=== PATIENT | male | born 1960 | race Caucasian/White ===

== ENCOUNTER 2024-11-23 00:49 | Emergency (ER) | payer MEDICAID, SELFPAY ==
[2024-11-23] VITALS (15 sets, daily range): BP systolic 125–152; BP diastolic 59–84; PULSE 72–90; RESP 15–26; TEMP 36.5; O2SAT 96–99
--- NOTE | 2024-11-23 00:44 | ED.GENADUL_ITS ---
Discharge Plan Disposition Condition: Stable Discharge Details Chief Complaint: Fall/Non TraumaCriteria Clinical Impression: Facial contusion, Right shoulder injury, Contusion of hip, right, Homeless single person ED Provider: Tan Aranda and New Rx's Prescriptions: No Action Unable to Obtain HPI General Mode of arrival: EMS . Date/Time Provider Initiated Documentation: 11/23/24 00:59 . Limitations to Documentation: no limitations . Information obtained by: patient and RN notes reviewed . HPI Narrative: Patient presents to ED by ambulance after slip and fall outside. Patient admits to alcohol use tonight. Slipped and fell outside on the ice. Landed on his right side. Unsure whether he had loss of consciousness or not. Complains of right shoulder and right hip pain. Does have bruising and abrasion to the right orbital area. Denies any neck pain, back pain, chest pain, shortness of breath. He is able to ambulate and put weight on his right lower extremity. He is unable to move his right upper extremity because of pain in the shoulder. Related Data Home Medications ?Medication ?Instructions ?Recorded ?Confirmed Unknown [Unable to Obtain] 11/23/24 11/23/24 Allergies Allergy/AdvReac Type Severity Reaction Status Date / Time No Known Allergies Allergy Verified 11/23/24 01:49 Review of Systems Narrative: Per HPI Exam Narrative Exam Narrative: Gen: WDWN male in NAD. Not collared. VS per triage. HENT: NC. Bruising and abrasion around the right eye. No lacerations. Eyes: PERRL and EOMI. Neck: Trachea midline. Non-tender c-spine. Chest: Normal breathing with clear and equal BS. Chest wall NT. CV: RRR w/o murmur. Good distal pulses. Abd: S/ND/NT. Back: No TLS tenderness. Neuro: A+Ox3. Normal speech and mentation. CN II-XII intact. No gross motor or sensory deficit. Ext: No deformity. Minimal ROM at right shoulder due to pain, NVI distal. Tender over right hip area, able to bear weight. NVI distal. Skin: Warm and dry. Medical Decision Making Patient presenting to ED status post slip and fall outside, alcohol use tonight. He is not on anticoagulation but has evidence of head injury and is unsure whether he had LOC or not. He is neurologically intact. Will obtain CT head an d cervical spine given his alcohol use tonight and evidence of head injury. Also has right shoulder and hip pain. Will obtain x-rays of both. He is given IM ketorolac for his pain pending imaging. No indication for laboratory studies at this time. 02:15 - CT head and cervical spine negative per preliminary radiology read. Has arthritic and degenerative change of the cervical spine no fracture or dislocation. X-ray of right shoulder and right hip per my read with no acute fracture or dislocation. Patient is placed in a sling for comfort. He is asked to use ibuprofen or acetaminophen for pain and to place ice on the shoulder and hip on and off over the next few days as this appears to be all soft tissue injury. He is currently homeless and is being put up in a hotel by the [facility] up in [place]. Primary care is in [place], [place]. He has no transportation to get back to [place] from here much less get to [place] to see primary care. He also reports that he is running low on his medications and is not been able to get them transferred up to her pharmacy here. Because of these problems and because of lack of transportation overnight I will keep him in the ED to be seen by case management in the morning. Ideally, it would be good to get him primary care in [place] for the time being as it is unclear when he might be able to move back to [place]. 06:45 - [facility] pending case management consult this morning. Imaging Data Radiologic Study: Attestation: I personally reviewed and interpreted this imaging study as follows: Imaging: X-Ray My impression: see MDM Quality:SDOH Health Related Social Needs: Health related social needs details Homeless and stayi ng in hotel [facility] arranged; no access to transportation; no PCP in area Health related social needs details: Homeless and staying in [facility] arranged; no access to transportation; no PCP in area Referrals and interventions: Case management to [facility] All Active Problems (Updated 11/23/24 @ 02:34 by Tan Aranda MD) Homeless single person (Acute) Contusion of hip, right (Acute) Right shoulder injury (Acute) Facial contusion (Acute) Medical History Depression PTSD (post-traumatic stress disorder) Diabetes mellitus HTN (hypertension) Social History Smoking/Tobacco Use Status: Current every day Smoking risk assessment performed?: Yes Alcohol Intake: current Alcohol Intake frequency: 3 or more drinks per day Alcohol type: beer and hard liquor Drug use: Never Substance use type: does not use Housing: apartment Do you feel safe at home: Yes Do you feel safe in your relationship?: Yes
[2024-11-23] MEDS: Ketorolac 30 MG/ML VIAL IM (01:05)
--- NOTE | 2024-11-23 01:45 | DI.CT_ITS ---
Exam(s) CT HEAD CERVICAL SPINE WO EXAM: CT HEAD CERVICAL SPINE WO CLINICAL HISTORY: fall w head injury/intoxicated. TECHNIQUE: Imaging Protocol: Axial computed tomography images with coronal and sagittal reformatted images were created and reviewed COMPARISON: No exams were available for comparison FINDINGS: CT Head: Ventricles and Extra axial spaces: Normal in size and morphology for the patient's age. Hemorrhage: None. Cerebral parenchyma: Normal. Midline shift: None. Brainstem/Cerebellum: Normal. Calvarium: Normal. Visualized Paranasal sinuses/Mastoids: Clear. Soft Tissues: Unremarkable. CT Cervical Spine: Bones: No acute fracture or subluxation. There are degenerative changes seen in the cervical spine. Findings are most marked at C4-C5 on the right. Soft Tissues: Unremarkable. Lung Apices: Clear. IMPRESSION: 1. No acute intracranial process. 2. No acute fracture or subluxation in the cervical spine. RADIATION DOSE DELIVERED: 1,287.66mGy.cm Total DLP DATA REPOSITORY: All CT scans at this facility are submitted to the National Radiology Data Registry (NRDR) Dose Index Registry (DIR) with the [employer] (ACR). RADIATION OPTIMIZATION: All CT scans at this facility use at least one of these dose optimization te chniques: automated exposure control; mA and/or kV adjustment per patient size (includes targeted exa ms where dose is matched to clinical indication); or iterative reconstruction.
--- NOTE | 2024-11-23 01:45 | DI.RAD_ITS ---
Exam(s) XR HIP RT COMPLETE AP PELVIS EXAM: XR HIP RT COMPLETE AP PELVIS CLINICAL HISTORY: fall/trauma. TECHNIQUE: 2D digital imaging was performed of the right hip. Two images were obtained. AP pelvis a nd lateral right hip views were obtained. COMPARISON: No exams were available for comparison FINDINGS: BONES: No acute fracture is present. No bony destructive lesion is seen. JOINTS: No dislocation present. SOFT TISSUE: Normal. IMPRESSION: No acute fracture or dislocation. DATA REPOSITORY: RADIATION DOSE DELIVERED:
--- NOTE | 2024-11-23 01:45 | DI.RAD_ITS ---
Exam(s) XR SHOULDER RT COMPLETE 2+V EXAM: XR SHOULDER RT COMPLETE 2+V CLINICAL HISTORY: fall/trauma. TECHNIQUE: 2D digital imaging was performed of the right shoulder. Four images were obtained. AP, Grashey and Y views were obtained. COMPARISON: No exams were available for comparison FINDINGS: BONES: No acute fracture is present. No bony destructive lesion is seen. JOINTS: No dislocation present. There are degenerative changes seen at both the acromioclavicular and glenohumeral joints. There is mild spurring at the lateral aspect of the acromion. There is also m ild narrowing of the acromial humeral interval which can be seen with chronic rotator cuff tear. SOFT TISSUE: Normal. IMPRESSION: No acute fracture or dislocation. DATA REPOSITORY: RADIATION DOSE DELIVERED:
--- NOTE | 2024-11-23 01:59 | DI.VRAD_ITS ---
PROCEDURE INFORMATION: Exam: CT Head Without Contrast Exam date and time: 11/23/2024 1:09 AM Age: 64 years old Clinical indication: Injury or trauma; Blunt trauma (contusions or hematomas); Consciousness not specified; Injury date: 11/23/24; Injury details: Slipped on ice; Fall w head injury/intoxicated TECHNIQUE: Imaging protocol: Computed tomography of the head without contrast. Radiation optimization: All CT scans at this facility use at least one of these dose optimization techniques: automated exposure control; mA and/or kV adjustment per patient size (includes targeted exams where dose is matched to clinical indication); or iterative reconstruction. COMPARISON: No relevant prior studies available. FINDINGS: Brain: Normal. No hemorrhage. Unremarkable white matter. No mass effect. Cerebral ventricles: No ventriculomegaly. Paranasal sinuses: Visualized sinuses are unremarkable. No fluid levels. Mastoid air cells: Visualized mastoid air cells are well aerated. Bones: Unremarkable. No acute fracture. Soft tissues: Unremarkable. IMPRESSION: Normal unenhanced CT scan of the brain. PROCEDURE INFORMATION: Exam: CT Cervical Spine Without Contrast Exam date and time: 11/23/2024 1:09 AM Age: 64 years old Clinical indication: Injury or trauma; Blunt trauma (contusions or hematomas); Consciousness not specified; Injury date: 11/23/24; Injury details: Slipped on ice; Fall w head injury/intoxicated TECHNIQUE: Imaging protocol: Computed tomography of the cervical spine without contrast. Radiation optimization: All CT scans at this facility use at least one of these dose optimization techniques: automated exposure control; mA and/or kV adjustment per patient size (includes targeted exams where dose is matched to clinical indication); or iterative reconstruction. COMPARISON: No relevant prior studies available. FINDINGS: Bones: There is normal alignment of the cervical vertebral bodies and discs with loss of the normal lordosis of the cervical spine. Osteoarthritic changes identified at multiple levels with a mild anterolisthesis of C4 in relation to C5 which is degenerative in nature. No evidence for spondylolysis. No acute fracture. No central spinal stenosis or cord compression identified. Neural foraminal narrowing identified at several levels secondary to uncovertebral joint and facet joint arthropathy. Lungs: Lung apices are normal. Soft tissues: Unremarkable. IMPRESSION: 1. No evidence for acute fracture. 2. Osteoarthritic changes as detailed above without underlying spinal stenosis or cord compression. Dictated and Authenticated by: Jose Eduardo Headley MD. Orderin Manoj Maddox MD
--- NOTE | 2024-11-23 02:15 | DI.VRAD_ITS ---
PROCEDURE INFORMATION: Exam: XR Right Hip Exam date and time: 11/23/2024 1:26 AM Age: 64 years old Clinical indication: Injury or trauma; Fall; Blunt trauma (contusions or hematomas); Right; Hip; Injury date: 11/23/24; Injury details: Slipped on ice TECHNIQUE: Imaging protocol: Radiologic exam of the right hip. Views: 2 or 3 views hip with pelvis when performed. COMPARISON: No relevant prior studies available. FINDINGS: Bones/joints: Unremarkable. No acute fracture. Soft tissues: Unremarkable. IMPRESSION: No acute findings. Dictated and Authenticated by: Jose Eduardo Headley MD. Orderin Manoj Maddox MD
--- NOTE | 2024-11-23 02:16 | DI.VRAD_ITS ---
PROCEDURE INFORMATION: Exam: XR Right Shoulder Exam date and time: 11/23/2024 1:33 AM Age: 64 years old Clinical indication: Injury or trauma; Fall; Blunt trauma (contusions or hematomas); Shoulder; Right; Injury date: 11/23/24; Injury details: Slipped on ice TECHNIQUE: Imaging protocol: Radiologic exam of the right shoulder. Views: 2 or more views. COMPARISON: CT HEAD CERVICAL SPINE WO 11/23/2024 1:09 AM FINDINGS: Bones/joints: No acute fracture. Osteoarthritis of the glenohumeral joint. No dislocation. Soft tissues: Normal. IMPRESSION: 1. No evidence for acute fracture. 2. Osteoarthritis. Dictated and Authenticated by: Jose Eduardo Headley MD. Orderin Manoj Maddox MD
[2024-11-23] MEDS: Lidocaine 5% Patch 1 PATCH TP (03:43)
--- NOTE | 2024-11-23 07:09 | W.EDPROG ---
Date of service: 11/23/24 Time of Service: 07:09 Medical Decision Making In brief, this is a 64-year-old male patient presenting for evaluation after a fall. He had his injuries fully worked up by the provider prior to my taking over his care. At the time that care was signed out to me, his disposition was pending a care management consultation as he will require transportation back to [place] and assistance in obtaining a primary care provider at that clinic. The patient care nursing assistant was able to discuss with this patient and provide him with assistance with transportation as well as a referral for a case investigator in his hometown. At this time, the patient has had a full medical evaluation and is safe for discharge to home. They are hemodynamically stable, ambulatory, and tolerating PO. They are understanding of the follow-up plan and return precautions. They left our facility without incident. Ana Prescott MD Medical Records Medical records reviewed: Yes I reviewed the patient's medical records. Quality:SDOH Health Related Social Needs: Health related social needs details Homeless and staying in hotel that state arranged; no access to transportation; no PCP in area Discharge Plan Disposition Patient Disposition: Home Condition: Stable Discharge Details Clinical Impression: Facial contusion, Right shoulder injury, Contusion of hip, right, Homeless single person Primary Care Provider: Unknown,Unknown ED Provider: Ana Prescott Home Meds and New Rx's Prescriptions: No Action Unable to Obtain Discharge Instructions Instructions: Minor Contusion ED Additional Instructions: You were seen in the emergency department today for evaluation after a fall. In our department he had a full physical examination performed and had reassuring imaging studies. You met with a member of our care management team and we will attempt to connect you with a patient care nursing assistant in your hometown to assist you with getting a primary care provider and any other needs you have. Thank you for allowing us to be part of your care.
--- OUTSIDE RECORDS SUMMARY | 2024-11-23 08:22 | XMS_ITS | Encounter Summary ---
Author Organization [facility] Address [facility] [place] [address] Care Team Providers Care Acupuncturist Name Role Phone Ward Sofia T PA Primary Care Provider [phone] Reason for Visit * Reason Comments Post Op Encounter Details Date Type Department Care Team (Late st Contact Info) Description 05/18/2024 3:15 PM EDT Office [place] [address] Marcus Owen MD [facility] [place] [address] Pseudophakia Social History Tobacco Use Types Packs/Day Years Used Date Smoking Tobacco: Former Cigarettes 0.3 35 0 02/05/1983 - 02/05/2018 Smokeless Tobacco: Never Comments:avs information Alcohol Use Standard Drinks/Week Comments Yes 0 (1 standard drink = 0.6 oz pur e alcohol) 0-12 beers / week [facility] Inpatient Questions Answer Date Recorded Does Anyone Try to Keep You From Having Contact with Others or Doing Things Outside Your Home? 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 Pseudophakia Seferino Honeycutt . with S/p IOL exchange OS to ACIOL after dislocated PCIOL 04/14/2024 Doing well with a normal post operative appearance. Seferino is pleased with the results of surgery and has no complaints or problems. 20/20 O[facility] Hx retinal detachments bilaterally, OD surgery at [address], OS at [facility] 2007 (HAYDEE): follow up with Dr. Tam for continued retinal care. Plan: - Subjective refraction given - Stop all post operative drops - snf post op risks included retinal detachment and posterior capsular opacification reviewed. Follow up: - [address] Tam or as needed with [facility] Upon Return CEE documented in this encounter Plan of Treatment Not on file documented as of this encounter Visit Diagnoses Diagnosis Pseudophakia Lens replaced by other means documented in this encounter Care Teams Acupuncturist Relationship Specialty Start Date End Date Sofia Hopper PA [address] [place] [id number] PCP - General Internal Medicine 04/06/24 documented as of this encounter
--- OUTSIDE RECORDS SUMMARY | 2024-11-23 08:22 | XMS_ITS | Encounter Summary ---
Author Organization [facility] [place] [address] Care Team Providers Care Catering Attendant Name Role Phone Ward Sofia MASTERSON Primary Care Provider [phone] Reason for Visit * Reason Onset Date Comments Prior Authorization 09/26/2024 Xifaxan Encounter Details Date Type Department Care Team (Late st Contact Info) Description 09/26/2024 Telephone [place] [id number] Joanne Mclain CMA Prior Authorization (Xifaxan) Social History Tobacco Use Types Packs/Day Years Used Date Smoking Tobacco: Former Cigarettes 0.3 35 0 02/05/1983 - 02/05/2018 Smokeless Tobacco: Never Comments:avs information Alcohol Use Standard Drinks/Week Comments Yes 0 (1 standard drink = 0.6 oz pur e alcohol) 0-12 beers / week [facility] Inpatient Questions Answer Date Recorded Does Anyone [...] on file documented as of this encounter Miscellaneous Notes * Telephone Encounter - Joanne Mclain CMA - 09/26/2024 11:01 AM EST Submitted Date: Submitted Date: 09/26/24 Next Review Date: Next Review Date: 09/26/25 PA Outcome: PA Approval Medication Prior Authorization Approval Approved: Xifaxan 550 mg Start Date: 09/26/24 End Date: 09/26/25 Case/Reference #: [id number] Approval Letter will be scanned into media once received. * Telephone Encounter - Joanne Mclain CMA - 09/26/2024 8:44 AM EST PA Submitted Submitted Date: Date Submitted: 09/26/24 Medication Prior Authorization Patient: Seferino Honeycutt Jr. Patient : 1960 Insurance Company: [place] medicaid Sent via: Accountable Schreiber: : [id number] Physician: Steffanie Plummer APRN Medication Requested: rifAXIMin (Xifaxan) 550 mg tablet Frequency/Sig: Take 1 tablet by mouth 2 times daily. Disp: 60 Refills: 3 Currently taking: yes If yes, how lon Diagnosis for this medication: Hepatic cirrhosis, unspecified hepatic cirrhosis type, unspecified whether ascites present [K74.60] Hepatic Encephalopathy ICD-10 code: (K76.82 Prior medications trialed in this patient: Medication: Dulcolax Approx Dates: 2012 Outcome/Adverse Reactions: Inadequate response Medication: Cipro tablet Approx Dates: 2012 Outcome/Adverse Reactions: Inadequate response Medication: Colace Approx Dates: 2012 Outcome/Adverse Reactions: Inadequate response Medication: Lactulose Approx Dates: Outcome/Adverse Reactions: inadequate response Medication: Enulose Approx Dates: 01/2024-current Outcome/Adverse Reactions: inadequate response Medication: Miralax Approx Dates: 2012 Outcome/Adverse Reactions: inadequate response Additional Notes: Hepatic encephalopathy-he has not been taking lactulose and rifaximin recently although does believe these have helped in the past. New prescription sent today he plans to start these Hepatic encephalopathy-he has not been taking lactulose and rifaximin recently although does believe these have helped in the past. New prescription sent today he plans to start these documented in this encounter Plan of Treatment Not on file documented as of this encounter Visit Diagnoses Not on filedocumented in this encounter Care Teams Catering Attendant Relationship Specialty Start Date End Date Sofia Hopper PA [address] [place] [id number] PCP - General Internal Medicine 04/06/24 documented as of this encounter
--- OUTSIDE RECORDS SUMMARY | 2024-11-23 08:22 | XMS_ITS | Encounter Summary ---
Author Organization [facility] [place] [address] Care Team Providers Care Thermostat Machine Tender Name Role Phone Sofia Hopper Primary Care Provider [phone] Encounter Details Date Type Department Care Team (Latest Contact Info) Description 05/18/2024 Travel Social History Tobacco Use Types Packs/Day Years Used Date Smoking Tobacco: Former Cigarettes 0.3 35 0 02/05/1983 - 02/05/2018 Smokeless Tobacco: Never Comments:avs information Alcohol Use Standard Drinks/Week Comments Yes 0 (1 standard drink = 0.6 oz pur e alcohol) 0-12 beers / week [facility] Inpatient Questions Answer Date Recorded Does Anyone [...] on file documented as of this encounter Plan of Treatment Not on file documented as of this encounter Visit Diagnoses Not on filedocumented in this encounter Care Teams Thermostat Machine Tender Relationship Specialty Start Date End Date Sofia Hopper PA [address] [place] [id number] PCP - General Internal Medicine 04/06/24 documented as of this encounter
--- OUTSIDE RECORDS SUMMARY | 2024-11-23 08:22 | XMS_ITS | Encounter Summary ---
Author Organization [facility] Address [facility] [place] [address] Care Team Providers Care Statistics Manager Name Role Phone Sofia Hopper Primary Care Provider [phone] Reason for Visit * Reason Comments Medication Refill Encounter Details Date Type Department Care Team ([facility] st Contact Info) Description 07/29/2024 [place] [address] Steffanie Plummer APRN [facility] [place] [address] Hepatic encephalopathy Social History Tobacco Use Types Packs/Day Years Used Date Smoking Tobacco: Former Cigarettes 0.3 35 0 02/05/1983 - 02/05/2018 Smokeless Tobacco: Never Comments:avs information Alcohol Use Standard Drinks/Week Comments Yes 0 (1 standard drink = 0.6 oz pur e alcohol) 0-12 beers / week [facility] Inpatient Questions Answer Date Recorded Does Anyone [...] as of this encounter Visit Diagnoses Diagnosis Hepatic encephalopathy documented in this encounter Care Teams Statistics Manager Relationship Specialty Start Date End Date Sofia Hopper PA [address] [place] [address] [phone] PCP - General Internal Medicine 04/06/24 documented as of this encounter
--- OUTSIDE RECORDS SUMMARY | 2024-11-23 08:22 | XMS_ITS | Encounter Summary ---
Author Organization [place] [address] Care Team Providers Care Event Specialist Name Role Phone Ward Sofia MASTERSON Primary Care Provider [phone] Encounter Details Date Type Department Care Team (Late st Contact Info) Description 11/07/2024 [place] [phone] Mita Perdomo, RN Social History Tobacco Use Types Packs/Day Years [...] encounter Miscellaneous Notes * Telephone Encounter - Mita Perdomo RN - 11/07/2024 9:13 AM EST Reaching out to assist patient in scheduling the US (abdomen limited hepatology protocol) ordered by NP. Plummer on 02/10/24 (expected 08/11/24). The patient stated that now is not a convenient time because [place]. Asked patient to call the GI Clinic to coordinate imaging, labs, OV. documented in this encounter Plan of Treatment Not on file documented as of this encounter Visit Diagnoses Not on filedocumented in this encounter Care Teams Event Specialist Relationship Specialty Start Date End Date Sofia Hopper PA [address] [place] [phone] PCP - General Internal Medicine 04/06/24 documented as of this encounter
--- OUTSIDE RECORDS SUMMARY | 2024-11-23 08:22 | XMS_ITS | Encounter Summary ---
Author Organization [facility] [place] [address] Care Team Providers Care Dog Bather Name Role Phone Ward Sofia MASTERSON Primary Care Provider [phone] Encounter Details Date Type Department Care Team (Late st Contact Info) Description 08/08/2024 [place] [phone] Shelly Hackett LPN Social History Tobacco Use Types Packs/Day Years [...] encounter Miscellaneous Notes * Telephone Encounter - Shelly Hackett LPN - 08/08/2024 3:15 PM EDT PC to help schedule US Abdomen Limited Hepatology Protocol, along with Labs and FU OV ordered 02/10/24 by Steffanie Plummer APRN. Transferred patient to GI Clinic to coordinate documented in this encounter Plan of Treatment Not on file documented as of this encounter Visit Diagnoses Not on filedocumented in this encounter Care Teams Dog Bather Relationship Specialty Start Date End Date Sofia Hopper PA [address] [place] [id number] PCP - General Internal Medicine 04/06/24 documented as of this encounter
--- OUTSIDE RECORDS SUMMARY | 2024-11-23 08:22 | XMS_ITS | Encounter Summary ---
Author Organization [place] [address] Care Team Providers Care Magistrate Name Role Phone Sofia Hopper Primary Care Provider [phone] Reason for Visit * Reason Comments Medication Refill Encounter Details Date Type Department Care Team ([facility] st Contact Info) Description 07/29/2024 Refill Cardiology at [address] [address] Coby Bazan APRN [address] [place] [address] [place] [address] Medication Refill Social History Tobacco Use Types Packs/Day Years [...] on filedocumented in this encounter Care Teams Magistrate Relationship Specialty Start Date End Date Sofia Hopper PA [address] [place] [phone] PCP - General Internal Medicine 04/06/24 documented as of this encounter
--- OUTSIDE RECORDS SUMMARY | 2024-11-23 08:22 | XMS_ITS | Encounter Summary ---
Author Organization [facility] [place] [address] Care Team Providers Care Account Executive Agribusiness Name Role Phone Sofia Hopper Primary Care Provider Encounter Details Date Type Department Care Team ([facility] st Contact Info) Description 11/07/2024 [place] [phone] Mita Perdomo, RN Social History Tobacco Use [...] on filedocumented in this encounter Care Teams Account Executive Agribusiness Relationship Specialty Start Date End Date Sofia Hopper PA [address] [place] [phone] PCP - General Internal Medicine 04/06/24 documented as of this encounter
--- OUTSIDE RECORDS SUMMARY | 2024-11-23 08:22 | XMS_ITS | Encounter Summary ---
Author Organization [facility] [place] [address] Care Team Providers Care Poker Room Manager Name Role Phone Sofia Hopper Primary Care Provider [phone] Encounter Details Date Type Department Care Team (Latest Contact Info) Description 04/25/2024 Travel Social History Tobacco Use Types Packs/Day [...] on filedocumented in this encounter Care Teams Poker Room Manager Relationship Specialty Start Date End Date Sofia Hopper PA [address] [place] [phone] PCP - General Internal Medicine 04/06/24 documented as of this encounter
--- OUTSIDE RECORDS SUMMARY | 2024-11-23 08:22 | XMS_ITS | Clinical Summary ---
Author Organization [facility] Address [facility] [place] [address] Care Team Providers Care Technology Consultant Name Role Phone Sofia Hopper Primary Care Provider [phone] Allergies Active Allergy Reactions Criticality Noted Date Comments Aspirin-Sod Bicarb-Citric Acid Anaphylaxis High 03/07/2016 Sodium bicarbonate Hymenoptera Allergenic Extract Anaphylaxis High 08/08/2013 Medications Medication Sig Dispensed Refills Start Date End Date Status nitroGLYcerin (NITROSTAT) 0.4 mg SL tablet 0.4 MG = 1 Tablet(s), Sublingual, PRN 03/02/2008 Active metoprolol succinate (TOPROL-XL) 50 mg 24 hr tablet Take 50 mg by mouth daily. Active hydrochlorothiazide (HYDRODIURIL) 25 mg tabletIndications:hy pertension Take 25 mg by mouth daily. Indications: Hypertension Active BUPROPION HCL (WELLBUTRIN XL ORAL) Take 150 mg by mouth 2 times daily. Active gabapentin (NEURONTIN) 100 mg capsule Take 600 mg by mouth 2 times daily. Active lisinopril (PRINIVIL;ZESTRIL) 10 mg tablet Take 10 mg by mouth daily. Active tamsulosin (FLOMAX) 0.4 mg Capsule, Sust. Release 24 hr Take 0.4 mg by mouth daily. Active busPIRone (BUSPAR) 15 mg Tablet Take 15 mg by mouth 2 times daily. Active QUEtiapine (SEROQUEL) 100 mg Tablet Take 100 mg by mouth 2 times daily. Active sertraline (ZOLOFT) 100 mg Tablet Take 100 mg by mouth daily. Active metFORMIN (FORTAMET) 1,000 mg Tablet Extended Rel 24 hr Take 1,000 mg by mouth daily (with breakfast). Active ferrous gluconate 324 mg (38 mg iron) Tablet TAKE 1 TABLET BY MOUTH EVERY DAY 90 tablet 3 12/31/2020 Active amitriptyline (Elavil) 10 mg Tablet 10/31/2022 Active atorvastatin (Lipitor) 40 mg Tablet 08/22/2022 Active OneTouch Verio test strips Strip 07/27/2022 Active Jardiance 10 mg Tablet Take 10 mg by mouth daily. 11/07/2022 Active melatonin 3 mg Tablet 11/07/2022 Active meloxicam (MOBIC) 15 mg Tablet 11/07/2022 Active rifAXIMin (Xifaxan) 550 mg tabletIndications:He patic cirrhosis, unspecified hepatic cirrhosis type, unspecified whether ascites present Take 1 tablet by mouth 2 times daily. 60 tablet 3 10/01/2023 Active omeprazole (PriLOSEC) [address] capsule Take 1 capsule by mouth daily. After 8 weeks decrease to every other day for 1 week, then stop. 90 capsule 02/10/2024 Active Enulose 10 gram/15 mL SolutionIndications: Hepatic encephalopathy TAKE 15 ML BY MOUTH TWO TIMES A DAY 946 mL 5 07/29/2024 Active Active Problems Problem Noted Date Diagnosed Date Retinal detachment, bilatera l: OD surgery at [facility] 1990s, OS at [facility] 2000s 12/01/2023 Cirrhosis of liver 02/13/2014 Spinal stenosis, lumbar antonietta on, without neurogenic claudication 07/22/2012 Chronic Mechanical low back pain 07/22/2012 CAD (coronary artery disease), [place] coronary a rtery 07/07/2012 Overview (07/07/2012): ACS with PCI to RCA in two locations, September 2007. Tobacco abuse disorder 07/07/2012 Hepatitis C 07/07/2012 Hypertension 07/07/2012 Encounters Date Type Department Care Team Description 11/07/2024 [place] [phone] Mita Perdomo RN 11/07/2024 [place] [address] Mita Perdomo RN 09/26/2024 Telephone [place] [address] Joanne Mclain CMA Prior Authorization (Xifaxan) from Last 3 Months Immunizations Name Administration Dates Next Due Influenza Trivalent, Preservative Free 3 Influenza Vaccine, Whole 10/13/2007 Social History Tobacco Use Types Packs/Day Years Used Date Smoking Tobacco: Former Cigarettes 0.3 35 0 02/05/1983 - 02/05/2018 Smokeless Tobacco: Never Tobacco Cessation:Counseling Given: Not Answered Comments:avs information Alcohol Use Standard Drinks/Week Comments [...] on file Sexual Orientation Not on file Last Filed Vital Signs Vital Sign Reading Time Taken Comments Blood Pressure 101/51 04/14/2024 11:00 AM EDT Pulse 72 04/14/2024 11:00 AM EDT Temperature 36.6 ??C (97.9 ??F) 04/14/2024 10:15 AM E DT Respiratory Rate 23 04/14/2024 11:00 AM EDT Oxygen Saturation 96% 04/14/2024 11:00 AM EDT Inhaled Oxygen Concentration - - Weight 86 kg (189 lb 11.2 oz) 04/14/2024 6:19 AM EDT Height 171.5 cm (5' 7.5) 04/14/2024 6:19 AM EDT Body Mass Index 29.27 04/14/2024 6:19 AM EDT Plan of Treatment Health Maintenance Due Date Last Done Comments CT Colonography 1961 FIT DNA 1960 FIT 1960 Sigmoidoscopy 1960 Pneumoccocal Vaccine: 50+ (1 of 2 - PCV) 01/28/1980 Tetanus/Diphtheria/Pertussis Vaccines (1 - Tdap) 01/28/1980 Zoster vaccine (1 of 2) 2011 Advance Directive 01/28/2016 RSV Vaccine (1 - Risk 60-74 years 1-dose series) 2021 Covid-19 Vaccine (1 - 2023-2 5 season) 2024 Influenza (Flu) vaccine (1 o f 1 - Influenza standard series) 06/26/2024 07/09/2013, 10/13/2007 Diabetes Screening (HgbA1C o r Glucose) 02/09/2027 02/10/2024, 03/24/2023, 07/02/2022, Additional history exists Colonoscopy 11/07/2030 11/07/2020, 11/07/2020 Colorectal Cancer Screening 11/07/2030 Sigmoidoscopy (10 year) with FIT yearly 11/07/2030 11/07/2020, 11/07/2020 HIV screen Completed 06/08/2012 Medical Devices Implanted Type Area Communications Project Lead Device Identifier Shelf Expiration Date Model / Serial / Lot Stent,Contour [id number] ([id number]) - S. Implanted:Qty : 1 on 09/07/2013 by Wyatt Edmonds MD at [facility] IMPLANTS Right: Ureter DO NOT USE [employer] - [id number] 06/25/2016 180-223 / . / [id number] Lens Iol [id number] +14.5d 5.5x13.5 Monofocal Ant Convexo Single ([id number]) (Autoreq) - [id number] Implanted:Qty : 1 on 04/14/2024 by Hoang Tam MD at [facility] IMPLANTS Left: Eye [employer] - DMITRY [id number] / / Explanted [employer] Project Lead Device Identifier Shelf Expiration Date Model / Serial / Lot Stent,Contour [id number] ([id number]) - [id number] Implanted:Qty: 1 on 07/09/2013 at [facility] Explanted:Qty: 1 on 09/07/2013 at [facility] IMPLANTS DO NOT USE [employer] - [id number] 02/24/2016 180-223 / / [id number] Procedures Procedure Name Priority Date/Time Associated Diagnosis Comments COMPREHENSIVE METABOLIC PANEL Routine 02/10/2024 8:24 AM EDT Hepatic cirrhosis, unspecified hepatic cirrhosis type, unspecified whether ascites present COLONOSCOPY Routine 11/07/2020 9:55 AM EST HIV SCREEN, 4TH GENERATION ([facility]/CGP/APD/NLH)PERF ORMABLE Routine 06/08/2012 11:32 AM EDT Hepatitis C from Last 3 Months or Most Recently Relevant to Health Maintenance Results * (ABNORMAL) Comprehensive metabolic panel (non-fasting) (02/10/2024 8:24 AM EDT) Glucose 145 65 - 199 mg/dL [facility] Comment:Diabetes: >=200 mg/d L plus symptoms Blood Urea Nitrogen 18 10 - 20 mg/dL [facility] Creatinine 0.72(L) 0.80 - 1.50 mg/dL [facility] Sodium 144 135 - 145 mmol/L [facility] Potassium 4.6 3.5 - 5.0 mmol/L [facility] Comment: Please note: ??Patients with WBC >100,000 may have falsely elevated Potassium levels. ??For accurate Potassium quantification in these patients send serum separator tube (gold top) for subsequent determinations. ??Contact the Clinical Chemistry Laboratory if there are any questions. Chloride 107 98 - 107 mmol/L [facility] Carbon Dioxide 27 22 - 31 mmol/L [facility] Anion Gap 10 5 - 15 mmol/L [facility] Calcium 9.8 8.5 - 10.5 mg/dL [facility] Protein, Total 7.5 6.1 - 8.0 g/dL [facility] Albumin 4.2 3.2 - 5.2 g/dL [facility] Aspartate Aminotransferase 31 0 - 39 unit/L [facility] Alanine Aminotransferase 25 0 - 55 unit/L [facility] Alkaline Phosphatase 101 40 - 130 unit/L [facility] Bilirubin, Total 0.5 0.2 - 1.3 mg/dL [facility] Est Glomerular Filtration Rate 103 >=60 mL/min/1. 73 m?? [facility] Comment: This patient's estimated GFR was calculated using the 2020 CKD-EPI equation. The estimated GFR can vary from the measured GFR by up to 30% in the absence of rapidly changing kidney function. Assessment of the estimated GFR is not appropriate when creatinine concentrations are rapidly changing. For clinical situations in which a more precise estimate of GFR is necessary, consider alternative methods of GFR estimation such as a 24-hour urine creatinine clearance. Assignment of CKD stage 1-5 for patients with an eGFR near the transition point between stages may be based on clinical assessment of muscle mass and symptoms in addition to eGFR. Blood 02/10/2024 8:24 AM EDT 02/10/2024 8:27 AM EDT Narrative Resulting Agency Comment Spec In Lab Steffanie Plummer APRN CHEMISTRY ORDERABL ES [facility] [place] [address] * COLONOSCOPY (11/07/2020 9:55 AM EST) COLONOSCOPY [facility] Endoscopy Procedure Date: 11/07/2020 9:55 AM ? Patient Name: Seferino Honeycutt ? N: [id number] ? Date of : 1960 ? Age: 60 ? Order #: [id number] ? Instrument Name: [id number] ? Procedure: ? Colonoscopy Indications: ? Screening for colorectal malignant ? neoplasm Providers: ? Chelsi Sidhu MD, Nando Andrews ? Candie Nugent MD: ?Jose Eduardo Kruse: ? Fentanyl 100 micrograms IV, Midazolam ? 3 mg IV Complications: ? No immediate complications. Procedure: ? Pre-Anesthesia Assessment: ? - Prior to the procedure, a History ? and Physical was performed, and ? patient medications and allergies ? were reviewed. The patient's ? tolerance of previous anesthesia was ? also reviewed. The risks and benefits ? of the procedure and the sedation ? options and risks were discussed with ? the patient. All questions were ? answered, and informed consent was ? obtained. Prior Anticoagulants: The ? patient has taken no previous ? anticoagulant or antiplatelet agents. ? ASA Grade Assessment: II - A patient ? with mild systemic disease. After ? reviewing the risks and benefits, the ? patient was deemed in satisfactory ? condition to undergo the procedure. ? The procedure, indications, benefits, ? risks and alternatives were explained ? to the patient. Specifically ? discussed were potential ? complications including, but not ? limited to, bleeding, perforation, ? infection, missing a cancer, and ? adverse medication reactions. The ? patient was placed in the left ? lateral decubitus position, and a ? digital rectal exam was performed. ? The Colonoscope was inserted in the ? anus and under direct visualization, ? advanced to the cecum, identified by ? appendiceal orifice and ileocecal ? valve. Careful inspection was made as ? the colonoscope was withdrawn. The ? colonoscopy was performed without ? difficulty. The patient tolerated the ? procedure well. The quality of the ? bowel preparation was evaluated using ? the BBPS ([employer] Bowel Preparation ? Scale) with scores of: Right Colon = ? 3, Transverse Colon = 3 and Left ? Colon = 3 (entire mucosa seen well ? with no residual staining, small ? fragments of stool or opaque liquid). ? The total BBPS score equals 9. ? Withdrawal time was 8 minutes. ? Findings: ? The perianal and digital rectal examinations were ? normal. ? The terminal ileum appeared normal. ? The descending colon, transverse colon, ascending ? colon and cecum appeared normal except for a few ? isolated AVM in the ascending and descending colon. ? A few small-mouthed diverticula were found in the ? sigmoid colon. ? Rectal varices were found on retroflexion. ? Moderate Sedation: ? I was present during the intraservice time as ? documented by the sedation RN. Impression: ?- The examined portion of the ileum ? was normal. ? - The descending colon, transverse ? colon, ascending colon and cecum are ? normal. ? - Diverticulosis in the sigmoid colon. ? - Rectal varices. ? - No specimens collected. Recommendation: ?- Repeat colonoscopy in 10 years for ? screening purposes. ? - Return to referring physician. ? Procedure Code(s): ?? --- Professional --- ? 92835, Colonoscopy, flexible; ? diagnostic, including collection of ? specimen(s) by brushing or washing, ? when performed (separate procedure) CPT copyright 2019 [employer]. All rights reserved. The codes documented in this report are preliminary and upon bmet review may be revised to meet current compliance requirements. Attending Participation: ? I personally performed the entire procedure. ? Chelsi Sidhu MD Chelsi Sidhu MD 11/07/2020 11:11:36 AM This report has been signed electronically. Number of Addenda: 0 Note Initiated On: 11/07/2020 9:55 AM PROVATION 11/07/2020 9:55 AM EST Jose Eduardo Bond APRN GENERAL SURGICAL ORDERABLES PROVATION * HIV (06/08/2012 11:32 AM EDT) HIV 1/2 Ab Negative [facility] Blood specimen (specimen) 06/08/2012 11:32 AM EDT 06/08/2012 11:44 AM EDT Narrative Resulting Agency Comment Spec In Lab Velma Rodas MD CHEMISTRY ORDERABLES Performing Organization Address City/[facility]/ZIP Co de Phone Number [facility] MICHAELEN[facility]UM from Last 3 Months or Most Recently Relevant to Health Maintenance Advance Directives * Full Code (Latest Code Status on File) Date Activated Date Inactivated Comments 07/08/2013 11:02 PM 07/09/2013 3:08 PM Question Answer Comments Order Status: Initial Order Does patient have decision m aking capacity? Yes, Order is based on Patients wishes. Care Teams Technology Consultant Relationship Specialty Start Date End Date Sofia Hopper PA [address] [place] [id number] PCP - General Internal Medicine 04/06/24
--- OUTSIDE RECORDS SUMMARY | 2024-11-23 08:23 | XMS_ITS | Encounter Summary ---
Author Organization [facility] Address [facility] [place] [address] Care Team Providers Care Compressor Operator Adjuster Name Role Phone None Primary Care Provider Unavailabl e Encounter Details Date Type Department Care Team (Late st Contact Info) Description 12/01/2023 12:00 PM EST Office Visit [facility]hthalmology at [facility] [place] [address] Hoang Tam MD [facility] [place] [address] Retinal detachment, bilateral: OD surgery at [facility] , OS at [facility] 2007 ([facility]); Dislocated IOL (intraocular lens), posterior, left Social History Tobacco Use Types Packs/Day Years Used Date Smoking Tobacco: Every Day Cigarettes 0.3 35 Started: 02/05/1983; Last attempted to quit: 02/05/2018 Smokeless Tobacco: Never Comments:avs information Alcohol Use Standard Drinks/Week Comments No 0 (1 standard drink = 0.6 oz pur e alcohol) 6 pack per week Sex and Gender Information Value Date Recorded Sex Assigned at Not on file Gender Identity Not on file Sexual Orientation Not on file documented as of this encounter Progress Notes * Hoang Tam MD - 12/01/2023 12:00 PM EST ASSESSMENT: 1. Retinal detachment, bilateral: OD surgery at [facility] , OS at [facility] 2007 ([place]DE[place]) 2. Dislocated IOL (intraocular lens), posterior, left Consult for dislocated IOL. Seen in conjunction with Dr. Owen OD: Attached retina with SB and PPV. IOL stable OS: Attached retina with SB and PPV. IOL unstable and dislocating. Angle appears open. IMPRESSION/PLAN: Plan for PPV and IOL exchange to ACIOL with Dr Owen. R/B/A discussed Consent signed I have seen the patient in person and reviewed the history and I agree with the details as written.The assessment and plan were formulated in discussion with me and I agree with them as documented. Hoang Tam MD documented in this encounter Plan of Treatment Not on file documented as of this encounter Visit Diagnoses Diagnosis Retinal detachment, bilateral: OD surgery at [facility] , OS at [facility] 2007 ([place]) Unspecified retinal detachment Dislocated IOL (intraocular lens), posterior, left documented in this encounter Care Teams Compressor Operator Adjuster Relationship Specialty Start Date End Date None None PCP - General 07/02/22 04/05/24 documented as of this encounter
--- OUTSIDE RECORDS SUMMARY | 2024-11-23 08:23 | XMS_ITS | Encounter Summary ---
Author Organization [facility] Address [facility] [place] [address] Care Team Providers Care Production Drilling Machine Operator Name Role Phone None Primary Care Provider Unavailabl e Reason for Visit * Reason Comments Medication Refill Encounter Details Date Type Department Care Team (Late st Contact Info) Description 05/18/2023 Refill Gastroenterology at [facility] [place] [place] [address] Steffanie Plummer APRN [facility] [place] [address] Social History Tobacco Use Types Packs/Day Years [...] on filedocumented in this encounter Care Teams Production Drilling Machine Operator Relationship Specialty Start Date End Date None None PCP - General 07/02/22 04/05/24 documented as of this encounter
--- OUTSIDE RECORDS SUMMARY | 2024-11-23 08:23 | XMS_ITS | Encounter Summary ---
Author Organization Counts Include [facility] Address [facility] [place] [address] Care Team Providers Care Dough Molder Name Role Phone None Primary Care Provider Unavailabl e Encounter Details Date Type Department Care Team (Latest Contact Info) Description 02/10/2024 8:27 AM EDT - 02/10/2024 11:59 PM EDT Hospital Encounter Ultrasound at [facility] [place] [address] Steffanie Garcia APRN [facility] [place] [address] Hepatic cirrhosis, unspecified hepatic cirrhosis type, unspecified whether ascites present Discharge Disposition: Home Social History Tobacco Use Types Packs/Day Years [...] on file documented as of this encounter Medications at Time of Discharge Medication Sig Dispensed Refills Start Date End Date omeprazole (PriLOSEC) [address] capsule Take 1 capsule by mouth daily. After 8 weeks decrease to every other day for 1 week, then stop. 90 capsule 02/10/2024 rifAXIMin (Xifaxan) 550 mg tabletIndications:Hepa tic cirrhosis, unspecified hepatic cirrhosis type, unspecified whether ascites present Take 1 tablet by mouth 2 times daily. 60 tablet 3 10/01/2023 amitriptyline (Elavil) 10 mg Tablet 10/31/2022 atorvastatin (Lipitor) 40 mg Tablet 08/22/2022 OneTouch Verio test strips Strip 07/27/2022 Jardiance 10 mg Tablet Take 10 mg by mouth daily. 11/07/2022 melatonin 3 mg Tablet 11/07/2022 meloxicam (MOBIC) 15 mg Tablet 11/07/2022 ferrous gluconate 324 mg (38 mg iron) Tablet TAKE 1 TABLET BY MOUTH EVERY DAY 90 tablet 3 12/31/2020 metFORMIN (FORTAMET) 1,000 mg Tablet Extended Rel 24 hr Take 1,000 mg by mouth daily (with breakfast). QUEtiapine (SEROQUEL) 100 mg Tablet Take 100 mg by mouth 2 times daily. sertraline (ZOLOFT) 100 mg Tablet Take 100 mg by mouth daily. busPIRone (BUSPAR) 15 mg Tablet Take 15 mg by mouth 2 times daily. tamsulosin (FLOMAX) 0.4 mg Capsule, Sust. Release 24 hr Take 0.4 mg by mouth daily. lisinopril (PRINIVIL;ZESTRIL) 10 mg tablet Take 10 mg by mouth daily. gabapentin (NEURONTIN) 100 mg capsule Take 600 mg by mouth 2 times daily. BUPROPION HCL (WELLBUTRIN XL ORAL) Take 150 mg by mouth 2 times daily. metoprolol succinate (TOPROL-XL) 50 mg 24 hr tablet Take 50 mg by mouth daily. hydrochlorothiazide (HYDRODIURIL) 25 mg tabletIndications:hype rtension Take 25 mg by mouth daily. Indications: Hypertension nitroGLYcerin (NITROSTAT) 0.4 mg SL tablet 0.4 MG = 1 Tablet(s), Sublingual, PRN 03/02/2008 lactulose (Chronulac) 10 gram/15 mL SolutionIndications:He patic encephalopathy Take 15 mLs by mouth 2 times daily. 946 mL 5 12/15/2023 02/15/2024 documented as of this encounter Plan of Treatment Not on file documented as of this encounter Procedures Procedure Name Priority Date/Time Associated Diagnosis Comments US ABDOMEN LIMITED HEPATOLOGY PROTOCOL Routine 02/10/2024 9:20 AM EDT Hepatic cirrhosis, unspecified hepatic cirrhosis type, unspecified whether ascites present documented in this encounter Results * US Abdomen Limited Hepatology Protocol (02/10/2024 9:20 AM EDT) Anatomical Region Laterality Modality Abdomen Ultrasound 02/10/2024 9:17 AM EDT Impressions 02/10/2024 10:02 AM EDT 1. ??Coarse parenchymal echogenicity with nodular capsular contour. Findings are consistent with known cirrhosis. No focal hepatic lesion. 2. ??Normal directionality of portal venous flow. 3. ??Marked splenomegaly. Trace ascites. 4. ??No cholelithiasis or abnormal collateral wall thickening. 5. ??No intra or extrahepatic biliary ductal dilation. I have personally reviewed the image(s) and the resident's interpretation and agree with the findings, Dexter Linares MD at 02/10/2024 9:54 AM Electronically signed by: Dexter Linares MD, [facility] ([phone]), at 02/10/2024 9:54 AM Thank you for letting us participate in the care of this patient. If you are a health care provider and have any questions regarding this report, please contact the number above. For patients who have questions, please contact the health career education teacher that requested your imaging first. ?Dexter Linares, Staff Physician Electronically Signed Final Report ?? 02/10/2024 10:01 am Narrative 02/10/2024 10:02 AM EDT Abdominal ? (Signed Final 02/10/2024 10:01 am) PATIENT INFO: ID #: ? [id number] ?: ??[birth year] (64 yrs)(M) Name: ? SEFERINO Hines ?Visit Date: 02/10/2024 09:17 am ? RACHEL PERFORMED BY: Attending: ?Milagros HICKMAN, Dexter Graves Resident: ? Wilder HICKMAN, Wm Melendez Performed By: ? ROSANA Mccarthy Erin Referred By: ?STEFFANIE GARCIA Location: ? [place] [facility] Protocol - Abdominal ?06301 Limited Survey Single Organ or Quadrant - [id number] INDICATIONS: cirrhosis, screen for hcc TECHNIQUE/SCAN QUALITY: Scan Quality: ?? Limited visualization due to overlying bowel gas. COMPARISON: US: Hepatology 03/24/23 ------ LIVER: ------ Right Lobe Length: ?? 10.8 ?? cm Echogenicity/Echotexture: ?? Coarse parenchyma with capsular ? nodularity -------- Lesions: -------- # ?Date ?Location ?Description ?L ?AP ?TV (cm) 1 ?10/13/18 ?Left Lobe ? Hypoechoic ?1.4 ?0.5 ? 1.1 ?Lesion Comment: ?No focal lesion seen. Left lobe hypertrophy GALLBLADDER: Cholelithiasis: ?No stones visualized Wall Thickness: ?5.4 mm Focal Tenderness: ?Negative sonographic Diaz's sign Comment: ?No pericholecystic fluid or wall hyperemia seen. BILIARY TRACT: Intrahepatic Ducts: ?? Normal Extrahepatic Ducts: ?? Normal Common Duct Size: ? 1.8 ? mm ------- SPLEEN: ------- Size (cm) ?L: ??17.6 ?AP: ??6.5 ? TV: ??18.8 Vol (ml): ?1126.1 Comment: ?Splenomegaly FLUID COLLECTIONS: Trace perihepatic and perisplenic ascites Procedure Note Dexter Linares MD - 02/10/2024 Abdominal (Signed Final 02/10/2024 10:01 am) PATIENT INFO: ID #: [id number] : [birth year] (64 yrs)(M) Name: SEFERINO Hines Visit Date: 02/10/2024 09:17 am RACHEL PERFORMED BY: Attending: Dexter Linares MD Resident: Wm Hdz MD Performed By: ROSANA Mccarthy Erin Referred By: STEFFANIE GARCIA Location: [place] SERVICE[facility]) [facility] - Hepatology Protocol - Abdominal 21910 Limited Survey Single Organ or Quadrant - [id number] INDICATIONS: cirrhosis, screen for hcc TECHNIQUE/SCAN QUALITY: Scan Quality: Limited visualization due to overlying bowel gas. COMPARISON: US: Hepatology 03/24/23 ------ LIVER: ------ Right Lobe Length: 10.8 cm Echogenicity/Echotexture: Coarse parenchyma with capsular nodularity -------- Lesions: -------- # Date Location Description L AP TV (cm) 1 10/13/18 Left Lobe Hypoechoic 1.4 0.5 1.1 Lesion Comment: No focal lesion seen. Left lobe hypertrophy GALLBLADDER: Cholelithiasis: No stones visualized Wall Thickness: 5.4 mm Focal Tenderness: Negative sonographic Diaz's sign Comment: No pericholecystic fluid or wall hyperemia seen. BILIARY TRACT: Intrahepatic Ducts: Normal Extrahepatic Ducts: Normal Common Duct Size: 1.8 mm ------- SPLEEN: ------- Size (cm) L: 17.6 AP: 6.5 TV: 18.8 Vol (ml): 1126.1 Comment: Splenomegaly FLUID COLLECTIONS: Trace perihepatic and perisplenic ascites IMPRESSION 1. Coarse parenchymal echogenicity with nodular capsular contour. Findings are consistent with known cirrhosis. No focal hepatic lesion. 2. Normal directionality of portal venous flow. 3. Marked splenomegaly. Trace ascites. 4. No cholelithiasis or abnormal collateral wall thickening. 5. No intra or extrahepatic biliary ductal dilation. I have personally reviewed the image(s) and the resident's interpretation and agree with the findings, Dexter Linares MD at 02/10/2024 9:54 AM Electronically signed by: Dexter Linares MD, [facility] ([phone]), at 02/10/2024 9:54 AM Thank you for letting us participate in the care of this patient. If you are a health care provider and have any questions regarding this report, please contact the number above. For patients who have questions, please contact the health career education teacher that requested your imaging first. Dexter Linares, Staff Physician Electronically Signed Final Report 02/10/2024 10:01 am Steffanie Garcia APRN IMG US GEN ORDERAB LES documented in this encounter Visit Diagnoses Diagnosis Hepatic cirrhosis, unspecified hepatic cirrhosis type, unspecified whether ascites present documented in this encounter Care Teams Dough Molder Relationship Specialty Start Date End Date None None PCP - General 07/02/22 04/05/24 documented as of this encounter
--- OUTSIDE RECORDS SUMMARY | 2024-11-23 08:23 | XMS_ITS | Encounter Summary ---
Author [facility] [place] [address] Care Team Providers Care Camera Mechanic Name Role Phone None Primary Care Provider Unavailabl e Reason for Visit * Reason Onset Date Comments Prior Authorization 03/25/2023 rifAXIMin (X ifaxan) 550 mg tablet Encounter Details Date Type Department Care Team (Late st Contact Info) Description 03/25/2023 [place] [id number] Erica Beltran CMA Prior Authorization (rifAXIMin (Xifaxan) 550 mg tablet ) Social History Tobacco Use Types Packs/Day Years [...] encounter Miscellaneous Notes * Telephone Encounter - Radha Kendrick CCMA - 03/25/2023 1:11 PM EDT Summary: APPROVAL Submitted Date: Submitted Date: 03/25/2023 Next Review Date: Next Review Date: 03/25/2024 PA Outcome: PA Approval Medication Prior Authorization Approval Approved: rifAXIMin (Xifaxan) 550 mg tablet Start Date: 03/25/2023 End Date: 03/25/2024 Case/Reference #: [id number] Approval Letter will be scanned into media once received. * Telephone Encounter - Fatemeh Tan CMA - 03/25/2023 11:47 AM EDT Images from the original note were not included. * Telephone Encounter - Erica Beltran CMA - 03/25/2023 10:46 AM EDTSummary: Submitted PA Submitted Submitted Date: Submitted Date: 03/25/2023 Medication Prior Authorization Patient: Seferino Honeycutt Jr. Patient : 1960 Insurance Company: [place] Medicaid Sent via: [employer]e D[employer] Schre[place]: [id number] Physician: Steffanie Plummer APRN Medication Requested: rifAXIMin (Xifaxan) 550 mg tablet Frequency/Sig: Take 1 tablet by mouth 2 times daily. Disp: 60 Refills: 3 Currently taking: yes If yes, how lon09/2018 Diagnosis for this medication: Hepatic cirrhosis, unspecified hepatic cirrhosis type, unspecified whether ascites present (K74.60) Prior medications trialed in this patient: Medication: lactulose (Chronulac) 10 gram/15 mL Solution Approx Dates: 06/2013-current Outcome/Adverse Reactions: Inadequate response Additional Notes: Attached 03/24/2023 GI note to prior authorization documented in this encounter Plan of Treatment Not on file documented as of this encounter Visit Diagnoses Not on filedocumented in this encounter Care Teams Camera Mechanic Relationship Specialty Start Date End Date None None PCP - General 07/02/22 04/05/24 documented as of this encounter
--- OUTSIDE RECORDS SUMMARY | 2024-11-23 08:23 | XMS_ITS | Encounter Summary ---
Author Organization [facility] Address [facility] [place] [address] Care Team Providers Care Photographic Specialist Name Role Phone None Primary Care Provider Unavailabl e Encounter Details Date Type Department Care Team (Late st Contact Info) Description 11/11/2023 9:15 AM EST Anesthesia [place] [address] Aleah Aguilar MD [facility] [place] [address] Anesthesia Record Procedure Summary Procedure Name Responsible Anesthesiologist Anesthesia Start Time Anesthesia Stop Time EGD, UPPER GI ENDOSCOPY (WRVU 2.09) (Trunk) Aleah Aguilar MD 11/11/23 0915 11/11/23 0937 Events Date Time Event Comment 11/11/2023 0828 0915 AN Verify 0915 Start 0915 An Start Data 0920 An Induction 0923 Anesthesia Ready 0925 Procedure Start 0928 Procedure Stop 0934 an stop data 0937 Recovery or ICU Handoff Yanira ent care was transferred to the destination unit staff after review of the patient's medical history, current anesthetic/surgical status and plan, according to the Provider Handoff Checklist. 0937 Stop Meds Name Total IV Lidocaine 60 mg Propofol 70 mg Propofol INF 270.98 mg lactated ringers infusion 100 mL * Agents Name O2 Air N2O O2 Auxiliary Flowmeter 1 * Blood No blood administrations on file. Lines, Drains, and Airways Type Details Placement Removal PIV 11/11/23; 0855; [id number] catheter system; 22 gauge; median cubital vein (antecubital fossa), right; Nathen Dahl RN; 11/11/23; 1017 11/11/23 0855 by Aurora Dahl RN 11/11/23 1017 by Cari Lozano RN documented in this encounter Social History Tobacco Use Types Packs/Day Years [...] on file documented as of this encounter OR Notes * Anesthesia Postprocedure Evaluation - Aleah Aguilar MD - 11/11/2023 10:33 AM EST Department of Anesthesiology Post-procedure Note Patient: Seferino Honeycutt Jr. Procedure Summary Date: 11/11/23 Room / Location: [facility] ENDO 3 / [facility] ENDOSCOPY Anesthesia Start: 914 Anesthesia Stop: 936 Procedure: EGD, UPPER GI ENDOSCOPY (WRVU 2.09) (Trunk) Diagnosis: Hepatic cirrhosis, unspecified hepatic cirrhosis type, unspecified whether ascites present (cirrhosis screen for varices) Surgeons: Marcus Martinez MD Responsible Provider: Aleah Aguilar MD Anesthesia Type: MAC ASA Status: 3 All Anesthesia Providers: Anesthesiologist: Aleah Aguilar MD SCRATCHER TENDER: Anastasiia Goldberg CRNA Vitals Value Taken Time BP 114/70 11/11/23 1010 Temp Pulse Resp 18 11/11/23 1010 SpO2 96 % 11/11/23 1012 Pain Level 0 11/11/23 1010 Vitals shown include unfiled device data. Patient Location: PACU/[facility] Level of Consciousness: Awake and Alert Pain Management: Satisfactory Analgesia PONV: None Cardiovascular Status: At Baseline Respiratory Status: Stable Respiratory Status Postoperative Fluid Status: Intravascular EUvolemia Possible Anesthetic Complications: NONE apparent at time of evaluation Final Primary Anesthesia Type: MAC (The anesthetic type performed was the same as planned.) Comments: Mr. Yinka Manzo Tolerated the procedure well and without complication. Pt met discharge criteria from the recovery area without issue. * Anesthesia Preprocedure Evaluation - Aleah Aguilar MD - 11/11/2023 8:14 AM EST Images from the original note were not included. Pre-Anesthesia Evaluation for: Seferino Honeycutt Jr. a 63 y.o. male. Procedure(s): EGD, UPPER GI ENDOSCOPY (WRVU 2.09) Patient Active Problem List Diagnosis Date Noted Cirrhosis of liver 02/13/2014 Spinal stenosis, lumbar region, without neurogenic claudication 07/22/2012 Chronic Mechanical low back pain 07/22/2012 CAD (coronary artery disease), [place] coronary artery 07/07/2012 Tobacco abuse disorder 07/07/2012 Hepatitis C 07/07/2012 Hypertension 07/07/2012 Past Medical History: Diagnosis Date Cataract Chronic low back pain Depression H/O acute myocardial infarction High blood pressure Past Surgical History: Procedure Laterality Date CATARACT REMOVAL CORONARY ANGIOPLASTY WITH STENT PLACEMENT EYE SURGERY PRO COLONOSCOPY, DIAGNOSTIC N/A 11/07/2020 COLONOSCOPY, DIAGNOSTIC performed by Chelsi Sidhu MD at [facility] ENDOSCOPY PRO CYSTO/URETERO/PYELOSCOPY W/LITHOTRIPSY 09/07/2013 CYSTOURETEROSCOPY, LITHOTRIPSY performed by Wyatt Edmonds MD at [facility] MAIN OR PRO CYSTOSCOPY, INSERT URETERAL STENT 07/09/2013 CYSTO, STENT PLACEMENT performed by Wyatt Edmonds MD at [facility] OR PRO CYSTOSCOPY, INSERT URETERAL STENT 09/07/2013 CYSTO, STENT PLACEMENT performed by Wyatt Edmonds MD at [facility] MAIN OR PRO CYSTOSCOPY, REMV CALCULUS, SIMPLE 09/07/2013 CYSTO, REMOVAL OF STENT, FOREIGN BODY OR CALCULUS, SIMPLE performed by Wyatt Edmonds MD at [facility] OR PRO CYSTOURETHROSCOPY, URETER CATHETER 07/09/2013 CYSTO, RETROGRADE, URETEROPYELOGRAPHY performed by Wyatt Edmonds MD at [facility] OR PRO UPPER GI ENDOSCOPY, BIOPSY 03/08/2014 UPPER GASTROINTESTINAL ENDOSCOPY,WITH BIOPSY SINGLE OR MULTIPLE performed by Dejuan Young MD at [facility] ENDOSCOPY PRO UPPER GI ENDOSCOPY, BIOPSY N/A 03/20/2016 EGD WITH BIOPSY performed by Lashell Marcos MD at [facility] ENDOSCOPY PRO UPPER GI ENDOSCOPY, DIAGNOSTIC 08/08/2014 EGD, UPPER GI ENDOSCOPY performed by Lashell Marcos MD at [facility] ENDOSCOPY PRO UPPER GI ENDOSCOPY, DIAGNOSTIC N/A 04/07/2018 EGD, UPPER GI ENDOSCOPY performed by Velma Rodas MD at [facility] ENDOSCOPY PRO UPPER GI ENDOSCOPY, DIAGNOSTIC N/A 11/07/2020 EGD, UPPER GI ENDOSCOPY performed by Chelsi Sidhu MD at [facility] ENDOSCOPY UPPER GI ENDOSCOPY, EXAM 07/13/2012 UPPER GI ENDOSCOPY performed by GILA MELENDEZ at [facility] ENDOSCOPY Social History Tobacco Use Smoking status: Every Day Packs/day: 0.25 Years: 35.00 Additional pack years: 0.00 Total pack years: 8.75 Types: Cigarettes Last attempt to quit: 02/05/2018 Years since quittin.7 Smokeless tobacco: Never Tobacco comments: avs information Substance Use Topics Alcohol use: No Comment: 6 pack per week Social History Substance and Sexual Activity Drug Use No Allergies Allergen Reactions Natasha-Newfane [Aspirin-Sod Bicarb-Citric Acid] Anaphylaxis Sodium bicarbonate Bee Sting [Hymenoptera Allergenic Extract] Anaphylaxis Medications: MAR and/or home medications have been reviewed. Physical Exam: Preprocedure Vitals Current as of 11/11/23 0814 No BP, pulse, respiration, SpO2, or temperature recorded. Height: 176.5 cm (5' 9.5) (03/24/23) Weight: 102.8 kg (226 lb 11.2 oz) (03/24/23) BMI: 32.99 IBW: 71.8 kg (158 lb 5.4 oz) Airway Assessment: Mallampati: II TM distance: >3 FB Neck ROM: full Cardiovascular Assessment: system normal Pulmonary Assessment: unlabored breathing pulmonary exam normal Dental Assessment: Comment: Pt has poor dentition with one loose tooth as documented. Misc Assessment: IV access: Peripheral line Last Filed Perioperative Cognitive Screening None Anesthesia Plan: ASA 3 MAC, with a(n) intravenous induction Mr. Yinka Manzo Is a 63 year old male with PMhx of CAD (s/p RCA stenting x 2 in 2006), tobacco abuse, mechanical low back pain, NIDDM, hepatitis C and cirrhosis scheduled for varices screening by EGD. Allergies reviewed. Plan for propofol gtt. Risks were discussed at length, and all questions and concerns were addressed. Consent was obtained, and the appropriate paperwork was placed in the patient's chart. Region - Other Informed Consent: Anesthetic plan and risks discussed with patient. Plan discussed with SCRATCHER TENDER. Anesthesia Screening documented in this encounter Plan of Treatment Not on file documented as of this encounter Visit Diagnoses Not on filedocumented in this encounter Administered Medications Inactive Administered Medications - up to 3 most recent administrations Medication Order MAR Action Action Date Dose Rate Site lactated ringers infusion 100 mL/hr, Intravenous, CONTINUOUS, Starting on Thu11/11/23 at 0900, Until Thu11/11/23 at 1017, Endoscopy (Day of Procedure) New Bag 11/11/2023 9:15 AM EST lidocaine (pf) (Xylocaine) (20 mg/mL) 2% injection syringe Intravenous, PRN, Starting on Thu11/11/23 at 0920, Until Thu11/11/23 at 0942, Anesthesia Intra-op, Routine Given 11/11/2023 9:20 AM EST 60 mg propofoL (Diprivan) (10 mg/mL) infusion Intravenous, CONTINUOUS PRN, Starting on Thu11/11/23 at 0920, Until Thu11/11/23 at 0942, Anesthesia Intra-op, Routine New Bag 11/11/2023 9:20 AM EST 200 mcg/kg/min 95.64 mL/hr propofoL (Diprivan) 10 mg/mL bolus injection (Anesthesia) Intravenous, PRN, Starting on Thu11/11/23 at 0920, Until Thu11/11/23 at 0942, Anesthesia Intra-op Given 11/11/2023 9:24 AM EST 20 mg Given 11/11/2023 9:20 AM EST 50 mg documented in this encounter Care Teams Photographic Specialist Relationship Specialty Start Date End Date None None PCP - General 07/02/22 04/05/24 documented as of this encounter
--- OUTSIDE RECORDS SUMMARY | 2024-11-23 08:23 | XMS_ITS | Encounter Summary ---
Author Organization [facility] Address [facility] [place] [address] Care Team Providers Care Advanced Practice Nurse Psychotherapist Name Role Phone None Primary Care Provider Unavailabl e Reason for Visit * Reason Comments Procedure Encounter Details Date Type Department Care Team (Latest Contact Info) Description 01/05/2024 11:00 AM EDT Procedure visit Ophthalmology at [facility] [place] [address] Marcus Owen MD [facility] DR OPHTHALMOLOGY [place] [id number] Cataract, unspecified cataract type, unspecified laterality Social History Tobacco Use Types Packs/Day Years [...] as of this encounter Progress Notes * Marcus Owen MD - 01/05/2024 11:00 AM EDT POMs done today. documented in this encounter Plan of Treatment Not on file documented as of this encounter Procedures Procedure Name Priority Date/Time Associated Diagnosis Comments [id number] CALC BY LASER INTERFEROMETRY - OU - BOTH EYES Routine 01/07/2024 10:13 AM EDT Cataract, unspecified cataract type, unspecified laterality documented in this encounter Results * [id number] Calc By Laser Interferometry - OU - Both Eyes (01/07/2024 10:13 AM EDT) Anatomical Region Laterality Modality Other Narrative 01/07/2024 10:13 AM EDT Table formatting from the original result was not included. Patient Hx Past Medical Hx ??Pt. ??has a past medical history of Cataract, Chronic low back pain, Depression, H/O acute myocardial infarction, and High blood pressure. Past Ophth Surg Hx ??Ophth surgical history includes: cataract removal/iol implant. Eye Meds ??QUEtiapine, amitriptyline, atorvastatin, blood sugar diagnostic strips, bupropion HCl, busPIRone, empagliflozin, ferrous gluconate, gabapentin, hydroCHLOROthiazide, lactulose, lisinopriL, melatonin, meloxicam, metFORMIN, metoprolol succinate XL, nitroGLYcerin, rifAXIMin, sertraline, and tamsulosin IOL Biometry - Initial (source: [facility]) OD OS Date Performed 01/05/2024 ??4:03 PM 01/05/2024 ??4:03 PM ?? Target Refraction -0.25 -0.25 ?? Axial Length 25.33 (mm) 25.04 (mm) ?? Anterior Chamber Depth 5.41 (mm) 5.15 (mm) ?? Horizontal White to White 13 (mm) 13.13 (mm) ?? Formula Used ? K's 42.37, 42.57, 42.72@043, 044, 045 / 44.43, 44.40, 44.23@133, 134, 135 42.75, 42.78, 42.88@165, 163, 169 / 43.61, 43.62, 43.60@075, 073, 079 ? Add'l Comments/Discrepancies/Concerns: POM done by FRANSISCO on 01/05/2024 S/p RD repair OD x2 at [facility] in the , RD repair OS with Dr. Herrmann in the 1999s, CE/IOL OU around [address] Dickey, Dislocated IOL OS currently IOL-Master results: AL - OD: 25.32 mm ?? OS: 25.04 mm ACD - OD: 4.12 mm ?? OS: 4.13 mm WTW - OD: 12.90 mm ?? OS: 12.90 mm Note: [facility] done for Astigmatism OD>OS and for extra set of K's Marcus Owen MD OPHTHALMOLOGY SERVIC ES ORDERABLES documented in this encounter Visit Diagnoses Diagnosis Cataract, unspecified cataract type, unspecified laterality documented in this encounter Care Teams Advanced Practice Nurse Psychotherapist Relationship Specialty Start Date End Date None None PCP - General 07/02/22 04/05/24 documented as of this encounter
--- OUTSIDE RECORDS SUMMARY | 2024-11-23 08:23 | XMS_ITS | Encounter Summary ---
Author Organization [facility] [place] [address] Care Team Providers Care Medical Laboratory Assistant Name Role Phone Sofia Hopper Primary Care Provider [phone] Reason for Visit * Auth/Cert (Routine) Specialty Diagnoses / Procedures Referred By Tejal elizabeth Referred To Contact Diagnoses Retinal detachment, bilateral Dislocated IOL (intraocular lens), posterior, left Dislocated IOL left eye Procedures PRO VITRECTOMY,MECHANICAL PRO EXCHANGE LENS PROSTHESIS VITRECTOMY, MECHANICAL PARS PLANA APPROACH (WRVU 12.13) EXCHANGE OF INTRAOCULAR LENS (WRVU 12.26) Hoang Tam MD [facility] [place] [address] [facility] Referral ID Status Reason Start Date Expiration Date Visits Re quested Visits Authorized [id number] 1 1 Encounter Details Date Type Department Care Team (Late st Contact Info) Description 04/14/2024 7:30 AM EDT - 04/14/2024 10:15 AM EDT [place] [address] Hoang Tam MD [facility] [place] [address] VITRECTOMY, PARS PLANA, LASER (WRVU 13.2) Social History Tobacco Use Types Packs/Day Years [...] on file documented as of this encounter Last Filed Vital Signs Vital Sign Reading Time Taken Comments Blood Pressure 131/47 04/14/2024 10:15 AM EDT Pulse 76 04/14/2024 10:15 AM EDT Temperature 36.6 ??C (97.9 ??F) 04/14/2024 10:15 AM E DT Respiratory Rate 18 04/14/2024 6:19 AM EDT Oxygen Saturation 100% 04/14/2024 10:15 AM EDT Inhaled Oxygen Concentration - - Weight 86 kg (189 lb 11.2 oz) 04/14/2024 6:19 AM EDT Height 171.5 cm (5' 7.5) 04/14/2024 6:19 AM EDT Body Mass Index 29.27 04/14/2024 6:19 AM EDT documented in this encounter Discharge Instructions * Discharge Instructions* Hoang Tam MD - 04/14/2024 10:13 AM EDT * Patient Instructions* Hoang Tam MD - 04/06/2024 11:32 AM EDT DROPS: Operated eye: Please keep the patch on the operated eye and do NOT use any eye drops. You will start them right after your post-op day 1 exam. Non- operated eye: Please continue all the eye drops (if any) as previously instructed POSITIONING: Please keep a FACE DOWN or LEFT SIDE DOWN position as much as possible. It's ok to take a ~5- 10 minute break every hour. Please sleep on your side with the LEFT cheek touching the pillow. DO NOT LAYFLAT ON BACK. WARNING SYMPTOMS People frequently feel mild-moderate soreness, blurriness or discomfort that improve within days. Eyelid edema and redness are also common for weeks. However, if you experience severe pain, severe blurriness, severe tenderness and/or light sensitivity please call the [facility] telephone center ([phone]) immediately and ask to be connected to the community outreach coordinator operations recruiter. PAIN May use over the counter pain medications as needed: Tylenol 1000mg- up to 3 times/day as needed and/or ibuprofen 600mg up to 3 times/day as needed EYE SHIELD: Keep eye shield on the eye overnight. OTHERS It is ok to walk or do most simple daily activities at home (eg watching TV, reading with the othereye) Avoid high impact exercise or activities (e.g. weight lifting, running) until cleared by your surgeon Avoid lifting heavy weights until cleared by your surgeon (i.e. Not more than 5- 10 lbs) Avoid straining, coughing, squeezing, heavy valsalva, etc as much as possible FLIGHTS: Do NOT take any flights until you discuss it with your doctor. If there is a bubble in your eye, then there is a severe risk for the eye if travel to high altitude (flight, high mountains, etc) documented in this encounter Medications at Time of Discharge [...] MG = 1 Tablet(s), Sublingual, PRN 03/02/2008 Enulose 10 gram/15 mL SolutionIndications:He patic encephalopathy TAKE 15 ML BY MOUTH TWO TIMES A DAY 946 mL 5 02/15/2024 07/29/2024 documented as of this encounter Progress Notes * Courtney Humphries RN - 04/14/2024 11:23 AM EDT IV removed, site benign. My assessment remains unchanged from my previous assessment. No complaintsof chest pain or SOB. Discussed pain management. Patient has all belongings and has received discharge summary. Summary reviewed with pt and daughter, all questions answered. Patient encouraged to call with any further questions or concerns. Patient discharged to home with daughter. VSS. Tolerated PO intake. documented in this encounter H&P Notes * Tanisha Mitchell MD - 04/14/2024 7:21 AM EDT History and Physical Reviewed. No changes noted. Patient Vitals for the past 24 hrs: Temp Pulse Resp BP SpO2 04/14/24 0619 36 ??C (96.8 ??F) 86 18 138/76 98 % H: RR L: Breathing comfortable. Clear. Ok to proceed with eye surgery as planned. Tanisha Mitchell MD [facility] Ophthalmology PGY3 [id number] I saw the patient with the following level of supervision from the attending: Direct from Dr. Tam. documented in this encounter Miscellaneous Notes * Op Note - Hoang Tam MD - 04/14/2024 8:15 AM EDT [facility] [place] Patient Name: Seferino Honeycutt Jr. : [id number] MR#: [id number] Case Date: 04/14/2024 Surgeon: Surgeons and Role: Panel 1: * Hoang Tam MD - Primary * Tanisha Mitchell MD - Resident - Assisting Panel 2: * Marcus Owen MD - Primary Preoperative diagnosis: Dislocated IOL left eye Postoperative diagnosis: Dislocated IOL left eye Procedure(s) (LRB): VITRECTOMY, MECHANICAL PARS PLANA APPROACH (WRVU 12.13) (Left) EXCHANGE OF INTRAOCULAR LENS (WRVU 12.26) (Left) Anesthesia: General Estimated Blood Loss: < 1 mL Specimens removed during surgery: None Drains: * No LDAs found * Surgical Closure: Primary Closure - skin incision is completely closed without any wires, arabella, drains or other devices Disposition: awakened from anesthesia, extubated and taken to the recovery room in a stable condition, having suffered no apparent untoward event. Condition: doing well without problems INDICATIONS FOR PROCEDURE: This is a 64 y.o. male who was found to have a dislocated IOL. He has a history of retinal detachment repair with scleral buckle and PPV in the past. In order to improve his vision, he elected to proceed with surgery. Risks, benefits, and alternatives were explained to the patient in great detail and he decided to proceed with surgery. DESCRIPTION OF PROCEDURE: The patient was [place] [facility] [place] time-out was done to confirm correct eye, correct patient, and correct procedure. The left eye was prepped and draped in the normal sterile fashion for intraocular surgery and a wire lid speculum was used throughout the case to retract the eyelids. General anesthesia was induced and maintained throughout the case without complications. Using the Adam 23-gauge vitrectomy system, trocars were placed in the inferotemporal, superotemporal and superonasal quadrants approximately 3.5 mm from the limbus. An infusion cannula was placed inthe inferotemporal quadrant and its position was confirmed by direct visualization with the light pipe before it was turned on. Using the vitrector and the light pipe, the eye was entered and the IOLwas freed from any remaining zonular adhesions and allowed to fall back to the posterior pole. Any remaining vitreous skirt was removed. The retina appeared stable and attached with previous scleral buckle and laser. PFO was instilled into the eye and the dislocated plate haptic 1 piece IOL was floated towards the iris plane. A paracentesis was made at 2:00 and viscoat was instilled into the eye. The IOL was brought into the AC with the light pipe from posterior and then the case was turned over to who performed IOL exchange to ACIOL. This is dictated in his separate op report. Once all the corneal wounds were closed we returned to the PPV portion of the case. All PFO was removed from the eye withcopious irrigation and suction from the soft tip cannula. In this process an iatrogenic retinal break was created inferonasal at the posterior edge of the scleral buckle. This was treated with laser with good uptake. An complete air fluid exchange was performed to tamponade the retina and for IOP regulation post op. Additiona miochol was instilled into the eye and a peripheral iridectomy was madein the superonasal iris with the vitrector. The ACIOL was centered and the pupil was round and miotic. Each of the trocars was removed sequentially, the sclerotomies were closed with 7-0 vicryl sutures and the eye was left adequately pressurized, air and watertight. Subconjunctival injection of cefazolin (100mg/0.3ml) and dexamethasone (2mg/0.5ml) as well as a peribulbar injection of marcaine 0.75% w as given. A drop of vigamox and antibiotic ointment were applied on the eye followed by a patch andshield. The patient was awoken from anesthesia, positioned appropriately immediately to tamponade the retina as needed,and brought to the recovery room in stable condition.They have follow up in the [facility] in 1 day. Attestation: Case Date: 04/14/2024 I was present and I participated during the entire procedure (does not need to include opening and closing). Hoang Tam MD 04/14/2024 * Op Note - Marcus Owen MD - 04/14/2024 8:15 AM EDT [facility] [place] Patient Name: Seferino Honeycutt Jr. : [id number] MR#: [id number] Case Date: 04/14/2024 Surgeon: Surgeons and Role: Panel 1: * Hoang Tam MD - Primary * Tanisha Mitchell MD - Resident - Assisting Panel 2: * Marcus Owen MD - Primary Preoperative diagnosis: Dislocated IOL left eye Postoperative diagnosis: Dislocated IOL left eye Procedure(s) (LRB): VITRECTOMY, PARS PLANA, LASER (WRVU 13.2) (Left) EXCHANGE OF INTRAOCULAR LENS (WRVU 12.26) (Left) Anesthesia: General Preoperative Diagnoses 1. Dislocated PCIOL OS 2. 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 Same Procedure: Explantation of PCIOL with implantation of Adam [id number], 14.5 D). Surgeon: Marcus Owen MD Specimens: None. Estimated blood loss: Minimal ( less than 1ml) Complications: None. Brief History: Seferino Honeycutt Jr. is a 64 y.o. 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 Procedure: After informed consent was reviewed with the patient in the preoperative area and the operative site was marked, the patient was taken to the operating room and placed on the operating table in the supine position and with some reverse Trendelenburg. A drop of alcaine and then 5% betadine was placed in the operative eye x 2 beginning 10 minutes prior to the surgerical incision. After adequate general anesthesia was given the operative eye was then prepped and draped in the usual sterile ophthalmic manner with containment of the eyelashes. A lid speculum was placed into the operative eye. Dr. Tam performed a PPV and manipulated the PCIOL to the anterior chamber filled with viscot. Thewhite to white distance was measured and found to be 12.5 in the vertical axis and slightly more inthe horizontal axis. A MTA 5UO lens was selected based on these measurements. A conjunctival incision was made at ~10 o'clock using Fern scissors. Conjunctiva and Tenon's membrane were opened to allow a 6 mm incision site approximately 1 mm posterior to the limbus. Hemostasis was obtained with eraser- tip cautery. A paracentesis was then made a 2 o'clock. The eye was filled with miochol and then additional viscoelastic. The eye was then entered through the incision using the keratome and the would was opened to 6 mm. The PCIOL was manipulated out of the AC. The IOL (see above) was placed into the anterior chamber after the eye had been filled with viscoelastic. The lens was in the appropriate position and the haptics well seated in the angle.The pupil remained round throughout the case. The lens was well centered and stable in the angle. The shelved wound was sutured with 10.0 interrupted vicryl sutures and found to be watertight with the infusion on. The case was then turned back to Dr. Tam for completion of his procedure and for creation of a iridotomy. MARCUS OWEN MD Attestation: Case Date: 04/14/2024 I was present and I participated during the entire procedure (does not need to include opening and closing). MARCUS OWEN MD 04/14/2024 documented in this encounter Plan of Treatment Not on file documented as of this encounter Procedures Procedure Name Priority Date/Time Associated Diagnosis Comments VITRECTOMY, PARS PLANA, LASER Routine 04/14/2024 10:15 AM EDT Retinal detachment, bilateral Dislocated IOL (intraocular lens), posterior, left Exchange Lens Prosthesis ([id number]) 04/14/2024 7:40 AM EDT Retinal detachment, bilateral Dislocated IOL (intraocular lens), posterior, left Vitrectomy, Focal Laser Rx Retina ([id number]) 04/14/2024 7:40 AM EDT Retinal detachment, bilateral Dislocated IOL (intraocular lens), posterior, left POCT GLUCOSE Routine 04/14/2024 6:47 AM EDT EXCHANGE OF INTRAOCULAR LENS Routine 04/14/2024 6:13 AM EDT Retinal detachment, bilateral Dislocated IOL (intraocular lens), posterior, left IMPLANTABLE DEVICES SCAN 04/14/2024 12:00 AM EDT documented in this encounter Results * POCT Glucose (04/14/2024 6:47 AM EDT) [facility] Signature Glucose, POC 149 65 - 199 mg/dL [facility] Comment: Supplemental ranges: <140 mg/dL before meals <180 mg/dL all other times of the day Blood 04/14/2024 6:47 AM EDT 04/14/2024 6:47 AM EDT Hoang Tam MD POINT OF CARE TEST O RDERABLES [facility] [place] [address] * Scan Doc: Implantable Devices (04/14/2024 12:00 AM EDT) Narrative 04/14/2024 12:00 AM EDT Ordered by an unspecified provider. Scanning Provider MEDIA MGR SCAN EXT O RDR/RSLT documented in this encounter Visit Diagnoses Diagnosis Retinal detachment, bilateral Unspecified retinal detachment Dislocated IOL (intraocular lens), posterior, left Retinal detachment, bilateral Unspecified retinal detachment Dislocated IOL (intraocular lens), posterior, left documented in this encounter Administered Medications Inactive Administered Medications - up to 3 most recent administrations Medication Order MAR Action Action Date Dose Rate Site acetaminophen (Tylenol) tablet 975 mg 975 mg (rounded from 1,000 mg), Oral, ONCE, 1 dose, On Ivonne 04/14/24 at 0715, Maximum dose of acetaminophen is 4000 mg from all sources in 24 hours. When ordered for pain, acetaminophen should be given even when other ordered pain medications are indicated. , Day of Surgery (Day of Procedure), Routine Given 04/14/2024 6:54 AM EDT 975 mg acetylcholine (Miochol-E) (10 mg/mL) Intraocular injection PRN, Starting on Ivonne 04/14/24 at 0935, Until Ivonne 04/14/24 at 1405, Intra-Operative (Intra-Procedure) Given 04/14/2024 9:35 AM EDT 0.5 mLs Left Eye bacitracin-polymyxin b (Polysporin) ophthalmic ointment PRN, Starting on Ivonne 04/14/24 at 1006, Until Ivonne 24 at 1405, Intra-Operative (Intra-Procedure) Given 04/14/2024 10:06 AM EDT 1 Tube 19- Surgical Site balanced salt (BSS PLUS) irrigation solution PRN, Starting on Ivonne 04/14/24 at 0836, Until Ivonne 624 at 1405, Intra-Operative (Intra-Procedure), Routine Given 04/14/2024 8:36 AM EDT 500 mLs balanced salt (BSS) irrigation solution PRN, Starting on Ivonne 24 at 0935, Until Ivonne 624 at 1405, Intra-Operative (Intra-Procedure), Routine Given 04/14/2024 9:35 AM EDT 2 Bottles BUpivacaine (pf) (Marcaine) (7.5 mg/mL) 0.75% injection PRN, Starting on Ivonne 04/14/24 at 0837, Until Ivonne 624 at 1405, Intra-Operative (Intra-Procedure), Routine Given 04/14/2024 8:37 AM EDT 3 mLs ceFAZolin (Ancef) injection PRN, Starting on Ivonne 624 at 0838, Until Ivonne 624 at 1405, Intra-Operative (Intra-Procedure), Routine Given 04/14/2024 8:38 AM EDT 100 mg 19- Surgical Site cyclopentolate (Cyclodryl) ophthalmic solution 1 drop 1 drop, Left Eye, EVERY 5 MIN, 3 doses, First dose on Ivonne 04/14/24 at 0715, Last dose on Ivonne 04/14/24 at 0725, Day of Surgery (Day of Procedure), Routine Given 04/14/2024 7:34 AM EDT 1 drop Given 04/14/2024 7:30 AM EDT 1 drop Given 04/14/2024 7:27 AM EDT 1 drop dexAMETHasone (Decadron) injection PRN, Starting on Ivonne 04/14/24 at 0839, Until Ivonne 04/14/24 at 1405, Intra-Operative (Intra-Procedure), Routine Given 04/14/2024 8:39 AM EDT 2 mg dorzolamide-timolol (PF) (Cosopt) 2-0.5 % ophthalmic solution PRN, Starting on Ivonne 04/14/24 at 1005, Until Ivonne 04/14/24 at 1405, Intra-Operative (Intra-Procedure), Routine Given 04/14/2024 10:05 AM EDT 1 drop 19- Surgical Site EPINEPHrine (Adrenalin (PF)) injection solution PRN, Starting on Ivonne 04/14/24 at 0839, Until Ivonne 04/14/24 at 1405, Intra-Operative (Intra-Procedure), Routine Given 04/14/2024 8:39 AM EDT 0.5 mg 19- Surgical Site lactated ringers infusion 1,000 mL, at 100 mL/hr, Intravenous, CONTINUOUS, Starting on Ivonne 04/14/24 at 0715, Until Ivonne 04/14/24 at 1122, Day of Surgery (Day of Procedure) New Bag 04/14/2024 10:03 AM EDT Restarted 04/14/2024 7:37 AM EDT New Bag 04/14/2024 7:28 AM EDT 1,000 mLs 100 mL/hr moxifloxacin (Vigamox) 0.5 % ophthalmic solution 1 drop 1 drop, Left Eye, EVERY 5 MIN, 3 doses, First dose on Ivonne 04/14/24 at 0715, Last dose on Ivonne 04/14/24 at 0725, Day of Surgery (Day of Procedure), Routine Given 04/14/2024 7:32 AM EDT 1 drop Given 04/14/2024 7:28 AM EDT 1 drop Given 04/14/2024 7:24 AM EDT 1 drop moxifloxacin (Vigamox) 0.5 % ophthalmic solution PRN, Starting on Ivonne 04/14/24 at 1005, Until Ivonne 04/14/24 at 1405, Intra-Operative (Intra-Procedure), Routine Given 04/14/2024 10:05 AM EDT 1 drop PHENYLephrine (Mydfrin) 2.5 % ophthalmic solution 1 drop 1 drop, Left Eye, EVERY 5 MIN, 3 doses, First dose on Ivonne 04/14/24 at 0715, Last dose on Ivonne 04/14/24 at 0725, Day of Surgery (Day of Procedure), Routine Given 04/14/2024 7:33 AM EDT 1 drop Given 04/14/2024 7:29 AM EDT 1 drop Given 04/14/2024 7:24 AM EDT 1 drop prednisoLONE acetate (Pred-Forte) 1 % suspension 1 drop 1 drop, Left Eye, ONCE, 1 dose, On Ivonne 04/14/24 at 0715, Day of Surgery (Day of Procedure), Routine Given 04/14/2024 7:24 AM EDT 1 drop tetracaine (PF) (Pontocaine) ophthalmic solution PRN, Starting on Ivonne 04/14/24 at 0837, Until Ivonne 04/14/24 at 1405, Intra-Operative (Intra-Procedure), Routine Given 04/14/2024 8:37 AM EDT 1 drop tropicamide (Mydriacyl) 1 % ophthalmic solution 1 drop 1 drop, Left Eye, EVERY 5 MIN, 3 doses, First dose on Ivonne 04/14/24 at 0715, Last dose on Ivonne 04/14/24 at 0725, Day of Surgery (Day of Procedure), Routine Given 04/14/2024 7:33 AM EDT 1 drop Given 04/14/2024 7:30 AM EDT 1 drop Given 04/14/2024 7:26 AM EDT 1 drop documented in this encounter Active and Recently Administered Medications Times are shown in EDT. Scheduled Medication Order 04/12/2024 04/13/2024 04/14/2024 acetaminophen (Tylenol) tablet 975 mg (COMPLETED) 975 mg (rounded from 1,000 mg), Oral, ONCE, 1 dose, On Ivonne 6//24 at 0715, Maximum dose of acetaminophen is 4000 mg from all sources in 24 hours. When ordered for pain, acetaminophen should be given even when other ordered pain medications are indicated. , Day of Surgery (Day of Procedure), Routine 0654 (Given - Provid er: Mandie Regalado RN) cyclopentolate (Cyclodryl) ophthalmic solution 1 drop (COMPLETED) 1 drop, Left Eye, EVERY 5 MIN, 3 doses, First dose on Ivonne 6/20/24 at 0715, Last dose on Ivonne 6/24 at 0725, Day of Surgery (Day of Procedure), Routine 07 (Given - Provid er: Mandie Regalado RN)0730 (Given - Provider: Mandie Regalado RN)0734 (Given - Provider: Mandie Regalado RN) moxifloxacin (Vigamox) 0.5 % ophthalmic solution 1 drop (COMPLETED) 1 drop, Left Eye, EVERY 5 MIN, 3 doses, First dose on Ivonne 6/24 at 0715, Last dose on Ivonne 6/24 at 0725, Day of Surgery (Day of Procedure), Routine 07 (Given - Provid er: Mandie Regalado RN)0728 (Given - Provider: Mandie Regalado RN)0732 (Given - Provider: Mandie Regalado RN) PHENYLephrine (Mydfrin) 2.5 % ophthalmic solution 1 drop (COMPLETED) 1 drop, Left Eye, EVERY 5 MIN, 3 doses, First dose on Ivonne 6/24 at 0715, Last dose on Ivonne 6/20/24 at 0725, Day of Surgery (Day of Procedure), Routine 07 (Given - Provid er: Mandie Regalado RN)0729 (Given - Provider: Mandie Regalado RN)0733 (Given - Provider: Mandie Regalado RN) prednisoLONE acetate (Pred-Forte) 1 % suspension 1 drop (COMPLETED) 1 drop, Left Eye, ONCE, 1 dose, On Ivonne 6/24 at 0715, Day of Surgery (Day of Procedure), Routine 0724 (Given - Provid er: Mandie Regalado RN) tropicamide (Mydriacyl) 1 % ophthalmic solution 1 drop (COMPLETED) 1 drop, Left Eye, EVERY 5 MIN, 3 doses, First dose on Ivonne 04/14/24 at 0715, Last dose on Ivonne 04/14/24 at 0725, Day of Surgery (Day of Procedure), Routine 0726 (Given - Provid er: Mandie Regalado RN)0730 (Given - Provider: Mandie Regalado RN)0733 (Given - Provider: Mandie Regalado RN) Continuous Medication Order 04/12/2024 04/13/2024 04/14/2024 lactated ringers infusion (CANCELED) 1,000 mL, at 100 mL/hr, Intravenous, CONTINUOUS, Starting on Ivonne 04/14/24 at 0715, Until Ivonne 04/14/24 at 1122, Day of Surgery (Day of Procedure) 0728 (New Bag - Prov ider: Mandie Regalado RN)0736 (Paused - Provider: Shelly Howell CRNA - Comment: Switch to gravity)0737 (Restarted - Provider: Shelly Howell CRNA)0759 (Anesthesia Volume Adjustment - Provider: Shelly Howell CRNA)0815 (Anesthesia Volume Adjustment - Provider: Shelly Howell CRNA)0842 (Anesthesia Volume Adjustment - Provider: Shelly Howell CRNA)0915 (Anesthesia Volume Adjustment - Provider: Shelly Howell CRNA)1003 (New Bag - Provider: Shelly Howell CRNA) PRN Medication Order 04/12/2024 04/13/2024 04/14/2024 acetaminophen (Tylenol) tablet 975 mg 975 mg, Oral, EVERY 6 HOURS PRN, Starting on Ivonne 04/14/24 at 1011, Until Ivonne 04/14/24 at 1405, Pain, MODERATE pain (4-6), Should be used concomitantly if other analgesics are ordered. Maximum dose of acetaminophen is 4,000 mg from all sources in 24 hours., Routine acetylcholine (Miochol-E) (10 mg/mL) Intraocular injection (CANCELED) PRN, Starting on Ivonne 6/20/24 at 0935, Until Ivonne 6/24 at 1405, Intra-Operative (Intra-Procedure) 0935 (Given - Provid er: Marcus Owen MD) bacitracin-polymyxin b (Polysporin) ophthalmic ointment (CANCELED) PRN, Starting on Ivonne 624 at 1006, Until Ivonne 6/24 at 1405, Intra-Operative (Intra-Procedure) 1006 (Given - Provid er: Tanisha Mitchell MD) balanced salt (BSS PLUS) irrigation solution (CANCELED) PRN, Starting on Ivonne 624 at 0836, Until Ivonne 624 at 1405, Intra-Operative (Intra-Procedure), Routine 08 (Given - Provid er: Hoang Tam MD - Comment: 0.5ml epi added) balanced salt (BSS) irrigation solution (CANCELED) PRN, Starting on Ivonne 24 at 0935, Until Ivonne 624 at 1405, Intra-Operative (Intra-Procedure), Routine 934 (Given - Provid er: Hoang Tam MD) BUpivacaine (pf) (Marcaine) (7.5 mg/mL) 0.75% injection (CANCELED) PRN, Starting on Ivonne 624 at 0837, Until Ivonne 6/24 at 1405, Intra-Operative (Intra-Procedure), Routine 836 (Given - Provid er: Hoang Tam MD) ceFAZolin (Ancef) injection (CANCELED) PRN, Starting on Ivonne 624 at 0838, Until Ivonne 620/24 at 1405, Intra-Operative (Intra-Procedure), Routine 837 (Given - Provid er: Hoang Tam MD) dexAMETHasone (Decadron) injection (CANCELED) PRN, Starting on Ivonne 624 at 0839, Until Ivonne 620/24 at 1405, Intra-Operative (Intra-Procedure), Routine 838 (Given - Provid er: Hoang Tam MD) dorzolamide-timolol (PF) (Cosopt) 2-0.5 % ophthalmic solution (CANCELED) PRN, Starting on Ivonne 6/24 at 1005, Until Ivonne 6//24 at 1405, Intra-Operative (Intra-Procedure), Routine 1005 (Given - Provid er: Hoang Tam MD) EPINEPHrine (Adrenalin (PF)) injection solution (CANCELED) PRN, Starting on Ivonne 6//24 at 0839, Until Ivonne 6/24 at 1405, Intra-Operative (Intra-Procedure), Routine 0839 (Given - Provid er: Hoang Tam MD - Comment: added to BSS plus) moxifloxacin (Vigamox) 0.5 % ophthalmic solution (CANCELED) PRN, Starting on Ivonne 6/24 at 1005, Until Ivonne 6/24 at 1405, Intra-Operative (Intra-Procedure), Routine 1005 (Given - Provid er: Tanisha Mitchell MD) tetracaine (PF) (Pontocaine) ophthalmic solution (CANCELED) PRN, Starting on Ivonne 24 at 0837, Until Ivonne 6//24 at 1405, Intra-Operative (Intra-Procedure), Routine 0837 (Given - Provid er: Marcus Owen MD) No Frequency Medication Order 04/12/2024 04/13/2024 04/14/2024 prednisoLONE acetate (Pred-Forte) 1 % suspension 1 dose, Starting on Ivonne 24 at 0728, Until Ivonne 24 at 1405, Courtney Humphries: cabinet override 0730 (Due) documented in this encounter Care Teams Medical Laboratory Assistant Relationship Specialty Start Date End Date Sofia Hopper PA [address] [place] [id number] PCP - General Internal Medicine 04/06/24 documented as of this encounter
--- OUTSIDE RECORDS SUMMARY | 2024-11-23 08:23 | XMS_ITS | Encounter Summary ---
Author Organization [facility] Address [facility] [place] [address] Care Team Providers Care Sales Exec Name Role Phone None Primary Care Provider Unavailabl e Encounter Details Date Type Department Care Team (Latest Contact Info) Description 11/11/2023 8:11 AM EST - 11/11/2023 10:22 AM EST Hospital Encounter Gastroenterology at [facility] [place] [id number] Marcus Martinez MD [facility] [place] [address] Discharge Disposition: Home Social History Tobacco Use Types Packs/Day Years Used Date Smoking Tobacco: Every Day Cigarettes 0.3 35 Started: 02/05/1983; Last attempted to quit: 02/05/2018 Smokeless Tobacco: Never Tobacco Cessation:Ready to Q uit: Not Asked; Counseling Given: Not Answered Comments:avs information Alcohol Use [...] Sign Reading Time Taken Comments Blood Pressure 114/70 11/11/2023 10:10 AM EST Pulse 83 11/11/2023 8:32 AM EST Temperature 36.4 ??C (97.5 ??F) 11/11/2023 8:32 AM ES T Respiratory Rate 18 11/11/2023 10:10 AM EST Oxygen Saturation 97% 11/11/2023 10:10 AM EST Inhaled Oxygen Concentration - - Weight 89.8 kg (198 lb) 11/11/2023 8:32 AM EST Height 177.8 cm (5' 10) 11/11/2023 8:32 AM EST Body Mass Index 28.41 11/11/2023 8:32 AM EST documented in this encounter Discharge Instructions * Discharge Instructions* Cari Lozano, RN - 11/11/2023 9:41 AM EST Upper GI Endoscopy: What to Expect at Home Your Recovery You will be able to go home after your doctor or nurse checks to make sure you are not having any problems. You may have to stay overnight if you had treatment during the test. You may have a sore throat fora day or two after the test. This care sheet gives you a general idea about what to expect after the test. How can you care for yourself at home? Activity Rest when you feel tired. You can do your normal activities when it feels okay to do so. Diet Follow your doctor's directions for eating. Unless your doctor has told you not to, drink plenty of fluids. This helps to replace the fluids that were lost during the prep. Do not drink alcohol. Medicines Your doctor will tell you if and when you can restart your medicines. He or she will also give you instructions about taking any new medicines. If you take blood thinners, such as warfarin (Coumadin), clopidogrel (Plavix), or aspirin, be sure to talk to your doctor. He or she will tell you if and when to start taking those medicines again. Make sure that you understand exactly what your doctor wants you to do. If polyps were removed or a biopsy was done during the test, your doctor may tell you not to take aspirin or other anti-inflammatory medicines for a few days. These include ibuprofen (Advil, Motrin) and naproxen (Aleve). If you have a sore throat the day after the procedure, use an ksyx-kyc-egyrvut spray to numb your throat. Sucking on throat lozenges and gargling with warm salt water may also help relieve your symptoms. Other instructions For your safety, do not drive or operate machinery until the medicine wears off and you can think clearly. Your doctor may tell you not to drive or operate machinery until the day after your test. Do not sign legal documents or make major decisions until the medicine wears off and you can think clearly. The anesthesia can make it hard for you to fully understand what you are agreeing to. Additional Information for Sedation Patients For patients who received sedation: You may have received medications before and/or during your procedure which effects your judgement and reaction time. Do not drive, operate machinery, drink alcoholic beverages or make important decisions for 24 hours. Be careful on stairs as you may be unsteady on your feet. You may eat a regular diet as tolerated. Do not smoke if you are alone. IV site: Slight redness or tenderness is normal, you can use a warm compress if you would like. If tenderness and/or redness increase or if foul drainage occurs, please contact your Doctor. Please call [phone] before 8pm Mon-Fri with problems, questions or concerns. If you call after 8pm or on weekends, call the Hospital at [phone] and ask to speak to the Consultant Teacher delivery person and the high pressure operator will contact that person for you. When should you call for help? Call 911 anytime you think you may need emergency care. For example, call if: You passed out (lost consciousness). You pass maroon or bloody stools. You have trouble breathing. Call your doctor now or seek immediate medical care if: You have pain that does not get better after you take pain medicine. You are sick to your stomach or cannot drink fluids. You have new or worse belly pain. You have blood in your stools. You have a fever. You cannot pass stools or gas. Watch closely for changes in your health, and be sure to contact your doctor if you have any problems. Where can you learn more? [facility] View your After Visit Summary and more online at [email or web address] If you would like to provide feedback about your hospital experience, please call the Office of Patient and Family Relations at . If you have received this After Visit Summary in error, please immediately return it in person to the department, or notify the [facility] Privacy Office by calling toll free at between the hours of 8AM and 5PM to arrange for our retrieval of the documents at no cost to you. Content Version: 12.2 ?? 0801-3368 [employer]. Care instructions adapted under license by [facility]. If you have questions about a medical condition or this instruction, always ask your healthcare professional. [employer] disclaims any warranty or liability for your use of this information. documented in this encounter Medications at Time of Discharge Medication Sig Dispensed Refills Start Date End Date rifAXIMin (Xifaxan) 550 mg tabletIndications:Hep atic cirrhosis, unspecified hepatic cirrhosis type, unspecified whether [...] by mouth daily. hydrochlorothiazide (HYDRODIURIL) 25 mg tabletIndications:hyp ertension Take 25 mg by mouth daily. Indications: Hypertension nitroGLYcerin (NITROSTAT) 0.4 mg SL tablet 0.4 MG = 1 Tablet(s), Sublingual, PRN 03/02/2008 lactulose (Chronulac) 10 gram/15 mL Solution TAKE 15 ML BY MOUTH TWO TIMES A DAY 946 mL 3 05/18/2023 12/15/2023 documented as of this encounter H&P Notes * Marcus Martinez MD - 11/11/2023 9:12 AM EST Patient Name: Seferino Honeycutt Jr. Patient Age: 63 y.o. Birthdate: 1960 Admit date: 11/11/2023 Attending Physician: Marcus Martinez MD Gastroenterology and Hepatology Pre-Procedure History and Physical Exam Procedure: EGD: Indication: cirrhosis, surveillance for varices Patient Active Problem List Diagnosis Code CAD (coronary artery disease), [place] coronary artery I25.10 Tobacco abuse disorder Z72.0 Hepatitis C B19.20 Hypertension I10 Spinal stenosis, lumbar region, without neurogenic claudication M48.061 Chronic Mechanical low back pain M54.59 Cirrhosis of liver K74.60 EXAM: HEENT: Airway examined, oropharynx clear Mallampati Score: I (soft palate, uvula, fauces, tonsillar pillars visible) LUNGS: Clear to auscultation HEART: Regular rate and rhythm, normal S1, S2 ABDOMEN: Normal bowel sounds, soft, non tender, non distended, A/P Proceed with the planned endoscopic procedure. ASA 3 - Patient with moderate systemic disease with functional limitations Sedation Plan: anesthesia Risks and benefits of the procedure explained to the patient. Consent signed. documented in this encounter Plan of Treatment Not on file documented as of this encounter Procedures Procedure Name Priority Date/Time Associated Diagnosis Comments Upper GI Endoscopy, Diagnostic (05866) 11/11/2023 9:15 AM EST Hepatic cirrhosis, unspecified hepatic cirrhosis type, unspecified whether ascites present UPPER GI ENDOSCOPY Routine 11/11/2023 9: 08 AM EST documented in this encounter Results * UPPER GI ENDOSCOPY (11/11/2023 9:08 AM EST) UPPER GI ENDOSCOPY [facility] Endoscopy Procedure Date: 11/11/2023 9:08 AM ? Patient Name: Seferino Honeycutt ? Date of : 1960 ? Age: 63 ? Order #: [id number] ? Instrument Name: [id number] ? Procedure: ? Upper GI endoscopy Indications: ? Cirrhosis rule out esophageal ? varices Patient Profile: ? 63 yo M with cirrhosis presents for ? EGD for variceal surveillance. Providers: ? Dianne Suarez ? Shamika, RN, Eliana Memar Referring MD: ?Steffanie Plummer [facility]: ? See the Anesthesia note for ? documentation of the administered ? medications Complications: ? No immediate complications. Procedure: ? Pre-Anesthesia Assessment: ? - Prior to the procedure, a History ? and Physical was performed, and ? patient medications and allergies ? were reviewed. The patient is ? competent. The risks and benefits ? of the procedure and the sedation ? options and risks were discussed ? with the patient. All questions ? were answered and informed consent ? was obtained. Patient ? identification and proposed ? procedure were verified by the ? physician, the nurse, the ? anesthesiologist, the electrician wiring ? and the auto repair technician in the ? pre-procedure area in the procedure ? room. Mental Status Examination: ? alert and oriented. Airway ? Examination: normal oropharyngeal ? airway and neck mobility. ? Respiratory Examination: clear to ? auscultation. CV Examination: ? normal. Prophylactic Antibiotics: ? The patient does not require ? prophylactic antibiotics. Prior ? Anticoagulants: The patient has ? taken no anticoagulant or ? antiplatelet agents. ASA Grade ? Assessment: III - A patient with ? severe systemic disease. After ? reviewing the risks and benefits, ? the patient was deemed in ? satisfactory condition to undergo ? the procedure. The anesthesia plan ? was to use monitored anesthesia ? care (MAC). Immediately prior to ? administration of medications, the ? patient was re-assessed for ? adequacy to receive sedatives. The ? heart rate, respiratory rate, ? oxygen saturations, blood pressure, ? adequacy of pulmonary ventilation, ? and response to care were monitored ? throughout the procedure. The ? physical status of the patient was ? re-assessed after the procedure. ? The procedure, indications, ? benefits, risks and alternatives ? were explained to the patient. ? Specifically discussed were ? potential complications including, ? but not limited to, bleeding, ? perforation, infection, missing a ? cancer, and adverse medication ? reactions. The Endoscope was ? introduced through the mouth, and ? advanced to the second part of ? duodenum The upper GI endoscopy was ? accomplished without difficulty. ? The patient tolerated the procedure ? well. ? Findings: ? Normal esophagus. No varices. Z-line 40-cm from the ? incisors. ? Moderate portal hypertensive gastropathy with trace ? amount of hematin and a few <5-mm diameter ? clean-based antral ulcers. No visible vessel. No ? gastric varices seen. ? Normal duodenum. ? Moderate Sedation: ? Not applicable - See Anesthesia documentation Impression: ?No esophageal or gastric varices, ? regular z-line. ? Portal hypertensive gastropathy and ? clean-based antral ulcers. ? Normal duodenum. Recommendation: ?- Patient has a contact number ? available for emergencies. The ? signs and symptoms of potential ? delayed complications were ? discussed with the patient. Return ? to normal activities tomorrow. ? Written discharge instructions were ? provided to the patient. ? - Follow with Hepatology Clinic as ? scheduled. ? - Consider proton pump inhibitor ? treatment for clean-based antral ? ulcers. ? - Avoid NSAIDs (ibuprofen, Motrin, ? Advil, Naproxen) ? - Strongly encourage smoking ? cessation. ? Attending Participation: ? I personally performed the entire procedure. ? _ Marcus Martinez, 11/11/2023 9:31:52 AM Number of Addenda: 0 Note Initiated On: 11/11/2023 9:08 AM PROVATION 11/11/2023 9:08 AM EST Steffanie Plummer APRN [facility] [employer]OVATION documented in this encounter Visit Diagnoses Not on filedocumented in this encounter Active and Recently Administered Medications Times are shown in EST. Continuous Medication Order 11/09/2023 11/10/2023 11/11/2023 lactated ringers infusion (CANCELED) 100 mL/hr, Intravenous, CONTINUOUS, Starting on Thu11/11/23 at 0900, Until Thu11/11/23 at 1017, Endoscopy (Day of Procedure) 0915 (New Bag - Prov ider: Anastasiia Goldberg CRNA)0937 (Stopped - Provider: Anastasiia Goldberg CRNA) documented in this encounter Care Teams Sales Exec Relationship Specialty Start Date End Date None None PCP - General 07/02/22 04/05/24 documented as of this encounter
--- OUTSIDE RECORDS SUMMARY | 2024-11-23 08:23 | XMS_ITS | Encounter Summary ---
Author Organization [facility] Address [facility] [place] [address] Care Team Providers Care Surveillance Operator Name Role Phone None Primary Care Provider Unavailabl e Reason for Visit * Reason Comments Blurred Vision * Consultation (Urgent) - Closed Specialty Diagnoses / Procedures Referred By Tejal elizabeth Referred To Contact Ophthalmology Diagnoses decentered IOL os Olga Ramirez, OD [address] [place] [address] [facility] [place] [place] Ophthalmology [address] [place] [id number] Referral ID Status Reason Start Date Expiration Date V isits Requested Visits Authorized [id number] Closed Consult, Test & Treat 11/16/2023 11/15/2024 1 1 Encounter Details Date Type Department Care Team (Late st Contact Info) Description 12/01/2023 9:15 AM EST [place] [address] Marcus Owen MD [facility] [place] [address] Pseudophakia; Retinal detachment, bilateral: [facility] , [place] [facility] [place] Dislocated IOL (intraocular lens), posterior, [...] * Patient Instructions* Marcus Owen MD - 12/01/2023 9:15 AM EST Medications: Use eye medications as instructed by Dr. Owen during your appointment. For non eye medications not prescribed by the Ophthalmology (Eye) Clinic, please follow up with your PCP (primary care provider) for instructions. Dilation: Your eyes may have been dilated during your visit. Patients response to dilation varies and the duration of dilation can range from 4 to 24 hours. Be careful with visually demanding tasks until these effects have worn off. Driving: Wait until your vision has returned to normal baseline after your eye visit before driving. Changes in vision or eyes: Please call the eye clinic, , for any significant changes invision, new flashes or floaters or eye pain Eye safety is important: please use eye protection during any activities in which you could injury your eyes. documented in this encounter Progress Notes * Marcus Owen MD - 12/01/2023 9:15 AM EST Encounter Diagnoses Name Primary? Pseudophakia Retinal detachment, bilateral: OD [facility] , [place] [facility] [place]) Dislocated IOL (intraocular lens), posterior, left Seferino Honeycutt Jr. is a 63 y.o. with the following ophthalmic problems: Decentered PCIOL OS in pt with previous RD in patient on FLOMAX with poor dilation Currently good vision OS but bothered by movement of IOL. Discussed R/B/A to monitoring versus following for now. Risk of recurrent RD discussed ACIOL versus scleral fixation discussed, No history or findings of glaucoma Seen and discussed with Dr. Tam He would like to proceed with PPV with IOL exchange PCIOL to ACIOL Consent reviewed and signed. POM requested May need iris HOOKS given poor dilation and FLOMAX RD OU (OD x 2 [place] , [place] [facility] [place] CEIOL OU ([place] following retinal surgery) Plan: - as above - Follow up POM and then surgery or as needed - Findings and concerns discussed with Seferino and he expressed understanding. -Upon Return IOP MR if vision down by 2 lines compared to last visit documented in this encounter Plan of Treatment Not on file documented as of this encounter Visit Diagnoses Diagnosis Pseudophakia Lens replaced by other means Retinal detachment, bilateral: OD [facility] , [place] [facility] [place] [place]) Unspecified retinal detachment Dislocated IOL (intraocular lens), posterior, left documented in this encounter Care Teams Surveillance Operator Relationship Specialty Start Date End Date None None PCP - General 07/02/22 04/05/24 documented as of this encounter
--- OUTSIDE RECORDS SUMMARY | 2024-11-23 08:23 | XMS_ITS | Encounter Summary ---
Author Organization [facility] [place] [address] Care Team Providers Care Shallot Cleaner Name Role Phone None Primary Care Provider Unavailabl e Reason for Visit * Reason Comments Medication Refill Encounter Details Date Type Department Care Team (Late st Contact Info) Description 02/14/2024 Refill Gastroenterology at [facility] [place] [address] Steffanie Plummer APRN [facility] [place] [address] Hepatic encephalopathy Social History Tobacco Use Types [...] encephalopathy documented in this encounter Care Teams Shallot Cleaner Relationship Specialty Start Date End Date None None PCP - General 07/02/22 04/05/24 documented as of this encounter
--- OUTSIDE RECORDS SUMMARY | 2024-11-23 08:23 | XMS_ITS | Encounter Summary ---
Author Organization [facility] [place] [address] Care Team Providers Care Transfer Knitter Name Role Phone None Primary Care Provider Unavailabl e Encounter Details Date Type Department Care Team (Late st Contact Info) Description 02/10/2024 11:30 AM EDT Office Visit Gastroenterology at [facility] [place] [address] Steffanie Plummer APRN [facility] [place] [address] Hepatic cirrhosis, unspecified hepatic cirrhosis type, unspecified whether ascites present Social History Tobacco Use Types Packs/Day Years [...] Sign Reading Time Taken Comments Blood Pressure 130/72 02/10/2024 11:13 AM EDT Pulse 96 02/10/2024 11:13 AM EDT Temperature - - Respiratory Rate - - Oxygen Saturation - - Inhaled Oxygen Concentration - - Weight 89.8 kg (197 lb 14.4 oz) 024 11:13 AM EDT Height 177.8 cm (5' 10) 02/10/2024 11: 13 AM EDT Body Mass Index 28.4 02/10/2024 11:13 AM EDT documented in this encounter Progress Notes * Steffanie Plummer APRN - 02/10/2024 11:30 AM EDT Gastroenterology and Hepatology Follow Up Note Patient: Seferino Honeycutt Jr. Gender: Male : 1960 Provider: Steffanie Plummer APRN Interval History: Mr. Seferino Honeycutt Jr. is here for follow up for cirrhosis. I last saw him 1 year ago and he returns today for follow up. He has been drinking alcohol - He will have 1 glass of wine per day. Depending on time, may have 5-6 drinks at a time. Had stopped drinking for a while but then got bored, was drinking more. Was having periodic girlfriends, but no longer. Generally has been feeling well. Has more energy. Blood sugar has been good. Doesn't have to take medication most of the time. His memory has been not so good. Still taking Rifaximin and Lactulose. If he reads something, he will forget directions right away. Has a hard time remembering names. Has been having bowel movements, mostly one in the morning, sometimes one in the afternoon as well.Lactulose helps him have bowel movements. No blood in stools. Had EGD 10/2023, showed small ulcer. He stopped taking a number of his medications - has 4-5 in the morning, a few at night. No longer taking Metoprolol. Preventative Health: HAV- Immune HBV- Immune HIV Status- Neg Influenza Vaccine: Jun 2014 PROBLEM LIST 1. Hepatitis C- G1a, diagnosed in 2000, likely acquired from IVDU - Treated with Harvoni 2. Cirrhosis - 1st presented December 2014 with Based on thrombocytopenia and hypoalbuminemia and imaging CT of abdomen (December 2014) - HE- Jun 2015- started on Lactulose 3. History of alcohol abuse- sober since 2004, relapse in 2019, currently drinking. 4. 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 Less likely due to portal hypertension as PV and SV patent 5. Hypertension 6. BPH 7. TX s/p PCI 2006 MEDICATIONS: Current Outpatient Medications Medication Sig Dispense Refill lactulose (Chronulac) 10 gram/15 mL Solution Take 15 mLs by mouth 2 times daily. 946 mL 5 rifAXIMin (Xifaxan) 550 mg tablet Take 1 tablet by mouth 2 times daily. 60 tablet 3 amitriptyline (Elavil) 10 mg Tablet atorvastatin (Lipitor) 40 mg Tablet OneTouch Verio test strips Strip Jardiance 10 mg Tablet melatonin 3 mg Tablet meloxicam (MOBIC) 15 mg Tablet ferrous gluconate 324 mg (38 mg iron) Tablet TAKE 1 TABLET BY MOUTH EVERY DAY 90 tablet 3 metFORMIN (FORTAMET) 1,000 mg Tablet Extended Rel [...] by mouth daily. hydrochlorothiazide (HYDRODIURIL) 25 mg tablet Take 25 mg by mouth daily. Indications: Hypertension nitroGLYcerin (NITROSTAT) 0.4 mg SL tablet 0.4 MG = 1 Tablet(s), Sublingual, PRN No current facility-administered medications for this visit. ALLERGIES/ADR Allergies Allergen Reactions [place] [Aspirin-Sod Bicarb-Citric Acid] Anaphylaxis Sodium bicarbonate Bee Sting [Hymenoptera Allergenic Extract] Anaphylaxis PHYSICAL EXAMINATION: Vitals: 02/10/24 1113 BP: 130/72 BP Location ([facility]): Right arm Patient Position: Sitting BP Cuff Sizes: Adult (25-34 cm) Pulse: 96 Weight: 89.8 kg (197 lb 14.4 oz) Height: 177.8 cm (5' 10) Body mass index is 28.4 kg/m??. GEN: Healthy in appearance, no acute distress. SKIN: Spider angiomas. HEENT: Nonicteric sclera, no oral lesions NECK: No lymphadenopathy or thyromegaly ABDOMEN: Obese, soft. EXT: No edema, cyanosis or edema PERTINENT LABS AND IMAGING: Lab Results Component Value Date WBC 4.6 02/10/2024 HGB 14.1 02/10/2024 HCT 42.8 02/10/2024 MCV 85.4 02/10/2024 PLATELET 78 (L) 02/10/2024 Recent Labs 02/10/24 08 INR 1.2 Chemistry Component Value Date/Time NA 144 02/10/2024 0824 K 4.6 02/10/2024 0824 CL 107 02/10/2024 0824 CO2 27 02/10/2024 0824 BUN 18 02/10/2024 0824 CREATININE 0.72 (L) 02/10/2024 0824 Component Value Date/Time CALCIUM 9.8 02/10/2024 0824 ALKPHOS 101 02/10/2024 0824 AST 31 02/10/2024 0824 ALT 25 02/10/2024 0824 BILITOT 0.5 02/10/2024 0824 MELD 3.0: 8 at 02/10/2024 8:24 AM MELD-Na: 8 at 02/10/2024 8:24 AM Calculated from: Serum Creatinine: 0.72 mg/dL (Using min of 1 mg/dL) at 02/10/2024 8:24 AM Serum Sodium: 144 mmol/L (Using max of 137 mmol/L) at 02/10/2024 8:24 AM Total Bilirubin: 0.5 mg/dL (Using min of 1 mg/dL) at 02/10/2024 8:24 AM Serum Albumin: 4.2 g/dL (Using max of 3.5 g/dL) at 02/10/2024 8:24 AM INR(ratio): 1.2 at 02/10/2024 8:24 AM Age at listing (hypothetical): 64 years Sex: Male at 02/10/2024 8:24 AM Ultrasound 02/10/2024: IMPRESSION 1. Coarse parenchymal echogenicity with nodular [...] Dexter Linares MD at 02/10/2024 9:54 AM IMPRESSION/PLAN: Mr. Honeycutt is a 64 y.o. man with cirrhosis secondary to Hepatitis C and alcohol use. He has been drinking alcohol 2-3 times per week suspect this is contributing to the increased ascites seen on his ultrasound today. Fortunately, he is asymptomatic of his ascites we will start with a low-sodium diet and stopping drinking. 1. Alcohol use. We do long discussion about the dangers of continued alcohol use. Discussed that with continued alcohol use life expectancy was less than 2 years. He is going to work on quitting, as he did stop drinking for many years 2.. Hepatic encephalopathy-he has not been taking lactulose and rifaximin recently although does believe these have helped in the past. New prescription sent today he plans to start these 3. Ascites small amount of ascites seen on ultrasound today. He admits to adding a lot of salt to his food so plan to start with a low-sodium diet. If his ascites persists or he becomes symptomatic we can start low-dose diuretics. 4. Variceal screening -EGD 10/2023 with no varices. He does have portal gastropathy and signs of portal hypertension,so would likely benefit from Carvedilol. That said, he recently stopped a number ofmedications including Metoprolol, so we did not start Carvedilol today. 5. Anemia. His hemoglobin has dropped slightly over the past year. Plan to do upper endoscopy. His last colonoscopy was 2 years ago and was normal. 6. HCC surveillance- US today with no lesions, plan to repeat in 6 months. 7. Hepatitis C- Completed treatment with 12 weeks of Harvoni 03/2015 with SVR 1 year post treatment. Plan: - Avoid all alcohol - Continue Rifaxamin 550mg twice daily and Lactulose. - Start Omeprazole 20mg once a day for 8 weeks for the ulcer seen on your upper endoscopy. - Repeat ultrasound in 6 months with labs with follow up viist. - Goal is to avoid alcohol - Continue low sodium diet. - Can repeat EGD in 2-3 years, or start Carvedilol. Steffanie Plummer APRN Section of [place]astroenterology [place] [address] 31 minutes visit were spent counseling, discussing disease, treatment and prognosis and documentation. Cc: None None documented in this encounter Plan of Treatment Scheduled Orders Name Type Priority Associated Diagnoses Orde r Schedule US Abdomen Limited Hepatology Protocol Imaging Routine Hepatic cirrhosis, unspecified hepatic cirrhosis type, unspecified whether ascites present Expected: 08/11/2024 (Approximate), Expires: 02/09/2025 Comprehensive metabolic panel (non-fasting) Lab Routine Hepatic cirrhosis, unspecified hepatic cirrhosis type, unspecified whether ascites present Expected: 08/11/2024 (Approximate), Expires: 02/09/2025 CBC (with Diff) Lab Routine Hepatic cirrhosis, unspecified hepatic cirrhosis type, unspecified whether ascites present Expected: 08/11/2024 (Approximate), Expires: 02/09/2025 Prothrombin Time Lab Routine Hepatic cirrhosis, unspecified hepatic cirrhosis type, unspecified whether ascites present Expected: 08/11/2024 (Approximate), Expires: 02/09/2025 documented as of this encounter Visit Diagnoses Diagnosis Hepatic cirrhosis, unspecified hepatic cirrhosis type, unspecified whether ascites present documented in this encounter Care Teams Transfer Knitter Relationship Specialty Start Date End Date None None PCP - General 07/02/22 04/05/24 documented as of this encounter
--- OUTSIDE RECORDS SUMMARY | 2024-11-23 08:23 | XMS_ITS | Encounter Summary ---
Author Organization [facility] [place] [address] Care Team Providers Care Pharmacy Tech Customer Service Name Role Phone None Primary Care Provider Unavailabl e Encounter Details Date Type Department Care Team (Latest Contact Info) Description 02/10/2024 8:30 AM EDT Laboratory Appointment Lab 3L [facility] [place] [id number] Hepatic cirrhosis, unspecified hepatic cirrhosis type, unspecified [...] Procedure Name Priority Date/Time Associated Diagnosis Comments HEMOGRAM Routine 02/10/2024 8:24 AM EDT Hepatic cirrhosis, unspecified hepatic cirrhosis type, unspecified whether ascites present DIFFERENTIAL, AUTOMATED Routine 02/10/2024 8:24 AM EDT Hepatic cirrhosis, unspecified hepatic cirrhosis type, unspecified whether ascites present AFP TUMOR MARKER Routine 02/10/2024 8:24 AM EDT Hepatic cirrhosis, unspecified hepatic cirrhosis type, unspecified whether ascites present PROTHROMBIN TIME Routine 02/10/2024 8:24 AM EDT Hepatic cirrhosis, unspecified hepatic cirrhosis type, unspecified whether ascites present CBC (WITH DIFF) Routine 02/10/2024 8:24 AM EDT Hepatic cirrhosis, unspecified hepatic cirrhosis type, unspecified whether ascites present COMPREHENSIVE METABOLIC PANEL Routine 02/10/2024 8:24 AM EDT Hepatic cirrhosis, unspecified hepatic cirrhosis type, unspecified whether ascites present documented in this encounter Results * (ABNORMAL) Differential, Automated (02/10/2024 8:24 AM EDT) Neutrophil % 65.8 % [facility] Neutrophil Absolute 3.03 1.70 - 6.10 x10(3)/mc L [facility] Lymph % 15.7 % [facility] Lymphocytes Abs 0.7(L) 0.9 - 3.2 x10(3)/mc L [facility] Monocyte % 14.6 % [facility] Monocyte Abs 0.7 0.3 - 0.9 x10(3)/mc L [facility] Eos % 2.6 % [facility] Eosinophils Abs 0.1 0.0 - 0.4 x10(3)/mc L [facility] Basophil % 1.1 % [facility] Baso Absolute 0.0 0.0 - 0.1 x10(3)/mc L [facility] Immature Gran % 0.20 % [facility] Comment: Immature granulocytes(IG's)percentage and absolute count will include metamyelocytes, myelocytes, and promyelocytes. Blood smears from CBCs yielding IG's will be scanned manually for concordance. If this scan disagrees with the automated IG or if promyelocytes are noted, a manual differential will be performed. Immature Gran Absolute 0.01 0.00 - 0.04 x10(3)/mc L [facility] Blood 02/10/2024 8:24 AM EDT 02/10/2024 8:26 AM EDT Narrative Resulting Agency Comment Spec In Lab Steffanie Plummer [facility] ORDERAB LES [facility] [place] [address] * (ABNORMAL) Hemogram (02/10/2024 8:24 AM EDT) White Blood Cell 4.6 4.0 - 9.5 x10(3)/mc L [facility] Red Blood Cell 5.01 4.58 - 5.54 x10(6)/mc L [facility] Hemoglobin 14.1 13.7 - 16.5 g/dL [facility] Hematocrit 42.8 40.5 - 48.5 % [facility] Mean Cell Volume 85.4 82.9 - 93.1 fL [facility] Mean Cell Hemoglobin 28.1 27.5 - 32.1 pg [facility] Mean Cell Hemoglobin Concentration 32.9 32.0 - 35.7 g/dL [facility] Platelet 78(L) 145 - 357 x10(3)/mc L [facility] RDW Standard Deviation 51.0(H) 36.0 - 45.0 fL [facility] RDW coefficient of variation 16.4(H) 11.4 - 13.8 % [facility] Mean Platelet Volume 10.7 7.6 - 12.9 fL [facility] NRBC% auto 0.0 % [facility] NRBC Absolute 0.000 0.000 - 0.000 x10(3)/mc L [facility] Blood 02/10/2024 8:24 AM EDT 02/10/2024 8:26 AM EDT Narrative Resulting Agency Comment Spec In Lab Steffanie Plummer [facility] ORDERAB LES [facility] [place] [address] * AFP tumor marker (02/10/2024 8:24 AM EDT) Pathologist [facility] Alpha Fetoprotein 4.5 <=8.3 ng/mL [facility] Comment: This result was generated using a Chelsey Laya immunoassay. ??Results obtained from other methods or manufacturers cannot be used interchangeably with this method. Blood 02/10/2024 8:24 AM EDT 02/10/2024 8:27 AM EDT Narrative Resulting Agency Comment Spec In Lab Steffanie Plummer APRN CHEMISTRY ORDERABL ES Performing Organization Address [facility] de Phone Number [facility] [place] [address] * (ABNORMAL) Prothrombin Time (02/10/2024 8:24 AM EDT) [facility] Prothrombin Time 14.0(H) 9.4 - 12.5 sec [facility] International Normalization Ratio 1.2 [facility] Comment: An INR <2.0 indicates adequate procoagulant activity for hemostasis in most patients without underlying bleeding disorders, though the INR may not adequately reflect hemostatic capacity in patients with liver disease and synthetic impairment. The recommended target INR range for therapeutic anticoagulation is 2.0 ? 3.0 for most applications, though lower and higher ranges may be appropriate depending on clinical circumstances. Blood 02/10/2024 8:24 AM EDT 02/10/2024 8:26 AM EDT Narrative Resulting Agency Comment Spec In Lab Steffanie Plummer APRN HEMATOLOGY ORDERAB LES Performing Organization Address [facility] Co de Phone Number [facility] [place] [address] * (ABNORMAL) Comprehensive metabolic panel (non-fasting) (02/10/2024 8:24 AM EDT) [facility] Glucose 145 65 - 199 mg/dL [facility] Comment:Diabetes: >=200 mg/d L plus symptoms Blood Urea Nitrogen 18 10 - 20 mg/dL [facility] Creatinine 0.72(L) 0.80 - 1.50 mg/dL [facility] Sodium 144 135 - 145 mmol/L [facility] Potassium 4.6 3.5 - 5.0 mmol/L [facility] Comment: Please note: ??Patients with WBC >100,000 may have falsely elevated Potassium levels. ??For accurate Potassium quantification in these patients send serum separator tube (gold top) for subsequent determinations. ??Contact the Clinical Chemistry Laboratory if there are any questions. Chloride 107 98 - 107 mmol/L [facility] Carbon Dioxide 27 22 - 31 mmol/L [facility] Anion Gap 10 5 - 15 mmol/L [facility] Calcium 9.8 8.5 - 10.5 mg/dL [facility] Protein, Total 7.5 6.1 - 8.0 g/dL [facility] Albumin 4.2 3.2 - 5.2 g/dL [facility] Aspartate Aminotransferase 31 0 - 39 unit/L [facility] Alanine Aminotransferase 25 0 - 55 unit/L [facility] Alkaline Phosphatase 101 40 - 130 unit/L [facility] Bilirubin, Total 0.5 0.2 - 1.3 mg/dL [facility] Est Glomerular Filtration Rate 103 >=60 mL/min/1. 73 m?? [facility] Comment: This patient's estimated GFR was [...] Lab Steffanie Plummer APRN CHEMISTRY ORDERABL ES [facility] [place] [address] documented in this encounter Visit Diagnoses Diagnosis Hepatic cirrhosis, unspecified hepatic cirrhosis type, unspecified whether ascites present documented in this encounter Care Teams Pharmacy Tech Customer Service Relationship Specialty Start Date End Date None None PCP - General 07/02/22 04/05/24 documented as of this encounter
--- OUTSIDE RECORDS SUMMARY | 2024-11-23 08:23 | XMS_ITS | Encounter Summary ---
Author Organization [facility] Address [facility] [place] [address] Care Team Providers Care Order Control Clerk Blood Bank Name Role Phone None Primary Care Provider Unavailabl e Encounter Details Date Type Department Care Team (Late st Contact Info) Description 12/01/2023 [place] [phone] Marcus Owen MD [facility] [address] Social History Tobacco Use Types Packs/Day Years [...] encounter Miscellaneous Notes * Telephone Encounter - Tan Thomas - 12/01/2023 10:59 AM EST Called to sched standalone POM any time in the next couple weeks. PT will call back, did not have apen and paper to write info down documented in this encounter Plan of Treatment Not on file documented as of this encounter Visit Diagnoses Not on filedocumented in this encounter Care Teams Order Control Clerk Blood Bank Relationship Specialty Start Date End Date None None PCP - General 07/02/22 04/05/24 documented as of this encounter
--- OUTSIDE RECORDS SUMMARY | 2024-11-23 08:23 | XMS_ITS | Encounter Summary ---
Author Organization [facility] [place] [address] Care Team Providers Care Hair Spring Cutter Name Role Phone Sofia Hopper Primary Care Provider [phone] Encounter Details Date Type Department Care Team (Late st Contact Info) Description 04/20/2024 Interpretation Only [address] [address] Bren Levin, [address] [place], [place] [id number] Social History Tobacco Use Types Packs/Day Years [...] Procedure Name Priority Date/Time Associated Diagnosis Comments XR PELVIS AND HIP 2 VIEWS RIGHT Routine 04/20/2024 3:21 PM EDT documented in this encounter Results * XR Pelvis and Hip 2 Views Right (04/20/2024 3:21 PM EDT) PT CLASS O RAD ADMITDTTM [id number] RAD PT RAD INFO [id number]^ORMSBE E^BREN^T [facility] EXAM DESC XRPEAHPTR^HIP RIGHT AND PELVIS^RIS [facility] WORKSTATION ID [id number] [facility] Anatomical Region Laterality Modality Pelvis, Hip Right Radiographic Ml ging Impressions 04/20/2024 3:47 PM EDT Negative exam of the right hip. Thank you for letting us participate in the care of this patient. ??If you are a health care provider and have any questions regarding this report, please contact the number below. ??For patients who have questions please contact the health home care coordinator that requested your imaging first. ? Narrative 04/20/2024 3:47 PM EDT EXAMINATION: HIP RIGHT AND PELVIS CLINICAL HISTORY: HIP RIGHT AND PELVIS - 64 YOM WITH RIGHT HIP PAIN DECREASED ROM DUE TO PAIN PAIN RA TECHNIQUE: 3 views of the pelvis and right hip COMPARISON: None FINDINGS: No acute osseous finding. No significant degenerative findings are demonstrated in the right hip and SI joints. Procedure Note Can Denson MD - 04/20/2024 EXAMINATION: HIP RIGHT AND PELVIS CLINICAL HISTORY: HIP RIGHT AND PELVIS - 64 YOM WITH RIGHT HIP PAINDECREASED ROM DUE TO PAIN PAIN RA TECHNIQUE: 3 views of the pelvis and right hip COMPARISON: None FINDINGS: No acute osseous finding. No significant degenerative findings are demonstrated in the right hip andSI joints. IMPRESSION Negative exam of the right hip. Thank you for letting us participate in the care of this patient. If youare a health care provider and have any questions regarding this report,please contact the number below. For patients who have questions please contactthe health home care coordinator that requested your imaging first. Bren Levin APRN IMG DX ORDERABLES documented in this encounter Visit Diagnoses Not on filedocumented in this encounter Care Teams Hair Spring Cutter Relationship Specialty Start Date End Date Sofia Hopper PA [address] [place] [id number] PCP - General Internal Medicine 04/06/24 documented as of this encounter
--- OUTSIDE RECORDS SUMMARY | 2024-11-23 08:23 | XMS_ITS | Encounter Summary ---
Author Organization [facility] Address [facility] [place] [address] Care Team Providers Care Ash Pit Worker Name Role Phone None Primary Care Provider Unavailabl e Encounter Details Date Type Department Care Team (Late st Contact Info) Description 11/11/2023 9:30 AM EST - 11/11/2023 10:00 AM EST Surgery Gastroenterology at [facility] [place] [phone] Marcus Martinez MD [facility] [place] [address] EGD, UPPER GI ENDOSCOPY (WRVU 2.09) Social History Tobacco Use Types Packs/Day Years [...] Sign Reading Time Taken Comments Blood Pressure 119/68 11/11/2023 10:00 AM EST Pulse 83 11/11/2023 8:32 AM EST Temperature 36.4 ??C (97.5 ??F) 11/11/2023 8:32 AM ES T Respiratory Rate 16 11/11/2023 9:50 AM EST Oxygen Saturation 96% 11/11/2023 10:00 AM EST Inhaled Oxygen Concentration - - [...] the day after the procedure, use an [id number] spray to numb your throat. Sucking on [...] occurs, please contact your Doctor. Please call [phone] before 8pm Mon-Fri with problems, questions or concerns. If you call after 8pm or on weekends, call the Hospital at [phone] and ask to speak to the Public Safety Police non acoustic operator and the stripping and booking machine operator will contact that person for you. When should you call for help? Call 531 anytime you think you may need emergency [...] any problems. Where can you learn more? [facility] View your After Visit Summary and more online at [email or web address] If you would like to provide feedback about your hospital experience, please call the Office of Patient and Family Relations at . If you have received this After Visit Summary in error, please immediately return it in person to the department, or notify the [facility] Privacy Office by calling toll free at between the hours of 8AM and 5PM to arrange for our retrieval of the documents at no cost to you. Content Version: 12.2 ?? [id number] [employer]. Care instructions adapted under license by [facility]. If you have questions about a medical condition or this instruction, always ask your healthcare professional. [employer] disclaims any warranty or liability for your [...] List Diagnosis Code CAD (coronary artery disease), [place] coronary artery I25.10 Tobacco abuse disorder Z72.0 [...] Associated Diagnosis Comments Upper GI Endoscopy, Diagnostic ([id number]) 11/11/2023 9:15 AM EST Hepatic cirrhosis, unspecified hepatic cirrhosis type, unspecified whether ascites present UPPER GI ENDOSCOPY Routine 11/11/2023 9: 08 AM EST documented in this encounter Results * UPPER GI ENDOSCOPY (11/11/2023 9:08 AM EST) UPPER GI ENDOSCOPY [facility] Endoscopy Procedure Date: 11/11/2023 9:08 AM ? Patient Name: Seferino Honeycutt ? Date of : 1960 ? Age: 63 ? Order #: [id number] ? Instrument Name: [id number] ? Procedure: ? Upper GI endoscopy Indications: ? Cirrhosis rule out esophageal ? varices Patient Profile: ? 63 yo M with cirrhosis presents for ? EGD for variceal surveillance. Providers: ? Dianne Suarez ? Shamika, TANG, Eliana Memar Referring MD: ?Steffanie Plummer Medicines: ? See the Anesthesia note for ? [...] physician, the nurse, the ? anesthesiologist, the emergency room rn ? and the technical maintenance technician in the ? pre-procedure area in [...] PROVATION documented in this encounter Visit Diagnoses Diagnosis Hepatic cirrhosis, unspecified hepatic cirrhosis type, unspecified whether ascites present documented in this encounter Active and Recently Administered Medications Times are shown in EST. Continuous Medication Order 11/09/2023 11/10/2023 11/11/2023 lactated ringers infusion (CANCELED) 100 mL/hr, Intravenous, CONTINUOUS, Starting on Thu11/11/23 at 0900, Until Thu11/11/23 at 1017, Endoscopy (Day of Procedure) 0915 (New Bag - Prov ider: Anastasiia Goldberg CRNA)0937 (Stopped - Provider: Anastasiia Goldberg CRNA) documented in this encounter Care Teams Ash Pit Worker Relationship Specialty Start Date End Date None None PCP - General 07/02/22 04/05/24 documented as of this encounter
--- OUTSIDE RECORDS SUMMARY | 2024-11-23 08:23 | XMS_ITS | Encounter Summary ---
Author Organization [facility] Address [facility] [place] [address] Care Team Providers Care Clam Dredger Name Role Phone None Primary Care Provider Unavailabl e Encounter Details Date Type Department Care Team (Latest Contact Info) Description 01/05/2024 Travel Social History Tobacco Use Types Packs/Day [...] on filedocumented in this encounter Care Teams Clam Dredger Relationship Specialty Start Date End Date None None PCP - General 07/02/22 04/05/24 documented as of this encounter
--- OUTSIDE RECORDS SUMMARY | 2024-11-23 08:23 | XMS_ITS | Encounter Summary ---
Author Organization [facility] Address [facility] [place] [address] Care Team Providers Care Member Service Specialist Name Role Phone None Primary Care Provider Unavailabl e Encounter Details Date Type Department Care Team (Late st Contact Info) Description 11/10/2023 [place] [phone] Castillo Gonzalez, RN Social History Tobacco Use Types Packs/Day [...] encounter Miscellaneous Notes * Telephone Encounter - Castillo Gonzalez, RN - 11/10/2023 3:44 PM EST Call to schedule Ultrasound. No answer and no option for voice mail. documented in this encounter Plan of Treatment Not on file documented as of this encounter Visit Diagnoses Not on filedocumented in this encounter Care Teams Member Service Specialist Relationship Specialty Start Date End Date None None PCP - General 07/02/22 04/05/24 documented as of this encounter
--- OUTSIDE RECORDS SUMMARY | 2024-11-23 08:23 | XMS_ITS | Encounter Summary ---
Author Organization [facility] Address [facility] [place] [address] Care Team Providers Care Vet Tech Name Role Phone None Primary Care Provider Unavailabl e Reason for Visit * Reason Onset Date Comments Medication Refill 09/29/2023 Encounter Details Date Type Department Care Team (Late st Contact Info) Description 09/29/2023 Refill Gastroenterology at [facility] [place] [address] Steffanie Plummer APRN [facility] [place] [address] Hepatic cirrhosis, unspecified hepatic cirrhosis type, unspecified [...] present documented in this encounter Care Teams Vet Tech Relationship Specialty Start Date End Date None None PCP - General 07/02/22 04/05/24 documented as of this encounter
--- OUTSIDE RECORDS SUMMARY | 2024-11-23 08:23 | XMS_ITS | Encounter Summary ---
Author Organization [facility] [address] Care Team Providers Care Civil Manager Name Role Phone None Primary Care Provider Unavailabl e Encounter Details Date Type Department Care Team (Latest Contact Info) Description 03/24/2023 12:30 PM EDT Laboratory Appointment Lab 3L [facility] [place] [phone] Hepatic cirrhosis, unspecified hepatic cirrhosis type, unspecified [...] Priority Date/Time Associated Diagnosis Comments HEMOGRAM Routine 03/24/2023 12:27 PM EDT Hepatic cirrhosis, unspecified hepatic cirrhosis type, unspecified whether ascites present DIFFERENTIAL, AUTOMATED Routine 03/24/2023 12:27 PM EDT Hepatic cirrhosis, unspecified hepatic cirrhosis type, unspecified whether ascites present PROTHROMBIN TIME Routine 03/24/2023 12:2 7 PM EDT Hepatic cirrhosis, unspecified hepatic cirrhosis type, unspecified whether ascites present CBC (WITH DIFF) Routine 03/24/2023 12:27 PM EDT Hepatic cirrhosis, unspecified hepatic cirrhosis type, unspecified whether ascites present COMPREHENSIVE METABOLIC PANEL Routine 03/24/2023 12:27 PM EDT Hepatic cirrhosis, unspecified hepatic cirrhosis type, unspecified whether ascites present documented in this encounter Results * (ABNORMAL) Differential, Automated (03/24/2023 12:27 PM EDT) Neutrophil % 62.4 % [facility] Neutrophil Absolute 2.22 1.70 - 6.10 x10(3)/mc L [facility] Lymph % 18.5 % [facility] Lymphocytes Abs 0.7(L) 0.9 - 3.2 x10(3)/mc L [facility] Monocyte % 14.0 % [facility] Monocyte Abs 0.5 0.3 - 0.9 x10(3)/mc L [facility] Eos % 3.7 % [facility] Eosinophils Abs 0.1 0.0 - 0.4 x10(3)/mc L [facility] Basophil % 1.4 % [facility] Baso Absolute 0.0 0.0 - 0.1 x10(3)/mc L [facility] Immature Gran % 0.00 % [facility] Comment: Immature granulocytes(IG's)percentage and absolute count will include metamyelocytes, myelocytes, and promyelocytes. Blood smears from CBCs yielding IG's will be scanned manually for concordance. If this scan disagrees with the automated IG or if promyelocytes are noted, a manual differential will be performed. Immature Gran Absolute 0.00 0.00 - 0.04 x10(3)/mc L [facility] Blood 03/24/2023 12:2 7 PM EDT 03/24/2023 12:45 PM EDT Narrative Resulting Agency Comment Spec In Lab Steffanie Plummer APRN HEMATOLOGY ORDERAB LES [facility] [place] [address] * (ABNORMAL) Hemogram (03/24/2023 12:27 PM EDT) White Blood Cell 3.6(L) 4.0 - 9.5 x10(3)/mc L [facility] Red Blood Cell 4.81 4.58 - 5.54 x10(6)/mc L [facility] Hemoglobin 12.0(L) 13.7 - 16.5 g/dL [facility] Hematocrit 38.8(L) 40.5 - 48.5 % [facility] Mean Cell Volume 80.7(L) 82.9 - 93.1 fL [facility] Mean Cell Hemoglobin 24.9(L) 27.5 - 32.1 pg [facility] Mean Cell Hemoglobin Concentration 30.9(L) 32.0 - 35.7 g/dL [facility] Platelet 84(L) 145 - 357 x10(3)/mc L [facility] RDW Standard Deviation 45.2(H) 36.0 - 45.0 fL [facility] RDW coefficient of variation 15.5(H) 11.4 - 13.8 % [facility] Mean Platelet Volume 10.7 7.6 - 12.9 fL [facility] NRBC% auto 0.0 % [facility] NRBC Absolute 0.000 0.000 - 0.000 x10(3)/mc L [facility] Blood 03/24/2023 12:2 7 PM EDT 03/24/2023 12:45 PM EDT Narrative Resulting Agency Comment Spec In Lab Steffanie Plummer APRN HEMATOLOGY ORDERAB LES Performing Organization Address City/State/[facility] Co de Phone Number [facility] [place] [address] * (ABNORMAL) Comprehensive metabolic panel (non-fasting) (03/24/2023 12:27 PM EDT) Glucose 156 65 - 199 mg/dL [facility] Comment:Diabetes: >=200 mg/d L plus symptoms Blood Urea Nitrogen 18 10 - 20 mg/dL [facility] Creatinine 0.75(L) 0.80 - 1.50 mg/dL [facility] Sodium 142 135 - 145 mmol/L [facility] Potassium 4.1 3.5 - 5.0 mmol/L [facility] Comment: Please note: ??Patients with WBC >100,000 may have falsely elevated Potassium levels. ??For accurate Potassium quantification in these patients send serum separator tube (gold top) for subsequent determinations. ??Contact the Clinical Chemistry Laboratory if there are any questions. Chloride 107 98 - 107 mmol/L [facility] Carbon Dioxide 27 22 - 31 mmol/L [facility] Anion Gap 8 5 - 15 mmol/L [facility] Calcium 9.2 8.5 - 10.5 mg/dL [facility] Protein, Total 7.1 6.1 - 8.0 g/dL [facility] Albumin 3.9 3.2 - 5.2 g/dL [facility] Aspartate Aminotransferase 36 0 - 39 unit/L [facility] Alanine Aminotransferase 27 0 - 55 unit/L [facility] Alkaline Phosphatase 82 40 - 130 unit/L [facility] Bilirubin, Total 0.9 0.2 - 1.3 mg/dL [facility] Est Glomerular Filtration Rate 102 >=60 mL/min/1. 73 m?? [facility] Comment: This patient's estimated GFR [...] and symptoms in addition to eGFR. Blood 03/24/2023 12:2 7 PM EDT 03/24/2023 12:45 PM EDT Narrative Resulting Agency Comment Spec In Lab Steffanie Plummer APRN CHEMISTRY ORDERABL ES [facility] [place] [address] * (ABNORMAL) Prothrombin Time (03/24/2023 12:27 PM EDT) Prothrombin Time 14.4(H) 9.4 - 12.5 sec [facility] International Normalization Ratio 1.3 [facility] Comment: An INR <2.0 indicates [...] be appropriate depending on clinical circumstances. Blood 03/24/2023 12:2 7 PM EDT 03/24/2023 12:45 PM EDT Narrative Resulting Agency Comment Spec In Lab Steffanie Plummer APRN HEMATOLOGY ORDERAB LES [facility] [place] [address] documented in this encounter Visit Diagnoses Diagnosis Hepatic cirrhosis, unspecified hepatic cirrhosis type, unspecified whether ascites present documented in this encounter Care Teams Civil Manager Relationship Specialty Start Date End Date None None PCP - General 07/02/22 04/05/24 documented as of this encounter
--- OUTSIDE RECORDS SUMMARY | 2024-11-23 08:23 | XMS_ITS | Encounter Summary ---
Author Organization [facility] [place] [address] Care Team Providers Care Cobol Developer Name Role Phone None Primary Care Provider Unavailabl e Reason for Visit * Reason Onset Date Comments Medication Refill 12/15/2023 Encounter Details Date Type Department Care Team (Late st Contact Info) Description 12/15/2023 Refill Gastroenterology at [facility] [address] Steffanie Plummer APRN [facility] [place] [address] Hepatic encephalopathy Social History Tobacco Use Types [...] encephalopathy documented in this encounter Care Teams Cobol Developer Relationship Specialty Start Date End Date None None PCP - General 07/02/22 04/05/24 documented as of this encounter
--- OUTSIDE RECORDS SUMMARY | 2024-11-23 08:23 | XMS_ITS | Encounter Summary ---
Author Organization [facility] Address [facility] [place] [place] [address] Care Team Providers Care Hadoop Developer Name Role Phone Ward Sofia T ZELALEM Primary Care Provider [phone] Reason for Visit * Reason Comments Post Op S/P PPV, LR OS Encounter Details Date Type Department Care Team (Late st Contact Info) Description 04/15/2024 9:00 AM EDT Office [place] [phone] Hoang Tam MD [facility] [place] [address] Dislocated IOL (intraocular lens), posterior, left; Retinal detachment, bilateral: OD surgery at [facility] , [place] [facility] [place] Social History Tobacco Use Types Packs/Day Years Used Date Smoking Tobacco: Former Cigarettes 0.3 35 0 02/05/1983 - 02/05/2018 Smokeless Tobacco: Never Comments:avs information Alcohol Use Standard Drinks/Week Comments Yes 0 (1 standard drink = 0.6 oz pur e alcohol) 0-12 beers / week [facility] Inpatient Questions Answer Date Recorded Does Anyone [...] this encounter Patient Instructions * Patient Instructions* Hoang Tam MD - 04/15/2024 9:00 AM EDT Images from the original note were not included. Drop Name: Cap Color: Dose: 1 Drop Eye: Prednisolone Acetate 1% [place] or White 4 x daily (Shake well before using) left eye Vigamox (Moxifloxacin) [place] 4 x daily left eye Ointment Small tube 2-3x daily as needed left eye KETOROLAC 4 X daily LEFT SLEEP ON LEFT SIDE UNTIL BUBBLE GONE Bloody tears are normal for a week or two after surgery CONTINUE ALL PREVIOUSLY PRESCRIBED EYE DROPS UNLESS OTHERWISE DIRECTED Bring drops with you for your follow up visits. Shake drops gently before use. Wash hand before using eye drops. Do not touch dropper to eyelids or fingers. Space drops a minimum or 2-3 minutes apart from each other. Wear solid eye shield while sleeping for 1 week as directed. Shower/bathe as normal, but do not get bath/tap water directly in operative eye. If you have any questions or problems call us, a doctor is on a call 24 hours a day. Should you experience any: Severe Pain, Severe Light Sensitivity, Nausea and/or Vomiting, Sudden Loss of Vision, or any Thick Discharge from your eye PLEASE call the Eye Clinic IMMEDIATELY at [phone]. documented in this encounter Progress Notes * Tanisha Mitchell MD - 04/15/2024 9:00 AM EDT ASSESSMENT: 1. Dislocated IOL (intraocular lens), posterior, left 2. Retinal detachment, bilateral: OD surgery at [facility] , [place] [facility] [place]) Surgical Findings: iatrogenic break inferonasal treated with laser POD 1 s/p PPV, laser, IOL exchange to ACIOL OS Doing well PLAN: Pred Forte and Vigamox QID to operative eye No water in eye for 1 week Sleep on LEFT SIDE. Follow up 1 week as scheduled Sooner PRN Tanisha Mitchell MD [facility] Ophthalmology PGY3 [id number] I saw the patient with the following level of supervision from the attending: Direct from Dr. Tam. * Hoang Tam MD - 04/15/2024 9:00 AM EDT I have seen the patient in person and reviewed the history and I agree with the details as written.The assessment and plan were formulated in discussion with me and I agree with them as documented. Hoang Tam MD documented in this encounter Plan of Treatment Not on file documented as of this encounter Visit Diagnoses Diagnosis Dislocated IOL (intraocular lens), posterior, left Retinal detachment, bilateral: OD surgery at [facility] , [place] [facility] [place]) Unspecified retinal detachment documented in this encounter Care Teams Hadoop Developer Relationship Specialty Start Date End Date Sofia Hopper PA [address] [place] [id number] PCP - General Internal Medicine 04/06/24 documented as of this encounter
--- OUTSIDE RECORDS SUMMARY | 2024-11-23 08:23 | XMS_ITS | Encounter Summary ---
Author Organization [facility] Address [facility] [place] [address] Care Team Providers Care Poultry Breeder Name Role Phone None Primary Care Provider Unavailabl e Encounter Details Date Type Department Care Team (Late st Contact Info) Description 11/10/2023 [place] [address] Mita Perdomo, RN Social History Tobacco Use [...] Telephone Encounter - Mita Perdomo RN - 11/10/2023 3:46 PM EST TC with patient to schedule the US (abdomen) that was ordered on 03/24/2023 by NP. Plummer (was due August 2023). Pt connected with the GI Clinic to coordinate appointments. documented in this encounter Plan of Treatment Not on file documented as of this encounter Visit Diagnoses Not on filedocumented in this encounter Care Teams Poultry Breeder Relationship Specialty Start Date End Date None None PCP - General 07/02/22 04/05/24 documented as of this encounter
--- OUTSIDE RECORDS SUMMARY | 2024-11-23 08:23 | XMS_ITS | Encounter Summary ---
Author Organization [facility] Address [facility] [place] [address] Care Team Providers Care Tractor Engine Assembler Name Role Phone None Primary Care Provider Unavailabl e Encounter Details Date Type Department Care Team (Latest Contact Info) Description 02/10/2024 Travel Social History Tobacco Use Types Packs/Day [...] on filedocumented in this encounter Care Teams Tractor Engine Assembler Relationship Specialty Start Date End Date None None PCP - General 07/02/22 04/05/24 documented as of this encounter
--- OUTSIDE RECORDS SUMMARY | 2024-11-23 08:23 | XMS_ITS | Encounter Summary ---
Author Organization [facility] Address [facility] [place] [address] Care Team Providers Care Tissue Technologist Name Role Phone None Primary Care Provider Unavailabl e Encounter Details Date Type Department Care Team (Latest Contact Info) Description 03/24/2023 Travel Social History Tobacco Use Types Packs/Day [...] on filedocumented in this encounter Care Teams Tissue Technologist Relationship Specialty Start Date End Date None None PCP - General 07/02/22 04/05/24 documented as of this encounter
--- OUTSIDE RECORDS SUMMARY | 2024-11-23 08:23 | XMS_ITS | Encounter Summary ---
Author Organization [facility] [place] [address] Care Team Providers Care Human Services Manager Name Role Phone Sofia Hopper Primary Care Provider [phone] Encounter Details Date Type Department Care Team (Latest Contact Info) Description 04/15/2024 Travel Social History Tobacco Use Types Packs/Day [...] on filedocumented in this encounter Care Teams Human Services Manager Relationship Specialty Start Date End Date Sofia Hopper PA [address] [place] [id number] PCP - General Internal Medicine 04/06/24 documented as of this encounter
--- OUTSIDE RECORDS SUMMARY | 2024-11-23 08:23 | XMS_ITS | Encounter Summary ---
Author Organization [facility] Address [facility] [place] [address] Care Team Providers Care Line Decorator Name Role Phone None Primary Care Provider Unavailabl e Encounter Details Date Type Department Care Team (Latest Contact Info) Description 12/01/2023 Travel Social History Tobacco Use Types Packs/Day [...] on filedocumented in this encounter Care Teams Line Decorator Relationship Specialty Start Date End Date None None PCP - General 07/02/22 04/05/24 documented as of this encounter
--- OUTSIDE RECORDS SUMMARY | 2024-11-23 08:23 | XMS_ITS | Encounter Summary ---
Author Organization [facility] [place] [address] Care Team Providers Care Veterinary Dentist Name Role Phone Sofia Hopper Primary Care Provider [phone] Reason for Visit * Auth/Cert (Routine) Specialty Diagnoses / Procedures Referred By Tejal elizabeth Referred To Contact Diagnoses Retinal detachment, bilateral Dislocated IOL (intraocular lens), posterior, left Dislocated IOL left eye Procedures PRO VITRECTOMY,MECHANICAL PRO EXCHANGE LENS PROSTHESIS VITRECTOMY, MECHANICAL PARS PLANA APPROACH (WRVU 12.13) EXCHANGE OF INTRAOCULAR LENS (WRVU 12.26) Hoang Tam MD [facility] [address] [place] [address] [facility] Referral ID Status Reason Start Date Expiration Date Visits Re quested Visits Authorized [id number] 1 1 Encounter Details Date Type Department Care Team (Latest Contact Info) Description 04/14/2024 5:50 AM EDT - 04/14/2024 12:05 PM EDT Hospital Encounter [place] [address] Hoang Tma MD [facility] [address] [place] [address] Retinal detachment, bilateral; Dislocated IOL (intraocular lens), posterior, left Discharge Disposition: Home Social History Tobacco Use [...] tenderness and/or light sensitivity please call the [facility] telephone center ([phone]) immediately and ask to be connected to the strip tank tender irrigation engineer. PAIN May use over the counter pain [...] eye surgery as planned. Tanisha Mitchell MD [facility] Ophthalmology PGY3 [id number] I saw the patient with the following level of supervision from the attending: Direct from Dr. Tam. documented in this encounter Miscellaneous Notes * Op Note - Hoang Tam MD - 04/14/2024 8:15 AM EDT [facility] [place] Operative Note Patient Name: Seferino Honeycutt Jr. : [id number] MR#: [id number] Case Date: 04/14/2024 Surgeon: Surgeons and Role: [...] brought to the operative suite at the [facility] where a time-out was [...] stable condition.They have follow up in the [facility] clinic in 1 day. Attestation: Case Date: 04/14/2024 I was present and I participated during the entire procedure (does not need to include opening and closing). Hoang Tam MD 04/14/2024 * Op Note - Marcus Owen MD - 04/14/2024 8:15 AM EDT [facility] Operative Note Patient Name: Seferino Honeycutt Jr. : [id number] MR#: [id number] Case Date: 04/14/2024 Surgeon: Surgeons and Role: [...] (intraocular lens), posterior, left Exchange Lens Prosthesis (83421) 04/14/2024 7:40 AM EDT Retinal detachment, bilateral Dislocated IOL (intraocular lens), posterior, left Vitrectomy, Focal Laser Rx Retina ([id number]) 04/14/2024 7:40 AM EDT Retinal detachment, bilateral Dislocated IOL (intraocular lens), posterior, left POCT GLUCOSE Routine 04/14/2024 6:47 AM EDT EXCHANGE OF INTRAOCULAR LENS Routine 04/14/2024 6:13 AM EDT Retinal detachment, bilateral Dislocated IOL (intraocular lens), posterior, left IMPLANTABLE DEVICES SCAN 04/14/2024 12:00 AM EDT documented in this encounter Results * POCT Glucose (04/14/2024 6:47 AM EDT) [facility] Signature Glucose, POC 149 65 - 199 mg/dL [facility] Comment: Supplemental ranges: <140 mg/dL before meals <180 mg/dL all other times of the day Blood 04/14/2024 6:47 AM EDT 04/14/2024 6:47 AM EDT Hoang Tam MD POINT OF CARE TEST O RDERABLES [facility] [place] [address] * Scan Doc: Implantable Devices (04/14/2024 12:00 [...] Given 04/14/2024 6:54 AM EDT 975 mg cyclopentolate (Cyclodryl) ophthalmic solution 1 drop 1 drop, Left Eye, EVERY 5 MIN, 3 doses, First dose on Ivonne 04/14/24 at 0715, Last dose on Ivonne 04/14/24 at 0725, Day of Surgery (Day of Procedure), Routine Given 04/14/2024 7:34 AM EDT 1 drop Given 04/14/2024 7:30 AM EDT 1 drop Given 04/14/2024 7:27 AM EDT 1 drop lactated ringers infusion 1,000 mL, at 100 [...] Given 04/14/2024 7:24 AM EDT 1 drop PHENYLephrine (Mydfrin) 2.5 [...] Given 04/14/2024 7:24 AM EDT 1 drop tropicamide (Mydriacyl) 1 [...] 04/14/24 at 0715, Last dose on Ivonne 6/20/24 at 0725, Day of Surgery (Day of Procedure), Routine 07 (Given - Provid er: Mandie Regalado RN)07 (Given - Provider: Mandie Regalado RN)0732 (Given - Provider: Mandie Regalado RN) PHENYLephrine (Mydfrin) 2.5 % ophthalmic solution 1 drop (COMPLETED) 1 drop, Left Eye, EVERY 5 MIN, 3 doses, First dose on Ivonne 6/20/24 at 0715, Last dose on Ivonne 6/20/24 at 0725, Day of Surgery (Day of Procedure), Routine 07 (Given - Provid er: Mandie Regalado RN)0729 (Given - Provider: Mandie Regalado RN)0733 (Given - Provider: Mandie Regalado RN) prednisoLONE acetate (Pred-Forte) 1 % suspension 1 drop (COMPLETED) 1 drop, Left Eye, ONCE, 1 dose, On Ivonne 6/20/24 at 0715, Day of Surgery (Day of Procedure), Routine 07 (Given - Provid er: Mandie Regalado RN) tropicamide (Mydriacyl) 1 % ophthalmic solution 1 drop (COMPLETED) 1 drop, Left Eye, EVERY 5 MIN, 3 doses, First dose on Ivonne 6/20/24 at 0715, Last dose on Ivonne 6/20/24 at 0725, Day of Surgery (Day of Procedure), Routine 07 (Given - Provid er: Mandie Regalado RN)0730 (Given - Provider: Mandie Regalado RN)0733 (Given - Provider: Mandie Regalado RN) Continuous Medication Order 04/12/2024 04/13/2024 04/14/2024 lactated ringers infusion (CANCELED) 1,000 mL, at 100 mL/hr, Intravenous, CONTINUOUS, Starting on Ivonne 6/20/24 at 0715, Until Ivonne 6/20/24 at 1122, Day of Surgery (Day of [...] EVERY 6 HOURS PRN, Starting on Ivonne 6/24 at 1011, Until Ivonne 6//24 at 1405, Pain, MODERATE pain (4-6), Should be used concomitantly if other analgesics are ordered. Maximum dose of acetaminophen is 4,000 mg from all sources in 24 hours., Routine acetylcholine (Miochol-E) (10 mg/mL) Intraocular injection (CANCELED) PRN, Starting on Ivonne 6/20/24 at 0935, Until Ivonne 6/20/24 at 1405, Intra-Operative (Intra-Procedure) 0935 (Given - Provid er: Marcus Owen MD) bacitracin-polymyxin b (Polysporin) ophthalmic ointment (CANCELED) PRN, Starting on Ivonne 6/20/24 at 1006, Until Ivonne 6/20/24 at 1405, Intra-Operative (Intra-Procedure) 1006 (Given - Provid er: Tanisha Mitchell MD) balanced salt (BSS PLUS) irrigation solution (CANCELED) PRN, Starting on Ivonne 6/20/24 at 0836, Until Ivonne 6/20/24 at 1405, Intra-Operative (Intra-Procedure), Routine 0836 (Given - Provid er: Hoang Tam MD - Comment: 0.5ml epi added) balanced salt (BSS) irrigation solution (CANCELED) PRN, Starting on Ivonne 6/20/24 at 0935, Until Ivonne 6/20/24 at 1405, Intra-Operative (Intra-Procedure), Routine 0935 (Given - Provid er: Hoang Tam MD) BUpivacaine (pf) (Marcaine) (7.5 mg/mL) 0.75% injection (CANCELED) PRN, Starting on Ivonne 6/20/24 at 0837, Until Ivonne 6/20/24 at 1405, Intra-Operative (Intra-Procedure), Routine 0837 (Given - Provid er: Hoang Tam MD) ceFAZolin (Ancef) injection (CANCELED) PRN, Starting on Ivonne 6/20/24 at 0838, Until Ivonne 6/20/24 at 1405, Intra-Operative (Intra-Procedure), Routine 08 (Given - Provid er: Hoang Tam MD) dexAMETHasone (Decadron) injection (CANCELED) PRN, Starting on Ivonne 6/20/24 at 0839, Until Ivonne 6/20/24 at 1405, Intra-Operative (Intra-Procedure), Routine 08 (Given - Provid er: Hoang Tam MD) dorzolamide-timolol (PF) (Cosopt) 2-0.5 % ophthalmic solution (CANCELED) PRN, Starting on Ivonne 6/20/24 at 1005, Until Ivonne 6/20/24 at 1405, Intra-Operative (Intra-Procedure), Routine 1005 (Given - Provid er: Hoang Tam MD) EPINEPHrine (Adrenalin (PF)) injection solution (CANCELED) PRN, Starting on Ivonne 6/20/24 at 0839, Until Ivonne 6/20/24 at 1405, Intra-Operative (Intra-Procedure), Routine 0839 (Given - Provid er: Hoang Tam MD - Comment: added to BSS plus) moxifloxacin (Vigamox) 0.5 % ophthalmic solution (CANCELED) PRN, Starting on Ivonne 6/20/24 at 1005, Until Ivonne 6/20/24 at 1405, Intra-Operative (Intra-Procedure), Routine 1005 (Given - Provid er: Tanisha Mitchell MD) tetracaine (PF) (Pontocaine) ophthalmic solution (CANCELED) PRN, Starting on Ivonne 6/20/24 at 0837, Until Ivonne 6/20/24 at 1405, Intra-Operative (Intra-Procedure), Routine 0837 (Given - Provid er: Marcus Owen MD) No Frequency Medication Order 04/12/2024 04/13/2024 04/14/2024 prednisoLONE acetate (Pred-Forte) 1 % suspension 1 dose, Starting on Ivonne 04/14/24 at 0728, Until Ivonne 04/14/24 at 1405, Courtney Humphries: cabinet override 0730 (Due) documented in this encounter Care Teams Veterinary Dentist Relationship Specialty Start Date End Date Sofia Hopper PA [address] [place] [id number] PCP - General Internal Medicine 04/06/24 documented as of this encounter
--- OUTSIDE RECORDS SUMMARY | 2024-11-23 08:23 | XMS_ITS | Encounter Summary ---
Author Organization [facility] Address [facility] [place] [address] Care Team Providers Care Flight Communications Operator Name Role Phone None Primary Care Provider Unavailabl e Encounter Details Date Type Department Care Team (Late st Contact Info) Description 09/14/2023 Telephone Gastroenterology at [facility] [place], [facility] [place] [id number] Sabrina Stuart Social History Tobacco Use Types Packs/Day Years [...] encounter Miscellaneous Notes * Telephone Encounter - Sabrina Stuart - 09/14/2023 12:23 PM EST Seferino Honeycutt Jr. [id number] Diagnosis/Indication: cirrhosis screen for varices Please review patient chart to confirm if previous Endoscopy procedure was performed within system. If yes, take note of Anesthesia type used. If previous procedure found, and with MAC/propofol Anesthesia support was used, schedule this procedure with Anesthesia and skip the Anesthesia portion of questions. If not performed within system, not performed at all, or performed with IVCS, ask Anesthesia questions. SCHEDULING QUESTIONS (ask all patient these questions) Have you ever had a/an Upper Endoscopy before? Yes: [place] [facility] [place] yes, did you have any problems with the procedure (such as waking up during the procedure, pain or difficulties afterwards, etc.)? Yes IVCS did not work for pt What type of sedation was used: IV Conscious Sedation Do you take any blood thinners or have you been diagnosed with a bleeding disorder that increases your risk of bleeding with procedures? No Do you have a Pacemaker or Defibrillator device? If yes, send pool message to Cardiology with patient information and date or procedure. No Are you a diabetic? If yes, call PCP/managing provider to discuss use of prep and any questions or concerns related to. Yes: Controlled by diet or medication? Both Do you take any iron supplements or vitamins that contain iron? No Do you have a preference regarding the gender of your provider? No ANESTHESIA QUESTIONS (YES to any question, please book with Anesthesia support) Have you ever been diagnosed with Pulmonary Hypertension and/or Congential Heart Disease? No Have you been diagnosed with A-Fib (atrial fibrillation) that is NOT being well controled with medications? No Have you ever had an allergic or adverse reaction to Fentanyl or Versed? No Have you had a problem with sedation or anesthesia? (Waking up during procedure, extreme confusion after, etc.) No Do you have a diagnosis of Obstructive Sleep Apnea that requires the use of a c- pap machine? No Do you use an oxygen tank at home? No Do you use a rescue inhaler more than twice per day? (COPD, severe asthma) No Do you experience breathing problems when you lay flat for a period of time? No Do you take prescription narcotic pain medications, including suboxone or methodone? No SCHEDULING CONFIRMATIONS: Please note any and all parts of your conversation with the patient here. We offer all new patients an opportunity to have an appointment with one of our associate care providers to learn more about your upcoming procedure, ask questions and get answers. These appointmentsare offered via telehealth. Would you be interested in scheduling this appointment? (Only ask if NEW referral patient; skip this question if [facility] provider ordered the procedure.) No Is there any other information or concerns you would like to us to share with your care team in relation to your upcoming scheduled procedure? No You must have a responsible democrat who will drive you to your procedure, stay on campus for the entire duration of your procedure, and drive you home from your procedure. Who will likely be your electric mule driver for the procedure? Please Verify the height and weight, and adjust if height and/or weight have changed Height as of 09/14/23: 5' 9 Weight as of 09/14/23: 207 lbs BMI: 30.6 Age:63 y.o. documented in this encounter Plan of Treatment Not on file documented as of this encounter Visit Diagnoses Not on filedocumented in this encounter Care Teams Flight Communications Operator Relationship Specialty Start Date End Date None None PCP - General 07/02/22 04/05/24 documented as of this encounter
--- OUTSIDE RECORDS SUMMARY | 2024-11-23 08:23 | XMS_ITS | Encounter Summary ---
Author Organization [facility] Address [facility] [place] [address] Care Team Providers Care Child Watch Attendant Name Role Phone Ward Sofia MASTERSON Primary Care Provider [phone] Reason for Visit * Reason Comments Post Op S/p 04/14/2024 vitrec elizabeth, pars plana, laser/exchange of IOL OS Encounter Details Date Type Department Care Team (Late st Contact Info) Description 04/25/2024 7:45 AM EDT Office [place] [phone] Hoang Tam MD [facility] [place] [address] Dislocated IOL (intraocular lens), posterior, left; Retinal detachment, bilateral: [place] surgery at [facility] [place] [facility] [place] Pseudophakia Social History Tobacco Use Types Packs/Day Years Used Date Smoking Tobacco: Former Cigarettes 0.3 35 0 02/05/1983 - 02/05/2018 Smokeless Tobacco: Never Comments:avs information Alcohol Use Standard Drinks/Week Comments Yes 0 (1 standard drink = 0.6 oz pur e alcohol) 0-12 beers / week [facility] Inpatient Questions Answer Date Recorded Does Anyone [...] * Patient Instructions* Hoang Tam MD - 04/25/2024 7:45 AM EDT Images from the original note were not included. Drop Name: Cap Color: Dose: 1 Drop Eye: Ketotolac FOSTER 4 X Daily until gone LEFT Prednisolone Acetate 1% [place] or White 3 X DAILY X 1 week Then 2 X DAILY X 1 week Then 1 X DAILY X 1 Week THEN STOP left eye Vigamox (Moxifloxacin) [place] STOP Ointment Small tube 2-3x daily as needed left eye Bloody tears are normal for a week or two after surgery CONTINUE ALL PREVIOUSLY PRESCRIBED EYE DROPS UNLESS OTHERWISE DIRECTED Shake drops gently before use. Wash hand before using eye drops. Do not touch dropper to eyelids or fingers. Space drops a minimum or 2-3 minutes apart from each other. Shower/bathe as normal. If you have any questions or problems call us, a doctor is on a call 24 hours a day. Should you experience any: Severe Pain, Severe Light Sensitivity, Nausea and/or Vomiting, Sudden Loss of Vision, or any Thick Discharge from your eye PLEASE call the Eye Clinic IMMEDIATELY at [phone]. documented in this encounter Progress Notes * Domingo Gandhi MD - 04/25/2024 7:45 AM EDT ASSESSMENT: 1. Dislocated IOL (intraocular lens), posterior, left 2. Retinal detachment, bilateral: OD surgery at [facility] , [place] [facility] [place] 3. Pseudophakia Surgical Findings: iatrogenic break inferonasal treated with laser POD 11 s/p PPV, laser, IOL exchange to ACIOL OS Doing well PLAN: Taper Pred 3,2,1 Continue Ketorolac QID until gone Stop Vigamox Document fundus with optos and OCT today. Due to see Dr. Owen 05/18/24 for final HCK and MRX Follow up retina in 6-12 months for routine retina care. Hx of RD and IOL exchange OS. Kiarra Gandhi PGY-3, Ophthalmology Resident #[id number] 04/24/2024 3:22 PM I saw the patient with the following level of supervision from the attending: Direct from Dr. Tam. * Hoang Tam MD - 04/25/2024 7:45 AM EDT I have seen the patient [...] left Retinal detachment, bilateral: OD surgery at [facility] , [place] [facility] [place] Unspecified retinal detachment Pseudophakia Lens replaced by other means documented in this encounter Care Teams Child Watch Attendant Relationship Specialty Start Date End Date Sofia Hopper PA [address] [place] [id number] PCP - General Internal Medicine 04/06/24 documented as of this encounter
--- OUTSIDE RECORDS SUMMARY | 2024-11-23 08:23 | XMS_ITS | Encounter Summary ---
Author Organization [facility] Address [facility] [place] [address] Care Team Providers Care Head Cashier Name Role Phone Sofia Hopper Primary Care Provider [phone] Reason for Visit * Auth/Cert (Routine) Specialty Diagnoses / Procedures Referred By Tejal elizabeth Referred To Contact Diagnoses Retinal detachment, bilateral Dislocated IOL (intraocular lens), posterior, left Dislocated IOL left eye Procedures PRO VITRECTOMY,MECHANICAL PRO EXCHANGE LENS PROSTHESIS VITRECTOMY, MECHANICAL PARS PLANA APPROACH (WRVU 12.13) EXCHANGE OF INTRAOCULAR LENS (WRVU 12.26) Hoang Tam MD [facility] [place] [address] [facility] Referral ID Status Reason Start Date Expiration Date Visits Re quested Visits Authorized [id number] 1 1 Encounter Details Date Type Department Care Team (Late st Contact Info) Description 04/14/2024 7:37 AM EDT Anesthesia [place] [address] Laura Sepulveda MD [facility] DR [place] [address] Shelly Howell CRNA [facility] [address] [place] [address] Anesthesia Record Procedure Summary Procedure Name Responsible Anesthesiologist Anesthesia Start Time Anesthesia Stop Time VITRECTOMY, PARS PLANA, LASER (WRVU 13.2) (Left: Eye) Laura Sepulveda MD 04/14/24 0737 04/14/24 1019 Events Date Time Event Comment 04/14/2024 0724 0737 AN Verify Delay: pre-op s hort staffed 0737 Start 0740 An Start Data Computer monit or data not transferring to [facility]; biomed called; manual entries 0751 An Induction 0753 An Intubation 0754 Anesthesia Ready 0817 Procedure Start 0826 Break/Relief In I assumed ca re for Break Relief before which we: 1. Identified the patient 2. Identified the responsible provider(s) 3. Reviewed the pertinent medical history 4. Discussed the surgical plan and course 5. Reviewed intra-op anesthesia management and issues during anesthesia 6. Set expectations for the relief (and/or post-procedure) period 7. Allowed opportunity for questions and acknowledgement of understanding Lenore Lanza CRNA 0839 Break/Relief Out 1007 Extubation/LMA Out 1011 an stop data 1019 Recovery or ICU Handoff Yanira ent care was transferred to the destination unit staff after review of the patient's medical history, current anesthetic/surgical status and plan, according to the Provider Handoff Checklist.LLD with pillows x 4; spon resp ez; drowsy; calm 1019 Stop Meds Name Total propofoL 350 mg propofol INF 632.06 mg midazolam 2 mg lidocaine IV 40 mg dexAMETHasone 4 mg ondansetron 4 mg ePHEDrine 10 mg PHENYLephrine 640 mcg dexmedeTOMIDine 4 mcg/mL 16 mcg PHENYLephrine INF 6,750 mcg lactated ringers infusion 1,000 mL * Agents Name O2 Air N2O Sevoflurane (et) * Blood No blood administrations on file. Lines, Drains, and Airways Type Details Placement Removal Incision 04/14/24; 0822; Left; eye 0822 by Domingo Asif RN PIV 04/14/24; 0702; dsha-fup-eznavb catheter system; 20 gauge; median cubital vein (antecubital fossa), left; Anatomical Landmarks; distraction, tolerated well, appears comfortable; no longer indicated, removed per policy/procedure, catheter/device intact; 04/14/24; 1118 04/14/24 0702 by Mandie Regalado RN 04/14/24 1118 by Courtney Humphries, TANG Supraglottic Mask Ventilation: No t Attempted (0); LMA Type: Unique; LMA Size: 4; Inserted by: varinder; Removal Date: 04/14/24; Removal Time: 1007 04/14/24 0753 by Shelly Howell CRNA 04/14/24 1007 by Shelly Howell CRNA documented in this encounter Social History Tobacco [...] OR Notes * Anesthesia Postprocedure Evaluation - Laura Sepulveda MD - 04/14/2024 12:25 PM EDT Department of Anesthesiology Post-procedure Note Patient: Seferino Honeycutt Jr. Procedure Summary Date: 04/14/24 Room / Location: [facility] OR [address] [place] [address] MAIN OR Anesthesia Start: 736 Anesthesia Stop: 1018 Procedures: VITRECTOMY, PARS PLANA, LASER (WRVU 13.2) (Left: Eye) EXCHANGE OF INTRAOCULAR LENS (WRVU 12.26) (Left: Eye) Diagnosis: Retinal detachment, bilateral Dislocated IOL (intraocular lens), posterior, left (Dislocated IOL left eye) Surgeons: Hoang Tam MD; Marcus Owen MD Responsible Provider: Laura Sepulveda MD Anesthesia Type: general ASA Status: 3 All Anesthesia Providers: Anesthesiologist: Laura Sepulveda MD CONTRACTS REPRESENTATIVE: Shelly Howell CRNA Vitals Value Taken Time BP 101/51 04/14/24 1100 Temp 36.6 ??C (97.9 ??F) 04/14/24 1015 Pulse 72 04/14/24 1109 Resp 22 04/14/24 1109 SpO2 94 % 04/14/24 1108 Pain Level 0 04/14/24 1030 Vitals shown include unfiled device data. Patient Location: PACU/[facility] Level of Consciousness: Awake and Alert Pain Management: Satisfactory Analgesia PONV: None Cardiovascular Status: At Baseline and Hemodynamically Stable Respiratory Status: At Baseline and Room Air Postoperative Fluid Status: Intravascular EUvolemia Possible Anesthetic Complications: NONE apparent at time of evaluation Final Primary Anesthesia Type: General (The anesthetic type performed was the same as planned.) Comments: Laura Sepulveda MD * Anesthesia Preprocedure Evaluation - Laura Sepulveda MD - 04/13/2024 2:44 PM EDT Pre-Anesthesia Evaluation for: Seferino Honeycutt Jr. a 64 y.o. male. Procedure(s): VITRECTOMY, MECHANICAL PARS PLANA APPROACH (WRVU 12.13) EXCHANGE OF INTRAOCULAR LENS (WRVU 12.26) Patient Active Problem List Diagnosis Date Noted ??? Retinal detachment, bilateral: OD surgery at [facility] , OS at [facility] 1999s 12/01/2023 ??? Cirrhosis of liver 02/13/2014 ??? Spinal stenosis, lumbar region, without neurogenic claudication 07/22/2012 ??? Chronic Mechanical low back pain 07/22/2012 ??? CAD (coronary artery disease), three affiliated coronary artery 07/07/2012 ??? Tobacco abuse disorder 07/07/2012 ??? Hepatitis C 07/07/2012 ??? Hypertension 07/07/2012 Past Medical History: Diagnosis Date ??? Cataract ??? Chronic low back pain ??? Depression ??? H/O acute myocardial infarction ??? High blood pressure Past Surgical History: Procedure Laterality Date ??? CATARACT REMOVAL ??? CORONARY ANGIOPLASTY WITH STENT PLACEMENT ??? EYE SURGERY ??? PRO COLONOSCOPY, DIAGNOSTIC N/A 11/07/2020 COLONOSCOPY, DIAGNOSTIC performed by Chelsi Sidhu MD at [facility] ENDOSCOPY ??? PRO CYSTO/URETERO/PYELOSCOPY W/LITHOTRIPSY 09/07/2013 CYSTOURETEROSCOPY, LITHOTRIPSY performed by Wyatt Edmonds MD at [facility] MAIN OR ??? PRO CYSTOSCOPY, INSERT URETERAL STENT 07/09/2013 CYSTO, STENT PLACEMENT performed by Wyatt Edmonds MD at [facility] OR ??? PRO CYSTOSCOPY, INSERT URETERAL STENT 09/07/2013 CYSTO, STENT PLACEMENT performed by Wyatt Edmonds MD at [facility] OR ??? PRO CYSTOSCOPY, REMV CALCULUS, SIMPLE 09/07/2013 CYSTO, REMOVAL OF STENT, FOREIGN BODY OR CALCULUS, SIMPLE performed by Wyatt Edmonds MD at [facility] OR ??? PRO CYSTOURETHROSCOPY, URETER CATHETER 07/09/2013 CYSTO, RETROGRADE, URETEROPYELOGRAPHY performed by Wyatt Edmonds MD at [facility] OR ??? PRO UPPER GI ENDOSCOPY, BIOPSY 03/08/2014 UPPER GASTROINTESTINAL ENDOSCOPY,WITH BIOPSY SINGLE OR MULTIPLE performed by Dejuan Young MD at [facility] ENDOSCOPY ??? PRO UPPER GI ENDOSCOPY, BIOPSY N/A 03/20/2016 EGD WITH BIOPSY performed by Lashell Marcos MD at [facility] ENDOSCOPY ??? PRO UPPER GI ENDOSCOPY, DIAGNOSTIC 08/08/2014 EGD, UPPER GI ENDOSCOPY performed by Lashell Marcos MD at [facility] ENDOSCOPY ??? PRO UPPER GI ENDOSCOPY, DIAGNOSTIC N/A 04/07/2018 EGD, UPPER GI ENDOSCOPY performed by Velma Rodas MD at [facility] ENDOSCOPY ??? PRO UPPER GI ENDOSCOPY, DIAGNOSTIC N/A 11/07/2020 EGD, UPPER GI ENDOSCOPY performed by Chelsi Sidhu MD at [facility] ENDOSCOPY ??? PRO UPPER GI ENDOSCOPY, DIAGNOSTIC N/A 11/11/2023 EGD, UPPER GI ENDOSCOPY (WRVU 2.09) performed by Marcus Martinez MD at [facility] ENDOSCOPY ??? UPPER GI ENDOSCOPY, EXAM 07/13/2012 UPPER GI ENDOSCOPY performed by GILA MELENDEZ at [facility] ENDOSCOPY Social History Tobacco Use ??? Smoking status: Every Day Current packs/day: 0.00 Average packs/day: 0.3 packs/day for 35.0 years (8.8 ttl pk-yrs) Types: Cigarettes Start date: 02/05/1983 Last attempt to quit: 02/05/2018 Years since quittin.1 ??? Smokeless tobacco: Never ??? Tobacco comments: avs information Substance Use Topics ??? Alcohol use: No Comment: 6 pack per week Social History Substance and Sexual Activity Drug Use Yes ??? Frequency: 7.0 times per week ??? Types: Marijuana Allergies Allergen Reactions ??? Natasha-V[place] [Aspirin-Sod Bicarb-Citric Acid] Anaphylaxis Sodium bicarbonate ??? Bee Sting [Hymenoptera Allergenic Extract] Anaphylaxis Medications: MAR and/or home medications have been reviewed. Physical Exam: Preprocedure Vitals Current as of 04/13/24 1444 No BP, pulse, respiration, SpO2, or temperature recorded. Height: Weight: BMI: IBW: Airway Assessment: Mallampati: III TM distance: >3 FB Neck ROM: full Cardiovascular Assessment: Rhythm: regular Rate: normal Pulmonary Assessment: unlabored breathing Dental Assessment: Comment: Poor dentition throughout with multiple missing and broken teeth. Nothing loose per patient report. Misc Assessment: IV access: Peripheral line Last Filed Perioperative Cognitive Screening None Anesthesia Plan: ASA 3 general, with a(n) intravenous induction Patient interviewed and examined. Seferino Honeycutt is a 64 y.o. patient who presents for LEFT vitrectomy. PMH otherwise significant for: CAD (s/p RCA stenting x 2 in 2006), HTN - lisinopril, metoprolol, HCTZ, hasn't used NTG in years Current tobacco smoking - 5 cigs daily mechanical low back pain NIDDM - jardiance held 3 days hepatitis C and cirrhosis - rifaximin, lactulose, doesn't drink every day but sometimes drinks more than he should Daily cannabis use Current BMI 28 Previous anesthetics: No history of anesthetic complications or family history of major anesthetic complications. Appropriately NPO. Exercise tolerance > 4 METS (2 flights of stairs easily). Denies chest pain. No recent respiratory infections, fevers. Medications, allergies, labs reviewed Plan for general anesthesia with LMA, standard ASA monitors, to SD following procedure. All patient questions related to anesthetic care answered at this time. Anesthesia consent obtainedwith discussion of indications, benefits, risks, and alternatives. The patient demonstrated adequate understanding and acknowledged these risks and wishes to proceed with surgery. Laura Sepulveda MD Attending Anesthesiologist Pager [phone] 04/14/24 7:25 AM Informed Consent: Anesthetic plan and risks discussed with patient. Plan discussed with CONTRACTS REPRESENTATIVE and attending. Anesthesia Screening documented in this encounter Plan of Treatment Not on file documented as of this encounter Visit Diagnoses Not on filedocumented in this encounter Administered Medications Inactive Administered Medications - up to 3 most recent administrations Medication Order MAR Action Action Date Dose Rate Site dexAMETHasone (Decadron) injection Intravenous, PRN, Starting on Ivonne 04/14/24 at 0815, Until Ivonne 04/14/24 at 1011, Anesthesia Intra-op, Routine Given 04/14/2024 8:15 AM EDT 4 mg dexmedeTOMIDine (Precedex) (4 mcg/mL) bolus injection (Anesthsia) Intravenous, PRN, Starting on Ivonne 04/14/24 at 0753, Until Ivonne 04/14/24 at 1011, Anesthesia Intra-op, Routine Given 04/14/2024 7:54 AM EDT 8 mcg Given 04/14/2024 7:53 AM EDT 8 mcg ePHEDrine sulfate (5 mg/mL) multi-dose injection Intravenous, PRN, Starting on Ivonne 04/14/24 at 0845, Until Ivonne 04/14/24 at 1011, Anesthesia Intra-op, Routine Given 04/14/2024 8:55 AM EDT 5 mg Given 04/14/2024 8:45 AM EDT 5 mg lactated ringers infusion 1,000 mL, at 100 mL/hr, Intravenous, CONTINUOUS, Starting on Ivonne 04/14/24 at 0715, Until Ivonne 04/14/24 at 1122, Day of Surgery (Day of Procedure) New Bag 04/14/2024 10:03 AM EDT Restarted 04/14/2024 7:37 AM EDT New Bag 04/14/2024 7:28 AM EDT 1,000 mLs 100 mL/hr lidocaine (pf) (Xylocaine) (20 mg/mL) 2% injection syringe Intravenous, PRN, Starting on Ivonne 04/14/24 at 0751, Until Ivonne 04/14/24 at 1011, Anesthesia Intra-op, Routine Given 04/14/2024 7:51 AM EDT 40 mg midazolam (pf) (Versed) (1 mg/mL) multi-dose injection Intravenous, PRN, Starting on Ivonne 04/14/24 at 0744, Until Ivonne 04/14/24 at 1011, Anesthesia Intra-op, Routine Given 04/14/2024 7:44 AM EDT 2 mg ondansetron (pf) (Zofran) (2 mg/mL) injection Intravenous, PRN, Starting on Ivonne 04/14/24 at 0815, Until Ivonne 04/14/24 at 1011, Anesthesia Intra-op, Routine Given 04/14/2024 8:15 AM EDT 4 mg PHENYLephrine (Hamlet-Synephrine) (80 mcg/mL) in sodium chloride 0.9% 250 mL infusion Intravenous, CONTINUOUS PRN, Starting on Ivonne 04/14/24 at 0803, Until Ivonne 04/14/24 at 1011, Anesthesia Intra-op, Routine Rate/Dose Change 04/14/2024 10:03 AM EDT 20 mcg/min 15 mL/hr Rate/Dose Change 04/14/2024 9:35 AM EDT 50 mcg/min 37.5 mL /hr Rate/Dose Change 04/14/2024 8:28 AM EDT 60 mcg/min 45 mL/h r PHENYLephrine in NS (PF) (HAMLET-SYNEPHRINE) 0.8 mg/10 mL (80 mcg/mL) multi-dose injection Syringe Intravenous, PRN, Starting on Ivonne 04/14/24 at 0751, Until Ivonne 04/14/24 at 1011, Anesthesia Intra-op, Routine Given 04/14/2024 8:34 AM EDT 160 mcg Given 04/14/2024 8:31 AM EDT 80 mcg Given 04/14/2024 8:28 AM EDT 80 mcg propofoL (Diprivan) (10 mg/mL) infusion Intravenous, CONTINUOUS PRN, Starting on Ivonne 04/14/24 at 0751, Until Ivonne 04/14/24 at 1011, Anesthesia Intra-op, Routine Rate/Dose Change 04/14/2024 8:45 AM EDT 50 mcg/kg/min 22.44 mL/hr Rate/Dose Change 04/14/2024 8:43 AM EDT 75 mcg/kg/min 33.6 6 mL/hr Rate/Dose Change 04/14/2024 8:03 AM EDT 100 mcg/kg/min 44. 88 mL/hr propofoL (Diprivan) 10 mg/mL bolus injection (Anesthesia) Intravenous, PRN, Starting on Ivonne 04/14/24 at 0751, Until Ivonne 04/14/24 at 1011, Anesthesia Intra-op Given 04/14/2024 9:42 AM EDT 50 mg Given 04/14/2024 9:28 AM EDT 50 mg Given 04/14/2024 8:20 AM EDT 50 mg documented in this encounter Care Teams Head Cashier Relationship Specialty Start Date End Date Sofia Hopper PA [address] [place] [id number] PCP - General Internal Medicine 04/06/24 documented as of this encounter
--- OUTSIDE RECORDS SUMMARY | 2024-11-23 08:24 | XMS_ITS | Encounter Summary ---
Author Organization [facility] [place] [address] Care Team Providers Care Logging Truck Driver Name Role Phone None Primary Care Provider Unavailabl e Reason for Visit * Reason Onset Date Comments Reminder Appointment 07/03/2022 Encounter Details Date Type Department Care Team (Late st Contact Info) Description 07/03/2022 Telephone [place] [address] Violet Fabian CCMA Reminder Appointment Social History Tobacco Use Types Packs/Day Years [...] encounter Miscellaneous Notes * Telephone Encounter - Violet Fabian LNA - 07/03/2022 9:12 AM EDT Called patient to review medications and allergies for their upcoming gastroenterology Type of Appointment: Phone appointment. Reach Patient during MA Check: No, Left Message Notes for the provider: Notes for the nurse: documented in this encounter Plan of Treatment Not on file documented as of this encounter Visit Diagnoses Not on filedocumented in this encounter Care Teams Logging Truck Driver Relationship Specialty Start Date End Date None None PCP - General 07/02/22 04/05/24 documented as of this encounter
--- OUTSIDE RECORDS SUMMARY | 2024-11-23 08:24 | XMS_ITS | Encounter Summary ---
Author Organization [facility] Address [facility] [place] [address] Care Team Providers Care Poster Name Role Phone Jose M Sauceda MD Primary Care Provider Reason for Visit * Reason Comments Medication Refill Encounter Details Date Type Department Care Team ([facility] st Contact Info) Description 09/20/2019 Ref[place] [address] Steffanie Plummer APRN [facility] [place] [address] Social History Tobacco Use Types Packs/Day Years Used Date Smoking Tobacco: Former Cigarettes 0.3 35 0 02/05/1983 - 02/05/2018 Smokeless Tobacco: Never Comments:avs information Alcohol Use Standard Drinks/Week Comments No 0 (1 standard drink = 0.6 oz pure alcohol) 1-2 beers per week, sometimes less Sex and Gender Information Value Date Recorded Sex Assigned at Not on file Gender Identity Not on file Sexual Orientation Not on file documented as of this encounter Plan of Treatment Not on file documented as of this encounter Visit Diagnoses Not on filedocumented in this encounter Care Teams Poster Relationship Specialty Start Date End Date Jose M Sauceda MD [address] [place] [id number] PCP - General 06/09/12 07/25/20 documented as of this encounter
--- OUTSIDE RECORDS SUMMARY | 2024-11-23 08:24 | XMS_ITS | Encounter Summary ---
Author Organization [facility] Address [facility] [place] [address] Care Team Providers Care Receiver Name Role Phone Jose M Sauceda MD Primary Care Provider [phone] Reason for Visit * Reason Comments Medication Refill Encounter Details Date Type Department Care Team ([facility] Contact Info) Description 05/14/2020 Refill [place] [address] Steffanie Plummer [facility] [place] [address] Hepatic cirrhosis, unspecified hepatic cirrhosis type, unspecified [...] present documented in this encounter Care Teams Receiver Relationship Specialty Start Date End Date Jose M Sauceda MD [address] [place] [id number] PCP - General 06/09/12 07/25/20 documented as of this encounter
--- OUTSIDE RECORDS SUMMARY | 2024-11-23 08:24 | XMS_ITS | Encounter Summary ---
Author Organization [facility] Address [facility] [place] [address] Care Team Providers Care Metal Products Fabricator Assembler Name Role Phone Varun, Jose Eduardo ELMOER Primary Care Provider [phone] Reason for Visit * Reason Comments Medication Refill Encounter Details Date Type Department Care Team ([facility] st Contact Info) Description 07/26/2020 Refill [place] [address] Steffanie Plummer [facility] [place] [address] Hepatic cirrhosis, unspecified hepatic cirrhosis type, unspecified [...] present documented in this encounter Care Teams Metal Products Fabricator Assembler Relationship Specialty Start Date End Date Jose Eduardo Bond APRN [address] [place] [id number] PCP - General Family Medicine 07/26/20 06/25/21 documented as of this encounter
--- OUTSIDE RECORDS SUMMARY | 2024-11-23 08:24 | XMS_ITS | Encounter Summary ---
[place] [address] Care Team Providers Care Trigonometry Tutor Name Role Phone None Primary Care Provider Unavailabl e Reason for Referral * Consultation (Routine) - Closed Specialty Diagnoses / Procedures Referred By Tejal elizabeth Referred To Contact Maxillofacial Surgery Diagnoses Extraction of tooth needed Jovi Love DDS [address] [place] [address] [facility] [address] [place] [phone] Referral ID Status Reason Start Date Expiration Date V isits Requested Visits Authorized [id number] Closed Consult, Test & Treat 08/28/2022 08/28/2023 1 1 Encounter Details Date Type Department Care Team (Latest Contact Info) Description 08/28/2022 Transcribe Orders eDH Incoming Referrals [phone] Jovi Love DDS [address] [place] [address] Extraction of tooth needed Social History Tobacco Use Types Packs/Day Years [...] as of this encounter Plan of Treatment Scheduled Referrals Name Type Priority Associated Diagnoses Order Schedule Referral to Maxillofacial Surgery Outpatient Referral Routine Extraction Of Tooth Needed Ordered: 08/28/2022 documented as of this encounter Visit Diagnoses Diagnosis Extraction of tooth needed documented in this encounter Care Teams Trigonometry Tutor Relationship Specialty Start Date End Date None None PCP - General 07/02/22 04/05/24 documented as of this encounter
--- OUTSIDE RECORDS SUMMARY | 2024-11-23 08:24 | XMS_ITS | Encounter Summary ---
Author Organization [facility] Address [facility] [place] [address] Care Team Providers Care Vp Digital Marketing Name Role Phone None Primary Care Provider Unavailabl e Reason for Visit * Reason Comments Medication Refill Encounter Details Date Type Department Care Team (Late st Contact Info) Description 08/04/2022 Refill Gastroenterology at [facility] [place] [address] Steffanie Plummer APRN [facility] [place] [address] Hepatic cirrhosis, unspecified hepatic cirrhosis type, unspecified [...] present documented in this encounter Care Teams Vp Digital Marketing Relationship Specialty Start Date End Date None None PCP - General 07/02/22 04/05/24 documented as of this encounter
--- OUTSIDE RECORDS SUMMARY | 2024-11-23 08:24 | XMS_ITS | Encounter Summary ---
[place] [address] Care Team Providers Care River Captain Name Role Phone Jose M Sauceda MD Primary Care Provider [phone] Reason for Visit * Reason Onset Date Comments Prior Authorization 11/12/2018 Encounter Details Date Type Department Care Team (Late st Contact Info) Description 11/12/2018 Telephone [place] [phone] [facility] Cherry, [facility] Prior Authorization Social History Tobacco Use Types Packs/Day Years [...] encounter Miscellaneous Notes * Telephone Encounter - Elodia Cherry WAIST PLEATER - 11/12/2018 3:41 PM EST Medication Prior Authorization 4L Gastroenterology / [place] [address] Subscriber Insurance: [place] Medicaid Phone: Fax: Physician: Steffanie Plummer Return Pharmacy: [place] [facility] Phone: Fax: Medication Requested: Xifaxan Strength: 550MG Frequency: Take 1 tablet by mouth 2 times a day Disp.: 180 Refills: 3 Currently taking: Diagnosis for this medication: Hepatic Encephalopathy ICD-10 code: (K72.90) Prior medications trialed in this patient:Augmentin 2012, Ciprofloxacin 2012, Fluoxetine 2011, Currently taking since 2014 Lactulose Medication: Outcome/Adverse Reactions:Treatment Failure Decision: Approved Tracking number/Case number/Reference number: [id number] Effective date: Start: 11/12/2018 End:11/12/2019 documented in this encounter Plan of Treatment Not on file documented as of this encounter Visit Diagnoses Not on filedocumented in this encounter Care Teams River Captain Relationship Specialty Start Date End Date Jose M Sauceda MD [address] [place] [id number] PCP - General 06/09/12 07/25/20 documented as of this encounter
--- OUTSIDE RECORDS SUMMARY | 2024-11-23 08:24 | XMS_ITS | Encounter Summary ---
Author Organization Formerly [facility], Later [facility] Address [facility] [place] [address] Care Team Providers Care Landscape Architect And Planner Name Role Phone None Primary Care Provider Unavailabl e Encounter Details Date Type Department Care Team (Latest Contact Info) Description 07/02/2022 10:50 AM EDT - 07/02/2022 11:59 PM EDT Hospital Encounter Ultrasound at [facility] [place] [phone] Steffanie Garcia APRN [facility] [place] [address] Hepatic cirrhosis, unspecified hepatic cirrhosis type, unspecified [...] Sig Dispensed Refills Start Date End Date ferrous gluconate 324 mg (38 mg iron) [...] MG = 1 Tablet(s), Sublingual, PRN 03/02/2008 rifAXIMin (Xifaxan) 550 mg TabletIndications:Hep atic cirrhosis, unspecified hepatic cirrhosis type, unspecified whether ascites present Take 1 tablet by mouth 2 times daily. 60 tablet 3 03/10/2022 03/24/2023 lactulose (Chronulac) 10 gram/15 mL Solution TAKE 15 ML BY MOUTH TWO TIMES A DAY 1000 mL 12/05/2019 03/24/2023 documented as of this encounter Plan of Treatment Not on file documented as of this encounter Procedures Procedure Name Priority Date/Time Associated Diagnosis Comments US ABDOMEN LIMITED HEPATOLOGY PROTOCOL Routine 07/02/2022 11:29 AM EDT Hepatic cirrhosis, unspecified hepatic cirrhosis type, unspecified whether ascites present documented in this encounter Results * US Abdomen Limited Hepatology Protocol (07/02/2022 11:29 AM EDT) Anatomical Region Laterality Modality Abdomen Ultrasound 07/02/2022 11:0 5 AM EDT Impressions 07/02/2022 11:45 AM EDT 1. Diffusely coarsened parenchyma and capsular nodularity consistent with cirrhosis. No change from prior. There is no focal lesion to suggest hepatocellular carcinoma. The hypoechoic lesion described on the study from September 2018 is not visible today nor on the recent prior comparison. 2. Mild circumferential gallbladder wall thickening is present. No significant change from prior by my review. There are no additional signs of cholecystitis and there is no cholelithiasis. 3. No intra or extrahepatic biliary ductal dilation. 4. Marked splenic megaly, similar to prior. 5. Trace amount of perihepatic ascites. Thank you for letting us participate in the care of this patient. If you are a health care provider and have any questions regarding this report, please contact the number above. For patients who have questions, please contact the health healthcare architect that requested your imaging first. ?Dylan Kay, Staff Physician Electronically Signed Final Report ?? 07/02/2022 11:45 am Narrative 07/02/2022 11:45 AM EDT Abdominal ? (Signed Final 07/02/2022 11:45 am) PATIENT INFO: ID #: ? [id number] ?: ??[birth year] (62 yrs)(M) Name: ? SEFERINO Hines ?Visit Date: 07/02/2022 11:05 am ? RACHEL PERFORMED BY: Performed By: ? Nichole Felder RDMS Attending: ?Dylan Kay MD Referred By: ?STEFFANIE GARCIA Location: ? [place] SERVICE(S) PROVIDED: UABDLIMHEP - Hepatology Protocol - Abdominal ?69317 Limited Survey Single Organ or Quadrant - [id number] INDICATIONS: cirrhosis, screen for hcc COMPARISON: US 07/12/20. MRI 11/03/18 ------ LIVER: ------ Right Lobe Length: ?? 11.9 ?? cm Echogenicity/Echotexture: ?? Coarse parenchyma with capsular ? nodularity Portal Veins: ?Hepatopetal -------- Lesions: -------- # ?Date ?Location ?Description ?L ?AP ?TV (cm) 1 ?10/13/18 ?Left Lobe ? Hypoechoic ?1.4 ?0.5 ? 1.1 ?Lesion Comment: ?No focal lesion seen. Hypertrophy of left lobe. GALLBLADDER: Cholelithiasis: ?No stones visualized Wall Thickness: ?Thickened 5mm Focal Tenderness: ?Negative sonographic Diaz's sign BILIARY TRACT: Intrahepatic Ducts: ?? Normal Extrahepatic Ducts: ?? Normal Common Duct Size: ? 5.0 ? mm ------- SPLEEN: ------- Size (cm) ?L: ??18.8 Comment: ?Splenomegaly- limited evaluation FLUID COLLECTIONS: Small amount of perihepatic ascites. Procedure Note Dylan Kay MD - 07/02/2022 Abdominal (Signed Final 07/02/2022 11:45 am) PATIENT INFO: ID #: [id number] : 62 (62 yrs)(M) Name: SEFERINO Hines Visit Date: 07/02/2022 11:05 am RACHEL PERFORMED BY: Performed By: Nichole Felder RDMS Attending: Dylan Kay MD Referred By: STEFFANIE GARCIA Location: [place] SERVICE(S) PROVIDED: [facility] - Hepatology Protocol - Abdominal 89759 Limited Survey Single Organ or Quadrant - [id number] INDICATIONS: cirrhosis, screen for hcc COMPARISON: US 07/12/20. MRI 11/03/18 ------ LIVER: ------ Right Lobe Length: 11.9 cm Echogenicity/Echotexture: Coarse parenchyma with capsular nodularity Portal Veins: Hepatopetal -------- Lesions: -------- # Date Location Description L AP TV (cm) 1 10/13/18 Left Lobe Hypoechoic 1.4 0.5 1.1 Lesion Comment: No focal lesion seen. Hypertrophy of left lobe. GALLBLADDER: Cholelithiasis: No stones visualized Wall Thickness: Thickened 5mm Focal Tenderness: Negative sonographic Diaz's sign BILIARY TRACT: Intrahepatic Ducts: Normal Extrahepatic Ducts: Normal Common Duct Size: 5.0 mm ------- SPLEEN: ------- Size (cm) L: 18.8 Comment: Splenomegaly- limited evaluation FLUID COLLECTIONS: Small amount of perihepatic ascites. IMPRESSION 1. Diffusely coarsened parenchyma and capsular nodularity consistent with cirrhosis. No change from prior. There is no focal lesion to suggest hepatocellular carcinoma. The hypoechoic lesion described on the study from September 2018 is not visible today nor on the recent prior comparison. 2. Mild circumferential gallbladder wall thickening is present. No significant change from prior by my review. There are no additional signs of cholecystitis and there is no cholelithiasis. 3. No intra or extrahepatic biliary ductal dilation. 4. Marked splenic megaly, similar to prior. 5. Trace amount of perihepatic ascites. Thank you for letting us participate in the care of this patient. If you are a health care provider and have any questions regarding this report, please contact the number above. For patients who have questions, please contact the health healthcare architect that requested your imaging first. Dylan Kay, Staff Physician Electronically Signed Final Report 07/02/2022 11:45 am Steffanie Garcia APRN IMG GEN ORDERAB LES documented in this encounter Visit Diagnoses Diagnosis Hepatic cirrhosis, unspecified hepatic cirrhosis type, unspecified whether ascites present documented in this encounter Care Teams Landscape Architect And Planner Relationship Specialty Start Date End Date None None PCP - General 07/02/22 04/05/24 documented as of this encounter
--- OUTSIDE RECORDS SUMMARY | 2024-11-23 08:24 | XMS_ITS | Encounter Summary ---
Author Organization [facility] Address [facility] [place] [address] Care Team Providers Care Screedman/Laborer Name Role Phone Jose M Sauceda MD Primary Care Provider [phone] Reason for Visit * Reason Onset Date Comments Reminder Appointment 05/16/2020 Encounter Details Date Type Department Care Team ([facility] st Contact Info) Description 05/16/[address] [facility] [place] [phone] Leora Torrez CMA Reminder Appointment Social History Tobacco Use Types [...] encounter Miscellaneous Notes * Telephone Encounter - Leora Torrez CMA - 05/16/2020 9:53 AM EDT Called patient to review medications and allergies for their upcoming gastroenterology Type of Appointment: Phone appointment. Reach Patient during MA Check: No, Left Message Notes for the provider: Notes for the nurse: documented in this encounter Plan of Treatment Not on file documented as of this encounter Visit Diagnoses Not on filedocumented in this encounter Care Teams Screedman/Laborer Relationship Specialty Start Date End Date Jose M Sauceda MD [address] [place] [id number] PCP - General 06/09/12 07/25/20 documented as of this encounter
--- OUTSIDE RECORDS SUMMARY | 2024-11-23 08:24 | XMS_ITS | Encounter Summary ---
Author Organization [facility] [place] [address] Care Team Providers Care Repairer Welding Equipment Name Role Phone Jose Eduardo Bond APRN Primary Care Provider [phone] Encounter Details Date Type Department Care Team (Late st Contact Info) Description 10/29/2020 Telephone [place] [phone] Janel Gordon Social History Tobacco Use Types Packs/Day Years [...] encounter Miscellaneous Notes * Telephone Encounter - Janel Gordon - 10/29/2020 12:43 PM EST Seferino Honeycutt Jr. [id number] Diagnosis/Indication: Hepatic cirrhosis, unspecified hepatic cirrhosis type, unspecified whether ascites present Encounter for screening for malignant neoplasm of colon 1. Have you ever had a/an Upper Endoscopy & Colonoscopy before? Yes: Date 2017 for EGD/ unsure about date of last colo If yes, did you have any problems with the procedure? Yes: Please Explain: felt he was still awake and felt to much What type of sedation was used: IV Conscious Sedation 2. Do you take any Blood Thinners? No 3. Do you have a Pacemaker or Defibrillator device? No 4. Are you a diabetic? Yes: Controlled by diet or medication? Medication 5. Do you have any Allergies to Eggs, Latex or Medications? No 6. Do you take any Oral Iron Supplements (Including multi-vitamins)? Yes (Iron) 7. Do you have a history of three or more abdominal surgeries? No 8. Have you had a problem with sedation or anesthesia? No 9. Do you have a c-pap machine or oxygen tank? Neither 10. Do you take prescription narcotic pain medications, including suboxone or methodone? No 11. Do you have a preference regarding the gender of your provider? No Preference last with Dr. Rodas 12. Is there any other information you would like to give us to aid in scheduling? No 13. Say to patient: You must have a responsible constitution party who will drive you to your procedure, stay [place] for the entire duration of your procedure, and drive you home from your procedure? *Please Verify the height and weight, and adjust if height and/or weight have changed* Estimated body mass index is 36.76 kg/m?? as calculated from the following: Height as of 07/12/20: 177.8 cm (5' 10). Weight as of 07/12/20: 116.2 kg (256 lb 3.2 oz). Age:60 y.o. documented in this encounter Plan of Treatment Not on file documented as of this encounter Visit Diagnoses Not on filedocumented in this encounter Care Teams Repairer Welding Equipment Relationship Specialty Start Date End Date Jose Eduardo Bond APRN [address] [place] [address] PCP - General Family Medicine 07/26/20 06/25/21 documented as of this encounter
--- OUTSIDE RECORDS SUMMARY | 2024-11-23 08:24 | XMS_ITS | Encounter Summary ---
Author Organization [facility] Address [facility] [place] [address] Care Team Providers Care Bilingual Speech Language Pathologist Name Role Phone Unknown Primary Care Provider Unavailabl e Encounter Details Date Type Department Care Team (Late st Contact Info) Description 01/16/2022 Orders [place] [phone] Steffanie Garcia APRN [facility] [place] [address] Hepatic cirrhosis, unspecified hepatic cirrhosis type, unspecified [...] on file documented as of this encounter Results * (ABNORMAL) Prothrombin Time (07/02/2022 11:59 AM EDT) Prothrombin Time 13.6(H) 9.4 - 12.5 sec [facility] International Normalization Ratio 1.2 [facility] Comment: An INR <2.0 indicates adequate procoagulant activity for hemostasis in most patients without underlying bleeding disorders, though the INR may not adequately reflect hemostatic capacity in patients with liver disease and synthetic impairment. The recommended target INR range for therapeutic anticoagulation is 2.0 ? 3.0 for most applications, though lower and higher ranges may be appropriate depending on clinical circumstances. Blood 07/02/2022 11:5 9 AM EDT 07/02/2022 12:05 PM EDT Narrative Resulting Agency Comment Spec In Lab Steffanie Garcia PEDIATRIC IMMUNOLOGIST HEMATOLOGY ORDERAB LES [facility] [place] [address] * (ABNORMAL) Comprehensive metabolic panel (non-fasting) (07/02/2022 11:59 AM EDT) Glucose 143 65 - 199 mg/dL [facility] Comment:Diabetes: >=200 mg/d L plus symptoms Blood Urea Nitrogen 19 10 - 20 mg/dL [facility] Creatinine 0.79(L) 0.80 - 1.50 mg/dL [facility] Sodium 138 135 - 145 mmol/L [facility] Potassium 4.1 3.5 - 5.0 mmol/L [facility] Comment: Please note: ??Patients with WBC >100,000 may have falsely elevated Potassium levels. ??For accurate Potassium quantification in these patients send serum separator tube (gold top) for subsequent determinations. ??Contact the Clinical Chemistry Laboratory if there are any questions. Chloride 104 98 - 107 mmol/L [facility] Carbon Dioxide 25 22 - 31 mmol/L [facility] Anion Gap 9 5 - 15 mmol/L [facility] Calcium 9.0 8.5 - 10.5 mg/dL [facility] Protein, Total 7.4 6.1 - 8.0 g/dL [facility] Albumin 4.1 3.2 - 5.2 g/dL [facility] Aspartate Aminotransferase 36 0 - 39 unit/L [facility] Alanine Aminotransferase 26 0 - 55 unit/L [facility] Alkaline Phosphatase 80 40 - 130 unit/L [facility] Bilirubin, Total 1.0 0.2 - 1.3 mg/dL [facility] Est Glomerular Filtration Rate 101 >=60 mL/min/1. 73 m?? [facility] Comment: This patient's estimated [...] and symptoms in addition to eGFR. Blood 07/02/2022 11:5 9 AM EDT 07/02/2022 12:05 PM EDT Narrative Resulting Agency Comment Spec In Lab Steffanie Garcia APRN CHEMISTRY ORDERABL ES Performing Organization Address City/State/[facility] Co de Phone Number [facility] [place] [address] * US Abdomen Limited Hepatology Protocol (07/02/2022 [...] prior. 5. Trace amount of perihepatic ascites. Electronically signed by: Dylan Kay MD, [facility] ([phone]), at 07/02/2022 11:39 AM Thank you for letting us participate in the care of this patient. If you are a health care provider and have any questions regarding this report, please contact the number above. For patients who have questions, please contact the health intensive care ambulance paramedic that requested your imaging first. ?Dylan Kay, Staff Physician Electronically Signed Final Report ?? 07/02/2022 11:45 am Narrative 07/02/2022 11:45 AM EDT Abdominal ? (Signed Final 07/02/2022 11:45 am) PATIENT INFO: ID #: ? [id number] ?: ??[birth year] (62 yrs)(M) Name: ? SEFERINO H ?Visit Date: 07/02/2022 11:05 am ? RACHEL PERFORMED BY: Performed By: ? Nichole Felder RDMS Attending: ?Dylan Kay MD Referred By: ?STEFFANIE REHMANERS Location: ? [place] SERVICE(S) PROVIDED: [facility] - Hepatology Protocol - Abdominal ?97030 Limited Survey Single Organ or Quadrant - [id number] INDICATIONS: cirrhosis, screen for hcc COMPARISON: US [...] 07/02/2022 11:45 am) PATIENT INFO: ID #: [id number] : 62 (62 yrs)(M) Name: SEFERINO Hines Visit Date: 07/02/2022 11:05 am [place] PERFORMED BY: Performed By: Nichole Felder RDMS Attending: Dylan Kay MD Referred By: STEFFANIE GARCIA Location: [place] SERV[facility]S) [facility] - Hepatology Protocol - Abdominal 28100 Limited Survey Single Organ or Quadrant - [id number] INDICATIONS: cirrhosis, screen for hcc COMPARISON: US [...] prior. 5. Trace amount of perihepatic ascites. Electronically signed by: Dylan Kay MD, [facility] ([phone]), at 07/02/2022 11:39 AM Thank you for letting us participate in the care of this patient. If you are a health care provider and have any questions regarding this report, please contact the number above. For patients who have questions, please contact the health intensive care ambulance paramedic that requested your imaging first. Dylan Kay, Staff Physician Electronically Signed Final Report 07/02/2022 11:45 am Steffanie Garcia APRN IMG US GEN ORDERAB LES documented in this encounter Visit Diagnoses Diagnosis Hepatic cirrhosis, unspecified hepatic cirrhosis type, unspecified whether ascites present Hepatic cirrhosis, unspecified hepatic cirrhosis type, unspecified whether ascites present documented in this encounter Care Teams Bilingual Speech Language Pathologist Relationship Specialty Start Date End Date Unknown None PCP - General 06/26/21 07/01/22 documented as of this encounter
--- OUTSIDE RECORDS SUMMARY | 2024-11-23 08:24 | XMS_ITS | Encounter Summary ---
Author Organization Formerly [facility] Address [facility] [place] [address] Care Team Providers Care Scalping Machine Operator Name Role Phone Jose M Sauceda MD Primary Care Provider [phone] Encounter Details Date Type Department Care Team (Late st Contact Info) Description 12/05/2019 Orders Only Gastroenterology at [facility] [place] [phone] María Elena Stafford MD [facility] [place] [address] Hepatic cirrhosis, unspecified hepatic cirrhosis type, unspecified [...] documented as of this encounter Results * AFP tumor marker (07/12/2020 11:36 AM EDT) Alpha Fetoprotein 8.3 <=8.3 ng/mL [facility] Blood specimen (specimen) 07/12/2020 11:36 AM EDT 07/12/2020 12:00 PM EDT Narrative Resulting Agency Comment Spec In Lab María Elena Stafford MD CHEMISTRY ORDERABLES [facility] [place] [address] * (ABNORMAL) Prothrombin Time (07/12/2020 11:36 AM EDT) Prothrombin Time 13.5(H) 9.4 - 12.5 sec [facility] International Normalization Ratio 1.2 [facility] Comment: An INR <2.0 [...] be appropriate depending on clinical circumstances. Blood specimen (specimen) 07/12/2020 11:36 AM EDT 07/12/2020 12:00 PM EDT Narrative Resulting Agency Comment Spec In Lab María Elena Stafford MD HEMATOLOGY ORDERABLE S [facility] [place] [address] * (ABNORMAL) Comprehensive metabolic panel (non-fasting) (07/12/2020 11:36 AM EDT) Glucose 233(H) 65 - 199 mg/dL [facility] Comment:Diabetes: >=200 mg/d L plus symptoms Blood Urea Nitrogen 15 10 - 20 mg/dL [facility] Creatinine 0.92 0.80 - 1.50 mg/dL [facility] Sodium 141 135 - 145 mmol/L [facility] Potassium 4.1 3.5 - 5.0 mmol/L [facility] Comment: Please note: ??Patients with WBC >100,000 may have falsely elevated Potassium levels. ??For accurate Potassium quantification in these patients send serum separator tube (gold top) for subsequent determinations. ??Contact the Clinical Chemistry Laboratory if there are any questions. Chloride 102 98 - 107 mmol/L [facility] Carbon Dioxide 29 22 - 31 mmol/L [facility] Anion Gap 10 5 - 15 mmol/L [facility] Calcium 9.3 8.5 - 10.5 mg/dL [facility] Protein, Total 7.7 6.1 - 8.0 gm/dL [facility] Albumin 4.3 3.2 - 5.2 gm/dL [facility] Aspartate Aminotransferase 37 0 - 39 unit/L [facility] Alanine Aminotransferase 34 0 - 55 unit/L [facility] Alkaline Phosphatase 90 40 - 130 unit/L [facility] Bilirubin, Total 0.7 0.2 - 1.3 mg/dL [facility] Est Glomerular Filtration Rate 91 >=60 mL/min/1. 73 m?? [facility] Comment: The eGFR was calculated using the CKD-EPI equation. As with all creatinine based estimates of kidney function, eGFR values calculated with the CKD-EPI equation are not accurate in patients with acute kidney failure, extremes of body mass or the acutely ill. [email or web address] eGFR 105 >=60 mL/min/1. 73 m?? [facility] Comment: The eGFR was calculated using the CKD-EPI equation. As with all creatinine based estimates of kidney function, eGFR values calculated with the CKD-EPI equation are not accurate in patients with acute kidney failure, extremes of body mass or the acutely ill. [email or web address] Blood specimen (specimen) 07/12/2020 11:36 AM EDT 07/12/2020 12:00 PM EDT Narrative Resulting Agency Comment Spec In Lab María Elena Stafford MD CHEMISTRY ORDERABLES [facility] [place] [address] * US Abdomen Limited Hepatology Protocol (07/12/2020 11:02 AM EDT) Anatomical Region Laterality Modality Abdomen Ultrasound 07/12/2020 10:5 8 AM EDT Impressions 07/12/2020 1:07 PM EDT 1. ??Coarse echogenic liver parenchyma with capsular nodularity, consistent with known cirrhosis. No sonographically evident hepatic mass. 2. ??No intra-abdominal ascites. 3. ??Marked splenomegaly, overall largely unchanged in length compared to the 11/03/2018 MR. I have personally reviewed the image(s) and the resident's interpretation and agree with the findings, Soheila Funes MD at 07/12/2020 12:59 PM Thank you for letting us participate in the care of this patient. For questions regarding this report, please contact the number below. Electronically signed by: Soheila Funes MD, [facility] ([phone]), at 07/12/2020 12:59 PM ? Soheila Funes, Staff Physician Electronically Signed Final Report ?? 07/12/2020 01:06 pm Narrative 07/12/2020 1:07 PM EDT Abdominal ? (Signed Final 07/12/2020 01:06 pm) PATIENT INFO: ID #: ? [id number] ?: ??[birth year] (60 yrs)(M) Name: ? SEFERINO H ?Visit Date: 07/12/2020 10:58 am ? RACHEL PERFORMED BY: Performed By: ? Almaz Nina RDMS Attending: ?Shantel HICKMAN, Soheila Walton Referred By: ?MARÍA ELENA STAFFORD Location: ? [place] SERVICE(S) PROVIDED: ??[facility] - Hepatology Protocol - Abdominal ? 77791 ??Limited Survey Single Organ or Quadrant - ??[id number] INDICATIONS: ??cirrhosis, screen for hcc COMPARISON: MRI Abdomen 11/03/18; RUQ addominal ultrasound 10/13/18. ------ LIVER: ------ Right Lobe Length: ?? 14.4 ?? cm Echogenicity/Echotexture: ?? Coarse, echogenic parenchyma ? with capsular nodularity Portal Veins: ?Hepatopetal -------- Lesions: -------- ??# ?Date ?Location ?Description ?L ? AP ? TV (cm) ??1 ?10/13/18 ?Left Lobe ? Hypoechoic ?1.4 ?0.5 ? 1.1 ? Lesion Comment: ?No focal lesion seen. GALLBLADDER: Cholelithiasis: ?No stones visualized Wall Thickness: ?Normal wall thickness Focal Tenderness: ?Negative sonographic Diaz's sign BILIARY TRACT: Intrahepatic Ducts: ?? Normal Extrahepatic Ducts: ?? Normal where seen Common Duct Size: ? 2.0 ? mm ------- SPLEEN: ------- Size (cm) ?L: ??18.4 Comment: ?Splenomegaly- severe, limited images of the LUQ ? to evaluate for ascites. FLUID COLLECTIONS: No ascites in all four quadrants of the abdomen. Procedure Note Soheila Funes MD - 07/12/2020 Abdominal (Signed Final 07/12/2020 01:06 pm) PATIENT INFO: ID #: [id number] : 62 (60 yrs)(M) Name: SEFERINO Hines Visit Date: 07/12/2020 10:58 am RACHEL PERFORMED BY: Performed By: Almaz Nina RDMS Attending: Soheila Funes MD Referred By: MARÍA ELENA STAFFORD Location: [place] [facility] Protocol - Abdominal 22893 Limited Survey Single Organ or Quadrant - [id number] INDICATIONS: cirrhosis, screen for hcc COMPARISON: MRI Abdomen 11/03/18; RUQ addominal ultrasound 10/13/18. ------ LIVER: ------ Right Lobe Length: 14.4 cm Echogenicity/Echotexture: Coarse, echogenic parenchyma with capsular nodularity Portal Veins: Hepatopetal -------- Lesions: -------- # Date Location Description L AP TV (cm) 1 10/13/18 Left Lobe Hypoechoic 1.4 0.5 1.1 Lesion Comment: No focal lesion seen. GALLBLADDER: Cholelithiasis: No stones visualized Wall Thickness: Normal wall thickness Focal Tenderness: Negative sonographic Diaz's sign BILIARY TRACT: Intrahepatic Ducts: Normal Extrahepatic Ducts: Normal where seen Common Duct Size: 2.0 mm ------- SPLEEN: ------- Size (cm) L: 18.4 Comment: Splenomegaly- severe, limited images of the LUQ to evaluate for ascites. FLUID COLLECTIONS: No ascites in all four quadrants of the abdomen. IMPRESSION 1. Coarse echogenic liver parenchyma with capsular nodularity, consistent with known cirrhosis. No sonographically evident hepatic mass. 2. No intra-abdominal ascites. 3. Marked splenomegaly, overall largely unchanged in length compared to the 11/03/2018 MR. I have personally reviewed the image(s) and the resident's interpretation and agree with the findings, Soheila Funes MD at 07/12/2020 12:59 PM Thank you for letting us participate in the care of this patient. For questions regarding this report, please contact the number below. Soheila Funes, Staff Physician Electronically Signed Final Report 07/12/2020 01:06 pm María Elena Stafford MD IMG US GEN ORDERABLE S documented in this encounter Visit Diagnoses Diagnosis Hepatic cirrhosis, unspecified hepatic cirrhosis type, unspecified whether ascites present Hepatic cirrhosis, unspecified hepatic cirrhosis type, unspecified whether ascites present documented in this encounter Care Teams Scalping Machine Operator Relationship Specialty Start Date End Date Jose M Sauceda MD [address] [place] [id number] PCP - General 06/09/12 07/25/20 documented as of this encounter
--- OUTSIDE RECORDS SUMMARY | 2024-11-23 08:24 | XMS_ITS | Encounter Summary ---
Author Organization [facility] Address [facility] [place] [address] Care Team Providers Care Setter Helper Name Role Phone Unknown Primary Care Provider Unavailabl e Reason for Visit * Reason Comments Medication Refill Encounter Details Date Type Department Care Team (Late st Contact Info) Description 01/02/2022 Refill Gastroenterology at [facility] [place] [address] Steffanie Plummer APRN [facility] [place] [address] Hepatic cirrhosis, unspecified hepatic cirrhosis type, unspecified [...] present documented in this encounter Care Teams Setter Helper Relationship Specialty Start Date End Date Unknown None PCP - General 06/26/21 07/01/22 documented as of this encounter
--- OUTSIDE RECORDS SUMMARY | 2024-11-23 08:24 | XMS_ITS | Encounter Summary ---
Author Organization [facility] Address [facility] [place] [address] Care Team Providers Care Rn Progressive Care Name Role Phone Unknown Primary Care Provider Unavailabl e Reason for Visit * Reason Comments Medication Refill Encounter Details Date Type Department Care Team (Late st Contact Info) Description 06/18/2021 Refill Gastroenterology at [facility] [place] [address] Velma Rodas MD [facility] [place] [address] Social History Tobacco Use Types Packs/Day Years [...] on filedocumented in this encounter Care Teams Rn Progressive Care Relationship Specialty Start Date End Date Unknown None PCP - General 06/26/21 07/01/22 documented as of this encounter
--- OUTSIDE RECORDS SUMMARY | 2024-11-23 08:24 | XMS_ITS | Encounter Summary ---
Author Organization [facility] Address [facility] [place] [address] Care Team Providers Care Drainlayer Name Role Phone Jose M Sauceda MD Primary Care Provider [phone] Reason for Visit * Reason Comments Medication Refill Encounter Details Date Type Department Care Team ([facility] st Contact Info) Description 12/01/2019 [place] [address] Steffanie Plummer APRN [facility] [place] [address] Social History Tobacco Use Types Packs/Day Years [...] on filedocumented in this encounter Care Teams Drainlayer Relationship Specialty Start Date End Date Jose M Sauceda MD [address] [place] [address] PCP - General 06/09/12 07/25/20 documented as of this encounter
--- OUTSIDE RECORDS SUMMARY | 2024-11-23 08:24 | XMS_ITS | Encounter Summary ---
Author Organization [facility] Address [facility] [place] [address] Care Team Providers Care Justice Professor Name Role Phone Varun Jose Eduardo ELMORE Primary Care Provider [phone] Reason for Visit * Reason Comments Medication Refill Encounter Details Date Type Department Care Team ([facility] st Contact Info) Description 12/30/2020 Ref[place] [address] Steffanie Plummer [employer] [facility] [place] [address] Hepatic cirrhosis, unspecified hepatic cirrhosis type, unspecified [...] present documented in this encounter Care Teams Justice Professor Relationship Specialty Start Date End Date Jose Eduardo Bond APRN [address] [place] [address] PCP - General Family Medicine 07/26/20 06/25/21 documented as of this encounter
--- OUTSIDE RECORDS SUMMARY | 2024-11-23 08:24 | XMS_ITS | Encounter Summary ---
Author Organization [facility] Address [facility] [place] [address] Care Team Providers Care Signal Helper Name Role Phone Unknown Primary Care Provider Unavailabl e Encounter Details Date Type Department Care Team (Late st Contact Info) Description 01/06/2022 Telephone [place] [address] Leora Torrez CMA Social History Tobacco Use Types Packs/Day Years [...] Telephone Encounter - Leora Torrez CMA - 01/06/2022 3:47 PM EDT Medication Prior Authorization 4L Gastroenterology / [place] [address] ?? Subscriber Insurance: [place] Medicaid ?? Phone: Fax: ? Physician: Steffanie Plummer ?? NPI: ?? Return ?? Pharmacy: [facility] ?? Phone: Fax: ?? Medication Requested: Xifaxan ?? Strength:550mg Frequency: Take 1 tablet by mouth two times a day ?? Disp.: 180 Refills: 1 ?? Currently taking: ?? Diagnosis for this medication: H.E ?? ICD-10 code: (K72.90) ?? Prior medications trialed in this patient: Lactulose ? Medication: Outcome/Adverse Reactions:Treatment Failure ?? Decision: approved Dates: 01/07/2022 until 01/07/2023 Trackin ? documented in this encounter Plan of Treatment Not on file documented as of this encounter Visit Diagnoses Not on filedocumented in this encounter Care Teams Signal Helper Relationship Specialty Start Date End Date Unknown None PCP - General 06/26/21 07/01/22 documented as of this encounter
--- OUTSIDE RECORDS SUMMARY | 2024-11-23 08:24 | XMS_ITS | Encounter Summary ---
Author Organization [facility] Address [facility] [place] [address] Care Team Providers Care Road Production General Manager Name Role Phone None Primary Care Provider Unavailabl e Encounter Details Date Type Department Care Team (Latest Contact Info) Description 03/24/2023 10:59 AM EDT - 03/24/2023 11:59 PM EDT Hospital Encounter Ultrasound at [facility] [place] [address] Steffanie Garcia APRN [facility] [place] [address] Hepatic cirrhosis, unspecified hepatic cirrhosis type, unspecified [...] Sig Dispensed Refills Start Date End Date amitriptyline (Elavil) 10 mg Tablet 10/31/2022 atorvastatin [...] Sublingual, PRN 03/02/2008 rifAXIMin (Xifaxan) 550 mg tabletIndications:Hep atic cirrhosis, unspecified hepatic cirrhosis type, unspecified whether ascites present Take 1 tablet by mouth 2 times daily. 60 tablet 3 03/24/2023 09/29/2023 lactulose (Chronulac) 10 gram/15 mL Solution Take 15 mLs by mouth 2 times daily. 1000 mL 03/24/2023 05/18/2023 documented as of this encounter Plan of Treatment Not on file documented as of this encounter Procedures Procedure Name Priority Date/Time Associated Diagnosis Comments US ABDOMEN LIMITED HEPATOLOGY PROTOCOL Routine 03/24/2023 12:02 PM EDT Hepatic cirrhosis, unspecified hepatic cirrhosis type, unspecified whether ascites present documented in this encounter Results * US Abdomen Limited Hepatology Protocol (03/24/2023 12:02 PM EDT) Anatomical Region Laterality Modality Abdomen Ultrasound 03/24/2023 12:0 0 PM EDT Impressions 03/24/2023 12:18 PM EDT 1. Recent hepatic parenchyma with capsular nodularity. RIGHT lobe of the liver 16.3 cm. No definite focal lesion identified. LEFT lobe hypertrophy. 2. Gallbladder is slightly contracted gallbladder wall thickness 2 mm. No cholelithiasis. 3. Common bile duct 2.6 mm. Splenomegaly. Spleen size 19.7 cm. 4 . There is perihepatic and perisplenic ascites. Electronically signed by: Rhonda Abbasi MD, [facility] ([phone]), at 03/24/2023 12:10 PM Thank you for letting us participate in the care of this patient. If you are a health care provider and have any questions regarding this report, please contact the number above. For patients who have questions, please contact the health manager primary care that requested your imaging first. ?Rhonda Abbasi, Staff Physician Electronically Signed Final Report ?? 03/24/2023 12:18 pm Narrative 03/24/2023 12:18 PM EDT Abdominal ? (Signed Final 03/24/2023 12:18 pm) PATIENT INFO: ID #: ? [id number] ?: ??[birth year] (63 yrs)(M) Name: ? SEFERINO Hines ?Visit Date: 03/24/2023 12:00 pm ? RACHEL PERFORMED BY: Attending: ?Elroy HICKMAN, Rhonda Haile Performed By: ? Madison Hager RDMS Referred By: ?STEFFANIE GARCIA Location: ? [place] INDICATIONS: cirrhosis, screen for hcc COMPARISON: Mulitmaine stark; 07/02/22 ------ LIVER: ------ Right Lobe Length: ?? 16.3 ?? cm Echogenicity/Echotexture: ?? Coarse parenchyma with capsular ? nodularity Portal Veins: ?Hepatopetal -------- Lesions: -------- # ?Date ?Location ?Description ?L ?AP ?TV (cm) 1 ?10/13/18 ?Left Lobe ? Hypoechoic ?1.4 ?0.5 ? 1.1 ?Lesion GALLBLADDER: Wall Thickness: ?1.9 mm BILIARY TRACT: Common Duct Size: ? 2.6 ? mm ------- SPLEEN: ------- Size (cm) ?L: ??19.7 ?AP: ??6.6 ? TV: ??18.6 Vol (ml): ?1266.3 Comment: ?Splenomegaly FLUID COLLECTIONS: Small amount ascites seen. Procedure Note Rhonda Abbasi MD - 03/24/2023 Abdominal (Signed Final 03/24/2023 12:18 pm) PATIENT INFO: ID #: [id number] : 62 (63 yrs)(M) Name: SEFERINO Hines Visit Date: 03/24/2023 12:00 pm [place] PERFORMED BY: Attending: Rhonda Abbasi MD Performed By: Madison Hager RDMS Referred By: STEFFANIE GARCIA Location: [place] INDICATIONS: cirrhosis, screen for hcc COMPARISON: Mulitple priors; US 07/02/22 ------ LIVER: ------ Right Lobe Length: 16.3 cm Echogenicity/Echotexture: Coarse parenchyma with capsular nodularity Portal Veins: Hepatopetal -------- Lesions: -------- # Date Location Description L AP TV (cm) 1 10/13/18 Left Lobe Hypoechoic 1.4 0.5 1.1 Lesion GALLBLADDER: Wall Thickness: 1.9 mm BILIARY TRACT: Common Duct Size: 2.6 mm ------- SPLEEN: ------- Size (cm) L: 19.7 AP: 6.6 TV: 18.6 Vol (ml): 1266.3 Comment: Splenomegaly FLUID COLLECTIONS: Small amount ascites seen. IMPRESSION 1. Recent hepatic parenchyma with capsular nodularity. RIGHT lobe of the liver 16.3 cm. No definite focal lesion identified. LEFT lobe hypertrophy. 2. Gallbladder is slightly contracted gallbladder wall thickness 2 mm. No cholelithiasis. 3. Common bile duct 2.6 mm. Splenomegaly. Spleen size 19.7 cm. 4 . There is perihepatic and perisplenic ascites. Thank you for letting us participate in the care of this patient. If you are a health care provider and have any questions regarding this report, please contact the number above. For patients who have questions, please contact the health manager primary care that requested your imaging first. Rhonda Abbasi, Staff Physician Electronically Signed Final Report 03/24/2023 12:18 pm Steffanie Garcia APRN [facility] GEN ORDERAB LES documented in this encounter Visit Diagnoses Diagnosis Hepatic cirrhosis, unspecified hepatic cirrhosis type, unspecified whether ascites present documented in this encounter Care Teams Road Production General Manager Relationship Specialty Start Date End Date None None PCP - General 07/02/22 04/05/24 documented as of this encounter
--- OUTSIDE RECORDS SUMMARY | 2024-11-23 08:24 | XMS_ITS | Encounter Summary ---
Author Organization [facility] Address [facility] [place] [address] Care Team Providers Care Student Development Coordinator Name Role Phone Unknown Primary Care Provider Unavailabl e Reason for Visit * Reason Comments Medication Refill Encounter Details Date Type Department Care Team (Late st Contact Info) Description 09/13/2021 Refill Gastroenterology at [facility] [address] Ste[address]anie Plummer APRN [facility] DR [place] [address] Hepatic cirrhosis, unspecified hepatic cirrhosis type, unspecified [...] present documented in this encounter Care Teams Student Development Coordinator Relationship Specialty Start Date End Date Unknown None PCP - General 06/26/21 07/01/22 documented as of this encounter
--- OUTSIDE RECORDS SUMMARY | 2024-11-23 08:24 | XMS_ITS | Encounter Summary ---
Author Organization [facility] Address [facility] [place] [address] Care Team Providers Care Irrigation Teacher Name Role Phone Unknown Primary Care Provider Unavailabl e Reason for Visit * Reason Onset Date Comments Medication Refill 03/10/2022 Encounter Details Date Type Department Care Team (Late st Contact Info) Description 03/10/2022 Refill Gastroenterology at [facility] [address] Steffanie Plummer APRN [facility] [place] [address] Hepatic cirrhosis, unspecified hepatic cirrhosis type, unspecified [...] present documented in this encounter Care Teams Irrigation Teacher Relationship Specialty Start Date End Date Unknown None PCP - General 06/26/21 07/01/22 documented as of this encounter
--- OUTSIDE RECORDS SUMMARY | 2024-11-23 08:24 | XMS_ITS | Encounter Summary ---
Author Organization [place] [address] Care Team Providers Care Dye Padder Operator Name Role Phone None Primary Care Provider Unavailabl e Reason for Visit * Consultation (Routine) - Closed Specialty Diagnoses / Procedures Referred By Tejal elizabeth Referred To Contact Maxillofacial Surgery Diagnoses Extraction of tooth needed Jovi Love DDS [address] [place] [address] [facility] [address] [place] [phone] Referral ID Status Reason Start Date Expiration Date V isits Requested Visits Authorized [id number] Closed Consult, Test & Treat 08/28/2022 08/28/2023 1 1 Encounter Details Date Type Department Care Team (Late st Contact Info) Description 11/11/2022 9:00 AM EST Office Visit [place] [phone] Travis Jimenez PA Dental caries Social History Tobacco Use Types Packs/Day Years [...] Sign Reading Time Taken Comments Blood Pressure - - Pulse - - Temperature - - Respiratory Rate - - Oxygen Saturation - - Inhaled Oxygen Concentration - - Weight 99.8 kg (220 lb) 11/11/2022 8:46 AM EST Height 176.5 cm (5' 9.5) 11/11/2022 8:46 AM EST Body Mass Index 32.02 11/11/2022 8:46 AM EST documented in this encounter Progress Notes * Travis Jimenez PA - 11/11/2022 9:00 AM EST Images from the original note were not included. [facility]-MAXILL[facility] SURGERY OUTPATIENT CLINIC INITIAL CONSULTATION VISIT - EXTRACTION Name: Seferino Honeycutt Jr. Age/Sex: 62 y.o. male History of Present Illness Seferino Honeycutt Jr. is a 62 y.o. male referred by Jovi Love for consultation regardingdental extraction(s). A complete history of the Seferino 's symptoms and physical signs were reviewed with attention to initial findings and progression, pain, bleeding, swelling, lumps, bumps, drainage, dysphagia, odynophagia, paresthesia, dysarthria and systemic effects. Pertinent notations from today's history: ?? Reports discomfort, his teeth have broken off, sensitivity ?? No active pain, did have an abscess on the upper left few months ago ?? Sensitive with eating and brushing ?? History of GI scopes for the liver disease, gets these every 6 months, denies complications fromanesthesia ?? History of stents for coronary artery disease, reports this was in 2007 ?? Denies any current chest pain, shortness of breath ?? Is on disability, gets medical rides ?? Reports diabetes on Jardiance ?? PCP through [facility] Past Medical/Social/Dental History Past Medical History: Diagnosis Date ??? Cataract ??? Chronic low back pain ??? Depression ??? H/O acute myocardial infarction ??? High blood pressure Patient Active Problem List Diagnosis Code ??? CAD (coronary artery disease), [place] coronary artery I25.10 ??? Tobacco abuse disorder Z72.0 ??? Hepatitis C B19.20 ??? Hypertension I10 ??? Spinal stenosis, lumbar region, without neurogenic claudication M48.061 ??? Chronic Mechanical low back pain M54.59 ??? Cirrhosis of liver K74.60 Social History Tobacco Use ??? Smoking status: Every Day Packs/day: 0.25 Years: 35.00 Pack years: 8.75 Types: Cigarettes Last attempt to quit: 02/05/2018 Years since quittin.7 ??? Smokeless tobacco: Never ??? Tobacco comments: avs information Substance Use Topics ??? Alcohol use: No Comment: 6 pack per week ??? amitriptyline (Elavil) 10 mg Tablet ??? atorvastatin (Lipitor) 40 mg Tablet ??? OneTouch Verio test strips Strip ??? Jardiance 10 mg Tablet ??? melatonin 3 mg Tablet ??? meloxicam (MOBIC) 15 mg Tablet ??? rifAXIMin (Xifaxan) 550 mg Tablet ??? ferrous gluconate 324 mg (38 mg iron) Tablet ??? lactulose (Chronulac) 10 gram/15 mL Solution ??? metFORMIN (FORTAMET) 1,000 mg Tablet Extended Rel 24 hr ??? QUEtiapine (SEROQUEL) 100 mg Tablet ??? sertraline (ZOLOFT) 100 mg Tablet ??? busPIRone (BUSPAR) 15 mg Tablet ??? tamsulosin (FLOMAX) 0.4 mg Capsule, Sust. Release 24 hr ??? lisinopril (PRINIVIL;ZESTRIL) 10 mg tablet ??? gabapentin (NEURONTIN) 100 mg capsule ??? BUPROPION HCL (WELLBUTRIN XL ORAL) ??? metoprolol succinate (TOPROL-XL) 50 mg 24 hr tablet ??? hydrochlorothiazide (HYDRODIURIL) 25 mg tablet ??? nitroGLYcerin (NITROSTAT) 0.4 mg SL tablet Allergies Allergen Reactions ??? [place] [Aspirin-Sod Bicarb-Citric Acid] Anaphylaxis Sodium bicarbonate ??? Bee Sting [Hymenoptera Allergenic Extract] Anaphylaxis Review of Systems Pertinent positive and negative findings discussed above. ROS with attention to cardiac, pulmonary,hepatic, renal, neurologic and dermatologic systems reviewed with relevant findings as noted. Physical Exam Vitals: Height 176.5 cm (5' 9.5), weight 99.8 kg (220 lb). Body mass index is 32.02 kg/m??. General: No acute distress, pleasant Focused oral exam: No trismus No oral lesions visualized Failed maxillary dentition with most teeth fractured to level of gums or significantly carious 1+ mobility #23-26 with attached tissue recession Occlusal attrition other mandibular teeth Neuro: a/o x3 Neck: soft, supple Psych: appropriate, responds to questions normally Imaging Panorex obtained today demonstrating caries and retained roots remaining maxillary teeth #10 with PARL recession anterior mandibular dentition Personally reviewed and evaluated ASSESSMENT & RECOMMENDATIONS Assessment: failed maxillary dentition and mobile anterior mandibular dentition Recommendations/plan: Will plan for extraction of remaining maxillary teeth and teeth #23 through 26 in the setting of the above After discussion of the risks/benefits of local anesthesia vs. IV sedation vs. general anesthesia in the clinical scenario of the patient's presentation, we will opt to plan for general anesthesia inOR (main). Consent forms: The procedure consent form and Adult Acute Opioid Consent were reviewed and signed. . Direct review of the findings on clinical and radiographic exam as well as a discussion of the risks and anticipated benefits of the proposed surgical intervention was had. The possibility of bleeding, infection, injury to adjacent teeth, nerves and sinuses was reviewed with specific attention to inferior alveolar and lingual nerves and the potential for tongue and/or lip paresthesia. The unlikely event of jaw fracture during the procedure was discussed as well. Persistent opening or fistula tothe maxillary sinus was also discussed. Seferino Honeycutt Jr. was given the opportunity to ask questions regarding the findings on clinical and radiographic examination and the recommended treatment. Preoperative and postoperative management was also discussed with specific attention to post operative alteration of diet and physical activity and the proper use of analgesics. We appreciate the opportunity to be involved in Mr. Honeycutt's care. [facility] - Oral-Maxillofacial Surgery 11/11/2022 11:04 AM This note may have incorporated [id number] technology and though reviewed typographical or syntax errors may remain. documented in this encounter Plan of Treatment Not on file documented as of this encounter Visit Diagnoses Diagnosis Dental caries Unspecified dental caries documented in this encounter Care Teams Dye Padder Operator Relationship Specialty Start Date End Date None None PCP - General 07/02/22 04/05/24 documented as of this encounter
--- OUTSIDE RECORDS SUMMARY | 2024-11-23 08:24 | XMS_ITS | Encounter Summary ---
Author Organization [facility] [place] [address] Care Team Providers Care Package Designer Name Role Phone None Primary Care Provider Unavailabl e Encounter Details Date Type Department Care Team (Latest Contact Info) Description 11/11/2022 Travel Social History Tobacco Use Types Packs/Day [...] on filedocumented in this encounter Care Teams Package Designer Relationship Specialty Start Date End Date None None PCP - General 07/02/22 04/05/24 documented as of this encounter
--- OUTSIDE RECORDS SUMMARY | 2024-11-23 08:24 | XMS_ITS | Encounter Summary ---
Author Organization [facility] Address [facility] [place] [address] Care Team Providers Care Charge Lpn Name Role Phone Jose M Sauceda MD Primary Care Provider [phone] Encounter Details Date Type Department Care Team (Late st Contact Info) Description 06/05/2020 Telephone [place] [phone] Joselin Montano Social History Tobacco Use Types Packs/Day Years [...] encounter Miscellaneous Notes * Telephone Encounter - Joselin Montano - 06/05/2020 9:58 AM EDT Reminder: patient must also be 8 hours fasting prior to 10:30am US (except for jerrod sips of waterand any necessary medications). * Telephone Encounter - Joselin Montano - 06/05/2020 9:57 AM EDT lvm for patient about upcoming ONSITE appointments scheduled for , 07/12/20. documented in this encounter Plan of Treatment Not on file documented as of this encounter Visit Diagnoses Not on filedocumented in this encounter Care Teams Charge Lpn Relationship Specialty Start Date End Date Jose M Sauceda MD [address] [place] [id number] PCP - General 06/09/12 07/25/20 documented as of this encounter
--- OUTSIDE RECORDS SUMMARY | 2024-11-23 08:24 | XMS_ITS | Encounter Summary ---
Author Organization [facility] Address [facility] [place] [address] Care Team Providers Care Pit Crew Support Worker Name Role Phone Unknown Primary Care Provider Unavailabl e Reason for Visit * Reason Comments Medication Refill Encounter Details Date Type Department Care Team (Late st Contact Info) Description 07/24/2021 Refill Gastroenterology at [facility] [place] [phone] Velma Rodas MD [facility] [place] [address] Social History Tobacco Use Types Packs/Day Years [...] on filedocumented in this encounter Care Teams Pit Crew Support Worker Relationship Specialty Start Date End Date Unknown None PCP - General 06/26/21 07/01/22 documented as of this encounter
--- OUTSIDE RECORDS SUMMARY | 2024-11-23 08:24 | XMS_ITS | Encounter Summary ---
Author Organization [facility] Address [facility] [place] [address] Care Team Providers Care Statistical Reporting Analyst Name Role Phone Unknown Primary Care Provider Unavailabl e Reason for Visit * Reason Comments Medication Refill Encounter Details Date Type Department Care Team (Late st Contact Info) Description 10/23/2021 Refill Gastroenterology at [facility] [place] [phone] Steffanie Plummer APRN [facility] [place] [address] Hepatic cirrhosis, unspecified hepatic cirrhosis type, unspecified [...] present documented in this encounter Care Teams Statistical Reporting Analyst Relationship Specialty Start Date End Date Unknown None PCP - General 06/26/21 07/01/22 documented as of this encounter
--- OUTSIDE RECORDS SUMMARY | 2024-11-23 08:24 | XMS_ITS | Encounter Summary ---
Author Organization [facility] Address [facility] [place] [address] Care Team Providers Care Utilization Review Nurse Name Role Phone Jose Eduardo Bond APRN Primary Care Provider [phone] Encounter Details Date Type Department Care Team (Late st Contact Info) Description 11/07/2020 9:00 AM EST - 11/07/2020 10:00 AM EST [place] [id number] Chelsi Sidhu MD [facility] [place] [address] EGD, UPPER GI ENDOSCOPY (WRVU 2.09) Social [...] Sign Reading Time Taken Comments Blood Pressure 168/96 11/07/2020 8:29 AM EST Pulse 90 11/07/2020 8:27 AM EST Temperature 37.4 ??C (99.3 ??F) 11/07/2020 8:27 AM ES T Respiratory Rate 19 11/07/2020 8:27 AM EST Oxygen Saturation 97% 11/07/2020 8:27 AM EST Inhaled Oxygen Concentration - - Weight 115.7 kg (255 lb) 11/07/2020 8:34 AM EST Height 176.5 cm (5' 9.5) 11/07/2020 8:34 AM EST Body Mass Index 37.12 11/07/2020 8:34 AM EST documented in this encounter Discharge Instructions * Discharge Instructions* Naresh Boland, RN - 11/07/2020 11:42 AM EST Upper GI Endoscopy: What to [...] home? Activity Rest when you feel tired. ?? You can do your normal activities when it feels okay to do so. Diet ?? Follow your doctor's directions for eating. ?? Unless your doctor has told you not to, drink plenty of fluids. This helps to replace the fluidsthat were lost during the prep. ?? Do not drink alcohol. Medicines ?? Your doctor will tell you if and when you can restart your medicines. He or she will also give you instructions about taking any new medicines. ?? If you take blood thinners, such as warfarin (Coumadin), clopidogrel (Plavix), or aspirin, be sure to talk to your doctor. He or she will tell you if and when to start taking those medicines again. Make sure that you understand exactly what your doctor wants you to do. ?? If polyps were removed or a biopsy was done during the test, your doctor may tell you not to take aspirin or other anti-inflammatory medicines for a few days. These include ibuprofen (Advil, Motrin) and naproxen (Aleve). ?? If you have a sore throat the day after the procedure, use an lqmw-tpm-tclqrly spray to numb your throat. Sucking on throat lozenges and gargling with warm salt water may also help relieve your symptoms. Other instructions ?? For your safety, do not drive or operate machinery until the medicine wears off and you can think clearly. Your doctor may tell you not to drive or operate machinery until the day after your test. ?? Do not sign legal documents or make major decisions until the medicine wears off and you can think clearly. The anesthesia can make it hard for you to fully understand what you are agreeing to. Additional Information for Sedation Patients For patients who received sedation: ?? You may have received medications before and/or during your procedure which effects your judgement and reaction time. ?? Do not drive, operate machinery, drink alcoholic beverages or make important decisions for 24 hours. ?? Be careful on stairs as you may be unsteady on your feet. ?? You may eat a regular diet as tolerated. ?? Do not smoke if you are alone. ?? IV site: Slight redness or tenderness is normal, you can use a warm compress if you would like. If tenderness and/or redness increase or if foul drainage occurs, please contact your Doctor. Please call [phone] before 8pm Mon-Fri with problems, questions or concerns. If you call after 8pm or on weekends, call the Hospital at [phone] and ask to speak to the Signal Maintainer regional business development manager and the sleeve presser operator will contact that person for you. When should you call for help? Call [phone] anytime you think you may need emergency care. For example, call if: ?? You passed out (lost consciousness). ?? You pass maroon or bloody stools. ?? You have trouble breathing. Call your doctor now or seek immediate medical care if: ?? You have pain that does not get better after you take pain medicine. ?? You are sick to your stomach or cannot drink fluids. ?? You have new or worse belly pain. ?? You have blood in your stools. ?? You have a fever. ?? You cannot pass stools or gas. Watch closely for changes in your health, and be sure to contact your doctor if you have any problems. Where can you learn more? [facility] View your After Visit Summary and more online at [email or web address] If you would like to provide feedback about your hospital experience, please call the Office of Patient and Family Relations at . If you have received this After Visit Summary in error, please immediately return it in person to the department, or notify the [facility] Privacy Office by calling toll free at between the hours of 8AM and 5PM to arrange for our retrieval of the documents at no cost to you. Content Version: 12.2 ?? [id number] [employer]. Care instructions adapted under license by [facility]. If you have questions about a medical condition or this instruction, always ask your healthcare professional. [employer] disclaims any warranty or liability for your use of this information. Colonoscopy: What to Expect at Home Your Recovery Your doctor will talk to you about when you will need your next colonoscopy. Your doctor can help you decide how often you need to be checked. This will depend on the results of your test and your risk for colorectal cancer. After the test, you may be bloated or have gas pains. You may need to pass gas. If a biopsy was done or a polyp was removed, you may have streaks of blood in your stool (feces) for a few days. Problems such as heavy rectal bleeding may not occur until several weeks after the test. This isn't common. But it can happen after polyps are removed. This care sheet gives you a general idea about how long it will take for you to recover. But each person recovers at a different pace. Follow the steps below to get better as quickly as possible. How can you care for yourself at home? Activity Rest when you feel tired. ?? You can do your normal activities when it feels okay to do so. Diet ?? Follow your doctor's directions for eating. ?? Unless your doctor has told you not to, drink plenty of fluids. This helps to replace the fluidsthat were lost during the colon prep. ?? Do not drink alcohol. Medicines ?? Your doctor will tell you if and when you can restart your medicines. He or she will also give you instructions about taking any new medicines. ?? If you take blood thinners, such as warfarin (Coumadin), clopidogrel (Plavix), or aspirin, be sure to talk to your doctor. He or she will tell you if and when to start taking those medicines again. Make sure that you understand exactly what your doctor wants you to do. ?? If polyps were removed or a biopsy was done during the test, your doctor may tell you not to take aspirin or other anti-inflammatory medicines for a few days. These include ibuprofen (Advil, Motrin) and naproxen (Aleve). Other instructions ?? For your safety, do not drive or operate machinery until the medicine wears off and you can think clearly. Your doctor may tell you not to drive or operate machinery until the day after your test. ?? Do not sign legal documents or make major decisions until the medicine wears off and you can think clearly. The anesthesia can make it hard for you to fully understand what you are agreeing to. Additional Information for Sedation Patients For patients who received sedation: ?? You may have received medications before and/or during your procedure which effects your judgement and reaction time. ?? Do not drive, operate machinery, drink alcoholic beverages or make important decisions for 24 hours. ?? Be careful on stairs as you may be unsteady on your feet. ?? You may eat a regular diet as tolerated. ?? Do not smoke if you are alone. ?? IV site: Slight redness or tenderness is normal, you can use a warm compress if you would like. If tenderness and/or redness increase or if foul drainage occurs, please contact your Doctor. Please call [phone] before 8pm Mon-Fri with problems, questions or concerns. If you call after 8pm or on weekends, call the Hospital at [phone] and ask to speak to the Signal Maintainer regional business development manager and the sleeve presser operator will contact that person for you. When should you call for help? Call [phone] anytime you think you may need emergency care. For example, call if: ?? You passed out (lost consciousness). ?? You pass maroon or bloody stools. ?? You have trouble breathing. Call your doctor now or seek immediate medical care if: ?? You have pain that does not get better after you take pain medicine. ?? You are sick to your stomach or cannot drink fluids. ?? You have new or worse belly pain. ?? You have blood in your stools. ?? You have a fever. ?? You cannot pass stools or gas. Watch closely for changes in your health, and be sure to contact your doctor if you have any problems. Where can you learn more? [facility]- View your After Visit Summary and more online at [email or web address] If you would like to provide feedback about your hospital experience, please call the Office of Patient and Family Relations at . If you have received this After Visit Summary in error, please immediately return it in person to the department, or notify the [facility] Privacy Office by calling toll free at between the hours of 8AM and 5PM to arrange for our retrieval of the documents at no cost to you. Content Version: 12.2 ?? [id number] [employer]. Care instructions adapted under license by [facility]. If you have questions about a medical condition or this instruction, always ask your healthcare professional. [employer] disclaims any warranty or liability for your use of this information. documented in this encounter Medications at Time of Discharge Medication Sig Dispensed Refills Start Date End Date metFORMIN (FORTAMET) 1,000 mg Tablet Extended Rel [...] MG = 1 Tablet(s), Sublingual, PRN 03/02/2008 rifaximin 550 mg TabletIndications:Hep atic cirrhosis, unspecified hepatic cirrhosis type, unspecified whether ascites present TAKE 1 TABLET BY MOUTH TWO TIMES A DAY 180 tablet 07/27/2020 12/31/2020 lactulose (Chronulac) 10 gram/15 mL Solution TAKE 15 ML BY MOUTH TWO TIMES A DAY 1000 mL 12/05/2019 03/24/2023 ferrous gluconate 324 mg (38 mg iron) Tablet TAKE 1 TABLET BY MOUTH DAILY 90 tablet 3 09/21/2019 12/31/2020 documented as of this encounter H&P Notes * Chelsi Sidhu MD - 11/07/2020 10:00 AM EST Patient Name: Seferino Honeycutt Jr. Patient Age: 60 y.o. Birthdate: 1960 Admit date: 11/07/2020 Attending Physician: Chelsi Sidhu MD Gastroenterology and Hepatology Pre-Procedure History and Physical Exam Procedure: EGD: Colonoscopy: Indication: Cirrhosis, screening for varices, colon cancer screening Patient Active Problem List Diagnosis Code ??? CAD (coronary artery disease), [place] coronary artery I25.10 ??? Tobacco abuse disorder Z72.0 ??? Hepatitis C B19.20 ??? Hypertension I10 ??? Spinal stenosis, lumbar region, without neurogenic claudication M48.061 ??? Chronic Mechanical low back pain M54.5 ??? Cirrhosis of liver K74.60 EXAM: HEENT: Airway examined, oropharynx clear Mallampati Score: II (soft palate, uvula, fauces visible) LUNGS: Clear to auscultation HEART: Regular rate and rhythm, normal S1, S2 ABDOMEN: Normal bowel sounds, soft, non tender, non distended, A/P Proceed with the planned endoscopic procedure. ASA 2 - Patient with mild systemic disease with no functional limitations Sedation Plan: moderate (conscious sedation) Risks and benefits of the procedure explained to the patient. Consent signed. documented in this encounter Plan of Treatment Not on file documented as of this encounter Procedures Procedure Name Priority Date/Time Associated Diagnosis Comments Colonoscopy, Diagnostic (00505) 11/07/2020 10:04 AM EST 2 yr surv from 04/07/18 Hepatic cirrhosis, unspecified hepatic cirrhosis type, unspecified whether ascites present Encounter for screening for malignant neoplasm of colon Upper GI Endoscopy, Diagnostic (52756) 11/07/2020 10:04 AM EST 2 yr surv from 04/07/18 Hepatic cirrhosis, unspecified hepatic cirrhosis type, unspecified whether ascites present Encounter for screening for malignant neoplasm of colon UPPER GI ENDOSCOPY Routine 11/07/2020 9: 55 AM EST COLONOSCOPY Routine 11/07/2020 9:55 AM EST POCT GLUCOSE Routine 11/07/2020 8:38 AM EST documented in this encounter Results * UPPER GI ENDOSCOPY (11/07/2020 9:55 AM EST) UPPER GI ENDOSCOPY [facility] Endoscopy Procedure Date: 11/07/2020 9:55 AM ? Patient Name: Seferino Honeycutt ? Date of : 1960 ? Age: 60 ? Order #: [id number] ? Instrument Name: [id number] ? Procedure: ? Upper GI endoscopy Indications: ? Cirrhosis with suspected esophageal ? varices Providers: ? Chelsi Sidhu MD, Nando Dia. ? Candie Nugent MD: ?Jose Eduardo Bond Medicines: ? Midazolam 3 mg IV, Fentanyl 150 ? micrograms IV, Benzocaine spray Complications: ? No immediate complications. Procedure: ? [...] and ? adverse medication reactions. The ? Endoscope was introduced through the ? mouth, and advanced to the second ? part of duodenum. The patient ? tolerated the procedure well. The ? upper GI endoscopy was accomplished ? without difficulty. The patient ? tolerated the procedure. ? Findings: ? Esophagogastric landmarks were identified: the Z-line ? was found at 41 cm, the upper extent of the gastric ? folds was found at 42 cm and the site of hiatal ? narrowing was found at 42 cm from the incisors. ? There is no endoscopic evidence of varices in the ? lower third of the esophagus. ? The examined esophagus was normal. ? Patchy mildly erythematous mucosa was found in the ? gastric antrum. The gastric fundus was not well ? examined due to patient gagging during the procedure. ? The examined duodenum was normal. ? Moderate Sedation: ? I was present during the intraservice time as ? documented by the sedation RN. Impression: ?- Esophagogastric landmarks ? identified. ? - Normal esophagus. ? - Erythematous mucosa in the antrum. ? - Normal examined duodenum. ? - No specimens collected. Recommendation: ?- Perform an H. pylori stool antigen ? (HpSA) test. ? - Repeat upper endoscopy in 2 years ? for screening purposes with ? anesthesia. ? - Return to nurse practitioner. ? Attending Participation: ? I personally performed the entire procedure. ? Chelsi Sidhu MD Chelsi Sidhu MD 11/07/2020 10:24:14 AM This report has been signed electronically. Number of Addenda: 0 Note Initiated On: 11/07/2020 9:55 AM PROVATION 11/07/2020 9:55 AM EST Jose Eduardo Bond APRN GENERAL SURGICAL ORDERABLES PROVATION * COLONOSCOPY (11/07/2020 9:55 AM EST) [facility] Signature COLONOSCOPY [facility] Endoscopy Procedure Date: 11/07/2020 9:55 AM ? Patient Name: Seferino Honeycutt ? N: [id number] ? Date of : 1960 ? Age: 60 ? Order #: [id number] ? Instrument Name: [id number] ? Procedure: ? Colonoscopy Indications: ? Screening for colorectal malignant ? neoplasm Providers: ? Chelsi Sidhu MD, Nando Andrews ? Candie Nugent MD: ?Jose Eduardo Bond Medicines: ? Fentanyl 100 micrograms IV, Midazolam ? [...] preparation was evaluated using ? the BBPS ([place] Bowel Preparation ? Scale) with scores of: [...] Procedure Code(s): ?? --- Professional --- ? 35765, Colonoscopy, flexible; ? diagnostic, including collection of ? specimen(s) by brushing or washing, ? when performed (separate procedure) CPT copyright 2019 [employer]. All rights reserved. The codes documented in this report are preliminary and upon kier tender review may be revised to meet current compliance requirements. Attending Participation: ? I personally performed the entire procedure. ? Chelsi Sidhu MD Chelsi Sidhu MD 11/07/2020 11:11:36 AM This report has been signed electronically. Number of Addenda: 0 Note Initiated On: 11/07/2020 9:55 AM PROVATION 11/07/2020 9:55 AM EST Jose Eduardo Bond SANITARY ENGINEER GENERAL SURGICAL ORDERABLES PROVATION * POCT Glucose (11/07/2020 8:38 AM EST) Glucose, POC 125 65 - 199 mg/dL [facility] Comment: Supplemental ranges: <140 mg/dL before meals <180 mg/dL all other times of the day Blood specimen (specimen) 11/07/2020 8:38 AM EST 11/06/2020 9:00 AM EST Chelsi Sidhu MD POINT OF CARE TEST O HORTENCIA [facility] [place] [address] documented in this encounter Visit Diagnoses Not on filedocumented in this encounter Administered Medications Inactive Administered Medications - up to 3 most recent administrations Medication Order MAR Action Action Date Dose Rate Site benzocaine (Hurricane One) Mucosal spray 20% (restricted to marbin-procedural use) ONCE PRN, Starting on Thu11/07/20 at 1015, Until Thu11/07/20 at 1352, Intra-Operative (Intra-Procedure) Given 11/07/2020 10:15 AM EST 1 each fentaNYL (pf) (50 mcg/mL) multi-dose injection ONCE PRN, Starting on Thu11/07/20 at 1008, Until Thu11/07/20 at 1352, Intra-Operative (Intra-Procedure), Routine Given 11/07/2020 10:35 AM EST 50 mcg Given 11/07/2020 10:24 AM EST 50 mcg Given 11/07/2020 10:16 AM EST 50 mcg midazolam (pf) (Versed) (1 mg/mL) multi-dose injection ONCE PRN, Starting on Thu11/07/20 at 1008, Until Thu11/07/20 at 1352, Intra-Operative (Intra-Procedure), Routine Given 11/07/2020 10:39 AM EST 1 mg Given 11/07/2020 10:33 AM EST 1 mg Given 11/07/2020 10:24 AM EST 1 mg documented in this encounter Active and Recently Administered Medications Times are shown in EST. PRN Medication Order 11/05/2020 11/06/2020 11/07/2020 benzocaine (Hurricane One) Mucosal spray 20% (restricted to marbin-procedural use) (CANCELED) ONCE PRN, Starting on Thu11/07/20 at 1015, Until Thu11/07/20 at 1352, Intra-Operative (Intra-Procedure) 1015 (Given - Provid er: Nando Nugent RN) fentaNYL (pf) (50 mcg/mL) multi-dose injection (CANCELED) ONCE PRN, Starting on Thu11/07/20 at 1008, Until Thu11/07/20 at 1352, Intra-Operative (Intra-Procedure), Routine 1008 (Given - Provid er: Nando Nugent RN)1011 (Given - Provider: Nando Nugent RN)1016 (Given - Provider: Nando Nugent RN)1024 (Given - Provider: Nando Nugent RN)1035 (Given - Provider: Nando Nugent RN) midazolam (pf) (Versed) (1 mg/mL) multi-dose injection (CANCELED) ONCE PRN, Starting on Thu11/07/20 at 1008, Until Thu11/07/20 at 1352, Intra-Operative (Intra-Procedure), Routine 1008 (Given - Provid er: Nando Nugent RN)1011 (Given - Provider: Nando Nugent RN)1016 (Given - Provider: Nando Nugent RN)1024 (Given - Provider: Nando Nugent RN)1033 (Given - Provider: Nando Nugent RN)1039 (Given - Provider: Nando Nugent RN) documented in this encounter Care Teams Utilization Review Nurse Relationship Specialty Start Date End Date Jose Eduardo Bond APRN [address] [place] [id number] PCP - General Family Medicine 07/26/20 06/25/21 documented as of this encounter
--- OUTSIDE RECORDS SUMMARY | 2024-11-23 08:24 | XMS_ITS | Encounter Summary ---
Author Organization [facility] Address [facility] [place] [address] Care Team Providers Care Missile Facilities Repairer Name Role Phone Unknown Primary Care Provider Unavailabl e Reason for Visit * Reason Comments Medication Refill Encounter Details Date Type Department Care Team (Late st Contact Info) Description 12/01/2021 Refill Gastroenterology at [facility] [place] [address] Steffanie Plummer APRN [facility] [place] [address] Hepatic cirrhosis, unspecified hepatic cirrhosis type, unspecified [...] present documented in this encounter Care Teams Missile Facilities Repairer Relationship Specialty Start Date End Date Unknown None PCP - General 06/26/21 07/01/22 documented as of this encounter
--- OUTSIDE RECORDS SUMMARY | 2024-11-23 08:24 | XMS_ITS | Encounter Summary ---
Author Organization [facility] Address [facility] [place] [address] Care Team Providers Care Social Insurance Analyst Name Role Phone None Primary Care Provider Unavailabl e Reason for Visit * Reason Comments Medication Refill Encounter Details Date Type Department Care Team (Late st Contact Info) Description 07/26/2022 Refill Gastroenterology at [facility] [place] [address] Steffanie Plummer APRN [facility] [place] [address] Hepatic cirrhosis, unspecified hepatic cirrhosis type, unspecified [...] present documented in this encounter Care Teams Social Insurance Analyst Relationship Specialty Start Date End Date None None PCP - General 07/02/22 04/05/24 documented as of this encounter
--- OUTSIDE RECORDS SUMMARY | 2024-11-23 08:24 | XMS_ITS | Encounter Summary ---
Author Organization [facility] Address [facility] [place] [address] Care Team Providers Care Plate Colorer Name Role Phone Jose M Sauceda MD Primary Care Provider [phone] Encounter Details Date Type Department Care Team (Late st Contact Info) Description 05/15/2020 Telephone [place] [phone] Yvonne Cunha RN Social History Tobacco Use Types Packs/Day [...] encounter Miscellaneous Notes * Telephone Encounter - Yvonne Cunha RN - 05/15/2020 12:05 PM EDT Call placed to patient to follow-up, review chart for med refill. Patient agreeable to telephone visit with provider. Lab orders and ultrasound order faxed to [facility]. documented in this encounter Plan of Treatment Not on file documented as of this encounter Visit Diagnoses Not on filedocumented in this encounter Care Teams Plate Colorer Relationship Specialty Start Date End Date Jose M Sauceda MD [address] [facility] [address] [place] [address] PCP - General 06/09/12 07/25/20 documented as of this encounter
--- OUTSIDE RECORDS SUMMARY | 2024-11-23 08:24 | XMS_ITS | Encounter Summary ---
Author Organization [facility] [place] [address] Care Team Providers Care Manager Council Name Role Phone Jose M Sauceda MD Primary Care Provider [phone] Reason for Visit * Reason Onset Date Comments Prior Authorization 11/01/2019 Encounter Details Date Type Department Care Team (Late st Contact Info) Description 11/01/2019 Telephone [place] [phone] Elodia Cherry CCMA Prior Authorization Social History Tobacco Use Types [...] Notes * Telephone Encounter - Elodia Cherry CCMA - 11/01/2019 8:37 AM EST Medication Prior Authorization 4L Gastroenterology / [place] [address] ?? Subscriber Insurance: [place] Medicaid ?? Phone: Fax: ? Physician: Steffanie Plummer ? Return ?? Pharmacy: [facility] ?? Phone: Fax: ?? Medication Requested: Xifaxan ?? Strength: 550MG Frequency: Take 1 tablet by mouth 2 times a day ?? Disp.: 180 Refills: 3 ?? Currently taking: ?? Diagnosis for this medication: Hepatic Encephalopathy ?? ICD-10 code: (K72.90) ?? Prior medications trialed in this patient:Augmentin 2012, Ciprofloxacin 2012, Fluoxetine 2011, Currently taking since 2014 Lactulose ? Medication: Outcome/Adverse Reactions:Treatment Failure ?? Decision: ?? Tracking number/Case number/Reference number: ?? Effective date: ?? Start: End: ?? documented in this encounter Plan of Treatment Not on file documented as of this encounter Visit Diagnoses Not on filedocumented in this encounter Care Teams Manager Council Relationship Specialty Start Date End Date Jose M Sauceda MD [address] [place] [address] PCP - General 06/09/12 07/25/20 documented as of this encounter
--- OUTSIDE RECORDS SUMMARY | 2024-11-23 08:24 | XMS_ITS | Encounter Summary ---
Author Organization Formerly [facility] [place] [address] Care Team Providers Care Electric Motor Repairing Supervisor Name Role Phone None Primary Care Provider Unavailabl e Encounter Details Date Type Department Care Team (Latest Contact Info) Description 07/02/2022 12:30 PM EDT Laboratory Appointment Lab [facility] [place] [id number] Hepatic cirrhosis, unspecified hepatic cirrhosis type, unspecified [...] Priority Date/Time Associated Diagnosis Comments HEMOGRAM Routine 07/02/2022 11:59 AM EDT Hepatic cirrhosis, unspecified hepatic cirrhosis type, unspecified whether ascites present DIFFERENTIAL, AUTOMATED Routine 07/02/2022 11:59 AM EDT Hepatic cirrhosis, unspecified hepatic cirrhosis type, unspecified whether ascites present HC PROTHROMBIN TIME Routine 07/02/2022 1 1:59 AM EDT Hepatic cirrhosis, unspecified hepatic cirrhosis type, unspecified whether ascites present HC CBC,PLT & AUTO DIFF Routine 2 11:59 AM EDT Hepatic cirrhosis, unspecified hepatic cirrhosis type, unspecified whether ascites present COMPREHENSIVE METABOLIC PANEL Routine 07/02/2022 11:59 AM EDT Hepatic cirrhosis, unspecified hepatic cirrhosis type, unspecified whether ascites present documented in this encounter Results * (ABNORMAL) Differential, Automated (07/02/2022 11:59 AM EDT) Neutrophil % 67.9 % [facility] Neutrophil Absolute 2.79 1.70 - 6.10 x10(3)/mc L [facility] Lymph % 16.1 % [facility] Lymphocytes Abs 0.7(L) 0.9 - 3.2 x10(3)/mc L [facility] Monocyte % 12.4 % [facility] Monocyte Abs 0.5 0.3 - 0.9 x10(3)/mc L [facility] Eos % 2.4 % [facility] Eosinophils Abs 0.1 0.0 - 0.4 x10(3)/mc L [facility] Basophil % 1.0 % [facility] Baso Absolute 0.0 0.0 - 0.1 x10(3)/mc L [facility] Immature Gran % 0.20 % [facility] Comment: Immature granulocytes(IG's)percentage and absolute count will include metamyelocytes, myelocytes, and promyelocytes. Blood smears from CBCs yielding IG's will be scanned manually for concordance. If this scan disagrees with the automated IG or if promyelocytes are noted, a manual differential will be performed. Immature Gran Absolute 0.01 0.00 - 0.04 x10(3)/mc L [facility] Blood 07/02/2022 11:5 9 AM EDT 07/02/2022 12:05 PM EDT Narrative Resulting Agency Comment Spec In Lab Steffanie Plummer APRN HEMATOLOGY ORDERAB LES [facility] [place] [address] * (ABNORMAL) Hemogram (07/02/2022 11:59 AM EDT) [facility] White Blood Cell 4.1 4.0 - 9.5 x10(3)/ L [facility] Red Blood Cell 5.04 4.58 - 5.54 x10(6)/[facility] Hemoglobin 13.1(L) 13.7 - 16.5 g/dL [facility] Hematocrit 41.4 40.5 - 48.5 % [facility] Mean Cell Volume 82.1(L) 82.9 - 93.1 fL [facility] Mean Cell Hemoglobin 26.0(L) 27.5 - 32.1 pg [facility] Mean Cell Hemoglobin Concentration 31.6(L) 32.0 - 35.7 g/dL [facility] Platelet 81(L) 145 - 357 x10(3)/[facility] RDW Standard Deviation 48.3(H) 36.0 - 45.0 [facility] RDW coefficient of variation 16.0(H) 11.4 - 13.8 % [facility] Mean Platelet Volume 10.5 7.6 - 12.9 [facility] NRBC% auto 0.0 % [facility] NRBC Absolute 0.000 0.000 - 0.000 x10(3)/[facility] Blood 07/02/2022 11:5 9 AM EDT 07/02/2022 12:05 PM EDT Narrative Resulting Agency Comment Spec In Lab Steffanie Plummer APRN HEMATOLOGY ORDERAB LES [facility] [place] [address] * (ABNORMAL) Comprehensive metabolic panel (non-fasting) (07/02/2022 11:59 AM EDT) [facility] Glucose 143 65 - 199 mg/dL [facility] Comment:Diabetes: >=200 mg/d L plus symptoms Blood Urea Nitrogen 19 10 - 20 mg/dL [facility] Creatinine 0.79(L) 0.80 - 1.50 mg/dL [facility] Sodium 138 135 - 145 mmol/L [facility] Potassium 4.1 3.5 - 5.0 mmol/L [facility] Comment: Please note: ??Patients with WBC >100,000 may have falsely elevated Potassium levels. ??For accurate Potassium quantification in these patients send serum separator tube (gold top) for subsequent determinations. ??Contact the Clinical Chemistry Laboratory if there are any questions. Chloride 104 98 - 107 mmol/L [facility] Carbon Dioxide 25 22 - 31 mmol/L [facility] Anion Gap 9 5 - 15 mmol/L [facility] Calcium 9.0 8.5 - 10.5 mg/dL [facility] Protein, Total 7.4 6.1 - 8.0 g/dL [facility] Albumin 4.1 3.2 - 5.2 g/dL [facility] Aspartate Aminotransferase 36 0 - 39 unit/L [facility] Alanine Aminotransferase 26 0 - 55 unit/L [facility] Alkaline Phosphatase 80 40 - 130 unit/L [facility] Bilirubin, Total 1.0 0.2 - 1.3 mg/dL [facility] Est Glomerular Filtration Rate 101 >=60 mL/min/1. 73 m?? [facility] Comment: This patient's estimated [...] CHEMISTRY ORDERABL ES Performing Organization Address [facility] Co de Phone Number [facility] [place] [address] * (ABNORMAL) Prothrombin Time (07/02/2022 11:59 AM EDT) Prothrombin Time 13.6(H) 9.4 - 12.5 sec [facility] International Normalization Ratio 1.2 [facility] Comment: An INR [...] HEMATOLOGY ORDERAB LES Performing Organization Address [facility] Co de Phone Number [facility] [place] [address] documented in this encounter Visit Diagnoses Diagnosis Hepatic cirrhosis, unspecified hepatic cirrhosis type, unspecified whether ascites present documented in this encounter Care Teams Electric Motor Repairing Supervisor Relationship Specialty Start Date End Date None None PCP - General 07/02/22 04/05/24 documented as of this encounter
--- OUTSIDE RECORDS SUMMARY | 2024-11-23 08:24 | XMS_ITS | Encounter Summary ---
Author Organization [facility] Address [facility] [place] [address] Care Team Providers Care Plant Physiology Teacher Name Role Phone Jose M Sauceda MD Primary Care Provider [phone] Encounter Details Date Type Department Care Team (Latest Contact Info) Description 07/12/2020 11:00 AM EDT Laboratory Appointment Lab [address] [place] [phone] Hepatic cirrhosis, unspecified hepatic cirrhosis type, unspecified [...] Priority Date/Time Associated Diagnosis Comments HEMOGRAM Routine 07/12/2020 11:36 AM EDT Hepatic cirrhosis, unspecified hepatic cirrhosis type, unspecified whether ascites present DIFFERENTIAL, AUTOMATED Routine 07/12/2020 11:36 AM EDT Hepatic cirrhosis, unspecified hepatic cirrhosis type, unspecified whether ascites present HC ALPHA FETOPROTEIN TUMOR MARKER Routine 07/12/2020 11:36 AM EDT Hepatic cirrhosis, unspecified hepatic cirrhosis type, unspecified whether ascites present HC PROTHROMBIN TIME Routine 07/12/2020 1 1:36 AM EDT Hepatic cirrhosis, unspecified hepatic cirrhosis type, unspecified whether ascites present CBC,PLT & AUTO DIFF Routine 0 11:36 AM EDT Hepatic cirrhosis, unspecified hepatic cirrhosis type, unspecified whether ascites present COMPREHENSIVE METABOLIC PANEL Routine 07/12/2020 11:36 AM EDT Hepatic cirrhosis, unspecified hepatic cirrhosis type, unspecified whether ascites present documented in this encounter Results * (ABNORMAL) Differential, Automated (07/12/2020 11:36 AM EDT) Neutrophil % 63.3 % [facility] Neutrophil Absolute 2.64 1.70 - 6.10 x10(3)/mc L [facility] Lymph % 20.4 % [facility] Lymphocytes Abs 0.8(L) 0.9 - 3.2 x10(3)/mc L [facility] Monocyte % 12.5 % [facility] Monocyte Abs 0.5 0.3 - 0.9 x10(3)/mc L [facility] Eos % 2.4 % [facility] Eosinophils Abs 0.1 0.0 - 0.4 x10(3)/mc L [facility] Basophil % 1.2 % [facility] Baso Absolute 0.0 0.0 - 0.1 x10(3)/mc L [facility] Immature Gran % 0.20 % [facility] Comment: Immature granulocytes(IG's)percentage and absolute count will include metamyelocytes, myelocytes, and promyelocytes. Blood smears from CBCs yielding IG's will be scanned manually for concordance. If this scan disagrees with the automated IG or if promyelocytes are noted, a manual differential will be performed. Immature Gran Absolute 0.01 0.00 - 0.04 x10(3)/mc L [facility] Blood specimen (specimen) 07/12/2020 11:36 AM EDT 07/12/2020 12:00 PM EDT Narrative Resulting Agency Comment Spec In Lab Velma Rodas MD HEMATOLOGY ORDERABLE S [facility] [place] [address] * (ABNORMAL) Hemogram (07/12/2020 11:36 AM EDT) White Blood Cell 4.2 4.0 - 9.5 x10(3)/mc L [facility] Red Blood Cell 4.51(L) 4.58 - 5.54 x10(6)/mc L [facility] Hemoglobin 14.5 13.7 - 16.5 gm/dL [facility] Hematocrit 42.3 40.5 - 48.5 % [facility] Mean Cell Volume 93.8(H) 82.9 - 93.[address] [facility] Mean Cell Hemoglobin 32.2(H) 27.5 - 32.[address] [facility] Mean Cell Hemoglobin Concentration 34.3 32.0 - 35.7 gm/dL [facility] Platelet 68(L) 145 - 357 x10(3)/mc L [facility] RDW Standard Deviation 45.4(H) 36.0 - 45.[address] [facility] RDW coefficient of variation 13.2 11.4 - 13.8 % [facility] Mean Platelet Volume 11.4 7.6 - 12.[address] [facility] NRBC% auto 0.0 % [facility] NRBC Absolute 0.000 0.000 - 0.000 x10(3)/mc L [facility] Blood specimen (specimen) 07/12/2020 11:36 AM EDT 07/12/2020 12:00 PM EDT Narrative Resulting Agency Comment Spec In Lab Velma Rodas MD HEMATOLOGY ORDERABLE S [facility] [place] [address] * (ABNORMAL) Comprehensive metabolic panel (non-fasting) (07/12/2020 11:36 AM EDT) Glucose 233(H) 65 - 199 mg/dL [facility] Comment:Diabetes: >=200 mg/d L plus symptoms Blood Urea Nitrogen 15 10 - 20 mg/dL [facility] Creatinine 0.92 0.80 - 1.50 mg/dL [facility] Sodium 141 135 - 145 mmol/L [facility] Potassium 4.1 3.5 - 5.0 mmol/L [facility] Comment: Please note: ??Patients with WBC >100,000 may have falsely elevated Potassium levels. ??For accurate Potassium quantification in these patients send serum separator tube (gold top) for subsequent determinations. ??Contact the Clinical Chemistry Laboratory if there are any questions. Chloride 102 98 - 107 mmol/L [facility] Carbon Dioxide 29 22 - 31 mmol/L [facility] Anion Gap 10 5 - 15 mmol/L [facility] Calcium 9.3 8.5 - 10.5 mg/dL [facility] Protein, Total 7.7 6.1 - 8.0 gm/dL [facility] Albumin 4.3 3.2 - 5.2 gm/dL [facility] Aspartate Aminotransferase 37 0 - 39 unit/L [facility] Alanine Aminotransferase 34 0 - 55 unit/L [facility] Alkaline Phosphatase 90 40 - 130 unit/L [facility] Bilirubin, Total 0.7 0.2 - 1.3 mg/dL [facility] Est Glomerular Filtration Rate 91 >=60 mL/min/1. 73 m?? [facility] Comment: The eGFR was calculated using the CKD-EPI equation. As with all creatinine based estimates of kidney function, eGFR values calculated with the CKD-EPI equation are not accurate in patients with acute kidney failure, extremes of body mass or the acutely ill. [email or web address]MCnk[facility] eGFR 105 >=60 mL/min/1. 73 m?? [facility] Comment: The eGFR was calculated using the CKD-EPI equation. As with all creatinine based estimates of kidney function, eGFR values calculated with the CKD-EPI equation are not accurate in patients with acute kidney failure, extremes of body mass or the acutely ill. http://[facility] Blood specimen (specimen) 07/12/2020 11:36 AM EDT 07/12/2020 12:00 PM EDT Narrative Resulting Agency Comment Spec In Lab Velma Rodas MD CHEMISTRY ORDERABLES Performing Organization Address [facility] de Phone Number [facility] [place] [address] * (ABNORMAL) Prothrombin Time (07/12/2020 11:36 AM EDT) Prothrombin Time 13.5(H) 9.4 - 12.[address] [facility] International Normalization Ratio 1.2 [facility] Comment: An INR <2.0 indicates [...] Comment Spec In Lab Velma Rodas MD HEMATOLOGY ORDERABLE S Performing Organization Address [facility] Co de Phone Number [facility] [place] [address] * AFP tumor marker (07/12/2020 11:36 AM EDT) Alpha Fetoprotein 8.3 <=8.3 ng/mL [facility] Blood specimen (specimen) 07/12/2020 11:36 AM EDT 07/12/2020 12:00 PM EDT Narrative Resulting Agency Comment Spec In Lab Velma Rodas MD CHEMISTRY ORDERABLES [facility] [place] [address] documented in this encounter Visit Diagnoses Diagnosis Hepatic cirrhosis, unspecified hepatic cirrhosis type, unspecified whether ascites present documented in this encounter Care Teams Plant Physiology Teacher Relationship Specialty Start Date End Date Jose M Sauceda MD [address] [place] [id number] PCP - General 06/09/12 07/25/20 documented as of this encounter
--- OUTSIDE RECORDS SUMMARY | 2024-11-23 08:24 | XMS_ITS | Encounter Summary ---
Author Organization Formerly [facility] Address [facility] [place] [address] Care Team Providers Care Dust Collector Treater Name Role Phone Jose M Saucead MD Primary Care Provider [phone] Encounter Details Date Type Department Care Team ([facility] st Contact Info) Description 05/30/2020 Telephone Gastroenterology at [facility] [place] [phone] Joselin Montano Social History Tobacco Use Types [...] * Telephone Encounter - Joselin Montano - 05/30/2020 9:34 AM EDT called and s/w patient to reschedule labs/US/FUV with Steffanie Plummer. He would like to see Steffanie in the office on same day as testing. Sent basket to [facility] to renew US order which expires 06/05/10. Will call pt. back to [facility]. (earliest pt can be here is 10am). documented in this encounter Plan of Treatment Not on file documented as of this encounter Visit Diagnoses Not on filedocumented in this encounter Care Teams Dust Collector Treater Relationship Specialty Start Date End Date Jose M Sauceda MD [address] [place] [id number] PCP - General 06/09/12 07/25/20 documented as of this encounter
--- OUTSIDE RECORDS SUMMARY | 2024-11-23 08:24 | XMS_ITS | Encounter Summary ---
Author Organization [facility] [place] [address] Care Team Providers Care Efficiency Expert Name Role Phone Jose M Sauceda MD Primary Care Provider [phone] Reason for Referral * Consultation (Routine) - Closed Specialty Diagnoses / Procedures Referred By Tejal elizabeth Referred To Contact Gastroenterology Diagnoses Hepatic cirrhosis, unspecified hepatic cirrhosis type, unspecified whether ascites present Hepatic cirrhosis, unspecified hepatic cirrhosis type, unspecified whether ascites present Procedures EGD with IVCS for varices surveillance Steffanie Plummer APRN [facility] [place] [address] [facility] End[facility] [address] [place] [address] Referral ID Status Reason Start Date Expiration Date V isits Requested Visits Authorized [id number] Closed Consult, Test & Treat 07/12/2020 07/12/2021 1 1 Encounter Details Date Type Department Care Team (Late st Contact Info) Description 07/12/2020 12:30 PM EDT Office [place] [address] Steffanie Plummer APRN [facility] [place] [address] Hepatic cirrhosis, unspecified hepatic cirrhosis type, unspecified [...] Sign Reading Time Taken Comments Blood Pressure 133/71 07/12/2020 12:25 PM EDT Pulse 97 07/12/2020 12:25 PM EDT Temperature - - Respiratory Rate - - Oxygen Saturation - - Inhaled Oxygen Concentration - - Weight 116.2 kg (256 lb 3.2 oz) 020 12:25 PM EDT Height 177.8 cm (5' 10) 07/12/2020 12: 25 PM EDT Body Mass Index 36.76 07/12/2020 12:25 PM EDT documented in this encounter Progress Notes * Steffanie Plummer APRN - 07/12/2020 12:30 PM EDT Gastroenterology and Hepatology Follow Up Note Patient: Seferino Honeycutt Jr. Gender: Male : 1960 Provider: Steffanie Plummer APRN Interval History: Mr. Seferino Honeycutt Jr. is here for follow up for cirrhosis. I last saw him 1.5 years ago and her returns today for follow up. He has been feeling sluggish, tires out easily. He has been forgetting things often. He missed his daughters wedding. He takes Lactulose occasionally, but will go 1-2 weeks without the Lactulose, then take one dose. He has 2 BM/day, and that does not change with his Lactulose. He never took Rifaxamin, looks like the prior auth was submitted but unclear what happened after that. Sleep at night is okay - he takes sleeping medications - Seroquel. Sleeps well at night. When he remembers his medications, he doesn't have any fluid retension. He started drinking about 1 year ago when his dad . He has been drinking 18 beers and 1 bottle of whiskey per week for the past year. He had previously stopped drinking, or drank very minimally. He knows this is not good for his liver, and that he should stop. He has had friends of cirrhosis. No melena or blood in stools, no vomitting blood. NO abdominal pain or nausea. Preventative Health: HAV- Immune HBV- Immune ?? HIV Status- Neg ?? Influenza Vaccine: Jun 2014 PROBLEM LIST 1. Hepatitis C- G1a, diagnosed in 2000, likely acquired from IVDU ?- Treated with Harvoni ?? 2. Cirrhosis ?- 1st presented December 2014 with Based on thrombocytopenia and hypoalbuminemia and imaging CT of abdomen (December 2014) ?- HE- Jun 2015- started on Lactulose ?? 3. History of alcohol abuse- sober since 2004, relapse in 2018, currently drinking. 4. 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 Less likely due to portal hypertension as PV and SV patent 5. Hypertension ?? 6. BPH 7. CT s/p PCI 2007 MEDICATIONS: Current Outpatient Medications Medication Sig Dispense Refill ??? lactulose (Chronulac) 10 gram/15 mL Solution TAKE 15 ML BY MOUTH TWO TIMES A DAY 1000 mL 0 ??? ferrous gluconate 324 mg (38 mg iron) Tablet TAKE 1 TABLET BY MOUTH DAILY 90 tablet 3 ??? metFORMIN (FORTAMET) 1,000 mg Tablet Extended Rel 24 hr Take 1,000 mg by mouth daily (with breakfast). ??? QUEtiapine (SEROQUEL) 100 mg Tablet Take 100 mg by mouth 2 times daily. ??? sertraline (ZOLOFT) 100 mg Tablet Take 100 mg by mouth daily. ??? busPIRone (BUSPAR) 15 mg Tablet Take 15 mg by mouth 2 times daily. ??? tamsulosin (FLOMAX) 0.4 mg Capsule, Sust. Release 24 hr Take 0.4 mg by mouth daily. ??? lisinopril (PRINIVIL;ZESTRIL) 10 mg tablet Take 10 mg by mouth daily. ??? gabapentin (NEURONTIN) 100 mg capsule Take 600 mg by mouth 2 times daily. ??? BUPROPION HCL (WELLBUTRIN XL ORAL) Take 150 mg by mouth 2 times daily. ??? metoprolol succinate (TOPROL-XL) 50 mg 24 hr tablet Take 50 mg by mouth daily. ??? hydrochlorothiazide (HYDRODIURIL) 25 mg tablet Take 25 mg by mouth daily. Indications: Hypertension ??? nitroGLYcerin (NITROSTAT) 0.4 mg SL tablet 0.4 MG = 1 Tablet(s), Sublingual, PRN ??? rifaximin 550 mg Tablet TAKE 1 TABLET BY MOUTH TWO TIMES A DAY (Patient not taking: Reported on07/12/2020) 180 tablet 0 No current facility-administered medications for this visit. ALLERGIES/ADR Allergies Allergen Reactions ??? Natasha-E[place]enada [Aspirin-Sod Bicarb-Citric Acid] Anaphylaxis Sodium bicarbonate ??? Bee Sting [Hymenoptera Allergenic Extract] Anaphylaxis PHYSICAL EXAMINATION: Vitals: 07/12/20 1225 BP: 133/71 BP Location (NBP): Left arm Patient Position: Sitting BP Cuff Sizes: Adult (25-34 cm) Pulse: 97 Weight: 116.2 kg (256 lb 3.2 oz) Height: 177.8 cm (5' 10) Body mass index is 36.76 kg/m??. GEN: Healthy in appearance, no acute distress. SKIN: Spider angiomas. HEENT: Nonicteric sclera, no oral lesions NECK: No lymphadenopathy or thyromegaly ABDOMEN: Obese, soft. EXT: No edema, cyanosis or edema PERTINENT LABS AND IMAGING: Lab Results Component Value Date WBC 4.2 07/12/2020 HGB 14.5 07/12/2020 HCT 42.3 07/12/2020 MCV 93.8 (H) 07/12/2020 PLATELET 68 (L) 07/12/2020 Recent Labs 07/12/20 1136 INR 1.2 Chemistry Component Value Date/Time NA 141 07/12/2020 1136 K 4.1 07/12/2020 1136 CL 102 07/12/2020 1136 CO2 29 07/12/2020 1136 BUN 15 07/12/2020 1136 CREATININE 0.92 07/12/2020 1136 Component Value Date/Time CALCIUM 9.3 07/12/2020 1136 ALKPHOS 90 07/12/2020 1136 AST 37 07/12/2020 1136 ALT 34 07/12/2020 1136 BILITOT 0.7 07/12/2020 1136 MELD-Na score: 8 at 07/12/2020 11:36 AM MELD score: 8 at 07/12/2020 11:36 AM Calculated from: Serum Creatinine: 0.92 mg/dL (Rounded to 1 mg/dL) at 07/12/2020 11:36 AM Serum Sodium: 141 mmol/L (Rounded to 137 mmol/L) at 07/12/2020 11:36 AM Total Bilirubin: 0.7 mg/dL (Rounded to 1 mg/dL) at 07/12/2020 11:36 AM INR(ratio): 1.2 at 07/12/2020 11:36 AM Age: 60 years 5 months ?? Ultrasound 07/12/20: 1. Coarse echogenic liver parenchyma with capsular nodularity, consistent with known cirrhosis. No sonographically evident hepatic mass. 2. No intra-abdominal ascites. 3. Marked splenomegaly, overall largely unchanged in length compared to the 11/03/2018 MRPato ?? IMPRESSION/PLAN: Mr. Honeycutt is a 60 y.o. man with cirrhosis secondary to Hepatitis C. He is Child [place] A. His liver is well compensated with good synthetic function, however in the past year he has started drinking again and his liver enzymes are slightly elevated. 1. Alcohol use. We discussed that continued alcohol use will lead to worsening of his liver diseaseand signs of liver failure. He will work on quitting alcohol, not interested in AA. 2.. Hepatic encephalopathy- He has difficulties with his memory, although difficult to say if this is due to HE. Discussed that he should take Lactulose everyday, or twice a day, and have between 3-4bowel movements per day. If no improvement with this, will start Rifaxamin. I had previously prescribed Rifaxamin, but it was never started. 3. Ascites -None seen on US today. 4. Variceal screening - EGD 03/2018 with portal hypertensive gastropathy, no varices. Due for repeatEGD, will place referral today. 5. Anemia. Resolved. 6. HCC surveillance- US today with no lesions, plan to repeat in 6 months. ?? 7. Hepatitis C- Completed treatment with 12 weeks of Harvoni 03/2015 with SVR 1 year post treatment. Plan: - Repeat EGD for varices surveillance - referral placed. - Start Lactulose every day with goal of 3-4 bowel movements per day - IF no improvement with Lactulose, plan to start Rifaxamin. - Advise complete alcohol cessation. - Follow up in 6 months with labs and US. Steffanie Plummer APRN Section of Gastroenterology [place] [address] 25 minutes of this 30 minute [id number] visit were spent counseling, discussing disease, treatment and prognosis. ?? Cc: Jose M Sauceda MD [address] [place] [id number] documented in this encounter Plan of Treatment Scheduled Referrals Name Type Priority Associated Diagnoses Order Schedule Referral to Gastroenterology Outpatient Referral Routine Hepatic cirrhosis, unspecified hepatic cirrhosis type, unspecified whether ascites present Ordered: 07/12/2020 documented as of this encounter Visit Diagnoses Diagnosis Hepatic cirrhosis, unspecified hepatic cirrhosis type, unspecified whether ascites present documented in this encounter Care Teams Efficiency Expert Relationship Specialty Start Date End Date Jose M Sauceda MD [address] [place] [id number] PCP - General 06/09/12 07/25/20 documented as of this encounter
--- OUTSIDE RECORDS SUMMARY | 2024-11-23 08:24 | XMS_ITS | Encounter Summary ---
[place] [address] Care Team Providers Care Sales Order Clerk Name Role Phone Jose Eduardo Bond APRN Primary Care Provider [phone] Reason for Visit * Reason Onset Date Comments Prior Authorization 01/01/2021 Encounter Details Date Type Department Care Team (Late st Contact Info) Description 01/01/2021 Telephone Gastroenterology at [place] [phone] Elodia Cherry CCMA Prior Authorization Social History [...] Telephone Encounter - Elodia Cherry CCMA - 01/01/2021 2:16 PM EST Medication Prior Authorization 4L Gastroenterology / [place] [address] Subscriber Insurance: [place] Medicaid Phone: Fax: Physician: Steffanie Plummer NPI: Return Pharmacy: [facility] Phone: Fax: Medication Requested: Xifaxan Strength:550mg Frequency: Take 1 tablet by mouth two times a day Disp.: 180 Refills: 1 Currently taking: Diagnosis for this medication: H.E ICD-10 code: (K72.90) Prior medications trialed in this patient: Lactulose Medication: Outcome/Adverse Reactions:Treatment Failure Decision: Approved Tracking number/Case number/Reference number: [id number] Effective date: Start: 01/01/2021 End: 01/01/2022 Approved for 180 per 90 days documented in this encounter Plan of Treatment Not on file documented as of this encounter Visit Diagnoses Not on filedocumented in this encounter Care Teams Sales Order Clerk Relationship Specialty Start Date End Date Jose Eduardo Bond APRN [address] [place] [id number] PCP - General Family Medicine 07/26/20 06/25/21 documented as of this encounter
--- OUTSIDE RECORDS SUMMARY | 2024-11-23 08:24 | XMS_ITS | Encounter Summary ---
[place] [address] Care Team Providers Care Obstetrics Gyn Physician Name Role Phone Varun Jose Eduardo ELMORE Primary Care Provider [phone] Encounter Details Date Type Department Care Team ([facility] Contact Info) Description 10/29/2020 Telephone [place] [phone] Janel Gordon Social History Tobacco Use Types [...] on filedocumented in this encounter Care Teams Obstetrics Gyn Physician Relationship Specialty Start Date End Date Jose Eduardo Bond APRN [address] [place] [address] PCP - General Family Medicine 07/26/20 06/25/21 documented as of this encounter
--- OUTSIDE RECORDS SUMMARY | 2024-11-23 08:24 | XMS_ITS | Encounter Summary ---
Author Organization [facility] Address [facility] [place] [address] Care Team Providers Care Bakery Manager Name Role Phone Jose Eduardo Bond APRN Primary Care Provider [phone] Encounter Details Date Type Department Care Team (Latest Contact Info) Description 11/07/2020 8:03 AM EST - 11/07/2020 11:51 AM EST Hospital Encounter [place] [phone] Chelsi Sidhu MD [facility] [place] [address] Discharge Disposition: Home Social History Tobacco Use [...] Sign Reading Time Taken Comments Blood Pressure 128/72 11/07/2020 11:15 AM EST Pulse 102 11/07/2020 10:45 AM EST Temperature 37.4 ??C (99.3 ??F) 11/07/2020 8:27 AM ES T Respiratory Rate 16 11/07/2020 11:15 AM EST Oxygen Saturation 94% 11/07/2020 11:15 AM EST Inhaled Oxygen Concentration - - [...] the day after the procedure, use an uxzc-qpa-dazeqqj spray to numb your throat. Sucking on [...] occurs, please contact your Doctor. Please call [phone] before 8pm Mon-Fri with problems, questions or concerns. If you call after 8pm or on weekends, call the Hospital at [phone] and ask to speak to the Canal Boat Operator assembly lead person and the reducing machine operator will contact that person for you. When should you call for help? Call [phone] anytime you think you may need emergency [...] any problems. Where can you learn more? [facility] View your After Visit Summary and more online at [email or web address] If you would like to provide feedback about your hospital experience, please call the Office of Patient and Family Relations at . If you have received this After Visit Summary in error, please immediately return it in person to the department, or notify the [facility] Privacy Office by calling toll free at between the hours of 8AM and 5PM to arrange for our retrieval of the documents at no cost to you. Content Version: 12.2 ?? [id number] [employer]. Care instructions adapted under license by [facility]. If you have questions about a medical condition or this instruction, always ask your healthcare professional. [employer] disclaims any warranty or liability for your [...] occurs, please contact your Doctor. Please call [phone] before 8pm Mon-Fri with problems, questions or concerns. If you call after 8pm or on weekends, call the Hospital at [phone] and ask to speak to the Canal Boat Operator assembly lead person and the reducing machine operator will contact that person for you. When should you call for help? Call [phone] anytime you think you may need emergency [...] any problems. Where can you learn more? [facility] View your After Visit Summary and more online at [email or web address] If you would like to provide [...] cost to you. Content Version: 12.2 ?? 7445-9583 [employer]. Care instructions adapted under license by [facility]. If you have questions about a medical condition or this instruction, always ask your healthcare professional. [employer] disclaims any warranty or liability for your [...] Diagnosis Code ??? CAD (coronary artery disease), [place] coronary artery I25.10 ??? Tobacco abuse disorder [...] Priority Date/Time Associated Diagnosis Comments Colonoscopy, Diagnostic (02018) 11/07/2020 10:04 AM EST 2 yr surv from 04/07/18 Hepatic cirrhosis, unspecified hepatic cirrhosis type, unspecified whether ascites present Encounter for screening for malignant neoplasm of colon Upper GI Endoscopy, Diagnostic ([id number]) 11/07/2020 10:04 AM EST 2 yr surv from 04/07/18 Hepatic cirrhosis, unspecified hepatic cirrhosis type, unspecified whether ascites present Encounter for screening for malignant neoplasm of colon UPPER GI ENDOSCOPY Routine 11/07/2020 9: 55 AM EST COLONOSCOPY Routine 11/07/2020 9:55 AM EST POCT GLUCOSE Routine 11/07/2020 8:38 AM EST documented in this encounter Results * UPPER GI ENDOSCOPY (11/07/2020 9:55 AM EST) Pathologist [facility] UPPER GI ENDOSCOPY [facility] Endoscopy Procedure Date: 11/07/2020 9:55 AM ? Patient Name: Seferino Honeycutt ? Date of : 1960 ? Age: 60 ? Order #: [id number] ? Instrument Name: [id number] ? Procedure: ? Upper GI endoscopy Indications: ? Cirrhosis with suspected esophageal ? varices Providers: ? Chelsi Sidhu MD, Nando Andrews [...] PROVATION * COLONOSCOPY (11/07/2020 9:55 AM EST) COLONOSCOPY [facility] Endoscopy Procedure Date: 11/07/2020 9:55 AM ? Patient Name: Seferino Honeycutt ? [facility]: [id number] ? Date of : 1960 ? Age: 60 ? Order #: [id number] ? Instrument Name: [id number] ? Procedure: ? Colonoscopy Indications: ? Screening for colorectal malignant ? neoplasm Providers: ? Chelsi Sidhu MD, Nando Andrews ? Candie Nugent Referring : ?Jose Eduardo Varun Medicines: ? Fentanyl 100 micrograms IV, Midazolam [...] preparation was evaluated using ? the BBPS ([place] Bowel Preparation ? Scale) with scores of: [...] Procedure Code(s): ?? --- Professional --- ? 01207, Colonoscopy, flexible; ? diagnostic, including collection of ? specimen(s) by brushing or washing, ? when performed (separate procedure) CPT copyright 2019 [employer]. All rights reserved. The codes documented in this report are preliminary and upon eclectic doctor review may be revised to meet current compliance requirements. Attending Participation: ? I personally performed the entire procedure. ? Chelsi Sidhu MD Chelsi Sidhu MD 11/07/2020 11:11:36 AM This report has been signed electronically. Number of Addenda: 0 Note Initiated On: 11/07/2020 9:55 AM PROVATION 11/07/2020 9:55 AM EST Jose Eduardo Bond BEHAVIORAL SCIENCES INSTRUCTOR GENERAL SURGICAL ORDERABLES PROVATION * POCT Glucose (11/07/2020 8:38 AM EST) Glucose, POC 125 65 - 199 mg/dL [facility] Comment: Supplemental ranges: <140 mg/dL before meals <180 mg/dL all other times of the day Blood specimen (specimen) 11/07/2020 8:38 AM EST 11/06/2020 9:00 AM EST Chelsi Sidhu MD POINT OF CARE TEST O RDNATASHA [facility] [place] [address] documented in this encounter Visit Diagnoses Not [...] Nugent RN)1024 (Given - Provider: Nando Nugent TANG)1033 (Given - Provider: Nando Nugent, TANG)1039 (Given - Provider: Nando Nugent, TANG) documented in this encounter Care Teams Bakery Manager Relationship Specialty Start Date End Date Jose Eduardo Bond APRN [address] [place] [id number] PCP - General Family Medicine 07/26/20 06/25/21 documented as of this encounter
--- OUTSIDE RECORDS SUMMARY | 2024-11-23 08:24 | XMS_ITS | Encounter Summary ---
Author Organization [facility] Address [facility] [place] [address] Care Team Providers Care Alarm Installer Name Role Phone Varun Jose Eduardo ELMORE Primary Care Provider [phone] Reason for Visit * Reason Comments Medication Refill Encounter Details Date Type Department Care Team ([facility] st Contact Info) Description 12/30/2020 Refill [place] [address] Velma Rodas MD [facility] [place] [address] Social History Tobacco Use Types Packs/Day Years [...] on filedocumented in this encounter Care Teams Alarm Installer Relationship Specialty Start Date End Date Jose Eduardo Bond APRN [address] [place] [address] PCP - General Family Medicine 07/26/20 06/25/21 documented as of this encounter
--- OUTSIDE RECORDS SUMMARY | 2024-11-23 08:24 | XMS_ITS | Encounter Summary ---
Author Organization [facility] Address [facility] [place] [address] Care Team Providers Care Drawer In Stitch Bonding Machine Name Role Phone None Primary Care Provider Unavailabl e Encounter Details Date Type Department Care Team (Late st Contact Info) Description 03/24/2023 2:00 PM EDT [place] [id number] Steffanie Garcia APRN [facility] [place] [address] Hepatic cirrhosis, unspecified hepatic cirrhosis type, unspecified whether ascites present; Other ascites Social History Tobacco Use Types Packs/Day Years [...] Sign Reading Time Taken Comments Blood Pressure 131/63 03/24/2023 1:54 PM EDT Pulse 74 03/24/2023 1:54 PM EDT Temperature - - Respiratory Rate - - Oxygen Saturation 98% 03/24/2023 1:54 PM EDT Inhaled Oxygen Concentration - - Weight 102.8 kg (226 lb 11.2 oz) 03/24/2023 1:54 PM EDT Height 176.5 cm (5' 9.5) 03/24/2023 1:54 PM EDT Body Mass Index 33 03/24/2023 1:54 PM EDT documented in this encounter Patient Instructions * Patient Instructions* Steffanie Garcia APRN - 03/24/2023 2:00 PM EDT Plan: - Please call [phone] to schedule your upper endoscopy - Follow a low sodium diet, please eat less then 2000 mg of sodium per day. - Avoid all alcohol - I sent in prescriptions for Rifaxamin 550mg twice daily and Lactulose. - Follow up in 6 months with labs and ultrasound. documented in this encounter Progress Notes * Steffanie Garcia APRN - 03/24/2023 2:00 PM EDT Gastroenterology and Hepatology Follow Up Note Patient: Seferino Honeycutt Jr. Gender: Male : 1960 Provider: Steffanie Garcia APRN Interval History: Mr. Seferino Honeycutt Jr. is here for follow up for cirrhosis. I last saw him 3 years ago and her returns today for follow up. He has been feeling okay. He gets some pain on his left side when he sleeps on it. He sleeps on that side all the time. Feelslike belly is getting smaller, not bigger. Doesn't follow a low sodium diet. Has been without Lactulose and Rifaxamin for a while, needs a new prescription. Memory has not been very good. Has some periodic alcohol. Maybe once/twice per week - usually just beer. Will drink 2-3 drinks at at time. 2 years ago was drinking more heavily. No melena or blood in stools, no [...] patent 5. Hypertension ?? 6. BPH 7. NV s/p PCI 2006 MEDICATIONS: Current Outpatient Medications Medication Sig Dispense Refill ??? amitriptyline (Elavil) 10 mg Tablet ??? atorvastatin (Lipitor) 40 mg Tablet ??? Fanli websiteTouch Verio test strips Strip ??? Jardiance 10 mg Tablet ??? melatonin 3 mg Tablet ??? meloxicam (MOBIC) 15 mg Tablet ??? rifAXIMin (Xifaxan) 550 mg Tablet Take 1 tablet by mouth 2 times daily. 60 tablet 3 ??? ferrous gluconate 324 mg (38 mg iron) Tablet TAKE 1 TABLET BY MOUTH EVERY DAY 90 tablet 3 ??? lactulose (Chronulac) 10 gram/15 mL Solution TAKE 15 ML BY MOUTH TWO TIMES A DAY 1000 mL 0 ??? metFORMIN (FORTAMET) 1,000 mg Tablet Extended [...] this visit. ALLERGIES/ADR Allergies Allergen Reactions ??? [place] [Aspirin-Sod Bicarb-Citric Acid] Anaphylaxis Sodium bicarbonate ??? Bee Sting [Hymenoptera Allergenic Extract] Anaphylaxis PHYSICAL EXAMINATION: Vitals: 03/24/23 1354 BP: 131/63 BP Location ([facility]): Right arm Patient Position: Sitting BP Cuff Sizes: Large Adult (32-43 cm) Pulse: 74 SpO2: 98% Weight: 102.8 kg (226 lb 11.2 oz) Height: 176.5 cm (5' 9.5) Body mass index is 33 kg/m??. GEN: Healthy in appearance, no acute distress. SKIN: Spider angiomas. HEENT: Nonicteric sclera, no oral lesions NECK: No lymphadenopathy or thyromegaly ABDOMEN: Obese, soft. EXT: No edema, cyanosis or edema PERTINENT LABS AND IMAGING: Lab Results Component Value Date WBC 3.6 (L) 03/24/2023 HGB 12.0 (L) 03/24/2023 HCT 38.8 (L) 03/24/2023 MCV 80.7 (L) 03/24/2023 PLATELET 84 (L) 03/24/2023 Recent Labs 03/24/23 1227 INR 1.3 Chemistry Component Value Date/Time NA 142 03/24/2023 1227 K 4.1 03/24/2023 1227 CL 107 03/24/2023 1227 CO2 27 03/24/2023 1227 BUN 18 03/24/2023 1227 CREATININE 0.75 (L) 03/24/2023 1227 Component Value Date/Time CALCIUM 9.2 03/24/2023 1227 ALKPHOS 82 03/24/2023 1227 AST 36 03/24/2023 1227 ALT 27 03/24/2023 1227 BILITOT 0.9 03/24/2023 1227 MELD-Na score: 9 at 03/24/2023 12:27 PM MELD score: 9 at 03/24/2023 12:27 PM Calculated from: Serum Creatinine: 0.75 mg/dL (Using min of 1 mg/dL) at 03/24/2023 12:27 PM Serum Sodium: 142 mmol/L (Using max of 137 mmol/L) at 03/24/2023 12:27 PM Total Bilirubin: 0.9 mg/dL (Using min of 1 mg/dL) at 03/24/2023 12:27 PM INR(ratio): 1.3 at 03/24/2023 12:27 PM Age: 63 years ?? Ultrasound 03/24/2023: ??IMPRESSION ?? 1. Recent hepatic parenchyma with capsular nodularity. RIGHT lobe of the liver 16.3 cm. No definite focal lesion identified. LEFT lobe hypertrophy. 2. Gallbladder is slightly contracted gallbladder wall thickness 2 mm. No cholelithiasis. 3. Common bile duct 2.6 mm. Splenomegaly. Spleen size 19.7 cm. 4 . There is perihepatic and perisplenic ascites. IMPRESSION/PLAN: Mr. Honeycutt is a 63 y.o. man with cirrhosis secondary to Hepatitis [...] can start low-dose diuretics. 4. Variceal screening -last EGD was done in October 2020 with no varices. Plan to repeat again now with propofol. 5. Anemia. His hemoglobin has dropped slightly over the past year. Plan to do upper endoscopy. His last colonoscopy was 2 years ago and was normal. 6. HCC surveillance- US today with no lesions, plan to repeat in 6 months. ?? 7. Hepatitis C- Completed treatment with 12 weeks of Harvoni 03/2015 with SVR 1 year post treatment. Plan: - Upper endoscopy to survey for varices- Please call [phone] to schedule your upper endoscopy - Follow a low sodium diet, please eat less then 2000 mg of sodium per day. - Avoid all alcohol - I sent in prescriptions for Rifaxamin 550mg twice daily and Lactulose. - Follow up in 6 months with labs and ultrasound. Steffanie Garcia APRN Section of Gastroenterology [place] [address] 25 minutes of this 30 minute [id number] visit were spent counseling, discussing disease, treatment and prognosis. ?? Cc: None None documented in this encounter Plan of Treatment Scheduled Orders Name Type Priority Associated Diagnoses Orde r Schedule ENDOSCOPY CASE REQUEST: EGD, UPPER GI ENDOSCOPY (WRVU 2.09) Procedures Routine Hepatic cirrhosis, unspecified hepatic cirrhosis type, unspecified whether ascites present Ordered: 03/24/2023 documented as of this encounter Results * US Abdomen Limited [...] Dexter Linares MD at 02/10/2024 9:54 AM Thank you for letting us participate in the care of this patient. If you are a health care provider and have any questions regarding this report, please contact the number above. For patients who have questions, please contact the health progressive care unit registered nurse that requested your imaging first. ?Dexter Linarse, Staff Physician Electronically Signed Final Report ?? 02/10/2024 10:01 am Narrative 02/10/2024 10:02 AM EDT Abdominal ? (Signed Final 02/10/2024 10:01 am) PATIENT INFO: ID #: ? [id number] ?: ??[birth year] (64 yrs)(M) Name: ? SEFERINO H ?Visit Date: 02/10/2024 09:17 am ? RACHEL PERFORMED BY: Attending: ?Milagros HICKMAN, Dexter Graves Resident: ? Wilder HICKMAN, Wm Melendez Performed By: ? ROSANA Mccarthy Erin Referred By: ?STEFFANIE GARCIA Location: ? [place] SERVICE(S) PROVIDED: [facility] - Hepatology Protocol - Abdominal ?68237 Limited Survey Single Organ or Quadrant - [id number] INDICATIONS: cirrhosis, screen for hcc TECHNIQUE/SCAN QUALITY: [...] 02/10/2024 10:01 am) PATIENT INFO: ID #: [id number] : 62 (64 yrs)(M) Name: SEFERINO Hines Visit Date: 02/10/2024 09:17 am H[place]YCUTT PERFORMED BY: Attending: Dexter Linares MD Resident: Wm Hdz MD Performed By: ROSANA Mccarthy Erin Referred By: STEFFANIE GARCIA Location: [place] [facility]) [facility] - Hep[facility] Protocol - Abdominal 49465 Limited Survey Single Organ or Quadrant - [id number] INDICATIONS: cirrhosis, screen for hcc TECHNIQUE/SCAN QUALITY: [...] AM Electronically signed by: Dexter Linares MD, [facility] ([phone]), at 02/10/2024 9:54 AM Thank you for letting us participate in the care of this patient. If you are a health care provider and have any questions regarding this report, please contact the number above. For patients who have questions, please contact the health progressive care unit registered nurse that requested your imaging first. Dexter Linares, Staff Physician Electronically Signed Final Report 02/10/2024 10:01 am Steffanie Garcia APRN IMG US GEN ORDERAB LES * AFP tumor marker (02/10/2024 8:24 AM EDT) Pathologist [facility] Alpha Fetoprotein 4.5 <=8.3 ng/mL [facility] Comment: This result was generated using a Chelsey Laya immunoassay. ??Results obtained from other methods or manufacturers cannot be used interchangeably with this method. Blood 02/10/2024 8:24 AM EDT 02/10/2024 8:27 AM EDT Narrative Resulting Agency Comment Spec In Lab Steffanie Garcia APRN CHEMISTRY ORDERABL ES Performing Organization Address [facility] Co de Phone Number [facility] [place] [address] * (ABNORMAL) Prothrombin Time (02/10/2024 8:24 AM EDT) Pathologist [facility] Prothrombin Time 14.0(H) 9.4 - 12.5 sec [facility] International Normalization Ratio 1.2 [facility] Comment: An INR <2.0 indicates [...] Comment Spec In Lab Steffanie Garcia APRN HEMATOLOGY ORDERAB LES Performing Organization Address [facility]/ZIP Co de Phone Number [facility] [place] [address] * (ABNORMAL) Comprehensive metabolic panel (non-fasting) (02/10/2024 8:24 AM EDT) Glucose 145 65 - 199 mg/dL [facility] Comment:Diabetes: >=200 mg/d L plus symptoms Blood Urea Nitrogen 18 10 - 20 mg/dL [facility] Creatinine 0.72(L) 0.80 - 1.50 mg/dL [facility] Sodium 144 135 - 145 mmol/L [facility] Potassium 4.6 3.5 - 5.0 mmol/L [facility] Comment: Please note: ??Patients with WBC >100,000 may have falsely elevated Potassium levels. ??For accurate Potassium quantification in these patients send serum separator tube (gold top) for subsequent determinations. ??Contact the Clinical Chemistry Laboratory if there are any questions. Chloride 107 98 - 107 mmol/L [facility] Carbon Dioxide 27 22 - 31 mmol/L [facility] Anion Gap 10 5 - 15 mmol/L [facility] Calcium 9.8 8.5 - 10.5 mg/dL [facility] Protein, Total 7.5 6.1 - 8.0 g/dL [facility] Albumin 4.2 3.2 - 5.2 g/dL [facility] Aspartate Aminotransferase 31 0 - 39 unit/L [facility] Alanine Aminotransferase 25 0 - 55 unit/L [facility] Alkaline Phosphatase 101 40 - 130 unit/L [facility] Bilirubin, Total 0.5 0.2 - 1.3 mg/dL [facility] Est Glomerular Filtration Rate 103 >=60 mL/min/1. 73 m?? [facility] Comment: This patient's estimated GFR [...] Lab Steffanie Garcia APRN CHEMISTRY ORDERABL ES [facility] [place] [address] documented in this encounter Visit Diagnoses Diagnosis Hepatic cirrhosis, unspecified hepatic cirrhosis type, unspecified whether ascites present Other ascites Hepatic cirrhosis, unspecified hepatic cirrhosis type, unspecified whether ascites present documented in this encounter Care Teams Drawer In Stitch Bonding Machine Relationship Specialty Start Date End Date None None PCP - General 07/02/22 04/05/24 documented as of this encounter
--- OUTSIDE RECORDS SUMMARY | 2024-11-23 08:24 | XMS_ITS | Encounter Summary ---
Author Organization [facility] Address [facility] [place] [address] Care Team Providers Care Part Time Name Role Phone None Primary Care Provider Unavailabl e Encounter Details Date Type Department Care Team (Late st Contact Info) Description 01/20/2023 Orders [place] [phone] Steffanie Garcia APRN [facility] [place] [address] Hepatic cirrhosis, unspecified hepatic cirrhosis type, unspecified [...] this encounter Results * (ABNORMAL) Prothrombin Time (03/24/2023 12:27 PM EDT) Prothrombin Time 14.4(H) 9.4 - 12.5 sec [facility] International Normalization Ratio 1.3 [facility] Comment: An INR <2.0 indicates adequate [...] Agency Comment Spec In Lab Steffanie Garcia [facility] HEMATOLOGY ORDERAB LES [facility] [address] [place] [address] * (ABNORMAL) Comprehensive metabolic panel (non-fasting) (03/24/2023 12:27 PM EDT) Glucose 156 65 - 199 mg/dL [facility] Comment:Diabetes: >=200 mg/d L plus symptoms Blood Urea Nitrogen 18 10 - 20 mg/dL [facility] Creatinine 0.75(L) 0.80 - 1.50 mg/dL [facility] Sodium 142 135 - 145 mmol/L [facility] Potassium 4.1 3.5 - 5.0 mmol/L [facility] Comment: Please note: ??Patients with WBC >100,000 may have falsely elevated Potassium levels. ??For accurate Potassium quantification in these patients send serum separator tube (gold top) for subsequent determinations. ??Contact the Clinical Chemistry Laboratory if there are any questions. Chloride 107 98 - 107 mmol/L [facility] Carbon Dioxide 27 22 - 31 mmol/L [facility] Anion Gap 8 5 - 15 mmol/L [facility] Calcium 9.2 8.5 - 10.5 mg/dL [facility] Protein, Total 7.1 6.1 - 8.0 g/dL [facility] Albumin 3.9 3.2 - 5.2 g/dL [facility] Aspartate Aminotransferase 36 0 - 39 unit/L [facility] Alanine Aminotransferase 27 0 - 55 unit/L [facility] Alkaline Phosphatase 82 40 - 130 unit/L [facility] Bilirubin, Total 0.9 0.2 - 1.3 mg/dL [facility] Est Glomerular Filtration Rate 102 >=60 mL/min/1. 73 m?? [facility] Comment: This patient's estimated GFR was [...] Resulting Agency Comment Spec In Lab Steffanie Elías Garcia APRN [place] [address] * US Abdomen Limited Hepatology Protocol (03/24/2023 [...] who have questions, please contact the health nurse care manager that requested your imaging first. ?Rhonda Abbasi, Staff Physician Electronically Signed Final Report ?? 03/24/2023 12:18 pm Narrative 03/24/2023 12:18 PM EDT Abdominal ? (Signed Final 03/24/2023 12:18 pm) PATIENT INFO: ID #: ? [id number] ?: ??[birth year] (63 yrs)(M) Name: ? SEFERINO Flora ?Visit Date: 03/24/2023 12:00 pm ? RACHEL PERFORMED BY: Attending: ?Elroy HICKMAN, Rhonda JPato Performed By: ? Madison Hager RDMS Referred By: ?STEFFANIE GARCIA Location: ? [place] INDICATIONS: cirrhosis, screen for hcc COMPARISON: Mulitple priors; 07/02/22 ------ LIVER: ------ Right Lobe Length: [...] 03/24/2023 12:18 pm) PATIENT INFO: ID #: [id number] : 62 (63 yrs)(M) Name: SEFERINO Hines Visit Date: 03/24/2023 12:00 pm HONEYCUTT PERFORMED BY: Attending: Rhonda Abbasi MD Performed By: Madison Hager RDMS Referred By: STEFFANIE GARCIA Location: [place] INDICATIONS: cirrhosis, screen for hcc COMPARISON: Mulitple [...] who have questions, please contact the health nurse care manager that requested your imaging first. Rhonda Abbasi, Staff Physician Electronically Signed Final Report 03/24/2023 12:18 pm Steffanie Garcia APRN [facility] GEN ORDERAB LES documented in this encounter Visit Diagnoses Diagnosis Hepatic cirrhosis, unspecified hepatic cirrhosis type, unspecified whether ascites present Hepatic cirrhosis, unspecified hepatic cirrhosis type, unspecified whether ascites present documented in this encounter Care Teams Part Time Relationship Specialty Start Date End Date None None PCP - General 07/02/22 04/05/24 documented as of this encounter
--- OUTSIDE RECORDS SUMMARY | 2024-11-23 08:24 | XMS_ITS | Encounter Summary ---
Author Organization [facility] Address [facility] [place] [address] Care Team Providers Care Automotive Drivability Technician Name Role Phone Jose M Sauceda MD Primary Care Provider [phone] Encounter Details Date Type Department Care Team (Latest Contact Info) Description 07/12/2020 10:11 AM EDT - 07/12/2020 11:59 PM EDT Hospital En[place] [phone] María Elena Stafford MD [facility] [place] [address] Hepatic cirrhosis, unspecified hepatic cirrhosis type, unspecified [...] MOUTH TWO TIMES A DAY 180 tablet 05/15/2020 07/27/2020 lactulose (Chronulac) 10 gram/15 mL Solution TAKE 15 ML BY MOUTH TWO TIMES A DAY 1000 mL 12/05/2019 03/24/2023 ferrous gluconate 324 mg (38 mg iron) Tablet TAKE 1 TABLET BY MOUTH DAILY 90 tablet 3 09/21/2019 12/31/2020 documented as of this encounter Plan of Treatment Not on file documented as of this encounter Procedures Procedure Name Priority Date/Time Associated Diagnosis Comments US ABDOMEN LIMITED HEPATOLOGY PROTOCOL Routine 07/12/2020 11:02 AM EDT Hepatic cirrhosis, unspecified hepatic cirrhosis type, unspecified whether ascites present documented in this encounter Results * US Abdomen Limited Hepatology Protocol (07/12/2020 [...] this report, please contact the number below. ? Soheila Funes, Staff Physician Electronically Signed Final Report ?? 07/12/2020 01:06 pm Narrative 07/12/2020 1:07 PM EDT Abdominal ? (Signed Final 07/12/2020 01:06 pm) PATIENT INFO: ID #: ? [id number] ?: ??62 (60 yrs)(M) Name: ? SEFERINO H ?Visit Date: 07/12/2020 10:58 am ? YINKA PERFORMED BY: Performed By: ? Almaz Nina RDMS Attending: ?Shantel HICKAMN, Soheila Walton Referred By: ?MARÍA ELENA STAFFORD Location: ? [place] SERVICE(S) PROVIDED: ??[facility] - Hepatology Protocol - Abdominal ? 26859 ??Limited Survey Single Organ or Quadrant - ??[id number] INDICATIONS: ??cirrhosis, screen for hcc COMPARISON: MRI [...] 07/12/2020 01:06 pm) PATIENT INFO: ID #: [id number] : 62 (60 yrs)(M) Name: SEFERINO Hines Visit Date: 07/12/2020 10:58 am YINKA PERFORMED BY: Performed By: Almaz Nina RDMS Attending: Soheila Funes MD Referred By: MARÍA ELENA STAFFORD Location: [place] SERVICE(S) PROVIDED: [facility] - Hepatology Protocol - Abdominal 48997 Limited Survey Single Organ or Quadrant - [id number] INDICATIONS: cirrhosis, screen for hcc COMPARISON: MRI [...] signed by: Soheila Funes MD, [facility] ([phone]), at 07/12/2020 12:59 PM Soheila Funes, Staff Physician Electronically Signed Final Report 07/12/2020 01:06 pm María Elena Stafford MD IMG US GEN ORDERABLE S documented in this encounter Visit Diagnoses Diagnosis Hepatic cirrhosis, unspecified hepatic cirrhosis type, unspecified whether ascites present documented in this encounter Care Teams Automotive Drivability Technician Relationship Specialty Start Date End Date Jose M Sauceda MD [address] [place] [id number] PCP - General 06/09/12 07/25/20 documented as of this encounter
--- OUTSIDE RECORDS SUMMARY | 2024-11-23 08:24 | XMS_ITS | Encounter Summary ---
Author Organization [facility] Address [facility] [place] [address] Care Team Providers Care Panel Machine Setter Name Role Phone Unknown Primary Care Provider Unavailabl e Reason for Visit * Reason Comments Medication Refill Encounter Details Date Type Department Care Team (Late st Contact Info) Description 02/12/2022 Refill Gastroenterology at [facility] [place] [address] Steffanie Plummer APRN [facility] [place] [place] [address] Hepatic cirrhosis, unspecified hepatic cirrhosis type, unspecified [...] present documented in this encounter Care Teams Panel Machine Setter Relationship Specialty Start Date End Date Unknown None PCP - General 06/26/21 07/01/22 documented as of this encounter
--- OUTSIDE RECORDS SUMMARY | 2024-11-23 08:24 | XMS_ITS | Encounter Summary ---
Author Organization [facility] Address [facility] [place] [address] Care Team Providers Care It Applications Analyst Name Role Phone Jose M Sauceda MD Primary Care Provider [phone] Reason for Visit * Reason Comments Medication Refill Encounter Details Date Type Department Care Team ([facility] Contact Info) Description 02/02/2020 Refill [place] [address] Ste[address] Plummer [facility] [place] [address] Hepatic cirrhosis, unspecified hepatic cirrhosis type, unspecified [...] present documented in this encounter Care Teams It Applications Analyst Relationship Specialty Start Date End Date Jose M Sauceda MD [address] [place] [id number] PCP - General 06/09/12 07/25/20 documented as of this encounter
--- OUTSIDE RECORDS SUMMARY | 2024-11-23 08:25 | XMS_ITS | Encounter Summary ---
Author Organization [facility] Address [facility] [place] [address] Care Team Providers Care Supervisor [employer] Name Role Phone Jose M Sauceda MD Primary Care Provider [phone] Encounter Details Date Type Department Care Team (Latest Contact Info) Description 10/13/2018 7:07 AM EST - 10/13/2018 11:59 PM [facility] Hospital Encounter Ultrasound at [facility] [place] [address] Steffanie Garcia APRN [facility] [place] [address] Chronic hepatitis C without hepatic coma Discharge Disposition: Home Social History Tobacco Use [...] by mouth daily. hydrochlorothiazide (HYDRODIURIL) 25 mg tabletIndications:hy pertension Take 25 mg by mouth daily. Indications: Hypertension nitroGLYcerin (NITROSTAT) 0.4 mg SL tablet 0.4 MG = 1 Tablet(s), Sublingual, PRN 03/02/2008 ferrous gluconate 324 mg (37.5 mg iron) Tablet Take 1 tablet by mouth daily. 90 tablet 3 10/13/2018 09/20/2019 rifAXIMin (XIFAXIN) 550 mg Tablet Take 1 tablet by mouth 2 times daily. 180 tablet 3 10/13/2018 02/03/2020 lactulose (CHRONULAC) 20 gram/30 mL Solution Take 15 mLs by mouth 2 times daily. 1000 mL 5 04/21/2018 12/02/2019 documented as of this encounter Plan of Treatment Not on file documented as of this encounter Procedures Procedure Name Priority Date/Time Associated Diagnosis Comments US ABDOMEN LIMITED Routine 10/13/2018 8: 30 AM EST Chronic hepatitis C without hepatic coma documented in this encounter Results * US Abdomen Limited (10/13/2018 8:30 AM EST) Anatomical Region Laterality Modality Abdomen Ultrasound 10/13/2018 7:57 AM EST Impressions 10/13/2018 11:26 AM EST Heterogeneous hepatic parenchymal architecture with capsular nodularity in keeping with cirrhosis. New. MR evaluation recommended. 1.4 cm left liver lobe lesion Heterogeneous hepatic parenchymal architecture with capsular nodularity in keeping with cirrhosis. New. MR evaluation recommended. 1.4 cm left liver lobe lesion ?Tania Mullen MD Electronically Signed Final Report ?? 10/13/2018 11:25 am Narrative 10/13/2018 11:26 AM EST Abdominal ? (Signed Final 10/13/2018 11:25 am) PATIENT INFO: ID #: ? [id number] ?: ??[birth year] (58 yrs) Name: ? SEFERINO Hines ?Visit Date: 10/13/2018 07:57 am ? YINKA PERFORMED BY: Performed By: ? Kerry Heredia RDMS Attending: ?Tania Mullen MD Referred By: ?STEFFANIE GARCIA Location: ? [place] SERVICE(S) PROVIDED: ??UABDLIM - Abdominal Limited Survey Single ? [id number] ??Organ or Quadrant - [id number] INDICATIONS: ??Compensated cirrhosis, assess for HCC COMPARISON: Prior US: 04/21/18. ------ LIVER: ------ Right Lobe Length: ?? 13.2 ?? cm Echogenicity/Echotexture: ?? Coarsely echogenic parenchyma ? with capsular nodularity -------- Lesions: -------- ??# ?Date ?Location ? Description ? L ? AP ? TV (cm) ??1 ?10/13/18 ?Left Lobe ?Hypoechoic ? 1.4 ?0.5 ?1.1 ?Lesion GALLBLADDER: Cholelithiasis: ?No stones visualized Wall Thickness: ?2.8 mm Focal Tenderness: ?Negative sonographic Diaz's sign BILIARY TRACT: Intrahepatic Ducts: ?? Normal Extrahepatic Ducts: ?? Normal Common Duct Size: ? 3.0 ? mm --------- PANCREAS: --------- Head: ? Limited visualization due to overlying ? bowel Tail: ? Not visualized, obscured by overlying ? bowel Body: ? Limited visualization due to overlying ? bowel RIGHT KIDNEY: Size (cm) ?L: ??10.9 Cortical Thickness: ?Normal Cortical Echogenicity: ?? Normal Hydronephrosis: ?No sonographic evidence Comment: ?Superior pole cyst seen, measurin.4 x 0.9 x 0.9 ? cm. ------ AORTA: ------ Measurements (cm): Proximal ? AP: ?? 2.7 Comment: ?Normal in caliber where visualized. Poorly ? visualized due to overlying bowel. ---- IVC: ---- Normal in caliber where visualized. FLUID COLLECTIONS: No ascites in the imaged RUQ. Procedure Note Tania Mullen MD - 10/13/2018 Abdominal (Signed Final 10/13/2018 11:25 am) PATIENT INFO: ID #: [id number] : [birth year] (58 yrs) Name: SEFERINO Hines Visit Date: 10/13/2018 07:57 am YINKA PERFORMED BY: Performed By: Kerry Heredia RDMS Attending: Tania Mullen MD Referred By: STEFFANIE GARCIA Location: [place] SERVICE(S) PROVIDED: UABDLIM - Abdominal Limited Survey Single [id number] Organ or Quadrant - [id number] INDICATIONS: Compensated cirrhosis, assess for HCC COMPARISON: Prior US: 04/21/18. ------ LIVER: ------ Right Lobe Length: 13.2 cm Echogenicity/Echotexture: Coarsely echogenic parenchyma with capsular nodularity -------- Lesions: -------- # Date Location Description L AP TV (cm) 1 10/13/18 Left Lobe Hypoechoic 1.4 0.5 1.1 Lesion GALLBLADDER: Cholelithiasis: No stones visualized Wall Thickness: 2.8 mm Focal Tenderness: Negative sonographic Diaz's sign BILIARY TRACT: Intrahepatic Ducts: Normal Extrahepatic Ducts: Normal Common Duct Size: 3.0 mm --------- PANCREAS: --------- Head: Limited visualization due to overlying bowel Tail: Not visualized, obscured by overlying bowel Body: Limited visualization due to overlying bowel RIGHT KIDNEY: Size (cm) L: 10.9 Cortical Thickness: Normal Cortical Echogenicity: Normal Hydronephrosis: No sonographic evidence Comment: Superior pole cyst seen, measurin.4 x 0.9 x 0.9 cm. ------ AORTA: ------ Measurements (cm): Proximal AP: 2.7 Comment: Normal in caliber where visualized. Poorly visualized due to overlying bowel. ---- IVC: ---- Normal in caliber where visualized. FLUID COLLECTIONS: No ascites in the imaged RUQ. IMPRESSION Heterogeneous hepatic parenchymal architecture with capsular nodularity in keeping with cirrhosis. New. MR evaluation recommended. 1.4 cm left liver lobe lesion Heterogeneous hepatic parenchymal architecture with capsular nodularity in keeping with cirrhosis. New. MR evaluation recommended. 1.4 cm left liver lobe lesion Tania Mullen MD Electronically Signed Final Report 10/13/2018 11:25 am Steffanie Garcia DINKEY OPERATOR SLAG IMG US GEN ORDERAB LES documented in this encounter Visit Diagnoses Diagnosis Chronic hepatitis C without hepatic coma documented in this encounter Care Teams Supervisor [employer] Relationship Specialty Start Date End Date Jose M Sauceda MD [address] [place] [id number] PCP - General 06/09/12 07/25/20 documented as of this encounter
--- OUTSIDE RECORDS SUMMARY | 2024-11-23 08:25 | XMS_ITS | Encounter Summary ---
Author Organization [facility] [place] [address] Care Team Providers Care Lap Winding Machine Operator Name Role Phone Jose M Sauceda MD Primary Care Provider [phone] Reason for Referral * Physical Therapy (Routine) - Closed Specialty Diagnoses / Procedures Referred By Tejal elizabeth Referred To Contact Physical Therapy Diagnoses Spinal stenosis, lumbar region, without neurogenic claudication Tae Alonso MD [facility] [place] [address] [facility] [place] [address] Referral ID Status Reason Start Date Expiration Date V isits Requested Visits Authorized [id number] Closed Evaluate and Treat 03/20/2016 03/20/2017 3 3 Reason for Visit * Reason Comments Low Back Pain Bilateral Hip Pain pain in buttock Right Leg Pain * Auth/Cert Specialty Diagnoses / Procedures Referred By Tejal elizabeth Referred To Contact Diagnoses assess for esophageal varices Procedures PRO UPPER GI ENDOSCOPY, DIAGNOSTIC EGD, UPPER GI ENDOSCOPY Referral ID Status Reason Start Date Expiration Date Visits Re quested Visits Authorized [id number] 1 1 Encounter Details Date Type Department Care Team (Late st Contact Info) Description 03/20/2016 2:20 PM EDT Office [place] [address] Tae Alonso MD Spinal stenosis, lumbar region, without neurogenic claudication Social History Tobacco Use Types Packs/Day Years Used Date Smoking Tobacco: Every Day Cigarettes 0.3 35 Smokeless Tobacco: Never Comments:avs information Alcohol Use Standard Drinks/Week Comments No 0 (1 standard drink = 0.6 oz pur e alcohol) Sex and Gender Information Value Date Recorded Sex Assigned at Not on file Gender Identity Not on file Sexual Orientation Not on file documented as of this encounter Progress Notes * Tae Alonso MD - 03/20/2016 2:48 PM EDT CHIEF COMPLAINT: Chronic low back pain. SUBJECTIVE: This problem began about 5 years ago without specific injury or incident. It consists mostly of mechanical lower back pain radiating to both buttocks, but occasionally with pain radiating through L4 over the andrade distribution on the right, and numbness over the dorsum of the right foot. No power loss with this. It has 2 different patterns, in the sense that after about 60 minutes of sitting, he gets a squishing sensation in his lower back, which is different somehow from the backache and buttock radiation that he gets with walking for up to 1/2 mile and standing for more than 10 minutes. He has had an epidural steroid injection with no benefit, and medial branch blocks were not effective, so he did not have radiofrequency ablation. He has had some very limited physical therapy without benefit. Gabapentin, which he is currently taking 600 mg twice a day, has not been helpful. He does have some nocturnal pain as well in the lower back only. 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 Presently, he is living with some friends, supported with general assistance and food stamps. He does not have a vocational goal. OBJECTIVE: His affect is bright. Speech is in good timing to the point with realistic thought content. He stands with relatively flat lumbar spine. Trunk flexibility through the waist while standing includes 10 degrees of extension and 20 degrees of forward flexion, both of them giving him lower back pain. Sustained extension in standing does not produce any leg symptoms. His power screen is done with full power and touch sensation is slightly dysesthetic over the dorsum of the right foot. He does not have a left knee jerk, but his right knee jerk is normal, and both ankle jerks are normal. No clonus and plantar reflexes are downgoing. His history and physical examination were reviewed in detail with Nabeel Valladares APRN. His MRI of the lumbar spine is reviewed with him. This shows multilevel degenerative disk and facet changes throughout the lumbar spine, and at L3-4, L4-5, and L5-S1, he has significant central and foraminal stenosis. ASSESSMENT: There is a longstanding pattern now of weightbearing back pain, radiating to the buttocks and occasionally with right L4 distribution symptoms, and then somewhat different feeling mechanical back pain with sitting. I discussed these issues and treatment options for him for 25 of this 45 minute visit, including temporizing, mechanical diagnosis, and treatment, forward support for upright activities including cane and walking sticks, difficulties in predicting outcomes from decompression and fusion surgery for these symptoms, his inability to use opioid medications because of his previous drug use history. Putting this all together, we have mutually decided to proceed as follows. PLAN: He is going to return for mechanical diagnosis and treatment and forward support device with [facility]. If he is not satisfied with his outcome from this, we would go ahead for spine surgical consultation, which would require preliminary standing AP and lateral flexion-extension x-rays. documented in this encounter Plan of Treatment Scheduled Referrals Name Type Priority Associated Diagnoses Orde r Schedule Referral to Physical Therapy Outpatient Referral Routine Spinal stenosis, lumbar region, without neurogenic claudication Ordered: 03/20/2016 documented as of this encounter Visit Diagnoses Diagnosis Spinal stenosis, lumbar region, without neurogenic claudication documented in this encounter Care Teams Lap Winding Machine Operator Relationship Specialty Start Date End Date Jose M Sauceda MD [address] [place] [id number] PCP - General 06/09/12 07/25/20 documented as of this encounter
--- OUTSIDE RECORDS SUMMARY | 2024-11-23 08:25 | XMS_ITS | Encounter Summary ---
Author Organization [facility] [place] [address] Care Team Providers Care Carriage Operator Name Role Phone Jose M Sauceda MD Primary Care Provider [phone] Encounter Details Date Type Department Care Team (Latest Contact Info) Description 10/02/2016 11:30 AM EST Laboratory Appointment Lab [address] [place] [id number] Chronic hepatitis C with cirrhosis Social History Tobacco Use Types Packs/Day Years [...] Priority Date/Time Associated Diagnosis Comments HEMOGRAM Routine 10/02/2016 12:01 PM EST Chronic hepatitis C with cirrhosis DIFFERENTIAL, AUTOMATED Routine 10/02/2016 12:01 PM EST Chronic hepatitis C with cirrhosis PROTHROMBIN TIME Routine 10/02/2016 12:0 1 PM EST Chronic hepatitis C with cirrhosis CBC (WITH DIFF) Routine 10/02/2016 12:01 PM EST Chronic hepatitis C with cirrhosis COMPREHENSIVE METABOLIC PANEL Routine 10/02/2016 12:01 PM EST Chronic hepatitis C with cirrhosis documented in this encounter Results * Differential, Automated (10/02/2016 12:01 PM EST) Neutrophil % 63.2 % [facility] Neutrophil Absolute 3.37 1.70 - 6.10 x10(3)/[facility] Lymph % 20.8 % [facility] Lymphocytes Abs 1.1 0.9 - 3.2 x10(3)/[facility] Monocyte % 10.1 % [facility] Monocyte Abs 0.5 0.3 - 0.9 x10(3)/[facility] Eos % 4.1 % [facility] Eosinophils Abs 0.2 0.0 - 0.4 x10(3)/[facility] Basophil % 1.1 % [facility] Baso Absolute 0.1 0.0 - 0.1 x10(3)/[facility] Immature Gran % 0.70 % [facility] Comment: Immature granulocytes(IG's)percentage and absolute count will include metamyelocytes, myelocytes, and promyelocytes. Blood smears from CBCs yielding IG's will be scanned manually for concordance. If this scan disagrees with the automated IG or if promyelocytes are noted, a manual differential will be performed. Immature Gran Absolute 0.04 0.00 - 0.04 x10(3)/[facility] Blood specimen (specimen) 10/02/2016 12:01 PM EST 10/02/2016 12:09 PM EST Narrative Resulting Agency Comment Spec In Lab Lashell Marcos MD HEMATOLOGY ORDERABLE S [facility] [place] [address] * (ABNORMAL) Hemogram (10/02/2016 12:01 PM EST) [facility] White Blood Cell 5.3 4.0 - 9.5 x10(3)/[facility] LABORATORY Red Blood Cell 4.77 4.58 - 5.54 x10(6)/[facility] Hemoglobin 13.7 13.7 - 16.5 gm/dL [facility] Hematocrit 41.5 40.5 - 48.5 % [facility] Mean Cell Volume 87.0 82.9 - 93.1 fL [facility] Mean Cell Hemoglobin 28.7 27.5 - 32.1 pg [facility] Mean Cell Hemoglobin Concentration 33.0 32.0 - 35.7 gm/dL [facility] Platelet 89(L) 145 - 357 x10(3)/mc L [facility] RDW Standard Deviation 49.0(H) 36.0 - 45.0 fL [facility] RDW coefficient of variation 15.5(H) 11.4 - 13.8 % [facility] Mean Platelet Volume 10.4 7.6 - 12.9 fL [facility] NRBC% auto 0.0 % [facility] NRBC Absolute 0.000 0.000 - 0.000 x10(3)/mc L [facility] Blood specimen (specimen) 10/02/2016 12:01 PM EST 10/02/2016 12:09 PM EST Narrative Resulting Agency Comment Spec In Lab Lashell Marcos MD HEMATOLOGY ORDERABLE S [facility] [place] [address] * (ABNORMAL) Prothrombin Time (10/02/2016 12:01 PM EST) Prothrombin Time 15.1(H) 12.0 - 15.0 sec [facility] Comment: An [...] may be appropriate depending on clinical circumstances. International Normalization Ratio 1.1 0.9 - 1.1 [facility] Blood specimen (specimen) 10/02/2016 12:01 PM EST 10/02/2016 12:09 PM EST Narrative Resulting Agency Comment Spec In Lab Lashell Marcos MD HEMATOLOGY ORDERABLE S [facility] [place] [address] * Comprehensive metabolic panel (non-fasting) (10/02/2016 12:01 PM EST) Glucose 116 65 - 199 mg/dL [facility] Comment:Diabetes: >=200 mg/d L plus symptoms Blood Urea Nitrogen 16 10 - 20 mg/dL [facility] Creatinine 0.94 0.80 - 1.50 mg/dL [facility] Comment: Please note that the pediatric reference intervals supplied above were not validated at [facility]. Results from pediatric patients should be interpreted in conjunction to the patient's age, height and muscle mass. Sodium 142 135 - 145 mmol/L [facility] Potassium 4.4 3.5 - 5.0 mmol/L [facility] Comment: Please note: ??Patients with WBC >100,000 may have falsely elevated Potassium levels. ??For accurate Potassium quantification in these patients send serum separator tube (gold top) for subsequent determinations. ??Contact the Clinical Chemistry Laboratory if there are any questions. Chloride 103 98 - 107 mmol/L [facility] Carbon Dioxide 25 22 - 31 mmol/L [facility] Anion Gap 14 5 - 15 mmol/L [facility] Calcium 9.2 8.5 - 10.5 mg/dL [facility] Protein, Total 7.6 6.1 - 8.0 gm/dL [facility] Albumin 4.2 3.2 - 5.2 gm/dL [facility] Aspartate Aminotransferase 25 0 - 39 unit/L [facility] Alanine Aminotransferase 18 0 - 55 unit/L [facility] Alkaline Phosphatase 81 40 - 120 unit/L [facility] Bilirubin, Total 0.7 0.2 - 1.3 mg/dL [facility] Bilirubin, Direct 0.2 0.0 - 0.3 mg/dL [facility] Est Glomerular Filtration Rate >60 >=60 [facility] Comment: This estimated GFR (eGFR) value was calculated using the MDRD equation which has been validated on patients between the ages of 18 and 70. The MDRD should not be used to assess kidney function in patients < 18 years of age or in patients with extremes of body mass, or in patients with acute kidney failure. This value should be multiplied by 1.2 for patients. For further information please copy and paste the following links into your internet browser. [email or web address] Blood specimen (specimen) 10/02/2016 12:01 PM EST 10/02/2016 12:09 PM EST Narrative Resulting Agency Comment Spec In Lab Lashell Marcos MD CHEMISTRY ORDERABLES [facility] [place] [address] documented in this encounter Visit Diagnoses Diagnosis Chronic hepatitis C with cirrhosis Chronic hepatitis C without mention of hepatic coma documented in this encounter Care Teams Carriage Operator Relationship Specialty Start Date End Date Jose M Sauceda MD [address] [place] [id number] PCP - General 06/09/12 07/25/20 documented as of this encounter
--- OUTSIDE RECORDS SUMMARY | 2024-11-23 08:25 | XMS_ITS | Encounter Summary ---
Author Organization [facility] [place] [address] Care Team Providers Care Clerk Analyst Name Role Phone Jose M Sauceda MD Primary Care Provider Encounter Details Date Type Department Care Team (Latest Contact Info) Description 04/21/2017 11:30 AM EDT Laboratory Appointment Lab [address] [place] [id number] Cirrhosis of liver without ascites, unspecified hepatic cirrhosis type Social History Tobacco Use Types Packs/Day Years [...] Priority Date/Time Associated Diagnosis Comments HEMOGRAM Routine 04/21/2017 11:54 AM EDT Cirrhosis of liver without ascites, unspecified hepatic cirrhosis type DIFFERENTIAL, AUTOMATED Routine 04/21/2017 11:54 AM EDT Cirrhosis of liver without ascites, unspecified hepatic cirrhosis type PROTHROMBIN TIME Routine 04/21/2017 11:5 4 AM EDT Cirrhosis of liver without ascites, unspecified hepatic cirrhosis type CBC (WITH DIFF) Routine 04/21/2017 11:54 AM EDT Cirrhosis of liver without ascites, unspecified hepatic cirrhosis type COMPREHENSIVE METABOLIC PANEL Routine 04/21/2017 11:54 AM EDT Cirrhosis of liver without ascites, unspecified hepatic cirrhosis type documented in this encounter Results * Differential, Automated (04/21/2017 11:54 AM EDT) Pathologist [facility] Neutrophil % 57.9 % [facility] Neutrophil Absolute 2.72 1.70 - 6.10 x10(3)/[facility] Lymph % 22.6 % [facility] Lymphocytes Abs 1.1 0.9 - 3.2 x10(3)/[facility] Monocyte % 13.8 % [facility] Monocyte Abs 0.6 0.3 - 0.9 x10(3)/[facility] Eos % 4.0 % [facility] Eosinophils Abs 0.2 0.0 - 0.4 x10(3)/[facility] Basophil % 1.3 % [facility] Baso Absolute 0.1 0.0 - 0.1 x10(3)/[facility] Immature Gran % 0.40 % [facility] Comment: Immature granulocytes(IG's)percentage and absolute count will include metamyelocytes, myelocytes, and promyelocytes. Blood smears from CBCs yielding IG's will be scanned manually for concordance. If this scan disagrees with the automated IG or if promyelocytes are noted, a manual differential will be performed. Immature Gran Absolute 0.02 0.00 - 0.04 x10(3)/[facility]AT[facility] Blood specimen (specimen) 04/21/2017 11:54 AM EDT 04/21/2017 11:59 AM EDT Narrative Resulting Agency Comment Spec In Lab Velma Rodas MD HEMATOLOGY ORDERABLE S [facility] [place] [address] * (ABNORMAL) Hemogram (04/21/2017 11:54 AM EDT) Pathologist [facility] White Blood Cell 4.7 4.0 - 9.5 x10(3)/mc L [facility] Red Blood Cell 4.68 4.58 - 5.54 x10(6)/mc L [facility] Hemoglobin 13.3(L) 13.7 - 16.5 gm/dL [facility] Hematocrit 41.2 40.5 - 48.5 % [facility] Mean Cell Volume 88.0 82.9 - 93.1 fL [facility] Mean Cell Hemoglobin 28.4 27.5 - 32.1 pg [facility] Mean Cell Hemoglobin Concentration 32.3 32.0 - 35.7 gm/dL [facility] Platelet 92(L) 145 - 357 x10(3)/mc L [facility] RDW Standard Deviation 51.1(H) 36.0 - 45.0 [facility] RDW coefficient of variation 15.9(H) 11.4 - 13.8 % [facility] Mean Platelet Volume 11.0 7.6 - 12.9 [facility] NRBC% auto 0.0 % [facility] NRBC Absolute 0.000 0.000 - 0.000 x10(3)/ L [facility] Blood specimen (specimen) 04/21/2017 11:54 AM EDT 04/21/2017 11:59 AM EDT Narrative Resulting Agency Comment Spec In Lab Velma Rodas MD HEMATOLOGY ORDERABLE S [facility] [place] [address] * (ABNORMAL) Prothrombin Time (04/21/2017 11:54 AM EDT) Prothrombin Time 15.1(H) 12.0 - 15.0 sec [facility] Comment: An INR <2.0 indicates [...] International Normalization Ratio 1.1 0.9 - 1.1 [facility] Blood specimen (specimen) 04/21/2017 11:54 AM EDT 04/21/2017 11:59 AM EDT Narrative Resulting Agency Comment Spec In Lab Velma Rodas MD HEMATOLOGY ORDERABLE S [facility] [place] [address] * Comprehensive metabolic panel (non-fasting) (04/21/2017 11:54 AM EDT) Glucose 136 65 - 199 mg/dL [facility] Comment:Diabetes: >=200 mg/d L plus symptoms Blood Urea Nitrogen 19 10 - 20 mg/dL [facility] Creatinine 1.06 0.80 - 1.50 mg/dL [facility] Comment: Please note that the pediatric reference intervals supplied above were not validated at [facility] [place]. Results from pediatric patients should be interpreted in conjunction to the patient's age, height and muscle mass. Sodium 140 135 - 145 mmol/L [facility] Potassium 4.1 3.5 - 5.0 mmol/L [facility] Comment: Please note: ??Patients with WBC >100,000 may have falsely elevated Potassium levels. ??For accurate Potassium quantification in these patients send serum separator tube (gold top) for subsequent determinations. ??Contact the Clinical Chemistry Laboratory if there are any questions. Chloride 104 98 - 107 mmol/L [facility] Carbon Dioxide 23 22 - 31 mmol/L [facility] Anion Gap 13 5 - 15 mmol/L [facility] Calcium 9.2 8.5 - 10.5 mg/dL [facility] Protein, Total 8.0 6.1 - 8.0 gm/dL [facility] Albumin 4.1 3.2 - 5.2 gm/dL [facility] Aspartate Aminotransferase 28 0 - 39 unit/L [facility] Alanine Aminotransferase 24 0 - 55 unit/L [facility] Alkaline Phosphatase 95 40 - 120 unit/L [facility] Bilirubin, Total 0.5 0.2 - 1.3 mg/dL [facility] Bilirubin, Direct 0.2 0.0 - 0.3 mg/dL [facility] Est Glomerular Filtration Rate >60 >=60 [facility] Comment: This estimated GFR (eGFR) value [...] the following links into your internet browser. [email or web address] Blood specimen (specimen) 04/21/2017 11:54 AM EDT 04/21/2017 11:59 AM EDT Narrative Resulting Agency Comment Spec In Lab Velma Rodas MD CHEMISTRY ORDERABLES [facility] [place] [address] documented in this encounter Visit Diagnoses Diagnosis Cirrhosis of liver without ascites, unspecified hepatic cirrhosis type documented in this encounter Care Teams Clerk Analyst Relationship Specialty Start Date End Date Jose M Sauceda MD [address] [place] [id number] PCP - General 06/09/12 07/25/20 documented as of this encounter
--- OUTSIDE RECORDS SUMMARY | 2024-11-23 08:25 | XMS_ITS | Encounter Summary ---
Author Organization Pending [facility] To [facility] Address [facility] [place] [address] Care Team Providers Care Business Administration Program Chair Name Role Phone Jose M Sauceda MD Primary Care Provider [phone] Encounter Details Date Type Department Care Team (Latest Contact Info) Description 04/21/2018 8:33 AM EDT - 04/21/2018 11:59 PM EDT Hospital Encounter [place] [id number] Steffanie Garcia APRN [facility] [place] [address] Cirrhosis of liver without ascites, unspecified hepatic cirrhosis type Discharge Disposition: Home Social History Tobacco Use [...] Sig Dispensed Refills Start Date End Date QUEtiapine (SEROQUEL) 100 mg Tablet Take 100 [...] = 1 Tablet(s), Sublingual, PRN 03/02/2008 lactulose (CHRONULAC) 20 gram/30 mL Solution Take 15 mLs by mouth 2 times daily. 1000 mL 5 04/21/2018 12/02/2019 documented as of this encounter Plan of Treatment Not on file documented as of this encounter Procedures Procedure Name Priority Date/Time Associated Diagnosis Comments US ABDOMEN LIMITED WITH VASCULAR Routine 04/21/2018 9:49 AM EDT Cirrhosis of liver without ascites, unspecified hepatic cirrhosis type documented in this encounter Results * US Abdomen Vascular Limited (04/21/2018 9:49 AM EDT) Anatomical Region Laterality Modality Abdomen Ultrasound 04/21/2018 9:50 AM EDT Impressions 04/21/2018 10:28 AM EDT ??1. Coarsely echogenic hepatic parenchyma with capsular nodularity consistentwith cirrhosis. No focal hepatic mass seen.2. Trace ascites.3. The visualized hepatic veins, visualized portal veins, and hepatic artery arepatent with normal color and spectral wave forms.4. Single, nonobstructing right interpolar renal stone. ? Dexter Linares MD Electronically Signed Final Report ?? 04/21/2018 10:28 am Narrative 04/21/2018 10:28 AM EDT Abdominal Duplex ?(Signed Final 04/21/2018 10:28 am) PATIENT INFO: ID #: ? [id number] ? : [birth year] (58 yrs) Name: ? SEFERINO HONEYCUTT ?Visit Date:04/21/2018 09:50 am PERFORMED BY: Performed By: ? Law Rao RDMS Attending: ?Milagros HICKMAN, Dexter Graves Referred By: ?STEFFANIE GARCIA Location: ? [place] SERVICE(S) PROVIDED: ??UABDLIMVAS - Abdominal Limited Survey 2 Organ ? [address], [id number] ??Quadrant with Vascular - [id number] INDICATIONS: ??Cirrhosis, screen for HCC and for complications for ??cirrhosis including portal vein thrombosis COMPARISON: Ultrasound: [facility] 04/21/17 HEPATIC-PORTAL DUPLEX: ? PSV ? EDV ? RI ?Waveform ? (cm/s) ??(cm/s) Hepatic Artery: ?? 55.9 ?15.3 ?0.73 ?Patent Right Hepatic ? Patent where seen Vein: Middle Hepatic ?Patent where seen Vein: Left Hepatic ?Patent where seen Vein: Portal Vein At ?Patent Corbin: Main Portal ? 21.9 ?Patent Vein: Right Portal ?Patent Vein: Left Portal Vein: ? Patent Splenic Vein At ? Patent Corbin: Splenic Vein: ? Patent IVC: ?Patent ?Direction of Flow Main Portal ?Hepatopetal Vein: Collaterals: ??None visualized ---- IVC: ---- Proximal portion, normal in caliber ------ LIVER: ------ Right Lobe Length: ?? 13.9 ?? cm Echogenicity/Echotexture: ?? Coarse parenchyma with capsular ? nodularity Comment: ?No focal hepatic mass seen. Trace perihepatic ? ascites. ------ AORTA: ------ Measurements (cm): Proximal ?AP: ??2.5 Mid ? AP: ??1.7 Distal ?AP: ??1.7 Comment: ?Limited views. Normal in caliber where visualized. RIGHT KIDNEY: Size (cm) ? L: 11.2 Cortical Thickness: ?Normal Cortical Echogenicity: ?? Normal Hydronephrosis: ?No sonographic evidence Comment: ?Single non-obstructing renal calculus seen in the ? mid pole measuring ??5.0 mm. GALLBLADDER: Cholelithiasis: ?No stones visualized Wall Thickness: ?Normal wall thickness Focal Tenderness: ?Negative sonographic Diaz's sign BILIARY TRACT: Intrahepatic Ducts: ?? Normal Extrahepatic Ducts: ?? Normal Common Duct Size: ? 3.0 ? mm --------- PANCREAS: --------- Head: ? Poorly visualized due to overlying bowel Tail: ? Not visualized due to overlying bowel Body: ? Poorly visualized due to overlying bowel FLUID COLLECTIONS: Trace perihepatic ascites. Procedure Note Dexter Linares MD - 04/21/2018 Abdominal Duplex (Signed Final 04/21/2018 10:28am) PATIENT INFO: ID #: [id number] : [birth year] (58 yrs) Name: SEFERINO HONEYCUTT Visit Date:04/21/2018 09:50 am PERFORMED BY: Performed By: Law Rao RDMS Attending: Dexter Linares MD Referred By: STEFFANIE GARCIA Location: [place] SERVICE(S) PROVIDED: UABDLIMVAS - Abdominal Limited Survey 2 Organ [address], [id number] Quadrant with Vascular - [id number] INDICATIONS: Cirrhosis, screen for HCC and for complications for cirrhosis including portal vein thrombosis COMPARISON: Ultrasound: [facility] 04/21/17 HEPATIC-PORTAL DUPLEX: PSV EDV RI Waveform (cm/s) (cm/s) Hepatic Artery: 55.9 15.3 0.73 Patent Right Hepatic Patent where seen Vein: Middle Hepatic Patent where seen Vein: Left Hepatic Patent where seen Vein: Portal Vein At Patent Corbin: Main Portal 21.9 Patent Vein: Right Portal Patent Vein: Left Portal Vein: Patent Splenic Vein At Patent Corbin: Splenic Vein: Patent IVC: Patent Direction of Flow Main Portal Hepatopetal Vein: Collaterals: None visualized ---- IVC: ---- Proximal portion, normal in caliber ------ LIVER: ------ Right Lobe Length: 13.9 cm Echogenicity/Echotexture: Coarse parenchyma with capsular nodularity Comment: No focal hepatic mass seen. Trace perihepatic ascites. ------ AORTA: ------ Measurements (cm): Proximal AP: 2.5 Mid AP: 1.7 Distal AP: 1.7 Comment: Limited views. Normal in caliber where visualized. RIGHT KIDNEY: Size (cm) L: 11.2 Cortical Thickness: Normal Cortical Echogenicity: Normal Hydronephrosis: No sonographic evidence Comment: Single non-obstructing renal calculus seen in the mid pole measuring 5.0 mm. GALLBLADDER: Cholelithiasis: No stones visualized Wall Thickness: Normal wall thickness Focal Tenderness: Negative sonographic Diaz's sign BILIARY TRACT: Intrahepatic Ducts: Normal Extrahepatic Ducts: Normal Common Duct Size: 3.0 mm --------- PANCREAS: --------- Head: Poorly visualized due to overlying bowel Tail: Not visualized due to overlying bowel Body: Poorly visualized due to overlying bowel FLUID COLLECTIONS: Trace perihepatic ascites. IMPRESSION 1. Coarsely echogenic hepatic parenchyma with capsular nodularity consistentwith cirrhosis. No focal hepatic mass seen.2. Trace ascites.3. The visualized hepatic veins, visualized portal veins, and hepatic artery arepatent with normal color and spectral wave forms.4. Single, nonobstructing right interpolar renal stone. Dexter Linares MD Electronically Signed Final Report 04/21/2018 10:28 am Steffanie Garcia INSULATOR APPRENTICE IMG US GEN ORDERAB LES documented in this encounter Visit Diagnoses Diagnosis Cirrhosis of liver without ascites, unspecified hepatic cirrhosis type documented in this encounter Care Teams Business Administration Program Chair Relationship Specialty Start Date End Date Jose M Sauceda MD [address] [place] [id number] PCP - General 06/09/12 07/25/20 documented as of this encounter
--- OUTSIDE RECORDS SUMMARY | 2024-11-23 08:25 | XMS_ITS | Encounter Summary ---
Author Organization [facility] Address 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 Procedures EGD, UPPER GI ENDOSCOPY Referral ID Status Reason Start Date Expiration Date Visits Re quested Visits Authorized [id number] 1 1 Encounter Details Date Type Department Care Team (Latest Contact Info) Description 04/07/2018 8:56 AM EDT - 04/07/2018 11:04 AM EDT Hospital Encounter [place] [address] Velma Rodas MD [facility] [place] [address] Discharge Disposition: Home Social History Tobacco Use [...] Sign Reading Time Taken Comments Blood Pressure 157/80 04/07/2018 10:40 AM EDT Pulse 75 04/07/2018 9:55 AM EDT Temperature - - Respiratory Rate 16 04/07/2018 10:40 AM EDT Oxygen Saturation 95% 04/07/2018 10:40 AM EDT Inhaled Oxygen Concentration - - Weight - - Height - - Body Mass Index - - documented in this encounter Discharge Instructions * Discharge Instructions* Marybel French RN - 04/07/2018 10:13 AM EDT UPPER GI ENDOSCOPY WHAT TO EXPECT AFTER THE PROCEDURE After the test you may feel a little more gassy or bloated than usual, this is normal. ACTIVITY Because of the sedation that you received Your judgement and reaction time are affected ?? Go home and rest quietly for the remainder of the day. You may resume your normal activities tomorrow. ?? Change from one position to the next slowly. You may lose your balance unexpectedly Be careful on stairs, as you may be unsteady on your feet. FOR THE NEXT 24 HRS ?? DO NOT DRIVE OR OPERATE ANY MACHINERY ?? DO NOT DRINK ALCOHOLIC BEVERAGES ?? DO NOT SIGN LEGAL DOCUMENTS ?? If you are a smoker: DO NOT SMOKE WHILE YOU ARE ALONE Diet ?? Start by eating small portions of foods that ordinarily will not upset your stomach. Be gentle with what you choose to start with. ?? Drink plenty of fluids ( unless otherwise told not to) Medications You may have a mild sore throat. Ice chips, popsicles, over the counter throat lozenges or spray may help numb your throat. This procedure should not cause a fever. IV SITE-- slight redness or tenderness is normal, you can use warm compresses if you get concerned.If the tenderness +/or redness increases or foul drainage and a red streak occurs, please contact your PCP immediately. WHEN SHOULD YOU CALL FOR HELP? Call 911 anytime you think that you need emergency care. For example, call if: You passed out (lost consciousness). You cough up blood. You vomit blood or what looks like coffee grounds. You pass maroon or very bloody stools. Call your healthcare provider or seek immediate medical attention if: You have trouble swallowing. You have belly pain. Your stools are black or tarlike or have streaks of blood. You are sick to your stomach or cannot keep fluids down. Watch closely for changes in your health, and be sure to contact your doctor IF Your throat still hurts after a day or two You do not get better as expected. Thursday-Thursday [facility] [phone] Otherwise contact [phone] and ask to speak to the furnace keeper de ionizer operator Follow-up care is a castillo part of your treatment and safety. Be sure to make and go to all appointments, and call your doctor if you are having problems. Instructions have been reviewed and patient expresses understanding documented in this encounter Medications at Time [...] by mouth 2 times daily. 1000 mL 3 04/21/2017 04/21/2018 documented as of this encounter H&P Notes * Velma Rodas MD - 04/07/2018 9:28 AM EDT Gastroenterology and Hepatology Pre-Procedure History and Physical Exam Procedure: EGD: Indication: varices screening in setting of cirrhosis Patient Active Problem List Diagnosis Code ??? CAD (coronary artery disease), [place] coronary artery I25.10 ??? Tobacco abuse disorder [...] Procedure Name Priority Date/Time Associated Diagnosis Comments EGD, UPPER GI ENDOSCOPY (WRVU 2.09) 04/07/2018 9:47 AM EDT 2 yr varices surv from 03/20/16 UPPER GI ENDOSCOPY Routine 04/07/2018 9: 26 AM EDT documented in this encounter Results * UPPER GI ENDOSCOPY (04/07/2018 9:26 AM EDT) UPPER GI ENDOSCOPY [facility] Endoscopy Procedure Date: 04/07/2018 9:26 AM ? Patient Name: Seferino Honeycutt ? Date of : 1960 ? Age: 58 ? Order #: [id number] ? Instrument Name: [id number] ? Procedure: ? Upper GI endoscopy Indications: ? Cirrhosis with suspected esophageal ? varices Providers: ? Velma Rodas MD, Reginaldo Lawrence, ? Gretel Alvarez, Offset Lithographic Press Setter Referring : ?Jose M Sauceda MD, Steffanie Garrido ? [place] Medicines: ? Midazolam 3 mg IV, Fentanyl 150 ? micrograms IV Complications: ? No immediate complications. Procedure: ? Pre-Anesthesia Assessment: ? - Prior to the procedure, a History ? and Physical was performed, and ? patient medications, allergies and ? sensitivities were reviewed. The ? patient's tolerance of previous ? anesthesia was reviewed. ? - The risks and benefits of the ? procedure and the sedation options ? and risks were discussed with the ? patient. All questions were answered ? and informed consent was obtained. ? The procedure, indications, benefits, ? risks and alternatives were explained ? to the patient. Specifically ? discussed were potential ? complications including, but not ? limited to, bleeding, perforation, ? infection, missing a cancer, and ? adverse medication reactions. The ? Endoscope was introduced through the ? mouth, and advanced to the third part ? of duodenum. The patient tolerated ? the procedure well. The upper GI ? endoscopy was accomplished without ? difficulty. The patient tolerated the ? procedure well. ? Findings: ? There is no endoscopic evidence of varices in the ? entire esophagus. ? Mild portal hypertensive gastropathy was found in the ? entire examined stomach. ? The examined duodenum was normal. ? Moderate Sedation: ? I was present during the intraservice time as ? documented by the sedation RN. Impression: ?- Portal hypertensive gastropathy. ? - Normal examined duodenum. ? - No specimens collected. Recommendation: ?- Repeat upper endoscopy in 2 years ? for surveillance. ? Follow up in hepatology as planned. ? Attending Participation: ? I personally performed the entire procedure. ? I was present during the intraservice time as ? documented by the sedation RN. ? Velma Rodas MD 04/07/2018 10:03:04 AM This report has been signed electronically. Number of Addenda: 0 Note Initiated On: 04/07/2018 9:26 AM PROVATION 04/07/2018 9:26 AM EDT Jose M Sauceda MD GENERAL SURGICAL ORD ERABLES Performing Organization Address City/State/[facility] Co de Phone Number PROVATION documented in this encounter Visit Diagnoses Not on filedocumented in this encounter Active and Recently Administered Medications Times are shown in EDT. PRN Medication Order 04/05/2018 04/06/2018 04/07/2018 fentaNYL 50 mcg/mL multi-dose injection (CANCELED) ONCE PRN, Starting on Thu04/07/18 at 0951, Until Thu04/07/18 at 1304, Intra-Operative (Intra-Procedure), Routine 0951 (Given - Provid er: Reginaldo Lawrence RN)0954 (Given - Provider: Reginaldo Lawrence RN)0957 (Given - Provider: Reginaldo Lawrence RN) midazolam (PF) (VERSED) 1 mg/mL multi-dose injection (CANCELED) ONCE PRN, Starting on Thu04/07/18 at 0950, Until Thu04/07/18 at 1304, Intra-Operative (Intra-Procedure), Routine 0950 (Given - Provid er: Reginaldo Lawrence RN)0954 (Given - Provider: Reginaldo Lawrence RN)0957 (Given - Provider: Reginaldo Lawrence RN) documented in this encounter Care Teams Channeling Machine Operator Relationship Specialty Start Date End Date Jose M Sauceda MD [address] [place] [id number] PCP - General 06/09/12 07/25/20 documented as of this encounter
--- OUTSIDE RECORDS SUMMARY | 2024-11-23 08:25 | XMS_ITS | Encounter Summary ---
Author Organization Formerly [facility] [place] [address] Care Team Providers Care Certified Procedural Coder Name Role Phone Jose M Sauceda MD Primary Care Provider [phone] Encounter Details Date Type Department Care Team (Latest Contact Info) Description 04/21/2018 10:15 AM EDT Laboratory Appointment Lab 3L [facility] [id number] Cirrhosis of liver without ascites, unspecified hepatic cirrhosis type; Chronic hepatitis C without hepatic coma Social History Tobacco Use Types Packs/Day Years [...] Procedure Name Priority Date/Time Associated Diagnosis Comments IRON AND TIBC Routine 04/21/2018 1:52 PM EDT Chronic hepatitis C without hepatic coma HEPATITIS C RNA, QUANTITATIVE, PCR Routine 04/21/2018 1:52 PM EDT Chronic hepatitis C without hepatic coma FERRITIN Routine 04/21/2018 1:52 PM EDT Chronic hepatitis C without hepatic coma HEMOGRAM Routine 04/21/2018 10:18 AM EDT Cirrhosis of liver without ascites, unspecified hepatic cirrhosis type DIFFERENTIAL, AUTOMATED Routine 04/21/2018 10:18 AM EDT Cirrhosis of liver without ascites, unspecified hepatic cirrhosis type PROTHROMBIN TIME Routine 04/21/2018 10:1 8 AM EDT Cirrhosis of liver without ascites, unspecified hepatic cirrhosis type CBC (WITH DIFF) Routine 04/21/2018 10:18 AM EDT Cirrhosis of liver without ascites, unspecified hepatic cirrhosis type COMPREHENSIVE METABOLIC PANEL Routine 04/21/2018 10:18 AM EDT Cirrhosis of liver without ascites, unspecified hepatic cirrhosis type documented in this encounter Results * Hepatitis C RNA, quantitative, PCR (04/21/2018 1:52 PM EDT) [facility] HCV Viral Load <12 IU/mL [facility] HCV Viral Load Result: <12 IU/mL(Target Not Detected) Indication for Study: Hepatitis C Infection Analysis: The [employer] RealTime HCV assay is an in vitro reverse alumni coordinator polymerase chain reaction (RT-PCR)for the quantitation of hepatitis C viral (HCV) RNA in human serum or plasma (EDTA) from HCV-infected individuals. Sample: plasma (0.7 mL minimum volume) Method: [employer] RealTime HCV Assay Linear Range: 12 IU/mL - 100,000,000IU/mL Note: The [employer] RealTime HCV Assay has been approved by the U.S. Food and Drug Administration. [facility] Comment: [VERIFIED DATE]04.27.18 Verified By:Esther Maldonado (Electronic Signature) Blood specimen (specimen) 04/21/2018 1:52 PM EDT 04/26/2018 6:48 AM EDT Narrative Resulting Agency Comment Spec In Lab Steffanie Plummer APRN MOLECULAR ORDERABL ES [facility] [place] [address] * Ferritin (04/21/2018 1:52 PM EDT) [facility] Ferritin 79 30 - 400 ng/mL [facility] Comment: Pediatric reference ranges not verified at [facility], interpret with caution. Reference ranges for females greater than 50 years of age approach values for men, i.e., 30-400 ng/mL. Blood specimen (specimen) 04/21/2018 1:52 PM EDT 04/21/2018 2:16 PM EDT Narrative Resulting Agency Comment Spec In Lab Steffanie Plummer APRN CHEMISTRY ORDERABL ES Performing Organization Address City/[facility] Co de Phone Number [facility] [place] [address] * (ABNORMAL) Iron and TIBC (04/21/2018 1:52 PM EDT) [facility] Iron 34(L) 45 - 160 mcg/dL [facility] TIBC 353 250 - 450 mcg/dL [facility] Iron Saturation 10(L) 20 - 50 % [facility] Blood specimen (specimen) 04/21/2018 1:52 PM EDT 04/21/2018 2:16 PM EDT Narrative Resulting Agency Comment Spec In Lab Steffanie Plummer APRN CHEMISTRY ORDERABL ES Performing Organization Address City/[facility] Co de Phone Number [facility] [place] [address] * (ABNORMAL) Differential, Automated (04/21/2018 10:18 AM EDT) Neutrophil % 59.8 % [facility] Neutrophil Absolute 2.10 1.70 - 6.10 x10(3)/mc L [facility] Lymph % 19.9 % [facility] Lymphocytes Abs 0.7(L) 0.9 - 3.2 x10(3)/mc L [facility] Monocyte % 15.1 % [facility] Monocyte Abs 0.5 0.3 - 0.9 x10(3)/mc L [facility] Eos % 4.0 % [facility] Eosinophils Abs 0.1 0.0 - 0.4 x10(3)/mc L [facility] Basophil % 0.9 % [facility] Baso Absolute 0.0 0.0 - 0.1 x10(3)/[facility] Immature Gran % 0.30 % [facility] Comment: Immature granulocytes(IG's)percentage and absolute count will include metamyelocytes, myelocytes, and promyelocytes. Blood smears from CBCs yielding IG's will be scanned manually for concordance. If this scan disagrees with the automated IG or if promyelocytes are noted, a manual differential will be performed. Immature Gran Absolute 0.01 0.00 - 0.04 x10(3)/[facility] Blood specimen (specimen) 04/21/2018 10:18 AM EDT 04/21/2018 10:27 AM EDT Narrative Resulting Agency Comment Spec In Lab Steffanie Plummer APRN HEMATOLOGY ORDERAB LES Performing Organization Address City/State/[facility] Co de Phone Number [facility] [place] [address] * (ABNORMAL) Hemogram (04/21/2018 10:18 AM EDT) White Blood Cell 3.5(L) 4.0 - 9.5 x10(3)/[facility] Red Blood Cell 4.27(L) 4.58 - 5.54 x10(6)/[facility] Hemoglobin 11.6(L) 13.7 - 16.5 gm/dL [facility] Hematocrit 37.1(L) 40.5 - 48.5 % [facility] Mean Cell Volume 86.9 82.9 - 93.1 fL [facility] Mean Cell Hemoglobin 27.2(L) 27.5 - 32.1 pg [facility] Mean Cell Hemoglobin Concentration 31.3(L) 32.0 - 35.7 gm/dL [facility] Platelet 89(L) 145 - 357 x10(3)/[facility] RDW Standard Deviation 44.9 36.0 - 45.0 fL [facility] RDW coefficient of variation 14.2(H) 11.4 - 13.8 % [facility] Mean Platelet Volume 10.6 7.6 - 12.9 fL [facility] NRBC% auto 0.0 % [facility] NRBC Absolute 0.000 0.000 - 0.000 x10(3)/mc L [facility] Blood specimen (specimen) 04/21/2018 10:18 AM EDT 04/21/2018 10:27 AM EDT Narrative Resulting Agency Comment Spec In Lab Steffanie Elías Elian ELMORE HEMATOLOGY ORDERAB LES Performing Organization Address [facility] Co de Phone Number [facility] [place] [address] * (ABNORMAL) Prothrombin Time (04/21/2018 10:18 AM EDT) Prothrombin Time 13.9(H) 9.4 - 12.5 sec [facility] International Normalization Ratio 1.2 [facility] Comment: An INR <2.0 indicates [...] depending on clinical circumstances. Blood specimen (specimen) 04/21/2018 10:18 AM EDT 04/21/2018 10:27 AM EDT Narrative Resulting Agency Comment Spec In Lab Steffanie Plummer APRN HEMATOLOGY ORDERAB LES Performing Organization Address [facility] Co de Phone Number [facility] [place] [address] * Comprehensive metabolic panel (non-fasting) (04/21/2018 10:18 AM EDT) Glucose 154 65 - 199 mg/dL [facility] Comment:Diabetes: >=200 mg/d L plus symptoms Blood Urea Nitrogen 18 10 - 20 mg/dL [facility] Creatinine 0.88 0.80 - 1.50 mg/dL [facility] Sodium 141 135 - 145 mmol/L [facility] Potassium 4.3 3.5 - 5.0 mmol/L [facility] Comment: Please note: ??Patients with WBC >100,000 may have falsely elevated Potassium levels. ??For accurate Potassium quantification in these patients send serum separator tube ([facility]) for subsequent determinations. ??Contact the Clinical Chemistry Laboratory if there are any questions. Chloride 105 98 - 107 mmol/L [facility] Carbon Dioxide 24 22 - 31 mmol/L [facility] Anion Gap 12 5 - 15 mmol/L [facility] Calcium 9.1 8.5 - 10.5 mg/dL [facility] Protein, Total 7.4 6.1 - 8.0 gm/dL [facility] Albumin 3.8 3.2 - 5.2 gm/dL [facility] Aspartate Aminotransferase 24 0 - 39 unit/L [facility] Alanine Aminotransferase 23 0 - 55 unit/L [facility] Alkaline Phosphatase 81 40 - 120 unit/L [facility] Bilirubin, Total 0.4 0.2 - 1.3 mg/dL [facility] Est Glomerular Filtration Rate 95 >=60 mL/min/1. 73 m?? [facility] Comment: The eGFR was calculated using the CKD-EPI equation. As with all creatinine based estimates of kidney function, eGFR values calculated with the CKD-EPI equation are not accurate in patients with acute kidney failure, extremes of body mass or the acutely ill. http://[email or web address] [email or web address]/DHMCnkf eGFR 111 >=60 mL/min/1. 73 m?? [facility] Comment: The eGFR was calculated using the CKD-EPI equation. As with all creatinine based estimates of kidney function, eGFR values calculated with the CKD-EPI equation are not accurate in patients with acute kidney failure, extremes of body mass or the acutely ill. http://[email or web address] http://PerMicro/DHMCnkf Blood specimen (specimen) 04/21/2018 10:18 AM EDT 04/21/2018 10:27 AM EDT Narrative Resulting Agency Comment Spec In Lab Steffanie Plummer APRN CHEMISTRY ORDERABL ES [facility] [place] [address] documented in this encounter Visit Diagnoses Diagnosis Cirrhosis of liver without ascites, unspecified hepatic cirrhosis type Chronic hepatitis C without hepatic coma documented in this encounter Care Teams Certified Procedural Coder Relationship Specialty Start Date End Date Jose M Sauceda MD [address] [place] [id number] PCP - General 06/09/12 07/25/20 documented as of this encounter
--- OUTSIDE RECORDS SUMMARY | 2024-11-23 08:25 | XMS_ITS | Encounter Summary ---
Author Organization [facility] Address [facility] [place] [address] Care Team Providers Care Bondactor Machine Operator Name Role Phone Jose M Sauceda MD Primary Care Provider [phone] Encounter Details Date Type Department Care Team (Latest Contact Info) Description 10/02/2016 10:25 AM EST - 10/02/2016 11:59 PM [facility] Hospital Encounter Ultrasound at [facility] [place] [address] Des Brannon MD Chronic hepatitis C with cirrhosis Discharge Disposition: Home Social History Tobacco Use [...] mL Solution Take 15 mLs by mouth 3 times daily. 1000 mL 3 03/20/2016 02/16/2017 documented as of this encounter Plan of Treatment Not on file documented as of this encounter Procedures Procedure Name Priority Date/Time Associated Diagnosis Comments US ABDOMEN COMPLETE WITH VASCULAR Routine 10/02/2016 11:30 AM EST Chronic hepatitis C with cirrhosis documented in this encounter Results * US Abdomen Complete With Vascular (10/02/2016 11:30 AM EST) Anatomical Region Laterality Modality Abdomen Ultrasound 10/02/2016 11:3 0 AM EST Narrative 10/02/2016 12:15 PM EST Abdominal Duplex ? (Signed Final 10/02/2016 12:14 pm) PATIENT INFO: ID #: ? [id number] ? : [birth year] (56 yrs) Name: ? SEFERINO Flora RACHEL ?Visit Date:10/02/2016 11:30 am PERFORMED BY: Performed By: ? Law Rao RDMS Attending: ?Milagros HICKMAN, Dexter Graves Associate: ?Jacek Shane MD Referred By: ?DES BRANNON MD Location: ? [place] SERVICE(S) PROVIDED: ??UABDCVASC - Abdominal Complete Survey with Vascular - [id number], [id number] ??[id number] INDICATIONS: ??HCV cirrhosis assess for HCC and PV patency COMPARISON: Prior US: AB VASC 04/15/16 ------ LIVER: ------ Right Lobe Length: ?? 14.6 ?? cm Echogenicity/Echotexture: ?? Coarse parenchyma with mild capsular ? nodularity Portal Veins: ?Hepatopetal Hepatic Veins: ?? Patent Comment: ?Limited views of right lobe due to bowel gas. GALLBLADDER: Cholelithiasis: ?No stones visualized Wall Thickness: ?Normal wall thickness, 2.5 mm Focal Tenderness: ?Negative sonographic Diaz's sign Comment: ?Somewhat contracted gallbladder. BILIARY TRACT: Intrahepatic Ducts: ?? Normal Extrahepatic Ducts: ?? Normal Common Duct Size: ? 2.0 ? mm --------- PANCREAS: --------- Head: ? Poorly visualized due to overlying bowel Tail: ? Not visualized due to overlying bowel Body: ? Poorly visualized due to overlying bowel ------- SPLEEN: ------- Size (cm) ? L: 16.9 ?AP: ??6.4 ? TV: ??6.5 Vol (ml): ?368.1 Comment: ?Moderate splenomegaly RIGHT KIDNEY: Size (cm) ? L: 11.2 Cortical Thickness: ?Normal Cortical Echogenicity: ?? Normal Hydronephrosis: ?No sonographic evidence LEFT KIDNEY: Size (cm) ? L: 12.6 Cortical Thickness: ?Normal Cortical Echogenicity: ?? Normal Hydronephrosis: ?No sonographic evidence Comment: ?Corticomedullary calcification in the mid pole. ------ AORTA: ------ Measurements (cm): Proximal ?AP: ??2.3 Mid ? AP: ??1.9 Distal ?AP: ??1.8 Comment: ?Normal in caliber where seen, limited views. ---- IVC: ---- Proximal portion, normal in caliber FLUID COLLECTIONS: Trace amount ascites seen lateral left lobe. HEPATIC-PORTAL DUPLEX: ? PSV ? EDV ? RI ??Waveform ? (cm/s) ??(cm/s) Hepatic Artery: ?? 22.5 ?4.74 ?0.79 ??Patent Right Hepatic ? Patent where seen Vein: Middle Hepatic ?Patent where seen Vein: Left Hepatic ?Patent where seen Vein: Main Portal ? 17.2 ?Patent Vein: Right Portal ?Patent Vein: Left Portal Vein: ? Patent Splenic Vein At ? Patent [place]: Splenic Vein: ? Patent ?Direction of Flow Main Portal ?Hepatopetal Vein: ? Dexter Linares MD Electronically Signed Final Report ?? 10/02/2016 12:14 pm Procedure Note Dexter Linares MD - 10/02/2016 Abdominal Duplex (Signed Final 10/02/2016 12:14pm) PATIENT INFO: ID #: [id number] : [birth year] (56 yrs) Name: SEFERINO HONEYCUTT Visit Date:10/02/2016 11:30 am PERFORMED BY: Performed By: Law Rao RDMS Attending: Dexter Linares MD Associate: Jacek Shane MD Referred By: DES BRANNON MD Location: [place] SERVICE(S) PROVIDED: UABDCVASC - Abdominal Complete Survey with Vascular - [id number] INDICATIONS: HCV cirrhosis assess for HCC and PV patency COMPARISON: Prior US: AB VASC 04/15/16 ------ LIVER: ------ Right Lobe Length: 14.6 cm Echogenicity/Echotexture: Coarse parenchyma with mild capsular nodularity Portal Veins: Hepatopetal Hepatic Veins: Patent Comment: Limited views of right lobe due to bowel gas. GALLBLADDER: Cholelithiasis: No stones visualized Wall Thickness: Normal wall thickness, 2.5 mm Focal Tenderness: Negative sonographic Diaz's sign Comment: Somewhat contracted gallbladder. BILIARY TRACT: Intrahepatic Ducts: Normal Extrahepatic Ducts: Normal Common Duct Size: 2.0 mm --------- PANCREAS: --------- Head: Poorly visualized due to overlying bowel Tail: Not visualized due to overlying bowel Body: Poorly visualized due to overlying bowel ------- SPLEEN: ------- Size (cm) L: 16.9 AP: 6.4 TV: 6.5 Vol (ml): 368.1 Comment: Moderate splenomegaly RIGHT KIDNEY: Size (cm) L: 11.2 Cortical Thickness: Normal Cortical Echogenicity: Normal Hydronephrosis: No sonographic evidence LEFT KIDNEY: Size (cm) L: 12.6 Cortical Thickness: Normal Cortical Echogenicity: Normal Hydronephrosis: No sonographic evidence Comment: Corticomedullary calcification in the mid pole. ------ AORTA: ------ Measurements (cm): Proximal AP: 2.3 Mid AP: 1.9 Distal AP: 1.8 Comment: Normal in caliber where seen, limited views. ---- IVC: ---- Proximal portion, normal in caliber FLUID COLLECTIONS: Trace amount ascites seen lateral left lobe. HEPATIC-PORTAL DUPLEX: PSV EDV RI Waveform (cm/s) (cm/s) Hepatic Artery: 22.5 4.74 0.79 Patent Right Hepatic Patent where seen Vein: Middle Hepatic Patent where seen Vein: Left Hepatic Patent where seen Vein: Main Portal 17.2 Patent Vein: Right Portal Patent Vein: Left Portal Vein: Patent Splenic Vein At Patent [place]: Splenic Vein: Patent Direction of Flow Main Portal Hepatopetal Vein: Dexter Linares MD Electronically Signed Final Report 10/02/2016 12:14 pm Des Brannon MD IMG US GEN ORDERABLE S documented in this encounter Visit Diagnoses Diagnosis Chronic hepatitis C with cirrhosis Chronic hepatitis C without mention of hepatic coma documented in this encounter Care Teams Bondactor Machine Operator Relationship Specialty Start Date End Date Jose M Sauceda MD [address] [place] [id number] PCP - General 06/09/12 07/25/20 documented as of this encounter
--- OUTSIDE RECORDS SUMMARY | 2024-11-23 08:25 | XMS_ITS | Encounter Summary ---
Author Organization [facility] [place] [address] Care Team Providers Care Longwall Foreman Name Role Phone Jose M Sauceda MD Primary Care Provider [phone] Encounter Details Date Type Department Care Team (Late st Contact Info) Description 03/07/2016 Telephone Gastroenterology at [facility] [place] [phone] Kylee Evans CMA Social History Tobacco Use Types Packs/Day Years Used Date Smoking Tobacco: Some Days Cigarettes 0.3 35 Smokeless Tobacco: Never Comments:avs information Alcohol Use Standard Drinks/Week Comments No 0 (1 standard drink = 0.6 oz pur e alcohol) Sex and Gender Information Value Date Recorded Sex Assigned at Not on file Gender Identity Not on file Sexual Orientation Not on file documented as of this encounter Miscellaneous Notes * Telephone Encounter - Kylee Evans CMA - 06/03/2016 11:09 AM EDT Refill documented in this encounter Plan of Treatment Not on file documented as of this encounter Visit Diagnoses Not on filedocumented in this encounter Care Teams Longwall Foreman Relationship Specialty Start Date End Date Jose M Sauceda MD [address] [place] [id number] PCP - General 06/09/12 07/25/20 documented as of this encounter
--- OUTSIDE RECORDS SUMMARY | 2024-11-23 08:25 | XMS_ITS | Encounter Summary ---
Author Organization [facility] Address [facility] [place] [address] Care Team Providers Care Glass Engraver Name Role Phone Jose M Sauceda MD Primary Care Provider [phone] Encounter Details Date Type Department Care Team (Late st Contact Info) Description 03/18/2016 Telephone [place] [phone] Ladonna Khalil Social History Tobacco Use Types Packs/Day Years [...] encounter Miscellaneous Notes * Telephone Encounter - Ladonna Soto - 03/18/2016 9:35 AM EDT Patient called to have US order faxed to [facility] to schedule; order faxed; received call back from [place] that they do not perform US with vascular; called pt's home phone and s/w male there, he will get message to patient to call us to schedule US here. documented in this encounter Plan of Treatment Not on file documented as of this encounter Visit Diagnoses Not on filedocumented in this encounter Care Teams Glass Engraver Relationship Specialty Start Date End Date Jose M Sauceda MD [address] [facility] [address] [place] [address] PCP - General 06/09/12 07/25/20 documented as of this encounter
--- OUTSIDE RECORDS SUMMARY | 2024-11-23 08:25 | XMS_ITS | Encounter Summary ---
Author Organization [facility] Address [facility] [place] [address] Care Team Providers Care Refinery Operator Assistant Name Role Phone Jose M Sauceda MD Primary Care Provider [phone] Encounter Details Date Type Department Care Team (Latest Contact Info) Description 04/21/2017 10:09 AM EDT - 04/21/2017 11:59 PM EDT Hospital [place] [id number] María Elena Stafford MD [facility] [place] [address] Cirrhosis of liver without ascites, unspecified hepatic [...] 04/21/2017 04/21/2018 documented as of this encounter Plan of Treatment Not on file documented as of this encounter Procedures Procedure Name Priority Date/Time Associated Diagnosis Comments US ABDOMEN COMPLETE WITH VASCULAR Routine 04/21/2017 11:33 AM EDT Cirrhosis of liver without ascites, unspecified hepatic cirrhosis type documented in this encounter Results * US Abdomen Complete With Vascular (04/21/2017 11:33 AM EDT) Anatomical Region Laterality Modality Abdomen Ultrasound 04/21/2017 11:2 4 AM EDT Impressions 04/21/2017 12:01 PM EDT ??1. The hepatic parenchyma is coarsened with a nodular capsule, and heterogeneouswithout focal lesion, compatible with cirrhosis/liver disease. Evaluation islimited secondary to the coarsened parenchyma. 2. The gallbladder is within normal limits.3. ??The visualized hepatic veins, visualized portal veins, and hepatic arteryare patent with normal color and spectral wave forms. Mild interval increase inthe main portal vein velocity, since most recent comparison. Direction of flowremains within normal limits of the main, left, and right portal veins. Themeasured hepatic arterial waveforms are similar to comparison with intervalincrease in the peak systolic velocity. The right, main, and left hepatic venousstructures are normal in directionality, and waveform.4. Splenomegaly without focal lesion identified. No definite shunting/abnormalvascularity is appreciated on this examination.5. Additional limits and details as above. ? Dalton Aguilera MD Electronically Signed Final Report ?? 04/21/2017 12:00 pm Narrative 04/21/2017 12:01 PM EDT Abdominal Duplex ? (Signed Final 04/21/2017 12:00 pm) PATIENT INFO: ID #: ? [id number] ? : [birth year] (57 yrs) Name: ? SEFERINO HONEYCUTT ?Visit Date:04/21/2017 11:24 am PERFORMED BY: Performed By: ? Law Rao RDMS Attending: ?Willy HICKMAN, Dalton Pelayo Referred By: ?MARÍA ELENA STAFFORD Location: ? [place] SERVICE(S) PROVIDED: ??UABDCVASC - Abdominal Complete Survey with Vascular - [id number], [id number] ??[id number] INDICATIONS: ??Cirrhosis: survey for hepatocellular carcinoma, ??evaluate for complications of portal hypertension ??including portal vein thrombosis COMPARISON: Ultrasound: AB VASC. 10/02/16 HEPATIC-PORTAL DUPLEX: ? PSV ? EDV ? RI ?Waveform ? (cm/s) ??(cm/s) Hepatic Artery: ?? 52.2 ?8.79 ?0.83 ?Patent Right Hepatic ? Patent where seen Vein: Middle Hepatic ?Patent where seen Vein: Left Hepatic ?Patent where seen Vein: Portal Vein At ?Patent Finley: Main Portal ? 43.3 ?Patent Vein: Right Portal ?Patent Vein: Left Portal Vein: ? Patent IVC: ?Patent ?Direction of Flow Main Portal ?Hepatopetal Vein: Collaterals: ??None visualized ---- IVC: ---- Proximal portion, normal in caliber ------ LIVER: ------ Right Lobe Length: ?? 14.9 ?? cm Echogenicity/Echotexture: ?? Coarse parenchyma with capsular ? nodularity Comment: ?No focal hepatic mass seen. Limited views of the ? right lobe due to bowel gas. ------- SPLEEN: ------- Size (cm) ? L: 17.0 ?AP: ??5.9 ? TV: ??7.3 Vol (ml): ?383.4 Comment: ?Moderate splenomegaly ------ AORTA: ------ Measurements (cm): Proximal ?AP: ??2.3 Mid ? AP: ??1.8 Distal ?AP: ??1.8 Comment: ?Normal in caliber where visualized. RIGHT KIDNEY: Size (cm) ? L: 11.4 Cortical Thickness: ?Normal Cortical Echogenicity: ?? Normal Hydronephrosis: ?No sonographic evidence LEFT KIDNEY: Size (cm) ? L: 11.3 Cortical Thickness: ?Normal Cortical Echogenicity: ?? Normal Hydronephrosis: ?No sonographic evidence GALLBLADDER: Cholelithiasis: ?No stones visualized Wall Thickness: ?Normal wall thickness Focal Tenderness: ?Negative sonographic Diaz's sign BILIARY TRACT: Intrahepatic Ducts: ?? Normal Extrahepatic Ducts: ?? Normal Common Duct Size: ? 2.0 ? mm --------- PANCREAS: --------- Head: ? Poorly visualized due to overlying bowel Tail: ? Not visualized due to overlying bowel Body: ? Not visualized,obscured by overlyiing bowel FLUID COLLECTIONS: No ascites seen. Procedure Note Dalton Aguilera MD - 04/21/2017 Abdominal Duplex (Signed Final 04/21/2017 12:00 pm) PATIENT INFO: ID #: [id number] : [birth year] (57 yrs) Name: SEFERINO HONEYCUTT Visit Date:04/21/2017 11:24 am PERFORMED BY: Performed By: Law Rao RDMS Attending: Dalton Aguilera MD Referred By: MARÍA ELENA STAFFORD Location: [facility] SERVICE(S) PROVIDED: UABDCVASC - Abdominal Complete Survey with Vascular - [id number] INDICATIONS: Cirrhosis: survey for hepatocellular carcinoma, evaluate for complications of portal hypertension including portal vein thrombosis COMPARISON: Ultrasound: AB VASC. 10/02/16 HEPATIC-PORTAL DUPLEX: PSV EDV RI Waveform (cm/s) (cm/s) Hepatic Artery: 52.2 8.79 0.83 Patent Right Hepatic Patent where seen Vein: Middle Hepatic Patent where seen Vein: Left Hepatic Patent where seen Vein: Portal Vein At Patent Finley: Main Portal 43.3 Patent Vein: Right Portal Patent Vein: Left Portal Vein: Patent IVC: Patent Direction of Flow Main Portal Hepatopetal Vein: Collaterals: None visualized ---- IVC: ---- Proximal portion, normal in caliber ------ LIVER: ------ Right Lobe Length: 14.9 cm Echogenicity/Echotexture: Coarse parenchyma with capsular nodularity Comment: No focal hepatic mass seen. Limited views of the right lobe due to bowel gas. ------- SPLEEN: ------- Size (cm) L: 17.0 AP: 5.9 TV: 7.3 Vol (ml): 383.4 Comment: Moderate splenomegaly ------ AORTA: ------ Measurements (cm): Proximal AP: 2.3 Mid AP: 1.8 Distal AP: 1.8 Comment: Normal in caliber where visualized. RIGHT KIDNEY: Size (cm) L: 11.4 Cortical Thickness: Normal Cortical Echogenicity: Normal Hydronephrosis: No sonographic evidence LEFT KIDNEY: Size (cm) L: 11.3 Cortical Thickness: Normal Cortical Echogenicity: Normal Hydronephrosis: No sonographic evidence GALLBLADDER: Cholelithiasis: No stones visualized Wall Thickness: Normal wall thickness Focal Tenderness: Negative sonographic Diaz's sign BILIARY TRACT: Intrahepatic Ducts: Normal Extrahepatic Ducts: Normal Common Duct Size: 2.0 mm --------- PANCREAS: --------- Head: Poorly visualized due to overlying bowel Tail: Not visualized due to overlying bowel Body: Not visualized,obscured by overlyiing bowel FLUID COLLECTIONS: No ascites seen. IMPRESSION 1. The hepatic parenchyma is coarsened with a nodular capsule, and heterogeneouswithout focal lesion, compatible with cirrhosis/liver disease. Evaluation islimited secondary to the coarsened parenchyma. 2. The gallbladder is within normal limits.3. The visualized hepatic veins, visualized portal veins, and hepatic arteryare patent with normal color and spectral wave forms. Mild interval increase inthe main portal vein velocity, since most recent comparison. Direction of flowremains within normal limits of the main, left, and right portal veins. Themeasured hepatic arterial waveforms are similar to comparison with intervalincrease in the peak systolic velocity. The right, main, and left hepatic venousstructures are normal in directionality, and waveform.4. Splenomegaly without focal lesion identified. No definite shunting/abnormalvascularity is appreciated on this examination.5. Additional limits and details as above. Dalton Aguilera MD Electronically Signed Final Report 04/21/2017 12:00 pm María Elena Stafford MD IMG US GEN ORDERABLE S documented in this encounter Visit Diagnoses Diagnosis Cirrhosis of liver without ascites, unspecified hepatic cirrhosis type documented in this encounter Care Teams Refinery Operator Assistant Relationship Specialty Start Date End Date Jose M Sauceda MD [address] [place] [id number] PCP - General 06/09/12 07/25/20 documented as of this encounter
--- OUTSIDE RECORDS SUMMARY | 2024-11-23 08:25 | XMS_ITS | Encounter Summary ---
Author Organization [facility] [place] [place] [address] Care Team Providers Care Patient Resource Coordinator Name Role Phone Jose M Sauceda MD Primary Care Provider [phone] Encounter Details Date Type Department Care Team (Latest Contact Info) Description 10/13/2018 9:00 AM EST Laboratory Appointment Lab 3L [facility] [place] [address] Chronic hepatitis C without hepatic coma Social [...] Procedure Name Priority Date/Time Associated Diagnosis Comments SCAN, PERIPHERAL BLOOD Routine 8 9:01 AM EST HEMOGRAM Routine 10/13/2018 9:01 AM EST Chronic hepatitis C without hepatic coma DIFFERENTIAL, AUTOMATED Routine 10/13/2018 9:01 AM EST Chronic hepatitis C without hepatic coma PROTHROMBIN TIME Routine 10/13/2018 9:01 AM EST Chronic hepatitis C without hepatic coma CBC (WITH DIFF) Routine 10/13/2018 9:01 AM EST Chronic hepatitis C without hepatic coma COMPREHENSIVE METABOLIC PANEL Routine 10/13/2018 9:01 AM EST Chronic hepatitis C without hepatic coma documented in this encounter Results * Scan, Peripheral Blood (10/13/2018 9:01 AM EST) Plat estimate Decreased [facility] RBC Morphology Abnormal [facility] Microcyte 1-5 /HPF [facility] Hypochromia Slight [facility] Ovalocytes 1-5 /HPF [facility] Plat, Giant Less than 1 /HPF [facility] Blood specimen (specimen) 10/13/2018 9:01 AM EST 10/13/2018 9:08 AM EST Narrative Resulting Agency Comment Spec In Lab Steffanie Plummer APRN HEMATOLOGY ORDERAB LES Performing Organization Address City/State/[facility] Co de Phone Number [facility] [place] [address] * Differential, Automated (10/13/2018 9:01 AM EST) Pathologist [facility] Neutrophil % 59.4 % [facility] Neutrophil Absolute 3.74 1.70 - 6.10 x10(3)/[facility] Lymph % 20.2 % [facility] Lymphocytes Abs 1.3 0.9 - 3.2 x10(3)/[facility] Monocyte % 12.1 % [facility] Monocyte Abs 0.8 0.3 - 0.9 x10(3)/[facility] Eos % 6.5 % [facility] Eosinophils Abs 0.4 0.0 - 0.4 x10(3)/[facility] Basophil % 1.3 % [facility] Baso Absolute 0.1 0.0 - 0.1 x10(3)/[facility] Immature Gran % 0.50 % [facility] Comment: Immature granulocytes(IG's)percentage and absolute count will include metamyelocytes, myelocytes, and promyelocytes. Blood smears from CBCs yielding IG's will be scanned manually for concordance. If this scan disagrees with the automated IG or if promyelocytes are noted, a manual differential will be performed. Immature Gran Absolute 0.03 0.00 - 0.04 x10(3)/mcL [facility] Blood specimen (specimen) 10/13/2018 9:01 AM EST 10/13/2018 9:08 AM EST Narrative Resulting Agency Comment Spec In Lab Steffanie Plummer APRN HEMATOLOGY ORDERAB LES [facility] [place] [address] * (ABNORMAL) Hemogram (10/13/2018 9:01 AM EST) White Blood Cell 6.3 4.0 - 9.5 x10(3)/mc L [facility] Red Blood Cell 4.55(L) 4.58 - 5.54 x10(6)/mc L [facility] Hemoglobin 11.0(L) 13.7 - 16.5 gm/dL [facility] Hematocrit 37.0(L) 40.5 - 48.5 % [facility] Mean Cell Volume 81.3(L) 82.9 - 93.[address] [facility] Mean Cell Hemoglobin 24.2(L) 27.5 - 32.[address] [facility] Mean Cell Hemoglobin Concentration 29.7(L) 32.0 - 35.7 gm/dL [facility] Platelet 126(L) 145 - 357 x10(3)/mc L [facility] RDW Standard Deviation 46.1(H) 36.0 - 45.[address] [facility] RDW coefficient of variation 15.5(H) 11.4 - 13.8 % [facility] Mean Platelet Volume 10.5 7.6 - 12.[address] [facility] NRBC% auto 0.0 % [facility] NRBC Absolute 0.000 0.000 - 0.000 x10(3)/mc L [facility] Blood specimen (specimen) 10/13/2018 9:01 AM EST 10/13/2018 9:08 AM EST Narrative Resulting Agency Comment Spec In Lab Steffanie Plummer CROWN ATTACHER HEMATOLOGY ORDERAB LES [facility] [place] [address] * Comprehensive metabolic panel (non-fasting) (10/13/2018 9:01 AM EST) Glucose 174 65 - 199 mg/dL [facility] Comment:Diabetes: >=200 mg/d L plus symptoms Blood Urea Nitrogen 10 10 - 20 mg/dL [facility] Creatinine 1.04 0.80 - 1.50 mg/dL [facility] Sodium 138 135 - 145 mmol/L [facility] Potassium 4.3 3.5 - 5.0 mmol/L [facility] Comment: Please note: ??Patients with WBC >100,000 may have falsely elevated Potassium levels. ??For accurate Potassium quantification in these patients send serum separator tube (gold top) for subsequent determinations. ??Contact the Clinical Chemistry Laboratory if there are any questions. Chloride 102 98 - 107 mmol/L [facility] Carbon Dioxide 24 22 - 31 mmol/L [facility] Anion Gap 12 5 - 15 mmol/L [facility] Calcium 8.9 8.5 - 10.5 mg/dL [facility] Protein, Total 7.7 6.1 - 8.0 gm/dL [facility] Albumin 3.8 3.2 - 5.2 gm/dL [facility] Aspartate Aminotransferase 29 0 - 39 unit/L [facility] Alanine Aminotransferase 26 0 - 55 unit/L [facility] Alkaline Phosphatase 95 40 - 120 unit/L [facility] Bilirubin, Total 0.4 0.2 - 1.3 mg/dL [facility] Est Glomerular Filtration Rate 79 >=60 mL/min/1. 73 m?? [facility] Comment: The eGFR was calculated using the CKD-EPI equation. As with all creatinine based estimates of kidney function, eGFR values calculated with the CKD-EPI equation are not accurate in patients with acute kidney failure, extremes of body mass or the acutely ill. [email or web address] eGFR 92 >=60 mL/min/1. 73 m?? [facility] Comment: The eGFR was calculated using the CKD-EPI equation. As with all creatinine based estimates of kidney function, eGFR values calculated with the CKD-EPI equation are not accurate in patients with acute kidney failure, extremes of body mass or the acutely ill. [email or web address] Blood specimen (specimen) 10/13/2018 9:01 AM EST 10/13/2018 9:08 AM EST Narrative Resulting Agency Comment Spec In Lab Steffanie Plummer APRN CHEMISTRY ORDERABL ES Performing Organization Address City/[facility] Co de Phone Number [facility] [place] [address] * (ABNORMAL) Prothrombin Time (10/13/2018 9:01 AM EST) Prothrombin Time 14.3(H) 9.4 - 12.[address] [facility] [...] depending on clinical circumstances. Blood specimen (specimen) 10/13/2018 9:01 AM EST 10/13/2018 9:08 AM EST Narrative Resulting Agency Comment Spec In Lab Steffanie Plummer APRN HEMATOLOGY ORDERAB LES [facility] [place] [address] documented in this encounter Visit Diagnoses Diagnosis Chronic hepatitis C without hepatic coma documented in this encounter Care Teams Patient Resource Coordinator Relationship Specialty Start Date End Date Jose M Sauceda MD [address] [place] [id number] PCP - General 06/09/12 07/25/20 documented as of this encounter
--- OUTSIDE RECORDS SUMMARY | 2024-11-23 08:25 | XMS_ITS | Encounter Summary ---
Author Organization [facility] Address [facility] [place] [address] Care Team Providers Care Dispatcher Street Department Name Role Phone Jose M Sauceda MD Primary Care Provider [phone] Encounter Details Date Type Department Care Team (Late st Contact Info) Description 10/13/2018 10:00 AM EST Office [place] [address] Steffanie Plummer APRN [facility] [place] [address] Hepatic cirrhosis, unspecified hepatic cirrhosis type, unspecified [...] Sign Reading Time Taken Comments Blood Pressure 127/73 10/13/2018 10:01 AM EST Pulse 87 10/13/2018 10:01 AM EST Temperature - - Respiratory Rate - - Oxygen Saturation - - Inhaled Oxygen Concentration - - Weight 119.2 kg (262 lb 12.8 oz) 2017 10:01 AM EST Height 175.3 cm (5' 9) 10/13/2018 10:0 1 AM EST Body Mass Index 38.81 10/13/2018 10:01 AM EST documented in this encounter Progress Notes * Steffanie Plummer APRN - 10/13/2018 10:00 AM EST Gastroenterology and Hepatology Follow Up Note Patient: Seferino Honeycutt Jr. Gender: Male : 1960 Provider: Steffanie Plummer APRN Interval History: Mr. Seferino Honeycutt Jr. is here for follow up for cirrhosis. I last saw him 1 year ago and returns today for follow up. He was just diagnosed with diabetes and started taking Metformin last week. Thinking has been the same, at times he thinks it is worse. He doesn't notice changes if he doesn'ttake iLactulose, but has been taking it regularly. He always remembers to take Laculose at night, forgets morning most of the time. No loose stools. Has 1-2 BM/day. He forgets times of appointments, forgets about rides, frequent word loss. Feels like his thinking is getting worse. No melena or blood in stools, no vomitting blood. NO abdominal pain or nausea. Has not been taking iron supplement. Preventative Health: HAV- Immune HBV- Immune ?? HIV Status- Neg ?? Influenza Vaccine: Jun 2014 Pneumococcus Vaccine: 09/2007 Gastroscopy: 07/2014- normal esophagus, erosive gastropathy, normal duodenum ?? Colonoscopy: 2010- normal ?? PROBLEM LIST 1. Hepatitis C- G1a, diagnosed in 2000, likely acquired from IVDU ?- Treated with Harvoni ?? 2. Cirrhosis ?- 1st presented December 2014 with Based on thrombocytopenia and hypoalbuminemia and imaging CT of abdomen (December 2014) ?- HE- Jun 2015- started on Lactulose ?? 3. History of alcohol abuse- sober since 2004 4. 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 Less likely due to portal hypertension as PV and SV patent 5. Hypertension ?? 6. BPH 7. IA s/p PCI 2006 MEDICATIONS: Current Outpatient Medications Medication Sig Dispense Refill ??? lactulose (CHRONULAC) 20 gram/30 mL Solution Take 15 mLs by mouth 2 times daily. 1000 mL 5 ??? QUEtiapine (SEROQUEL) 100 mg Tablet Take [...] this visit. ALLERGIES/ADR Allergies Allergen Reactions ??? Natasha-[place] [Aspirin-Sod Bicarb-Citric Acid] Anaphylaxis Sodium bicarbonate ??? Bee Sting [Hymenoptera Allergenic Extract] Anaphylaxis PHYSICAL EXAMINATION: Vitals: 10/13/18 1001 BP: 127/73 Pulse: 87 Weight: 119.2 kg (262 lb 12.8 oz) Height: 175.3 cm (5' 9) Body mass index is 38.81 kg/m??. GEN: Healthy in appearance, no acute distress. SKIN: Spider angiomas. HEENT: Nonicteric sclera, no oral lesions NECK: No lymphadenopathy or thyromegaly EXT: No edema, cyanosis or edema PERTINENT LABS AND IMAGING: Lab Results Component Value Date WBC 6.3 10/13/2018 HGB 11.0 (L) 10/13/2018 HCT 37.0 (L) 10/13/2018 MCV 81.3 (L) 10/13/2018 PLATELET 126 (L) 10/13/2018 Recent Labs 10/13/18 09 INR 1.2 Chemistry Component Value Date/Time NA 138 10/13/2018 09 K 4.3 10/13/2018 0901 CL 102 10/13/2018 0901 CO2 24 10/13/2018 0901 BUN 10 10/13/2018 0901 CREATININE 1.04 10/13/2018 09 Component Value Date/Time CALCIUM 8.9 10/13/2018 0901 ALKPHOS 95 10/13/2018 0901 AST 29 10/13/2018 0901 ALT 26 10/13/2018 0901 BILITOT 0.4 10/13/2018 09 MELD-Na score: 8 at 10/13/2018 9:01 AM MELD score: 8 at 10/13/2018 9:01 AM Calculated from: Serum Creatinine: 1.04 mg/dL at 10/13/2018 9:01 AM Serum Sodium: 138 mmol/L (Rounded to 137 mmol/L) at 10/13/2018 9:01 AM Total Bilirubin: 0.4 mg/dL (Rounded to 1 mg/dL) at 10/13/2018 9:01 AM INR(ratio): 1.2 at 10/13/2018 9:01 AM Age: 58 years ?? EGD 04/07/18: Impression: ?- Portal hypertensive gastropathy. ?- Normal examined duodenum. ?- No specimens collected. Recommendation: ?- Repeat upper endoscopy in 2 years ?for surveillance. ? Ultrasound today: REsults pending IMPRESSION/PLAN: Mr. Honeycutt is a 58 y.o. man with cirrhosis secondary to Hepatitis C. He is [place] A. His liver is well compensated with good synthetic function. 1. Hepatic encephalopathy- Unclear if his recent memory problems are related to encephalopathy, yethe has been taking Lactulose with little improvement. He may need a higher dose of lactulose to seeimprovement. I will also add Rifaxamin today. If there is no benefit in his thinking with Rifaxamin, it is possible that his memory concerns are not related to HE. 2. Ascites - Slight ascites noted on prior ultrasound, patient assymptomatic. Will reasess with US today. 3. Variceal screening - EGD 03/2018 with portal hypertensive gastropathy, no varices. 4. Anemia. LIkely due to blood loss from portal gastropathy. He has not been taking an iron supplement - will send in prescription today. 4. HCC surveillance- US pending, if okay, plan to repeat in 6 months. ?? 5. Hepatitis C- Completed treatment with 12 weeks of Harvoni 03/2015 with SVR 1 year post treatment. Plan: Follow up in 6 months with labs, ultrasound and visit. -Rx Rifaxamin 550mg BID sent to pharmacy - Start iron supplement 25 minutes of this 30 minute [id number] visit were spent counseling, discussing disease, treatment and prognosis. ?? Steffanie Plummer APRN Section of Gastroenterology [place] [address] Cc: Jose M Sauceda MD [address] [place] [id number] documented in this encounter Plan of Treatment Not on file documented as of this encounter Visit Diagnoses Diagnosis Hepatic cirrhosis, unspecified hepatic cirrhosis type, unspecified whether ascites present documented in this encounter Care Teams Dispatcher Street Department Relationship Specialty Start Date End Date Jose M Sauceda MD [address] [place] [id number] PCP - General 06/09/12 07/25/20 documented as of this encounter
--- OUTSIDE RECORDS SUMMARY | 2024-11-23 08:25 | XMS_ITS | Encounter Summary ---
[place] [address] Care Team Providers Care Supportability Engineer Name Role Phone Jose M Sauceda MD Primary Care Provider [phone] Reason for Referral * Diagnostic Test (Routine) - Closed Specialty Diagnoses / Procedures Referred By Tejal elizabeth Referred To Contact Radiology Diagnoses Hepatic cirrhosis, unspecified hepatic cirrhosis type, unspecified whether ascites present Liver lesion Procedures MRI Abdomen wwo Contrast (Generic) Steffanie Plummer APRN [facility] [place] [address] [place] [address] Referral ID Status Reason Start Date Expiration Date V isits Requested Visits Authorized [id number] Closed Specialty Service Requested 11/01/2018 01/30/2019 1 1 Reason for Visit * Diagnostic Test (Routine) - Closed Specialty Diagnoses / Procedures Referred By Tejal elizabeth Referred To Contact Radiology Diagnoses Hepatic cirrhosis, unspecified hepatic cirrhosis type, unspecified whether ascites present Liver lesion Procedures MRI Abdomen wwo Contrast (Generic) Steffanie Plummer APRN [facility] [place] [address] [place] [address] Referral ID Status Reason Start Date Expiration Date V isits Requested Visits Authorized [id number] Closed Specialty Service Requested 11/01/2018 01/30/2019 1 1 Encounter Details Date Type Department Care Team (Latest Contact Info) Description 11/03/2018 11:43 AM EST - 11/03/2018 11:59 PM EST Hospital Encounter MRI at [facility] [place] [id number] Steffanie Plummer APRN [facility] [place] [address] Hepatic cirrhosis, unspecified hepatic cirrhosis type, unspecified whether ascites present; Liver lesion Discharge Disposition: Home Social History Tobacco Use [...] Procedure Name Priority Date/Time Associated Diagnosis Comments MRI ABDOMEN WWO CONTRAST Routine 11/03/2018 1:37 PM EST Hepatic cirrhosis, unspecified hepatic cirrhosis type, unspecified whether ascites present Liver lesion documented in this encounter Results * MRI Abdomen wwo Contrast (Generic) (11/03/2018 1:37 PM EST) Anatomical Region Laterality Modality Abdomen Magnetic Resonan ce Impressions 11/03/2018 2:09 PM EST Cirrhosis with small esophageal varices and mild splenomegaly. No suspicious liver lesions. LI-RADS Categories: LR-TIV = Tumor in vein LR-5 = Definitely hepatocellular carcinoma (concordant with OPTN 5) LR-4 = Probably hepatocellular carcinoma LR-3 = Intermediate probability for hepatocellular carcinoma LR-2 = Probably benign LR-1 = Definitely benign LR-TR Viable = Treated, probably or definitely viable LR-TR Equivocal = Treated, equivocal viable LR-TR Nonviable = Treated, probably or definitely not viable LR-TR Nonevaluable = Treated, Response not evaluable (due to image omission or degradation) LR-M = Probably or definitely malignant but not HCC specific LR-NC = Not categorizable (due to image omission or degradation) NOTE: LI-RADS categories should be interpreted in the context of other available data, such as biomarkers and the patient's prior probability of developing or having hepatocellular carcinoma. The LI-RADS / OPTN classification of liver lesions has been adopted to standardize CT and MRI scan reporting in patients at risk for hepatocellular carcinoma. The imaging criteria for definite hepatocellular carcinoma are concordant for the LI-RADS and OPTN systems. LI-RADS criteria and documentation are available online https://www.acr.org/Quality-Safety/Resources/LIRADS/LIRADS-v2017. This report utilizes LI-RADS version 2018. Narrative 11/03/2018 2:09 PM EST EXAMINATION: MRI ABDOMEN WWO CONTRAST (GENERIC) CLINICAL HISTORY: Cirrhosis. ??1.4 liver lesion seen on US, please evaluate for HCC TECHNIQUE: MRI of the abdomen was performed with images obtained prior to and following intravenous administration of 24ml of Dotarem using the dynamic liver protocol. COMPARISONS: Abdominal ultrasound on 10/13/2018 FINDINGS: Prior interventions: No prior ablation for embolization procedures in the liver. Liver Morphology: There is hypertrophy of the LEFT hepatic lobe. The liver exhibits a nodular capsular contour throughout. There is a reticular T2 hyperintense pattern throughout the liver which exhibits aggressive enhancement on postcontrast imaging consistent with fibrosis. Focal hepatic lesions: None. Portal Vein: Widely Patent. Varices: There are small esophageal varices present. Ascites: None. Spleen: Borderline large. Bile ducts: Nondilated. Gallbladder: No gallstones. Normal caliber wall. Pancreas: Normal. Adrenals: Normal. Kidneys: Normal. Aorta: No aneurysm. Lymph nodes: No enlarged lymph nodes. Bowel: Nondilated, no inflammatory changes. Marrow Signal: Normal. Procedure Note Tan Chauhan MD - 11/03/2018 EXAMINATION: MRI ABDOMEN WWO CONTRAST (GENERIC) CLINICAL HISTORY: Cirrhosis. 1.4 liver lesion seen on US, please evaluatefor HCC TECHNIQUE: MRI of the abdomen was performed with images obtained prior toand following intravenous administration of 24ml of Dotarem using the dynamicliver protocol. COMPARISONS: Abdominal ultrasound on 10/13/2018 FINDINGS: Prior interventions: No prior ablation for embolization procedures in theliver. Liver Morphology: There is hypertrophy of the LEFT hepatic lobe. Theliver exhibits a nodular capsular contour throughout. There is a reticular T2 hyperintense pattern throughout the liver which exhibits aggressiveenhancement on postcontrast imaging consistent with fibrosis. Focal hepatic lesions: None. Portal Vein: Widely Patent. Varices: There are small esophageal varices present. Ascites: None. Spleen: Borderline large. Bile ducts: Nondilated. Gallbladder: No gallstones. Normal caliber wall. Pancreas: Normal. Adrenals: Normal. Kidneys: Normal. Aorta: No aneurysm. Lymph nodes: No enlarged lymph nodes. Bowel: Nondilated, no inflammatory changes. Marrow Signal: Normal. IMPRESSION Cirrhosis with small esophageal varices and mild splenomegaly. No suspicious liver lesions. LI-RADS Categories: LR-TIV = Tumor in vein LR-5 = Definitely hepatocellular carcinoma (concordant with OPTN 5) LR-4 = Probably hepatocellular carcinoma LR-3 = Intermediate probability for hepatocellular carcinoma LR-2 = Probably benign LR-1 = Definitely benign LR-TR Viable = Treated, probably or definitely viable LR-TR Equivocal = Treated, equivocal viable LR-TR Nonviable = Treated, probably or definitely not viable LR-TR Nonevaluable = Treated, Response not evaluable (due to imageomission or degradation) LR-M = Probably or definitely malignant but not HCC specific LR-NC = Not categorizable (due to image omission or degradation) NOTE: LI-RADS categories should be interpreted in the context of otheravailable data, such as biomarkers and the patient's prior probability of developingor having hepatocellular carcinoma. The LI-RADS / OPTN classification ofliver lesions has been adopted to standardize CT and MRI scan reporting inpatients at risk for hepatocellular carcinoma. The imaging criteria for definite hepatocellular carcinoma are concordant for the LI-RADS and OPTNsystems. LI-RADS criteria and documentation are available online https://www.acr.org/Quality-Safety/Resources/LIRADS/LIRADS-v2017. Thisreport utilizes LI-RADS version 2018. Steffanie Plummer APRN [facility] [place] documented in this encounter Visit Diagnoses Diagnosis Hepatic cirrhosis, unspecified hepatic cirrhosis type, unspecified whether ascites present Liver lesion Other specified disorders of liver documented in this encounter Administered Medications Inactive Administered Medications - up to 3 most recent administrations Medication Order MAR Action Action Date Dose Rate Site gadoterate meglumine (DOTAREM) 0.5 mmol/mL (376.9 mg/mL) injection 0-100 mL 0-100 mL, Intravenous, ONCE PRN, 1 dose, Starting on Thu11/03/18 at 1338, Until Thu11/03/18 at 1323, Per Protocol, Radiology Contrast, Routine Given 11/03/2018 1:23 PM EST 24 mLs documented in this encounter Care Teams Supportability Engineer Relationship Specialty Start Date End Date Jose M Sauceda MD [address] [place] [address] PCP - General 06/09/12 07/25/20 documented as of this encounter
--- OUTSIDE RECORDS SUMMARY | 2024-11-23 08:25 | XMS_ITS | Encounter Summary ---
Author Organization Formerly [facility] [place] [address] Care Team Providers Care Open Hearth Helper Name Role Phone Jose M Sauceda MD Primary Care Provider [phone] Encounter Details Date Type Department Care Team (Latest Contact Info) Description 03/04/2016 9:15 AM EDT Laboratory Appointment Lab [address] [place] [phone] Compensated HCV cirrhosis; Chronic hepatitis C without hepatic coma; Cirrhosis of liver without ascites, unspecified hepatic [...] Priority Date/Time Associated Diagnosis Comments HEMOGRAM Routine 03/04/2016 9:31 AM EDT Compensated HCV cirrhosis DIFFERENTIAL, AUTOMATED Routine 03/04/2016 9:31 AM EDT Compensated HCV cirrhosis AFP TUMOR MARKER Routine 03/04/2016 9:31 AM EDT Cirrhosis of liver without ascites, unspecified hepatic cirrhosis type HEPATITIS C RNA, QUANTITATIVE, PCR Routine 03/04/2016 9:31 AM EDT Chronic hepatitis C without hepatic coma PROTHROMBIN TIME Routine 03/04/2016 9:31 AM EDT Compensated HCV cirrhosis CBC (WITH DIFF) Routine 03/04/2016 9:31 AM EDT Compensated HCV cirrhosis COMPREHENSIVE METABOLIC PANEL Routine 03/04/2016 9:31 AM EDT Compensated HCV cirrhosis documented in this encounter Results * Differential, Automated (03/04/2016 9:31 AM EDT) Neutrophil % 53.3 % [facility] Neutrophil Absolute 2.35 1.50 - 6.30 x10(3)/[facility] LAB[facility] Lymph % 31.5 % [facility] Lymphocytes Abs 1.4 1.0 - 3.6 x10(3)/[facility] LAB[facility] Monocyte % 12.0 % [facility] Monocyte Abs 0.5 0.2 - 1.0 x10(3)/[facility] Eos % 2.3 % [facility] Eosinophils Abs 0.1 0.0 - 0.5 x10(3)/[facility] Basophil % 0.7 % [facility] Baso Absolute 0.0 0.0 - 0.2 x10(3)/[facility] LABOR[facility] Immature Gran % 0.20 % [facility] Comment: Immature granulocytes(IG's)percentage and absolute count will include metamyelocytes, myelocytes, and promyelocytes. Blood smears from CBCs yielding IG's will be scanned manually for concordance. If this scan disagrees with the automated IG or if promyelocytes are noted, a manual differential will be performed. Immature Gran Absolute 0.01 0.00 - 0.05 x10(3)/[facility] LAB[facility] Blood specimen (specimen) 03/04/2016 9:31 AM EDT 03/04/2016 9:44 AM EDT Narrative Resulting Agency Comment Spec In Lab Lashell Marcos MD HEMATOLOGY ORDERABLE S [facility] [place] [address] * (ABNORMAL) Hemogram (03/04/2016 9:31 AM EDT) White Blood Cell 4.4 4.0 - 10.0 x10(3)/[facility] LABOR[facility] Red Blood Cell 4.63 4.63 - 6.08 x10(6)/ L [facility] Hemoglobin 12.4(L) 13.7 - 17.5 gm/dL [facility] Hematocrit 38.6(L) 40.0 - 51.0 % [facility] Mean Cell Volume 83.4 79.0 - 92.0 fL [facility] Mean Cell Hemoglobin 26.8 25.6 - 32.2 pg [facility] Mean Cell Hemoglobin Concentration 32.1 32.0 - 36.5 gm/dL [facility] Platelet 79(L) 145 - 370 x10(3)/[facility] LABORATORY RDW Standard Deviation 48.8(H) 35.0 - 46.0 [facility] RDW coefficient of variation 16.0(H) 10.9 - 14.4 % [facility] Mean Platelet Volume 11.1 9.0 - 12.0 fL [facility] Blood specimen (specimen) 03/04/2016 9:31 AM EDT 03/04/2016 9:44 AM EDT Narrative Resulting Agency Comment Spec In Lab Lashell Marcos MD HEMATOLOGY ORDERABLE S [facility] [place] [address] * AFP tumor marker (03/04/2016 9:31 AM EDT) Alpha Fetoprotein 6.6 <=8.3 ng/mL [facility] Blood specimen (specimen) 03/04/2016 9:31 AM EDT 03/04/2016 9:44 AM EDT Narrative Resulting Agency Comment Spec In Lab Lashell Marcos MD CHEMISTRY ORDERABLES Performing Organization Address City/[facility] Co de Phone Number [facility] [place] [address] * Hepatitis C RNA, quantitative, PCR (03/04/2016 9:31 AM EDT) Pathologist [facility] HCV Viral Load <15 IU/mL [facility] HCV Viral Load Result: <15 IU/mL (Target Not Detected) Indication for Study: Hepatitis C Infection Analysis: A quantitiative real time reverse transcriptase PCR assay was performed on extracted viral RNA for the purpose of quantification. Sample: plasma (1 mL minimum volume) Method: Chelsey Laya TaqMAN 48 HCV Linear Range: 15 IU/mL - 100,000,000IU/mL (95% CI) Note: This assay is being performed in the [facility] Molecular Pathology Laboratory. Salvatore Noland, Ph.D. Director, Molecular Pathology [facility] Comment: [VERIFIED DATE]03.06.16 Verified By:Damaris Rawls (Electronic Signature) Blood specimen (specimen) 03/04/2016 9:31 AM EDT 03/05/2016 9:16 AM EDT Narrative Resulting Agency Comment Spec In Lab Lashell Marcos MD MOLECULAR ORDERABLES Performing Organization Address [facility] Co de Phone Number [facility] [place] [address] * Prothrombin Time (03/04/2016 9:31 AM EDT) Pathologist [facility] Prothrombin Time 14.2 12.0 - 15.0 sec [facility] Comment: An INR <2.0 [...] International Normalization Ratio 1.1 0.9 - 1.1 [facility] Blood specimen (specimen) 03/04/2016 9:31 AM EDT 03/04/2016 9:44 AM EDT Narrative Resulting Agency Comment Spec In Lab Lashell Marcos MD HEMATOLOGY ORDERABLE S [facility] [place] [address] * Comprehensive metabolic panel (non-fasting) (03/04/2016 9:31 AM EDT) Glucose 74 65 - 199 mg/dL [facility] Comment:Diabetes: >=200 mg/d L plus symptoms Blood Urea Nitrogen 14 10 - 20 mg/dL [facility] Creatinine 0.93 0.80 - 1.50 mg/dL [facility] Comment: Please note that the pediatric reference intervals supplied above were not validated at [facility]. Results from pediatric patients should be interpreted in conjunction to the patient's age, height and muscle mass. Sodium 144 135 - 145 mmol/L [facility] Potassium 4.1 3.5 - 5.0 mmol/L [facility] Comment: Please note: ??Patients with WBC >100,000 may have falsely elevated Potassium levels. ??For accurate Potassium quantification in these patients send serum separator tube (gold top) for subsequent determinations. ??Contact the Clinical Chemistry Laboratory if there are any questions. Chloride 106 98 - 107 mmol/L [facility] Carbon Dioxide 24 22 - 31 mmol/L [facility] Anion Gap 14 5 - 15 mmol/L [facility] Calcium 9.7 8.5 - 10.5 mg/dL [facility] Protein, Total 7.5 6.1 - 8.0 gm/dL [facility] Albumin 4.2 3.2 - 5.2 gm/dL [facility] Aspartate Aminotransferase 33 0 - 39 unit/L [facility] Alanine Aminotransferase 24 0 - 55 unit/L [facility] Alkaline Phosphatase 84 40 - 120 unit/L [facility] Bilirubin, Total 0.3 0.2 - 1.3 mg/dL [facility] Bilirubin, Direct 0.1 0.0 - 0.3 mg/dL [facility] Est Glomerular Filtration Rate >60 >=60 [facility] Comment: This estimated GFR (eGFR) [...] the following links into your internet browser. [email or web address] Blood specimen (specimen) 03/04/2016 9:31 AM EDT 03/04/2016 9:44 AM EDT Narrative Resulting Agency Comment Spec In Lab Lashell Marcos MD CHEMISTRY ORDERABLES [facility] [place] [address] documented in this encounter Visit Diagnoses Diagnosis Compensated HCV cirrhosis Chronic hepatitis C without mention of hepatic coma Chronic hepatitis C without hepatic coma Cirrhosis of liver without ascites, unspecified hepatic cirrhosis type documented in this encounter Care Teams Open Hearth Helper Relationship Specialty Start Date End Date Jose M Sauceda MD [address] [place] [address] PCP - General 06/09/12 07/25/20 documented as of this encounter
--- OUTSIDE RECORDS SUMMARY | 2024-11-23 08:25 | XMS_ITS | Encounter Summary ---
Author Organization [facility] [place] [address] Care Team Providers Care Horse Trainer Name Role Phone Jose M Sauceda MD Primary Care Provider [phone] Reason for Visit * Reason Onset Date Comments Medication Refill 02/16/2017 Encounter Details Date Type Department Care Team (Late st Contact Info) Description 02/16/2017 Refill [place] [phone] Kylee Evans, SIGN BUILDER SUPERVISOR Social History Tobacco Use Types Packs/Day Years [...] on filedocumented in this encounter Care Teams Horse Trainer Relationship Specialty Start Date End Date Jose M Sauceda MD [address] [place] [id number] PCP - General 06/09/12 07/25/20 documented as of this encounter
--- OUTSIDE RECORDS SUMMARY | 2024-11-23 08:25 | XMS_ITS | Encounter Summary ---
Author Organization [facility] Address [facility] [place] haas [address] Care Team Providers Care Lot Associate Name Role Phone Jose M Sauceda MD Primary Care Provider [phone] Encounter Details Date Type Department Care Team (Late st Contact Info) Description 04/21/2018 1:00 PM EDT Office [place] [address] Steffanie Garcia APRN [facility] [place] [address] Chronic hepatitis C without hepatic coma Social [...] Sign Reading Time Taken Comments Blood Pressure 133/64 04/21/2018 12:56 PM EDT Pulse 99 04/21/2018 12:56 PM EDT Temperature - - Respiratory Rate - - Oxygen Saturation - - Inhaled Oxygen Concentration - - Weight 117.9 kg (260 lb) 04/21/2018 12:56 PM EDT Height 175.3 cm (5' 9) 04/21/2018 12:56 PM EDT Body Mass Index 38.4 04/21/2018 12:56 PM EDT documented in this encounter Progress Notes * Steffanie Garcia APRN - 04/21/2018 1:00 PM EDT Gastroenterology and Hepatology Follow Up Note Patient: Seferino Honeycutt Jr. Gender: Male : 1960 Provider: Steffanie Garcia APRN Interval History: Mr. Seferino Honeycutt Jr. is here for follow up for cirrhosis. I last saw him 1 year ago and returns today for follow up. Four months ago he was living with his son for short time. His son and friends use heroin, and the patients was compressing garbage and got a needle stick. His thinking is horrible. He has not been taking Lactulose, doesn't notice a difference. Has a hard time remembering appointments, times, what he had for dinner yesterday. Doesn't know if its encephalopathy or from prior drug use in the 70s. Sleep at night is good with taking Seroquel. Preventative Health: HAV- Immune HBV- Immune ?? [...] patent 5. Hypertension ?? 6. BPH 7. PA s/p PCI 2006 MEDICATIONS: Current Outpatient Prescriptions Medication Sig Dispense Refill ??? lactulose (CHRONULAC) 20 gram/30 mL Solution Take 15 mLs by mouth 2 times daily. 1000 mL 3 ??? QUEtiapine (SEROQUEL) 100 mg Tablet Take [...] this visit. ALLERGIES/ADR Allergies Allergen Reactions ??? Natasha[place] [Aspirin-Sod Bicarb-Citric Acid] Anaphylaxis Sodium bicarbonate ??? Bee Sting [Hymenoptera Allergenic Extract] Anaphylaxis PHYSICAL EXAMINATION: Vitals: 04/21/18 1256 BP: 133/64 Pulse: 99 Weight: 117.9 kg (260 lb) Height: 175.3 cm (5' 9) Body mass index is 38.4 kg/(m^2). GEN: Healthy in appearance, no acute distress. SKIN: Spider angiomas. HEENT: Nonicteric sclera, no oral lesions NECK: No lymphadenopathy or thyromegaly EXT: No edema, cyanosis or edema PERTINENT LABS AND IMAGING: Lab Results Component Value Date WBC 3.5 (L) 04/21/2018 HGB 11.6 (L) 04/21/2018 HCT 37.1 (L) 04/21/2018 MCV 86.9 04/21/2018 PLATELET 89 (L) 04/21/2018 Recent Labs 04/21/18 1018 INR 1.2 Chemistry Component Value Date/Time NA 141 04/21/2018 1018 K 4.3 04/21/2018 1018 CL 105 04/21/2018 1018 CO2 24 04/21/2018 1018 BUN 18 04/21/2018 1018 CREATININE 0.88 04/21/2018 1018 Component Value Date/Time CALCIUM 9.1 04/21/2018 1018 ALKPHOS 81 04/21/2018 1018 AST 24 04/21/2018 1018 ALT 23 04/21/2018 1018 BILITOT 0.4 04/21/2018 1018 MELD-Na score: 8 at 04/21/2018 10:18 AM MELD score: 8 at 04/21/2018 10:18 AM Calculated from: Serum Creatinine: 0.88 mg/dL (Rounded to 1) at 04/21/2018 10:18 AM Serum Sodium: 141 mmol/L (Rounded to 137) at 04/21/2018 10:18 AM Total Bilirubin: 0.4 mg/dL (Rounded to 1) at 04/21/2018 10:18 AM INR(ratio): 1.2 at 04/21/2018 10:18 AM Age: 58 years ?? EGD 04/07/18: Impression: ?- Portal hypertensive gastropathy. ?- Normal examined duodenum. ?- No specimens collected. Recommendation: ?- Repeat upper endoscopy in 2 years ?for surveillance. ?Follow up in hepatology as planned. US Abdomen 04/21/18: 1. Coarsely echogenic hepatic parenchyma with capsular nodularity consistentwith cirrhosis. No focal hepatic mass seen.2. Trace ascites.3. The visualized hepatic veins, visualized portal veins, and hepatic artery arepatent with normal color and spectral wave forms.4. Single, nonobstructing right interpolar renal stone. ?? ESSION/PLAN: Mr. Honeycutt is a 58 y.o. man with cirrhosis secondary to Hepatitis C. He is Child [place] A. His liver is well compensated with good synthetic function. 1. Hepatic encephalopathy- Unclear if his recent memory problems are related to encephalopathy, as they do not appear to improve with Lactulose. Regardless, plan to restart Lactulose with goal of 3-4BM/day, as it is likely that HE is playing a role in his memory deficits. 2. Ascites - Slight ascites noted on ultrasound today, patient assymptomatic. Discussed that if he has rapid weight gain or abdominal distension this could be signs of ascites and to contact my office. May need to start diuretics in the future. 3. Variceal screening - EGD 03/2018 with portal hypertensive gastropathy, no varices. This may be the reason for his anemia. Plan to check iron studies today, if he is iron deficient, plan to start iron supplement. Repeat EGD in 2 years. 4. HCC surveillance- No evidence of lesions, repeat in 6 months. ?? 5. Hepatitis C- Completed treatment with 12 weeks of Harvoni 03/2015 with SVR 1 year post treatment.Will check HCV RNA today given his risk or reinfection with a recent needle stick. Follow up in 6 months with labs, ultrasound and visit. 25 minutes of this 30 minute [id number] visit were spent counseling, discussing disease, treatment and prognosis. ?? Steffanie Garcia APRN Section of [place]astroenterology [place] [address] Cc: Jose M Sauceda MD [address] [place] [id number] documented in this encounter Plan of Treatment Not on file documented as of this encounter Results * (ABNORMAL) Prothrombin Time (10/13/2018 9:01 AM EST) Prothrombin Time 14.3(H) 9.4 - 12.5 sec [facility] Resulting Agency Comment Spec In Lab Steffanie A Elian [facility] ORDERAB LES [facility] [place] [address] * Comprehensive metabolic panel (non-fasting) (10/13/2018 9:01 AM EST) Glucose 174 65 - 199 mg/dL [facility] Comment:Diabetes: >=200 mg/d L plus symptoms Blood Urea Nitrogen 10 10 - 20 mg/dL [facility] Creatinine 1.04 0.80 - 1.50 mg/dL [facility] Sodium 138 135 - 145 mmol/L [facility] Potassium 4.3 3.5 - 5.0 mmol/L [facility] Comment: Please note: ??Patients with WBC >100,000 may have falsely elevated Potassium levels. ??For accurate Potassium quantification in these patients send serum separator tube (gold top) for subsequent determinations. ??Contact the Clinical Chemistry Laboratory if there are any questions. Chloride 102 98 - 107 mmol/L [facility] Carbon Dioxide 24 22 - 31 mmol/L [facility] Anion Gap 12 5 - 15 mmol/L [facility] Calcium 8.9 8.5 - 10.5 mg/dL [facility] Protein, Total 7.7 6.1 - 8.0 gm/dL [facility] Albumin 3.8 3.2 - 5.2 gm/dL [facility] Aspartate Aminotransferase 29 0 - 39 unit/L [facility] Alanine Aminotransferase 26 0 - 55 unit/L [facility] Alkaline Phosphatase 95 40 - 120 unit/L [facility] Bilirubin, Total 0.4 0.2 - 1.3 mg/dL [facility] Est Glomerular Filtration Rate 79 >=60 mL/min/1. 73 m?? [facility] Comment: The eGFR was calculated using the CKD-EPI equation. As with all creatinine based estimates of kidney function, eGFR values calculated with the CKD-EPI equation are not accurate in patients with acute kidney failure, extremes of body mass or the acutely ill. http://[employer] eGFR 92 >=60 mL/min/1. 73 m?? [facility] Comment: The eGFR was calculated using the CKD-EPI equation. As with all creatinine based estimates of kidney function, eGFR values calculated with the CKD-EPI equation are not accurate in patients with acute kidney failure, extremes of body mass or the acutely ill. http://[employer]/[facility] Blood specimen (specimen) 10/13/2018 9:01 AM EST 10/13/2018 9:08 AM EST Narrative Resulting Agency Comment Spec In Lab Steffanie Garcia APRN CHEMISTRY ORDERABL ES Performing Organization Address City/State/[facility] Co de Phone Number [facility] [place] [address] * US Abdomen Limited (10/13/2018 8:30 AM [...] 11:25 am) PATIENT INFO: ID #: ? [id number] ?: ??[birth year] (58 yrs) Name: ? SEFERINO Hines ?Visit Date: 10/13/2018 07:57 am ? RACHEL PERFORMED BY: Performed By: ? Kerry Heredia RDMS Attending: ?Tania Mullen MD Referred By: ?STEFFANIE GARCIA Location: ? [place] SERVICE(S) PROVIDED: ??UABDLIM - Abdominal Limited Survey Single ? [id number] ??Organ or Quadrant - [id number] INDICATIONS: ??Compensated cirrhosis, assess for HCC COMPARISON: [...] 10/13/2018 11:25 am) PATIENT INFO: ID #: [id number] : [birth year] (58 yrs) Name: SEFERINO Hines Visit Date: 10/13/2018 07:57 am RACHEL PERFORMED BY: Performed By: Kerry Heredia RDMS Attending: Tania Mullen MD Referred By: STEFFANIE GARCIA Location: [place] SERVICE(S) PROVIDED: UABDLIM - Abdominal Limited Survey Single [id number] Organ or Quadrant - [id number] INDICATIONS: Compensated cirrhosis, assess for HCC COMPARISON: [...] Final Report 10/13/2018 11:25 am Steffanie Garcia APRN IMG US GEN ORDERAB LES * Hepatitis C RNA, quantitative, PCR (04/21/2018 1:52 PM EDT) [facility] HCV Viral Load <12 IU/mL [facility] HCV Viral Load Result: <12 IU/mL(Target Not Detected) Indication for Study: Hepatitis C Infection Analysis: The [place] RealTime HCV assay is an in vitro reverse plant health manager polymerase chain reaction (RT-PCR)for the quantitation of hepatitis C viral (HCV) RNA in human serum or plasma (EDTA) from HCV-infected individuals. Sample: plasma (0.7 mL minimum volume) Method: [place] RealTime HCV Assay Linear Range: 12 IU/mL - 100,000,000IU/mL Note: The [place] RealTime HCV Assay has been approved by the U.S. Food and Drug Administration. [facility] Comment: [VERIFIED DATE]04.27.18 Verified By:Esther Maldonado (Electronic Signature) Blood specimen (specimen) 04/21/2018 1:52 PM EDT 04/26/2018 6:48 AM EDT Narrative Resulting Agency Comment Spec In Lab Steffanie Garcia APRN MOLECULAR ORDERABL ES Performing Organization Address [facility] Co de Phone Number [facility] [place] [address] * Ferritin (04/21/2018 1:52 PM EDT) [facility] Ferritin 79 30 - 400 ng/mL [facility] Comment: Pediatric reference ranges not verified at [facility], interpret with caution. Reference ranges for females greater than 50 years of age approach values for men, i.e., 30-400 ng/mL. Blood specimen (specimen) 04/21/2018 1:52 PM EDT 04/21/2018 2:16 PM EDT Narrative Resulting Agency Comment Spec In Lab Steffanie Garcia APRN CHEMISTRY ORDERABL ES Performing Organization Address City/[facility] Co de Phone Number [facility] [place] [address] * (ABNORMAL) Iron and TIBC (04/21/2018 1:52 PM EDT) Iron 34(L) 45 - 160 mcg/dL [facility] TIBC 353 250 - 450 mcg/dL [facility] Iron Saturation 10(L) 20 - 50 % [facility] Blood specimen (specimen) 04/21/2018 1:52 PM EDT 04/21/2018 2:16 PM EDT Narrative Resulting Agency Comment Spec In Lab Steffanie Garcia APRN CHEMISTRY ORDERABL ES Performing Organization Address [facility] Co de Phone Number [facility] [place] [address] documented in this encounter Visit Diagnoses Diagnosis Chronic hepatitis C without hepatic coma Chronic hepatitis C without hepatic coma documented in this encounter Care Teams Lot Associate Relationship Specialty Start Date End Date Jose M Sauceda MD [address] [place] [address] PCP - General 06/09/12 07/25/20 documented as of this encounter
--- OUTSIDE RECORDS SUMMARY | 2024-11-23 08:25 | XMS_ITS | Encounter Summary ---
Author Organization [facility] Address [facility] [place] [address] Care Team Providers Care Cloud Subject Matter Expert Name Role Phone Jose M Sauceda MD Primary Care Provider [phone] Encounter Details Date Type Department Care Team (Latest Contact Info) Description 04/15/2016 2:49 PM EDT - 04/15/2016 11:59 PM EDT Hospital [place] [id number] Des Brannon MD Chronic hepatitis C with [...] Sig Dispensed Refills Start Date End Date busPIRone (BUSPAR) 15 mg Tablet Take 15 [...] Comments US ABDOMEN COMPLETE WITH VASCULAR Routine 04/15/2016 4:02 PM EDT Chronic hepatitis C with cirrhosis documented in this encounter Results * US Abdomen Complete With Vascular (04/15/2016 4:02 PM EDT) Anatomical Region Laterality Modality Abdomen Ultrasound 04/15/2016 3:52 PM EDT Impressions 04/15/2016 4:19 PM EDT Abdomen Complete Summary Hepatomegaly with coarse liver parenchyma and mild capsular nodularity Visualization limited in this patient but no masses seen Increasing splenomegaly No ascites. Abdomen Vascular Summary The visualized hepatic veins, visualized portal veins, and hepatic artery are patent with normal directional flow and velocity. I ??viewed the images and agree with the above interpretation. ? Alberta Garcia MD Electronically Signed Final Report ?? 04/15/2016 04:19 pm Narrative 04/15/2016 4:19 PM EDT Abdominal Duplex ? (Signed Final 04/15/2016 04:19 pm) PATIENT INFO: ID #: ? [id number] ? : [birth year] (56 yrs) Name: ? SEFERINO H HONEYCUTT ?Visit Date:04/15/2016 03:52 pm PERFORMED BY: Performed By: ? Kerry Heredia RDMS Attending: ?Jose HICKMAN, Alberta Haile Referred By: ?DES BRANNON MD SERVICE(S) PROVIDED: ??UABDCVASC - Abdominal Complete Survey with Vascular - [id number], [id number] ??[id number] INDICATIONS: ??HCv cirrhosis,a ssess for hcc and pv patency COMPARISON: Prior ultrasound: 09/08/14. ------ LIVER: ------ Right Lobe Length: ?? 21.5 ?? cm Echogenicity/Echotexture: ?? Coarse parenchyma with mild capsular ? nodularity Portal Veins: ?Patent Hepatic Veins: ?? Patent Comment: ?Hepatomegaly mild GALLBLADDER: Cholelithiasis: ?No stones visualized Wall Thickness: ?3.0 mm Focal Tenderness: ?Negative sonographic Diaz's sign BILIARY TRACT: Intrahepatic Ducts: ?? Normal Extrahepatic Ducts: ?? Normal Common Duct Size: ? 4.0 ? mm --------- PANCREAS: --------- Head: ? Not visualized,obscured by overlyiing bowel Tail: ? Not visualized due to overlying bowel Body: ? Not visualized,obscured by overlyiing bowel ------- SPLEEN: ------- Size (cm) ? L: 16.7 ?AP: ??6.7 ? TV: ??7.2 Vol (ml): ?421.8 Comment: ?Mild splenomegaly RIGHT KIDNEY: Size (cm) ? L: 10.9 Cortical Thickness: ?Normal Cortical Echogenicity: ?? Normal Hydronephrosis: ?No sonographic evidence LEFT KIDNEY: Size (cm) ? L: 11.4 Cortical Thickness: ?Normal Cortical Echogenicity: ?? Normal Hydronephrosis: ?No sonographic evidence Comment: ?Simple cyst seen, measurin.8 x 0.4 x 0.5 cm. ------ AORTA: ------ Measurements (cm): Mid ? AP: ??1.8 Comment: ?Normal in caliber where visualized. Poorly visualized ? due to overlying bowel gas ---- IVC: ---- Proximal portion, normal in caliber. Poorly visualized ??due to overlying bowel gas FLUID COLLECTIONS: No ascites seen. HEPATIC-PORTAL DUPLEX: ? PSV ? EDV ? RI ??Waveform ? (cm/s) ??(cm/s) Hepatic Artery: ?? 20.6 ?7.33 ?0.64 ??Patent Right Hepatic ? Patent Vein: Middle Hepatic ?Patent Vein: Left Hepatic ?Patent Vein: Main Portal ? 27.5 ?Patent Vein: Right Portal ?Patent Vein: Left Portal Vein: ? Patent ?Direction of Flow Main Portal ?Hepatopetal Vein: Procedure Note Alberta Garcia MD - 04/15/2016 Abdominal Duplex (Signed Final 04/15/2016 04:19pm) PATIENT INFO: ID #: [id number] : [birth year] (56 yrs) Name: SEFERINO HONEYCUTT Visit Date:04/15/2016 03:52 pm PERFORMED BY: Performed By: Kerry Heredia RDMS Attending: Alberta Garcia MD Referred By: DES BRANNON MD SERVICE(S) PROVIDED: UABDCVASC - Abdominal Complete Survey with Vascular - [id number], [id number] INDICATIONS: HCv cirrhosis,a ssess for hcc and pv patency COMPARISON: Prior ultrasound: 09/08/14. ------ LIVER: ------ Right Lobe Length: 21.5 cm Echogenicity/Echotexture: Coarse parenchyma with mild capsular nodularity Portal Veins: Patent Hepatic Veins: Patent Comment: Hepatomegaly mild GALLBLADDER: Cholelithiasis: No stones visualized Wall Thickness: 3.0 mm Focal Tenderness: Negative sonographic Diaz's sign BILIARY TRACT: Intrahepatic Ducts: Normal Extrahepatic Ducts: Normal Common Duct Size: 4.0 mm --------- PANCREAS: --------- Head: Not visualized,obscured by overlyiing bowel Tail: Not visualized due to overlying bowel Body: Not visualized,obscured by overlyiing bowel ------- SPLEEN: ------- Size (cm) L: 16.7 AP: 6.7 TV: 7.2 Vol (ml): 421.8 Comment: Mild splenomegaly RIGHT KIDNEY: Size (cm) L: 10.9 Cortical Thickness: Normal Cortical Echogenicity: Normal Hydronephrosis: No sonographic evidence LEFT KIDNEY: Size (cm) L: 11.4 Cortical Thickness: Normal Cortical Echogenicity: Normal Hydronephrosis: No sonographic evidence Comment: Simple cyst seen, measurin.8 x 0.4 x 0.5 cm. ------ AORTA: ------ Measurements (cm): Mid AP: 1.8 Comment: Normal in caliber where visualized. Poorly visualized due to overlying bowel gas ---- IVC: ---- Proximal portion, normal in caliber. Poorly visualized due tooverlying bowel gas FLUID COLLECTIONS: No ascites seen. HEPATIC-PORTAL DUPLEX: PSV EDV RI Waveform (cm/s) (cm/s) Hepatic Artery: 20.6 7.33 0.64 Patent Right Hepatic Patent Vein: Middle Hepatic Patent Vein: Left Hepatic Patent Vein: Main Portal 27.5 Patent Vein: Right Portal Patent Vein: Left Portal Vein: Patent Direction of Flow Main Portal Hepatopetal Vein: IMPRESSION Abdomen Complete Summary Hepatomegaly with coarse liver parenchyma and mild capsular nodularity Visualization limited in this patient but no masses seen Increasing splenomegaly No ascites. Abdomen Vascular Summary The visualized hepatic veins, visualized portal veins, and hepatic artery are patent with normal directional flow and velocity. I viewed the images and agree with the above interpretation. Alberta Garcia MD Electronically Signed Final Report 04/15/2016 04:19 pm Des Brannon MD IMG US GEN ORDERABLE S documented in this encounter Visit Diagnoses Diagnosis Chronic hepatitis C with cirrhosis Chronic hepatitis C without mention of hepatic coma documented in this encounter Care Teams Cloud Subject Matter Expert Relationship Specialty Start Date End Date Jose M Sauceda MD [address] [place] [id number] PCP - General 06/09/12 07/25/20 documented as of this encounter
--- OUTSIDE RECORDS SUMMARY | 2024-11-23 08:25 | XMS_ITS | Encounter Summary ---
[place] [address] Care Team Providers Care Video Game Creator Name Role Phone Jose M Sauceda MD Primary Care Provider [phone] Reason for Visit * Auth/Cert Specialty Diagnoses / Procedures Referred By Tejal elizabeth Referred To Contact Diagnoses assess for esophageal varices Procedures PRO UPPER GI ENDOSCOPY, DIAGNOSTIC EGD, UPPER GI ENDOSCOPY Referral ID Status Reason Start Date Expiration Date Visits Re quested Visits Authorized [id number] 1 1 Encounter Details Date Type Department Care Team (Late st Contact Info) Description 03/20/2016 4:00 PM EDT - 03/20/2016 5:00 PM EDT Surgery [place] [address] Lashell Marcos MD EGD WITH BIOPSY (WRVU 2.39) Social History Tobacco Use Types Packs/Day Years [...] Sign Reading Time Taken Comments Blood Pressure 122/71 03/20/2016 4:35 PM EDT Pulse 70 03/20/2016 4:35 PM EDT Temperature - - Respiratory Rate 16 03/20/2016 4:35 PM EDT Oxygen Saturation 94% 03/20/2016 4:35 PM EDT Inhaled Oxygen Concentration - - Weight - - Height - - Body Mass Index - - documented in this encounter Discharge Instructions * Discharge Instructions* Shelly Weir RN - 03/20/2016 4:45 PM EDT UPPER GI ENDOSCOPY WHAT TO EXPECT [...] get better as expected. Thursday-Thursday Same Day Endo [phone]-[phone] Otherwise contact [phone] and ask to speak to the rn placement insulation helper Follow-up care is a [place] part of [...] 03/20/2016 02/16/2017 documented as of this encounter H&P Notes * Lashell Marcos MD - 03/20/2016 4:12 PM EDT Gastroenterology and Hepatology Pre-Procedure History and Physical Exam Procedure: Upper endoscopy +/- banding Indication: 56M with HCV cirrhosis, assess for esophageal varices. Patient Active Problem List Diagnosis Code ??? CAD (coronary artery disease), [place] coronary artery I25.10 ??? Tobacco abuse disorder Z72.0 ??? Hepatitis C B19.20 ??? Hypertension I10 ??? Spinal stenosis, lumbar region, without neurogenic claudication M48.06 ??? Chronic Mechanical low back pain M54.5 [...] Procedure Name Priority Date/Time Associated Diagnosis Comments SURGICAL PATHOLOGY REPORT Routine 03/20/2016 4:42 PM EDT SPECIMEN TO PATHOLOGY Routine 03/20/2016 4:42 PM EDT EGD WITH BIOPSY (WRVU 2.39) 03/20/2016 4:17 PM EDT Chronic hepatitis C with cirrhosis UPPER GI ENDOSCOPY Routine 03/20/2016 3: 56 PM EDT documented in this encounter Results * Surgical Pathology Report (03/20/2016 4:42 PM EDT) Final Diagnosis [id number] ? Location: [facility]; A The signing pathologist has (i) examined the relevant preparation(s) for the specimen(s) and (ii) rendered or confirmed the diagnosis(es). . ?Surgical Pathology DIAGNOSIS Stomach, ??biopsy: - Body/fundic-typ e mucosa, negative for diagnostic abnormality. 03/21/16 AAY 03/25/16 Verified by: ? Jerry Knox MD ?Pathologist ?(Electronic Signature) The attending pathologist whose signature appears on this report has reviewed all diagnostic slides and has edited the gross and/or microscopic portion of the report in rendering the final pathologic diagnosis. CLINICAL INFORMATION Specimen Submitted: A - Stomach bx Clinical History: Superficial ulcers and erosions in the stomach Clinical Diagnosis: Same SPECIMEN PROCESSING A - Labeled/Fixativ e: Stomach biopsy, formalin. Quantity/Size: Three, ranging from 0.2-0.4 cm. Tissue Description: Friable monique tissue. Sections/Proces sing: (T1) ??ksb 03/25/2016 2:09 PM EDT [facility] GI Biopsy 03/20/2016 4:42 PM EDT 03/20/2016 4:42 PM EDT Lashell Marcos MD PATHOLOGY/CYTOLOGY O HORTENCIA Performing Organization Address [facility] Co de Phone Number [facility] [place] [address] * Specimen to Pathology (surgical or derm) (03/20/2016 4:42 PM EDT) AP Specimen 03/20/2016 4:42 PM EDT 03/20/2016 4:42 PM EDT Narrative [facility] - 03/20/2016 4:42 PM EDT Specimen requisition ordered. ??Separate Pathology report to follow Lashell Marcos MD PATHOLOGY/CYTOLOGY O HORTENCIA Performing Organization Address [facility] [place] [address] * UPPER GI ENDOSCOPY (03/20/2016 3:56 PM EDT) UPPER GI ENDOSCOPY [facility] Endoscopy Patient Name: Seferino Honeycutt ? Procedure Date: 03/20/2016 3:56 PM ? Date of : 1960 ? Age: 56 ? Order #: [id number] ? Procedure: ? Upper GI endoscopy Indications: ? Cirrhosis with suspected esophageal ? varices Providers: ? Selene Zavaleta RN, ? Gretel Alvarez Referring : ?Jose M Sauceda MD Medicines: ? Midazolam 4 mg IV, Fentanyl 125 ? micrograms IV Complications: ? No immediate [...] ? and informed consent was obtained. ? - Patient identification and proposed ? procedure were verified prior to the ? procedure by the physician and the ? nurse. The procedure was verified in ? the pre-procedure area in the ? procedure room. ? - Pre-procedure physical examination ? revealed no contraindications to ? sedation. ? - ASA Grade Assessment: II - A ? patient with mild systemic disease. ? - After reviewing the risks and ? benefits, the patient was deemed in ? satisfactory condition to undergo the ? procedure. ? - The anesthesia plan was to use ? moderate sedation/analgesia ? (conscious sedation). ? The procedure, indications, benefits, ? risks [...] patient tolerated ? the procedure well. The patient ? tolerated the procedure well. ? Findings: ? The upper third of the esophagus, middle third of the ? esophagus, lower third of the esophagus and ? gastroesophageal junction were normal. ? The Z-line was regular and was found 40 cm from the ? incisors. ? Mild portal hypertensive gastropathy was found in the ? stomach. A few erosions sen in the antrum. Biopsied. ? The duodenal bulb, first part of the duodenum, 2nd ? part of the duodenum and 3rd part of the duodenum ? were normal. ? Impression: ?- Normal upper third of esophagus, ? middle third of esophagus, lower ? third of esophagus and ? gastroesophageal junction. ? - Z-line regular, 40 cm from the ? incisors. ? - Portal hypertensive gastropathy. ? - Normal duodenal bulb, first part of ? the duodenum, 2nd part of the ? duodenum and 3rd part of the duodenum. ? - No specimens collected. Recommendation: ?I will review biopsy results ? Repeat upper endoscopy in 2 years for ? screening purposes ? Lashell IzaguirrePato Bennettely Lashell M Hemant, 03/20/2016 4:50:22 PM This report has been signed electronically. Number of Addenda: 0 Note Initiated On: 03/20/2016 3:56 PM PROVATION 03/20/2016 3:56 PM EDT Jose M Sauceda MD GENERAL SURGICAL ORD ERABLES PROVATION documented in this encounter Visit Diagnoses Diagnosis Chronic hepatitis C with cirrhosis Chronic hepatitis C without mention of hepatic coma documented in this encounter Administered Medications Inactive Administered Medications - up to 3 most recent administrations Medication Order MAR Action Action Date Dose Rate Site fentaNYL 50 mcg/mL multi-dose injection ONCE PRN, Starting on Ivonne 03/20/16 at 1626, Until Ivonne 03/20/16 at 2027, Intra-Operative (Intra-Procedure), Routine Given 03/20/2016 4:33 PM EDT 25 mcg Given 03/20/2016 4:29 PM EDT 50 mcg Given 03/20/2016 4:26 PM EDT 50 mcg lactated ringers infusion 100 mL/hr, Intravenous, CONTINUOUS, Starting on Ivonne 03/20/16 at 1630, Until Ivonne 03/20/16 at 2028, Endoscopy (Day of Procedure) New Bag 03/20/2016 4:10 PM EDT 100 mL/hr 100 mL/hr midazolam (PF) (VERSED) 1 mg/mL multi-dose injection ONCE PRN, Starting on Ivonne 03/20/16 at 1626, Until Ivonne 03/20/16 at 2027, Intra-Operative (Intra-Procedure), Routine Given 03/20/2016 4:35 PM EDT 0.5 mg Given 03/20/2016 4:33 PM EDT 0.5 mg Given 03/20/2016 4:29 PM EDT 1 mg documented in this encounter Active and Recently Administered Medications Times are shown in EDT. Continuous Medication Order 03/18/2016 03/19/2016 03/20/2016 lactated ringers infusion 100 mL/hr, Intravenous, CONTINUOUS, Starting on Ivonne 03/20/16 at 1630, Until Ivonne 03/20/16 at 2027, Endoscopy (Day of Procedure) 1610 (New Bag - Prov ider: Nadiya Islas RN) PRN Medication Order 03/18/2016 03/19/2016 03/20/2016 fentaNYL 50 mcg/mL multi-dose injection (CANCELED) ONCE PRN, Starting on Ivonne 03/20/16 at 1626, Until Ivonne 03/20/16 at 2027, Intra-Operative (Intra-Procedure), Routine 162 (Given - Provid er: Selene Crabtree RN)1629 (Given - Provider: Selene Crabtree, TANG)1633 (Given - Provider: Selene Crabtree, TANG) midazolam (PF) (VERSED) 1 mg/mL multi-dose injection (CANCELED) ONCE PRN, Starting on Ivonne 03/20/16 at 1626, Until Ivonne 03/20/16 at 2027, Intra-Operative (Intra-Procedure), Routine 1626 (Given - Provid er: Selene Crabtree RN)1629 (Given - Provider: Selene Crabtree RN)1633 (Given - Provider: Selene Crabtree RN)1635 (Given - Provider: Selene Crabtree RN) documented in this encounter Care Teams Video Game Creator Relationship Specialty Start Date End Date Jose M Sauceda MD [address] [place] [address] PCP - General 06/09/12 07/25/20 documented as of this encounter
--- OUTSIDE RECORDS SUMMARY | 2024-11-23 08:25 | XMS_ITS | Encounter Summary ---
Author Organization [facility] Address [facility] [place] [address] Care Team Providers Care Street Inspector Name Role Phone Jose M Sauceda MD Primary Care Provider [phone] Reason for Visit * Reason Comments Follow-up Encounter Details Date Type Department Care Team (Late st Contact Info) Description 04/21/2017 1:00 PM EDT Office [place] [address] Steffanie Garcia APRN [facility] [place] [address] Cirrhosis of liver without ascites, unspecified hepatic [...] Sign Reading Time Taken Comments Blood Pressure 144/73 04/21/2017 12:53 PM EDT Pulse 82 04/21/2017 12:53 PM EDT Temperature - - Respiratory Rate - - Oxygen Saturation - - Inhaled Oxygen Concentration - - Weight 115.7 kg (255 lb) 04/21/2017 12:53 PM EDT Height 176.5 cm (5' 9.5) 04/21/2017 12:53 PM ED T Body Mass Index 37.12 04/21/2017 12:53 PM EDT documented in this encounter Progress Notes * Steffanie Garcia APRN - 04/21/2017 1:00 PM EDT Gastroenterology and Hepatology Follow Up Note Patient: Seferino Honeycutt Jr. Gender: Male : 1960 Provider: Steffanie Garcia APRN Interval History: Mr. Seferino Honeycutt Jr. is here for follow up for cirrhosis. He has been doing well. He is wondering how advanced his cirrhosis is. He still has trouble with his memory. He initially thought this was from drug use his 70s but has been taking lactulose for hepatic encephalopathy. He doesn't think his memory has gotten any worse and some days his memory is okay. He takes Lactulose once a day, has 2 BM/day. Takes medication for sleep. His other doctors keep prescribing medications and he is not sure if they are helping, thinking about stopping some medications. He has close follow up with his PCP because he states his PCP wants to keep a close eye on him due to his depression. Preventative Health: HAV- Immune HBV- Immune ?? [...] patent 5. Hypertension ?? 6. BPH 7. [place] s/p PCI 2006 MEDICATIONS: Current Outpatient Prescriptions Medication Sig Dispense Refill ??? lactulose (CHRONULAC) 20 gram/30 mL Solution Take 15 mLs by mouth 3 times daily. 1000 mL 3 ??? QUEtiapine [...] this visit. ALLERGIES/ADR Allergies Allergen Reactions ??? Natasha[place] [Aspirin-Sod Bicarb-Citric Acid] Anaphylaxis Sodium bicarbonate ??? Bee Sting [Hymenoptera Allergenic Extract] Anaphylaxis PHYSICAL EXAMINATION: Vitals: 04/21/17 1253 BP: 144/73 Pulse: 82 Weight: (!) 115.7 kg (255 lb) Height: 176.5 cm (5' 9.5) Body mass index is 37.12 kg/(m^2). GEN: Healthy in appearance, no acute distress. SKIN: Spider angiomas. HEENT: Nonicteric sclera, no oral lesions NECK: No lymphadenopathy or thyromegaly EXT: No edema, cyanosis or edema PERTINENT LABS AND IMAGING: Lab Results Component Value Date WBC 4.7 04/21/2017 HGB 13.3 (L) 04/21/2017 HCT 41.2 04/21/2017 MCV 88.0 04/21/2017 PLATELET 92 (L) 04/21/2017 Recent Labs 04/21/17 1154 INR 1.1 Chemistry Component Value Date/Time NA 140 04/21/2017 1154 K 4.1 04/21/2017 1154 CL 104 04/21/2017 1154 CO2 23 04/21/2017 1154 BUN 19 04/21/2017 1154 CREATININE 1.06 04/21/2017 1154 Component Value Date/Time CALCIUM 9.2 04/21/2017 1154 ALKPHOS 95 04/21/2017 1154 AST 28 04/21/2017 1154 ALT 24 04/21/2017 1154 BILITOT 0.5 04/21/2017 1154 Albumin: 4.1 Ultrasound 04/21/17: IMPRESSION 1. The hepatic parenchyma is coarsened [...] and details as above. Dalton Aguilera MD ?? IMPRESSION/PLAN: Mr. Honeycutt is a 57 y.o. man with cirrhosis secondary to Hepatitis C. He is Child [place] A. His liver is well compensated with good synthetic function. 1. Hepatic encephalopathy- This is his main complication of his cirrhosis. Discussed taking Lactulose twice a day with a goal of 3-4 bowel movements per day. His memory problems could also be relatedto his depression. 2. Ascites - None noted on ultrasound, weight has gone down slightly since last visit. 3. Variceal screening - repeat EGD 02/2018. EGD done 02/2016 with portal gastropathy and no varices. . 4. HCC surveillance- No evidence of lesions, repeat in 6 months. ?? 5. Hepatitis C- Completed treatment with 12 weeks of Harvoni 03/2015 with SVR 1 year post treatment. Follow up in 6 months with labs, ultrasound and visit. 25 minutes of this 30 minute ptav-cd-kujq visit were spent counseling, discussing disease, treatment and prognosis. ?? Steffanie Garcia APRN Section of Gastroenterology [place] [address] Cc: Jose M Sauceda MD [address] [place] [address] documented in this encounter Plan of Treatment Not on file documented as of this encounter Results * (ABNORMAL) Prothrombin Time (04/21/2018 10:18 AM EDT) Prothrombin Time 13.9(H) 9.4 - 12.5 sec [facility] International Normalization Ratio 1.2 [facility] Comment: An INR <2.0 [...] Lab Steffanie Garcia APRN HEMATOLOGY ORDERAB LES [facility] [place] [address] * Comprehensive metabolic panel (non-fasting) (04/21/2018 10:18 AM EDT) Glucose 154 65 - 199 mg/dL [facility] Comment:Diabetes: >=200 mg/d L plus symptoms Blood Urea Nitrogen 18 10 - 20 mg/dL [facility] Creatinine 0.88 0.80 - 1.50 mg/dL [facility] Sodium 141 135 - 145 mmol/L [facility] Potassium 4.3 3.5 - 5.0 mmol/L [facility] Comment: Please note: ??Patients with WBC >100,000 may have falsely elevated Potassium levels. ??For accurate Potassium quantification in these patients send serum separator tube (gold top) for subsequent determinations. ??Contact the Clinical Chemistry Laboratory if there are any questions. Chloride 105 98 - 107 mmol/L [facility] Carbon Dioxide 24 22 - 31 mmol/L [facility] Anion Gap 12 5 - 15 mmol/L [facility] Calcium 9.1 8.5 - 10.5 mg/dL [facility] Protein, Total 7.4 6.1 - 8.0 gm/dL [facility] Albumin 3.8 3.2 - 5.2 gm/dL [facility] Aspartate Aminotransferase 24 0 - 39 unit/L [facility] Alanine Aminotransferase 23 0 - 55 unit/L [facility] Alkaline Phosphatase 81 40 - 120 unit/L [facility] Bilirubin, Total 0.4 0.2 - 1.3 mg/dL [facility] Est Glomerular Filtration Rate 95 >=60 mL/min/1. 73 m?? [facility] Comment: The eGFR was calculated using the CKD-EPI equation. As with all creatinine based estimates of kidney function, eGFR values calculated with the CKD-EPI equation are not accurate in patients with acute kidney failure, extremes of body mass or the acutely ill. http://[place]/[employer] http://[place]/[facility]nk[facility] eGFR 111 >=60 mL/min/1. 73 m?? [facility] Comment: The eGFR was calculated using the CKD-EPI equation. As with all creatinine based estimates of kidney function, eGFR values calculated with the CKD-EPI equation are not accurate in patients with acute kidney failure, extremes of body mass or the acutely ill. http://[place]/[employer] http://[place]/[facility]nk[facility] Blood specimen (specimen) 04/21/2018 10:18 AM EDT 04/21/2018 10:27 AM EDT Narrative Resulting Agency Comment Spec In Lab Steffanie Garcia NETWORK CONSULTANT CHEMISTRY ORDERABL ES Performing Organization Address City/State/[facility] Co de Phone Number [facility] [place] [address] * US Abdomen Vascular Limited (04/21/2018 9:49 [...] 10:28 am) PATIENT INFO: ID #: ? [id number] ? : [birth year] (58 yrs) Name: ? SEFERINO HONEYCUTT ?Visit Date:04/21/2018 09:50 am PERFORMED BY: Performed By: ? Law Rao RDMS Attending: ?Milagros HICKMAN, Dexter Graves Referred By: ?STEFFANIE GARCIA Location: ? [place] SERVICE(S) PROVIDED: ??UABDLIMVAS - Abdominal Limited Survey 2 Organ ? [id number], [id number] ??Quadrant with Vascular - [id number] INDICATIONS: ??Cirrhosis, screen for HCC and for complications for ??cirrhosis including portal vein thrombosis COMPARISON: Ultrasound: [facility] 04/21/17 HEPATIC-PORTAL DUPLEX: ? PSV ? EDV ? RI ?Waveform ? (cm/s) ??(cm/s) Hepatic Artery: ?? 55.9 ?15.3 ?0.73 ?Patent Right Hepatic ? Patent where seen Vein: Middle Hepatic ?Patent where seen Vein: Left Hepatic ?Patent where seen Vein: Portal Vein At ?Patent [place]: Main Portal ? 21.9 ?Patent Vein: Right Portal ?Patent Vein: Left Portal Vein: ? Patent Splenic Vein At ? Patent [place]: Splenic Vein: ? Patent IVC: ?Patent ?Direction [...] Final 04/21/2018 10:28am) PATIENT INFO: ID #: [id number] : [birth year] (58 yrs) Name: SEFERINO HONEYCUTT Visit Date:04/21/2018 09:50 am PERFORMED BY: Performed By: Law Rao RDMS Attending: Dexter Linares MD Referred By: STEFFANIE GARCIA Location: [place] SERVICE(S) PROVIDED: UABDLIMVAS - Abdominal Limited Survey 2 Organ [id number], [id number] Quadrant with Vascular - [id number] INDICATIONS: Cirrhosis, screen for HCC and for complications for cirrhosis including portal vein thrombosis COMPARISON: Ultrasound: [facility] 04/21/17 HEPATIC-PORTAL DUPLEX: PSV EDV RI Waveform (cm/s) (cm/s) Hepatic Artery: 55.9 15.3 0.73 Patent Right Hepatic Patent where seen Vein: Middle Hepatic Patent where seen Vein: Left Hepatic Patent where seen Vein: Portal Vein At Patent [place]: Main Portal 21.9 Patent Vein: Right Portal Patent Vein: Left Portal Vein: Patent Splenic Vein At Patent [place]: Splenic Vein: Patent IVC: Patent Direction of [...] Final Report 04/21/2018 10:28 am Steffanie Garcia APRN IMG US GEN ORDERAB LES documented in this encounter Visit Diagnoses Diagnosis Cirrhosis of liver without ascites, unspecified hepatic cirrhosis type Chronic hepatitis C without hepatic coma Cirrhosis of liver without ascites, unspecified hepatic cirrhosis type documented in this encounter Care Teams Street Inspector Relationship Specialty Start Date End Date Jose M Sauceda MD [address] [place] [id number] PCP - General 06/09/12 07/25/20 documented as of this encounter
--- OUTSIDE RECORDS SUMMARY | 2024-11-23 08:25 | XMS_ITS | Encounter Summary ---
Author Organization [facility] [place] [address] Care Team Providers Care Bus Aide Name Role Phone Jose M Sauceda MD Primary Care Provider [phone] Reason for Visit * Reason Comments Follow-up Encounter Details Date Type Department Care Team (Late st Contact Info) Description 10/02/2016 1:00 PM EST Office Visit [place] [address] [address]N [facility] [place] [address] Cirrhosis of liver without ascites, unspecified hepatic [...] Sign Reading Time Taken Comments Blood Pressure 147/66 10/02/2016 12:56 PM EST Pulse 86 10/02/2016 12:56 PM EST Temperature - - Respiratory Rate - - Oxygen Saturation - - Inhaled Oxygen Concentration - - Weight 118.8 kg (262 lb) 10/02/2016 12:56 PM EST Height 175.3 cm (5' 9) 10/02/2016 12:56 PM EST Body Mass Index 38.69 10/02/2016 12:56 PM EST documented in this encounter Patient Instructions * Patient Instructions* Steffanie Plummer APRN - 10/02/2016 1:00 PM EST Plan: 1. Start taking Lactulose again. Take it 2 times a day. The goal is to have 2-3 bowel movements perday. This will help your thinking and your memory. 2. Decrease your salt intake. Throw away your salt shakers! This will help with your fluid accumulation 3. If your weight continues to go up and your belly is getting bigger give us a call at [phone] and I can prescribe water pillls to help that fluid come off. 4. Repeat ultrasound and lab work in 6 months. documented in this encounter Progress Notes * Steffanie Plummer APRN - 10/02/2016 1:00 PM EST Gastroenterology and Hepatology Follow Up Note Patient: Seferino Honeycutt Jr. Gender: Male : 1960 Provider: Steffanie Plummer APRN Interval History: Mr. Seferino Honeycutt Jr. is here for follow up for cirrhosis. He was previously followed by Dr. Marcos. He first presented in December 2014 with thrombocytopenia and cirrhosis based on CT scan. He was started on Lactuose for HE in June or 2014, and at his last visit with Dr. Marcos 6 months ago they discussed starting Lactulose again. He was taking Lactulose for 3 months then stopped. He was taking it TID, And having one BM per day.He stopped because he thought he was only supposed to take it for 3 months. He has been feeling like his memory is very poor. 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 He has not been feeling more fatigued. He has been sleeping well at night with seroquel. No naps during the day. Has noticed he has gained 15-20 lbs in the past 4 months. He thinks he has been eating more and maybe just gaining weight. He has fluid in his ankles at the end of the day. He admits that he eats a lot of salt. He heavily salts his food and eats a lot of prepackaged foods. Preventative Health: HAV- Immune HBV- Immune ?? HIV Status- Neg ?? Influenza Vaccine: Jun 2014 Pneumococcus Vaccine: 09/2007 Gastroscopy: 07/2014- normal esophagus, erosive gastropathy, normal duodenum ?? Colonoscopy: 2010- normal ?? PROBLEM LIST 1. Hepatitis C- G1a, diagnosed in 2000, likely acquired from IVDU ?- Harvoni ?? 2. Cirrhosis ?- Based on thrombocytopenia and hypoalbuminemia and imaging CT of abdomen (December 2014) ?- HE- Jun 2015- started on Lactulose ?? 3. History of alcohol abuse- sober since 2004 4. 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 Less likely due to portal hypertension as PV and SV patent 5. Hypertension ?? 6. BPH 7. NE s/p PCI 2006 MEDICATIONS: Current Outpatient Prescriptions Medication Sig Dispense Refill ??? QUEtiapine (SEROQUEL) 100 mg Tablet Take 100 mg by mouth 2 times daily. ??? sertraline (ZOLOFT) 100 mg Tablet Take 100 mg by mouth daily. ??? lactulose (CHRONULAC) 20 gram/30 mL Solution Take 15 mLs by mouth 3 times daily. 1000 mL 3 ??? busPIRone (BUSPAR) 15 mg Tablet Take [...] 0.4 MG = 1 Tablet(s), Sublingual, PRN (Patient not taking: No sig reported) No current facility-administered medications for this visit. ALLERGIES/ADR Allergies Allergen Reactions ??? [place] [Aspirin-Sod Bicarb-Citric Acid] Anaphylaxis Sodium bicarbonate ??? Bee Sting [Hymenoptera Allergenic Extract] Anaphylaxis PHYSICAL EXAMINATION: Vitals: 10/02/16 1256 BP: 147/66 Pulse: 86 Weight: (!) 118.8 kg (262 lb) Height: 175.3 cm (5' 9) Body mass index is 38.69 kg/(m^2). GEN: Healthy in appearance, no acute distress. SKIN: Spider angiomas. HEENT: Nonicteric sclera, no oral lesions NECK: No lymphadenopathy or thyromegaly LUNGS: Clear to auscultation bilaterally COR: Regular, normal S1 and S2 without murmurs ABD: Obese, soft and non-distended. Normal active bowel sounds. No tenderness to deep palpation in all 4 quadrants. No ascites. No hepatosplenomegaly. EXT: No edema, cyanosis or edema PERTINENT LABS AND IMAGING: Lab Results Component Value Date WBC 5.3 10/02/2016 HGB 13.7 10/02/2016 HCT 41.5 10/02/2016 MCV 87.0 10/02/2016 PLATELET 89 (L) 10/02/2016 Recent Labs 10/02/16 1201 INR 1.1 Lab Results Component Value Date ALT 18 10/02/2016 AST 25 10/02/2016 ALKPHOS 81 10/02/2016 BILITOT 0.7 10/02/2016 Chemistry Component Value Date/Time NA 142 10/02/2016 1201 K 4.4 10/02/2016 1201 CL 103 10/02/2016 1201 CO2 25 10/02/2016 1201 BUN 16 10/02/2016 1201 CREATININE 0.94 10/02/2016 1201 Component Value Date/Time CALCIUM 9.2 10/02/2016 1201 ALKPHOS 81 10/02/2016 1201 AST 25 10/02/2016 1201 ALT 18 10/02/2016 1201 BILITOT 0.7 10/02/2016 1201 Ultrasound 10/02/2016: LIVER: ------ Right Lobe Length: 14.6 cm Echogenicity/Echotexture: Coarse parenchyma with mild capsular nodularity Portal Veins: Hepatopetal Hepatic Veins: Patent ?? Comment: Limited views of right lobe due to bowel gas. FLUID COLLECTIONS: Trace amount ascites seen lateral left lobe. ?? IMPRESSION/PLAN: Mr. Honeycutt is a 55M with cirrhosis secondary to Hepatitis C. 1. Hepatic encephalopathy- This is his main complication of his cirrhosis. Instructed him to restart his lactulose and take it twice a day with the goal of 2-3 bowel movements per day. 2. Ascites- Ultrasound shows only trace ascites, and no evidence on exam. He has gained nearly 15 lbs since his last visit, however he has been gaining weight at the same rate for the past 1.5 years.Discussed low salt diet. Advised him to throw out his salt shaker! He feels he can taper down on salt intake. I 3. Variceal Screening- EGD 02/2016 with portal gastropathy and no varices, plan to repeat in 2 yearsfor screening. 4. HCC surveillance- No evidence of lesions, repeat in 6 months. ?? 5. Hepatitis C- Completed treatment with 12 weeks of Harvoni 03/2015 with SVR 1 year post treatment. Follow up in 6 months with labs, ultrasound and visit. 25 minutes of this 30 minute orar-no-ihym visit were spent counseling, discussing disease, treatment and prognosis. ?? Steffanie Plummer APRN Section of Gastroenterology [place] [address] Cc: Jose M Sauceda MD #[address] [place] [id number] documented in this encounter Plan of Treatment Not on file documented as of this encounter Results * (ABNORMAL) Prothrombin Time (04/21/2017 11:54 AM [...] [facility] Blood specimen (specimen) 04/21/2017 11:54 AM EDT 04/21/2017 11:59 AM EDT Narrative Resulting Agency Comment Spec In Lab María Elena Stafford MD HEMATOLOGY ORDERABLE S [facility] [place] [address] * Comprehensive metabolic panel (non-fasting) (04/21/2017 11:54 AM EDT) Glucose 136 65 - 199 mg/dL [facility] Comment:Diabetes: >=200 mg/d L plus symptoms Blood Urea Nitrogen 19 10 - 20 mg/dL [facility] Creatinine 1.06 0.80 - 1.50 mg/dL [facility] Comment: Please note that the pediatric reference intervals supplied above were not validated at [facility]. Results from pediatric patients should be interpreted in conjunction to the patient's age, height and muscle mass. Sodium 140 135 - 145 mmol/L [facility] questions. Chloride 104 98 - 107 mmol/L [facility] Carbon Dioxide 23 22 - 31 mmol/L [facility] Anion Gap 13 5 - 15 mmol/L [facility] Calcium 9.2 8.5 - 10.5 mg/dL [facility] Protein, Total 8.0 6.1 - 8.0 gm/dL [facility] Albumin 4.1 3.2 - 5.2 gm/dL [facility] Aspartate Aminotransferase 28 0 - 39 unit/L [facility] Alanine Aminotransferase 24 0 - 55 unit/L [facility] Alkaline Phosphatase 95 40 - 120 unit/L [facility] Bilirubin, Total 0.5 0.2 - 1.3 mg/dL [facility] Bilirubin, Direct 0.2 0.0 - 0.3 mg/dL [facility] Est Glomerular Filtration Rate >60 >=60 [facility] Comment: This estimated GFR (eGFR) [...] the following links into your internet browser. [email or web address] Blood specimen (specimen) 04/21/2017 11:54 AM EDT 04/21/2017 11:59 AM EDT Narrative Resulting Agency Comment Spec In Lab María Elena Stafford MD CHEMISTRY ORDERABLES [facility] [place] [address] * US Abdomen Complete With Vascular (04/21/2017 [...] 12:00 pm) PATIENT INFO: ID #: ? [id number] ? : [birth year] (57 yrs) Name: ? SEFERINO HONEYCUTT ?Visit Date:04/21/2017 11:24 am PERFORMED BY: Performed By: ? Law Rao RDMS Attending: ?Willy HICKMAN, Dalton Pelayo Referred By: ?MARÍA ELENA STAFFORD Location: ? [facility] SERVICE(S) PROVIDED: ??UABDCVASC - Abdominal Complete Survey with Vascular - [id number], [id number] ??[id number] INDICATIONS: ??Cirrhosis: survey for hepatocellular carcinoma, ??evaluate for complications of portal hypertension ??including portal vein thrombosis COMPARISON: Ultrasound: AB HAY. 10/02/16 HEPATIC-PORTAL DUPLEX: ? PSV ? EDV ? RI ?Waveform ? (cm/s) ??(cm/s) Hepatic Artery: ?? 52.2 ?8.79 ?0.83 ?Patent Right Hepatic ? Patent where seen Vein: Middle Hepatic ?Patent where seen Vein: Left Hepatic ?Patent where seen Vein: Portal Vein At ?Patent [place]: Main Portal ? 43.3 ?Patent Vein: Right [...] 04/21/2017 12:00 pm) PATIENT INFO: ID #: [id number] : [birth year] (57 yrs) Name: SEFERINO HONEYCUTT Visit Date:04/21/2017 11:24 am PERFORMED BY: Performed By: Law Rao RDMS Attending: Dalton Aguilera MD Referred By: MARÍA ELENA STAFFORD Location: [facility] SERVICE(S) PROVIDED: UABDCVASC - Abdominal Complete Survey with Vascular - 13180, [id number] INDICATIONS: Cirrhosis: survey for hepatocellular carcinoma, evaluate for complications of portal hypertension including portal vein thrombosis COMPARISON: Ultrasound: AB HAY. 10/02/16 HEPATIC-PORTAL DUPLEX: PSV EDV RI Waveform (cm/s) (cm/s) Hepatic Artery: 52.2 8.79 0.83 Patent Right Hepatic Patent where seen Vein: Middle Hepatic Patent where seen Vein: Left Hepatic Patent where seen Vein: Portal Vein At Patent [place]: Main Portal 43.3 Patent Vein: Right Portal [...] liver without ascites, unspecified hepatic cirrhosis type Cirrhosis of liver without ascites, unspecified hepatic cirrhosis type documented in this encounter Care Teams Bus Aide Relationship Specialty Start Date End Date Jose M Sauceda MD [address] [place] [id number] PCP - General 06/09/12 07/25/20 documented as of this encounter
--- OUTSIDE RECORDS SUMMARY | 2024-11-23 08:25 | XMS_ITS | Encounter Summary ---
Author Organization [facility] Address [facility] [place] [address] Care Team Providers Care General Purchasing Agent Name Role Phone Jose M Sauceda MD Primary Care Provider Reason for Visit * Auth/Cert Specialty Diagnoses / Procedures Referred By Tejal elizabeth Referred To Contact Diagnoses 2 yr varices surv from 08/08/14 Procedures EGD, UPPER GI ENDOSCOPY Referral ID Status Reason Start Date Expiration Date Visits Re quested Visits Authorized [id number] 1 1 Encounter Details Date Type Department Care Team (Late st Contact Info) Description 04/07/2018 10:00 AM EDT - 04/07/2018 11:00 AM EDT [place] [address] Velma Rodas MD [facility] [place] [address] EGD, UPPER GI ENDOSCOPY (WRVU 2.09) Social [...] better as expected. Thursday-Thursday Same Day Endo [phone] 7a-8p Otherwise contact [phone] and ask to speak to the process development manager restoration silversmith Follow-up care is a castillo part of [...] Diagnosis Code ??? CAD (coronary artery disease), [place] coronary artery I25.10 ??? Tobacco abuse disorder [...] UPPER GI ENDOSCOPY (04/07/2018 9:26 AM EDT) [facility] Signature UPPER GI ENDOSCOPY [facility] Endoscopy Procedure Date: 04/07/2018 9:26 AM ? Patient Name: Seferino Honeycutt ? Date of : 1960 ? Age: 58 ? Order #: [id number] ? Instrument Name: [id number] ? Procedure: ? Upper GI endoscopy Indications: ? Cirrhosis with suspected esophageal ? varices Providers: ? Velma Rodas MD, Reginaldo Lawrence, ? Gretel Alvarez, Engraver Signature Referring : ?Jose M Sauceda MD, Steffanie Garrido ? [place] Medicines: ? Midazolam 3 mg IV, Fentanyl [...] mcg/mL multi-dose injection ONCE PRN, Starting on Thu04/07/18 at 0951, Until Thu04/07/18 at 1304, Intra-Operative (Intra-Procedure), Routine Given 04/07/2018 9:57 AM EDT 50 mcg Given 04/07/2018 9:54 AM EDT 50 mcg Given 04/07/2018 9:51 AM EDT 50 mcg midazolam (PF) (VERSED) 1 mg/mL multi-dose injection ONCE PRN, Starting on Thu04/07/18 at 0950, Until Thu04/07/18 at 1304, Intra-Operative (Intra-Procedure), Routine Given 04/07/2018 9:57 AM EDT 1 mg Given 04/07/2018 9:54 AM EDT 1 mg Given 04/07/2018 9:50 AM EDT 1 mg documented in this encounter [...] RN) documented in this encounter Care Teams General Purchasing Agent Relationship Specialty Start Date End Date Jose M Sauceda MD [address] [place] [id number] PCP - General 06/09/12 07/25/20 documented as of this encounter
--- OUTSIDE RECORDS SUMMARY | 2024-11-23 08:25 | XMS_ITS | Encounter Summary ---
Author Organization [facility] [place] [address] Care Team Providers Care Microsoft Application Developer Name Role Phone Jose M Sauceda MD Primary Care Provider [phone] Reason for Referral * Diagnostic Test (Routine) - Closed Specialty Diagnoses / Procedures Referred By Tejal elizabeth Referred To Contact Radiology Diagnoses Hepatic cirrhosis, unspecified hepatic cirrhosis type, unspecified whether ascites present Liver lesion Procedures MRI Abdomen wwo Contrast (Generic) Steffanie Garcia APRN [facility] [address] [place] [address] Referral ID Status Reason Start Date Expiration Date V isits Requested Visits Authorized [id number] Closed Specialty Service Requested 11/01/2018 01/30/2019 1 1 Encounter Details Date Type Department Care Team (Late st Contact Info) Description 10/15/2018 Telephone [place] [address] Steffanie Garcia APRN [facility] [address] Social History Tobacco Use Types Packs/Day Years [...] encounter Miscellaneous Notes * Telephone Encounter - Steffanie Garcia APRN - 10/15/2018 9:27 AM EST Called patient to discuss ultrasound results which shows a new 1.4 cm lesion in his liver. Patient not available - left message to call back. Would recommend MRI next available for further evaluationand to r/o HCC. Asked patient to call back. Will order MRI and ask operating room scheduler to reach out. STEFFANIE GARCIA APRN documented in this encounter Plan of Treatment Not on file documented as of this encounter Results * MRI Abdomen wwo [...] https://www.acr.org/Quality-Safety/Resources/LIRADS/LIRADS-v2017. Thisreport utilizes LI-RADS version 2018. Steffanie Garcia APRN G MRI ORDERABLES documented in this encounter Visit Diagnoses Diagnosis Hepatic cirrhosis, unspecified hepatic cirrhosis type, unspecified whether ascites present Liver lesion Other specified disorders of liver Hepatic cirrhosis, unspecified hepatic cirrhosis type, unspecified whether ascites present Liver lesion Other specified disorders of liver documented in this encounter Care Teams Microsoft Application Developer Relationship Specialty Start Date End Date Jose M Sauceda MD [address] [place] [id number] PCP - General 06/09/12 07/25/20 documented as of this encounter
--- OUTSIDE RECORDS SUMMARY | 2024-11-23 08:25 | XMS_ITS | Encounter Summary ---
Author Organization [facility] Address [facility] [place] [address] Care Team Providers Care Credit Rating Checker Name Role Phone Jose M Sauceda MD Primary Care Provider Encounter Details Date Type Department Care Team (Late st Contact Info) Description 11/03/2018 Telephone Gastroenterology at [facility] [address] Steffanie Garcia APRN [facility] [place] [address] Social History Tobacco Use Types Packs/Day Years [...] Telephone Encounter - Steffanie Garcia APRN - 11/03/2018 5:53 PM EST Called patient to inform him of his MRI results which does not show any suspicious lesions. STEFFANIE GARCIA APRN documented in this encounter Plan of Treatment Not on file documented as of this encounter Visit Diagnoses Not on filedocumented in this encounter Care Teams Credit Rating Checker Relationship Specialty Start Date End Date Jose M Sauceda MD [address] [place] [phone] PCP - General 06/09/12 07/25/20 documented as of this encounter
--- OUTSIDE RECORDS SUMMARY | 2024-11-23 08:25 | XMS_ITS | Encounter Summary ---
Author Organization [facility] [place] [address] Care Team Providers Care Hand Miter Operator Name Role Phone Joes M Sauceda MD Primary Care Provider [phone] Encounter Details Date Type Department Care Team (Late st Contact Info) Description 03/20/2016 Orders [place] [address] Lashell Marcos MD Social History Tobacco Use Types Packs/Day Years [...] on filedocumented in this encounter Care Teams Hand Miter Operator Relationship Specialty Start Date End Date Jose M Sauceda MD [address] [place] [address] PCP - General 06/09/12 07/25/20 documented as of this encounter
--- OUTSIDE RECORDS SUMMARY | 2024-11-23 08:25 | XMS_ITS | Encounter Summary ---
Author Organization [facility] [place] [address] Care Team Providers Care Survey Researcher Name Role Phone Jose M Sauceda MD Primary Care Provider [phone] Encounter Details Date Type Department Care Team (Late st Contact Info) Description 10/22/2018 Orders [place] [address] Rosalie Rosenberg Social History Tobacco Use Types Packs/Day Years [...] on filedocumented in this encounter Care Teams Survey Researcher Relationship Specialty Start Date End Date Jose M Sauceda MD [address] [place] [phone] PCP - General 06/09/12 07/25/20 documented as of this encounter
--- OUTSIDE RECORDS SUMMARY | 2024-11-23 08:25 | XMS_ITS | Encounter Summary ---
Author Organization [facility] [place] [address] Care Team Providers Care Drafter Automotive Design Name Role Phone Jose M Sauceda MD Primary Care Provider [phone] Reason for Visit * Auth/Cert Specialty Diagnoses / Procedures Referred By Tejal elizabeth Referred To Contact Diagnoses assess for esophageal varices Procedures PRO UPPER GI ENDOSCOPY, DIAGNOSTIC EGD, UPPER GI ENDOSCOPY Referral ID Status Reason Start Date Expiration Date Visits Re quested Visits Authorized [id number] 1 1 Encounter Details Date Type Department Care Team (Latest Contact Info) Description 03/20/2016 2:59 PM EDT - 03/20/2016 6:27 PM EDT Hospital En[place] [address] Lashell Marcos MD Discharge Disposition: Home Social History Tobacco Use [...] better as expected. Thursday-Thursday Same Day Endo [phone] 7a-8p Otherwise contact [phone] and ask to speak to the data lead radiotelephone operator Follow-up care is a castillo part [...] Diagnosis Code ??? CAD (coronary artery disease), [place] coronary artery I25.10 ??? Tobacco abuse disorder [...] Report (03/20/2016 4:42 PM EDT) Final Diagnosis [id number] ? Location: 4T; EN06; A The signing pathologist has (i) examined [...] sing: (T1) ??ksb 03/25/2016 2:09 PM EDT [facility] GI Biopsy 03/20/2016 4:42 PM EDT 03/20/2016 4:42 PM EDT Lashell Marcos MD PATHOLOGY/CYTOLOGY O HORTENCIA Performing Organization Address [facility]/[place] [address] * Specimen to Pathology (surgical or derm) (03/20/2016 4:42 PM EDT) AP Specimen 03/20/2016 4:42 PM EDT 03/20/2016 4:42 PM EDT Narrative [facility] - 03/20/2016 4:42 PM EDT Specimen requisition ordered. ??Separate Pathology report to follow Lashell Marcos MD PATHOLOGY/CYTOLOGY O HORTENCIA Performing Organization Address [facility] [place] [address] * UPPER GI ENDOSCOPY (03/20/2016 3:56 PM EDT) UPPER GI ENDOSCOPY [facility] Endoscopy Patient Name: Seferino Honeycutt ? Procedure Date: 03/20/2016 3:56 PM ? Date of : 1960 ? Age: 56 ? Order #: [id number] ? Procedure: ? Upper GI endoscopy Indications: ? Cirrhosis with suspected esophageal ? varices Providers: ? Selene Zavaleta RN, ? Gretel Alvarez Referring MD: ?Jose M Sauceda MD Medicines: ? Midazolam [...] years for ? screening purposes ? Lashell DmitriyPato Marcos Lashell Dmitriy Marcos, 03/20/2016 4:50:22 PM This report has been [...] 03/20/16 at 1630, Until Ivonne 03/20/16 at 8, Endoscopy (Day of Procedure) New Bag 03/20/2016 4:10 PM EDT 100 mL/hr 100 mL/hr documented in this encounter Active and Recently Administered Medications Times are shown in EDT. Continuous Medication Order 03/18/2016 03/19/2016 03/20/2016 lactated ringers infusion 100 mL/hr, Intravenous, CONTINUOUS, Starting on Ivonne 03/20/16 at 1630, Until Ivonne 03/20/16 at 202, Endoscopy (Day of Procedure) 1610 (New Bag - Prov ider: Nadiya sIlas, TANG) PRN Medication Order 03/18/2016 03/19/2016 03/20/2016 fentaNYL 50 mcg/mL multi-dose injection (CANCELED) ONCE PRN, Starting on Ivonne 03/20/16 at 1626, Until Ivonne 03/20/16 at 2027, Intra-Operative (Intra-Procedure), Routine 1626 (Given - Provid er: Selene Crabtree RN)1629 (Given - Provider: Selene Crabtree RN)1633 (Given - Provider: Selene Crabtree RN) midazolam (PF) (VERSED) 1 mg/mL multi-dose injection (CANCELED) ONCE PRN, Starting on Ivonne 03/20/16 at 1626, Until Ivonne 03/20/16 at 2027, Intra-Operative (Intra-Procedure), Routine 1626 (Given - Provid er: Selene Crabtree RN)1629 (Given - Provider: Selene Crabtree RN)1633 (Given - Provider: Selene Crabtree RN)1635 (Given - Provider: Selene Crabtree RN) documented in this encounter Care Teams Drafter Automotive Design Relationship Specialty Start Date End Date Jose M Sauceda MD [address] [place] [phone] PCP - General 06/09/12 07/25/20 documented as of this encounter
--- OUTSIDE RECORDS SUMMARY | 2024-11-23 08:26 | XMS_ITS | Encounter Summary ---
Author Organization [facility] [place] [address] Care Team Providers Care Title Curative Specialist Name Role Phone Jose M Sauceda MD Primary Care Provider [phone] Encounter Details Date Type Department Care Team ([facility] st Contact Info) Description 09/12/2013 External Results [place] [id number] Provider, Scanning Social History Tobacco Use Types Packs/Day Years Used Date Smoking Tobacco: Every Day Cigarettes Smokeless Tobacco: Never Comments:avs information Alcohol Use [...] Priority Date/Time Associated Diagnosis Comments SURGICAL PATHOLOGY SCAN Routine 09/09/2013 documented in this encounter Results * Scan Doc: Surgical Pathology (09/09/2013) Wyatt Edmonds MD MEDIA MGR SCAN EXT O RDR/RSLT documented in this encounter Visit Diagnoses Not on filedocumented in this encounter Care Teams Title Curative Specialist Relationship Specialty Start Date End Date Jose M Sauceda MD [address] [place] [id number] PCP - General 06/09/12 07/25/20 documented as of this encounter
--- OUTSIDE RECORDS SUMMARY | 2024-11-23 08:26 | XMS_ITS | Encounter Summary ---
Author Organization [facility] Address [facility] [place] [address] Care Team Providers Care Financial Service Professional Name Role Phone Jose M Sauceda MD Primary Care Provider [phone] Reason for Visit * Reason Comments Hepatitis C Encounter Details Date Type Department Care Team (Late st Contact Info) Description 02/13/2014 4:00 PM EDT Follow-[place] [phone] Alycia Malone APRN [facility] [place] [address] Cirrhosis of liver (Primary Dx) Discharge Disposition: Home Social History Tobacco Use Types Packs/Day Years Used Date Smoking Tobacco: Some Days Cigarettes 0.3 35 Smokeless Tobacco: Never Tobacco Cessation:Ready to Q uit: No Comments:avs information Alcohol Use Standard Drinks/Week Comments No 0 (1 standard drink = 0.6 oz pur e alcohol) Sex and Gender Information Value Date Recorded Sex Assigned at Not on file Gender Identity Not on file Sexual Orientation Not on file documented as of this encounter Last Filed Vital Signs Vital Sign Reading Time Taken Comments Blood Pressure 140/80 02/13/2014 4:06 PM EDT Pulse 79 02/13/2014 4:06 PM EDT Temperature - - Respiratory Rate - - Oxygen Saturation - - Inhaled Oxygen Concentration - - Weight 118.3 kg (260 lb 12.8 oz) 02/13/2014 4:06 PM EDT Height - - Body Mass Index 37.42 12/27/2013 4:59 PM EST documented in this encounter Progress Notes * Alycia Malone APRN - 02/13/2014 4:01 PM EDT Gastroenterology and Hepatology Outpatient Follow-Up GI Problem list: 1. Cirrhosis ( based on thrombocytopenia and hypoalbuminemia) CT left lobe hypertrophy and nodularity EGD 07/07 no varices Well compensated 2. Chronic hepatitis C, genotype 1A Diagnosed in 2000 by routine blood work. 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 Treatment naive 3. Alcohol abuse Sober since 2004 4. 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 Health Maintenance: Hepatitis A vaccine: immune Hepatitis B vaccine: immune Colonoscopy: Other pertinent medical issues #CAD s/p stent 2006 #Kidney stones #Chronic back pain/spinal stenosis Interval History: Mr Honeycutt comes in for a routine follow up. He recently had a stent placed for a kidney stone. Other than this he has been well and reports no new medical problems. He did discontinue the coumadin. He denies any gi tract bleeding , confusion or abdominal swelling. Has not had his screening abdominal ultrasound which was discussed at his last visit. Assessment and Plan: Mr. Honeycutt is a 54 year old man with cirrhosis secondary to chronic, treatment- naive, genotype 1a hepatitis C. Clinically well compensated. Will reschedule abdominal ultrasound for hepatoma surveillance, recent renal series did not look at the liver. We had a long discussion about his treatment options which include 12 week course of peg interferon, ribavirin and sofosbuvir, he is not wanting to take interferon due to concern about side effects. Also given the degree of thrombocytopenia I do not think he would tolerate interferon therapy well. A second option includes a 12 week course of sofosbuvir and simeprevir, this combination was studied in small trials with excellent success rates in t reatment naive cirrhotics like Seferino however the treatment numbers were small, and this raises obvious concerns. However this combination is recommended by the [employer] as first line therapy. Lastlywe could consider waiting for the release of ledisprevir and use it in combination with sofosbuvir,we anticipate that this drug will be released in July of this year. Seferino is inclined to wait for the newer medications. His brother is currently taking treatment and he would like to watch and see how he does. I have recommended that we repeat his EGD in the next year. I will plan to see him again in six months unless he changes his mind and wants to pursue treatment earlier. documented in this encounter Plan of Treatment Scheduled Orders Name Type Priority Associated Diagnoses Orde r Schedule UPPER GI ENDOSCOPY Procedures Routine Cirrhosis of liver Ordered: 02/13/2014 documented as of this encounter Visit Diagnoses Diagnosis Cirrhosis of liver- Primary Cirrhosis of liver without mention of alcohol documented in this encounter Care Teams Financial Service Professional Relationship Specialty Start Date End Date Jose M Sauceda MD [address] [place] [id number] PCP - General 06/09/12 07/25/20 documented as of this encounter
--- OUTSIDE RECORDS SUMMARY | 2024-11-23 08:26 | XMS_ITS | Encounter Summary ---
Author Organization [facility] Address [facility] [place] [address] Care Team Providers Care Reporter Anchor Name Role Phone Jose M Sauceda MD Primary Care Provider [phone] Encounter Details Date Type Department Care Team (Late st Contact Info) Description 12/12/2014 Notes Only Gastroenterology at [facility] [place] [phone] Tonia Burk, RN Social History Tobacco Use Types Packs/Day [...] as of this encounter Progress Notes * Tonia Burk, RN - 12/12/2014 10:05 AM EST PA request for Harvoni x 12 weeks submitted to [place] Medicaid. Await response. Naive; 1a; cirrhosis. documented in this encounter Plan of Treatment Not on file documented as of this encounter Visit Diagnoses Not on filedocumented in this encounter Care Teams Reporter Anchor Relationship Specialty Start Date End Date Jose M Sauceda MD [address] [place] [id number] PCP - General 06/09/12 07/25/20 documented as of this encounter
--- OUTSIDE RECORDS SUMMARY | 2024-11-23 08:26 | XMS_ITS | Encounter Summary ---
Author Organization [facility] Address [facility] [place] [address] Care Team Providers Care Drivability Technician Name Role Phone Jose M Sauceda MD Primary Care Provider [phone] Reason for Visit * Reason Comments Hepatitis C Encounter Details Date Type Department Care Team (Late st Contact Info) Description 07/31/2014 2:00 PM EDT [place] [phone] Vargas Malone APRN [facility] [address] [place] [address] Cirrhosis of liver; Chronic hepatitis C Discharge Disposition: Home Social History Tobacco Use [...] Sign Reading Time Taken Comments Blood Pressure 131/68 07/31/2014 1:35 PM EDT Pulse 67 07/31/2014 1:35 PM EDT Temperature - - Respiratory Rate - - Oxygen Saturation - - Inhaled Oxygen Concentration - - Weight 103.9 kg (229 lb) 07/31/2014 1:35 PM EDT Height 175.3 cm (5' 9) 07/31/2014 1:35 PM EDT Body Mass Index 33.82 07/31/2014 1:35 PM EDT documented in this encounter Progress Notes * Vargas Malone APRN - 07/31/2014 1:37 PM EDT Gastroenterology and Hepatology Outpatient Follow-Up GI Problem list: 1. Cirrhosis ( based on thrombocytopenia and hypoalbuminemia) CT left lobe hypertrophy and nodularity EGD 07/07 no varices Well compensated Fibroscan 07/31/2014 Median: IQR: Success rate: Predicted fibrosis score: 2. Chronic hepatitis C, genotype 1A Diagnosed in 2000 by routine blood work. 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 Treatment naive 3. Alcohol abuse Sober since 2004 4. 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 Health Maintenance: Hepatitis A vaccine: immune Hepatitis B vaccine: immune Colonoscopy: [place] ? 2010 Other pertinent medical issues #CAD s/p stent 2006 #Kidney stones #Chronic back pain/spinal stenosis Interval History: Mr Honeycutt comes in for a routine follow up. He has not had his routine hepatoma surveillance. I attempted to do a fibroscan test today but it was a difficult exam. Unable to get an accurate result, however all of the readings that Iwas able to get were consistent with cirrhosis and concerning for portal hypertension. Review of Systems Constitutional: Negative for fever and unexpected weight change. Gastrointestinal: Negative for nausea, vomiting, abdominal pain and blood in stool. Physical Exam Constitutional: He appears well-developed and well-nourished. HENT: Head: Normocephalic and atraumatic. Eyes: Pupils are equal, round, and reactive to light. No scleral icterus. Cardiovascular: Normal rate and regular rhythm. Pulmonary/Chest: Effort normal and breath sounds normal. Abdominal: Soft. He exhibits no ascites and no mass. There is no hepatosplenomegaly. There is no tenderness. Skin: Skin is warm and dry. Psychiatric: He has a normal mood and affect. His behavior is normal. Assessment and Plan: Mr. Honeycutt is a 54 year old man with cirrhosis secondary to chronic, treatment- naive, genotype 1a hepatitis C. Clinically well compensated. 1. Hepatitis C, will attempt to treat with 12 weeks of sofosbuvir and ledisprevir ( due to be released next week). He will get baseline labs drawn today. 2. Cirrhosis, requires ongoing hepatoma surveillance, will schedule abdominal ultrasound also needsrepeat EGD to look for portal hypertesnio. Will plan to submit for prior authorization to his insurance company, once he starts treatment willsee him back at week 2 with labs. documented in this encounter Plan of Treatment Scheduled Orders Name Type Priority Associated Diagnoses Orde r Schedule UPPER GI ENDOSCOPY Procedures Routine Cirrhosis of liver Ordered: 07/31/2014 documented as of this encounter Results * US abdomen complete (09/08/2014 11:55 AM EST) Anatomical Region Laterality Modality Abdomen, Vascular Ultrasound 09/08/2014 11:5 5 AM EST Narrative 09/08/2014 12:06 PM EST Abdominal ?(Signed Final 09/08/2014 12:05 ? pm) Patient Info ID #: ? [id number] ?: ??[birth year] (54 yrs) Name: ? SEFERINO Hines ?Visit Date: 09/08/2014 11:49 am ? RACHEL Performed By Performed By: ?Salma Guerra RDMS Attending: ? Dexter Velez MD Referred By: ? VARGAS MALONE APRN Service(s) Provided ??[facility] - Abdominal Complete Survey - [id number] ? [id number] Indications ??cirrhosis, screen for hcc Comparison CT scan on: 07/06/13 ----- Liver ----- Right Lobe Length: ?? 13.7 ?? cm Echogenicity/Echotexture: ?? Coarse parenchyma with capsular ? nodularity Gallbladder Cholelithiasis: ?No stones visualized Wall Thickness: ?2. mm Focal Tenderness: ?Negative sonographic Diaz's sign Comment: ?patient not NPO Biliary Tract Intrahepatic Ducts: ?? Normal Extrahepatic Ducts: ?? Normal Common Duct Size: ? 4.0 ? mm -------- Pancreas -------- Head: ? Normal Tail: ? Poorly visualized due to overlying bowel Body: ? Normal Comment: ?There is a peripancreatic node measuring ? 2.3x1.2x1.5cm. ------ Spleen ------ Size (cm) ?L: ??15.0 ?AP: ??13.6 ?TV: ??8.1 Vol (ml): ?865.2 Comment: ?Splenomegaly- mild Right Kidney Size (cm) ?L: ??11.6 Cortical Thickness: ?Normal Cortical Echogenicity: ?? Normal Hydronephrosis: ?No sonographic evidence Comment: ?Two cysts seen. Largest measures 1.1cm and ? demonstrates a septation. Left Kidney Size (cm) ?L: ??12.4 Cortical Thickness: ?Normal Cortical Echogenicity: ?? Normal Hydronephrosis: ?No sonographic evidence Comment: ?Simple cyst seen at the superior pole measuring ? 1cm. ----- Aorta ----- Measurements (cm): Proximal ? AP: ?? 2.5 Mid ?AP: ?? 1.9 Distal ? AP: ?? 1.8 Comment: ?Normal in caliber where visualized --- IVC --- Normal in caliber where visualized Fluid Collections Perihepatic ascites seen. Impression Ultrasound - Abdomen Complete - Summary Cirrhosis with portal hypertension. I ??viewed the images and agree with the above interpretation. ? Dexter Velez MD Electronically Signed Final Report ?? 09/08/2014 12:05 pm Procedure Note Dexter Velez MD - 09/08/2014 Abdominal (Signed Final 09/08/2014 12:05 pm) Patient Info ID #: [id number] : [birth year] (54 yrs) Name: SEFERINO Hines Visit Date: 09/08/2014 11:49 am RACHEL Performed By Performed By: Salma Guerra RDMS Attending: Dexter Velez MD Referred By: VARGAS MALONE APRN Service(s) Provided [facility] - Abdominal Complete Survey - [id number] Indications cirrhosis, screen for hcc Comparison CT scan on: 07/06/13 ----- Liver ----- Right Lobe Length: 13.7 cm Echogenicity/Echotexture: Coarse parenchyma with capsular nodularity Gallbladder Cholelithiasis: No stones visualized Wall Thickness: 2. mm Focal Tenderness: Negative sonographic Diaz's sign Comment: patient not NPO Biliary Tract Intrahepatic Ducts: Normal Extrahepatic Ducts: Normal Common Duct Size: 4.0 mm -------- Pancreas -------- Head: Normal Tail: Poorly visualized due to overlying bowel Body: Normal Comment: There is a peripancreatic node measuring 2.3x1.2x1.5cm. ------ Spleen ------ Size (cm) L: 15.0 AP: 13.6 TV: 8.1 Vol (ml): 865.2 Comment: Splenomegaly- mild Right Kidney Size (cm) L: 11.6 Cortical Thickness: Normal Cortical Echogenicity: Normal Hydronephrosis: No sonographic evidence Comment: Two cysts seen. Largest measures 1.1cm and demonstrates a septation. Left Kidney Size (cm) L: 12.4 Cortical Thickness: Normal Cortical Echogenicity: Normal Hydronephrosis: No sonographic evidence Comment: Simple cyst seen at the superior pole measuring 1cm. ----- Aorta ----- Measurements (cm): Proximal AP: 2.5 Mid AP: 1.9 Distal AP: 1.8 Comment: Normal in caliber where visualized --- IVC --- Normal in caliber where visualized Fluid Collections Perihepatic ascites seen. Impression Ultrasound - Abdomen Complete - Summary Cirrhosis with portal hypertension. I viewed the images and agree with the above interpretation. Dexter Velez MD Electronically Signed Final Report 09/08/2014 12:05 pm Toni Doyle MD IMG US GEN ORDERABL ES documented in this encounter Visit Diagnoses Diagnosis Cirrhosis of liver Cirrhosis of liver without mention of alcohol Chronic hepatitis C Chronic hepatitis C without mention of hepatic coma Cirrhosis of liver Cirrhosis of liver without mention of alcohol documented in this encounter Care Teams Drivability Technician Relationship Specialty Start Date End Date Jose M Sauceda MD [address] [place] [id number] PCP - General 06/09/12 07/25/20 documented as of this encounter
--- OUTSIDE RECORDS SUMMARY | 2024-11-23 08:26 | XMS_ITS | Encounter Summary ---
Author Organization [facility] Address [facility] [place] [address] Care Team Providers Care On Air Host Name Role Phone Jose M Sauceda MD Primary Care Provider [phone] Encounter Details Date Type Department Care Team (Latest Contact Info) Description 08/08/2014 3:20 PM EDT - 08/08/2014 10:22 PM EDT Hospital Encounter [place] [phone] Velma Rodas MD [facility] [place] [address] Des Brannon MD Discharge Disposition: Home Social History Tobacco [...] Sign Reading Time Taken Comments Blood Pressure 107/56 08/08/2014 5:40 PM EDT Pulse 74 08/08/2014 5:40 PM EDT Temperature 36.6 ??C (97.9 ??F) 08/08/2014 4:06 PM ED T Respiratory Rate 16 08/08/2014 5:40 PM EDT Oxygen Saturation 98% 08/08/2014 5:40 PM EDT Inhaled Oxygen Concentration - - Weight - - Height - - Body Mass Index - - documented in this encounter Discharge Instructions * Discharge Instructions* Deshawn Heredia RN - 08/08/2014 5:40 PM EDT You may have received medication before and/or during your procedure which effects judgement and reaction time. Do not drive, operate machinery, drink alcoholic beverages, or make important decisions for 24 hours. Be careful on stairs, as you may be unsteady on your feet. You may eat a regular diet as tolerated. Do not smoke if you are alone. IV site -- slight redness or tenderness is normal. You may use a warm compress. If tenderness and redness increases or foul drainage occurs please contact your M.D. Please call [phone] before 5 pm with problems, questions or concerns. After 5pm call [phone] and ask to speak with the environmental technology professor information technology intern. Discharge instructions reviewed with patient who expresses understanding. * Attachments The following attachments cannot be sent through Care Everywhere. * EGD (UPPER ENDOSCOPY) : POST-OP (BULGARIAN) documented in this encounter Medications at Time of Discharge Medication Sig Dispensed Refills Start Date End Date tamsulosin (FLOMAX) 0.4 mg Capsule, Sust. Release [...] MG = 1 Tablet(s), Sublingual, PRN 03/02/2008 traZODone (DESYREL) 100 mg tablet Take 150 mg by mouth nightly. 03/04/2016 documented as of this encounter H&P Notes * Des Brannon MD - 08/08/2014 5:23 PM EDT Gastroenterology and Hepatology Pre-Procedure History and Physical Exam Procedure: Gastroscopy +/- banding Indication: 54M with HCV cirrhosis, Assess for varices. Patient Active Problem List Diagnosis Code ??? CAD (coronary artery disease), [place] coronary artery 414.01 ??? Tobacco abuse disorder 305.1 ??? Hepatitis C 070.70 ??? Hypertension 401.9 ??? Spinal stenosis, lumbar region, without neurogenic claudication 724.02 ??? Chronic Mechanical low back pain 724.2 ??? Cirrhosis of liver 571.5 EXAM: HEENT: Airway examined, oropharynx clear Mallampati Score: II (soft palate, uvula, fauces visible) LUNGS: Clear to auscultation HEART: Regular rate and rhythm, normal S1, S2 ABDOMEN: Normal bowel sounds, soft, non tender, non distended, A/P Proceed with the planned endoscopic procedure. ASA 2 - Patient with mild systemic disease with no functional limitations moderate (conscious sedation) Risks and benefits of the procedure explained to the patient. Consent signed. documented in this encounter Miscellaneous Notes * Miscellaneous - Provider, Scanning - 08/08/2014 9:38 PM EDT * OR Attestation - Des Brannon MD - 08/08/2014 5:33 PM EDT Attestation: Case Date: 08/08/2014 As the attending physician, I personally performed the entire procedure. DES BRANNON MD 08/08/2014 * Miscellaneous - Provider, Scanning - 08/08/2014 4:07 PM EDT documented in this encounter Plan of Treatment Not on file documented as of this encounter Procedures Procedure Name Priority Date/Time Associated Diagnosis Comments EGD, UPPER GI ENDOSCOPY (WRVU 2.09) 08/08/2014 5:25 PM EDT Cirrhosis of liver UPPER GI ENDOSCOPY Routine 08/08/2014 5: 24 PM EDT documented in this encounter Results * UPPER GI ENDOSCOPY (08/08/2014 5:24 PM EDT) UPPER GI ENDOSCOPY [facility] Endoscopy Patient Name: Seferino Honeycutt ? Procedure Date: 08/08/2014 5:24 PM ? N: [id number] ? Date of : 1960 ? Age: 54 ? Order #: [id number] ? Procedure: ? Upper GI endoscopy Indications: ? Screening procedure, Cirrhosis with ? suspected esophageal varices Providers: ? Milly Zavaleta ? Jia Lin, RN, Zbigniew Alicea. ? Capo, Mobile Equipment Operator Referring MD: ?Jose M Sauceda MD Medicines: ? Midazolam 3 mg IV, Fentanyl [...] and ? gastroesophageal junction were normal. ? Esophagogastric landmarks were identified: the ? gastroesophageal junction was found at 40 cm from the ? incisors. ? A few small erosions in linear distribution extending ? from pylorus found in the gastric antrum. ? The gastric body, cardia (on retroflexion) and ? gastric fundus (on retroflexion) were normal. ? The duodenal bulb, first part of the duodenum, 2nd ? part of the duodenum and 3rd part of the duodenum ? were normal. ? Impression: ?- Normal upper third of esophagus, ? middle third of esophagus, lower ? third of esophagus and ? gastroesophageal junction. ? - Erosive gastropathy. ? - Normal duodenal bulb, first part of ? the duodenum, 2nd part of the ? duodenum and 3rd part of the duodenum. Recommendation: ?Repeat gastroscopy in 2yrs for ? variceal screening ? Follow up with Alycia Malone ? Des Brannon Des Brannon, 08/08/2014 5:39 PM This report has been signed electronically. Number of Addenda: 0 Note Initiated On: 08/08/2014 5:24 PM PROVATION 08/08/2014 5:24 PM EDT Jose M Sauceda MD GENERAL SURGICAL ORD ERABLES PROVATION documented in this encounter Visit Diagnoses Not on filedocumented in this encounter Active and Recently Administered Medications Times are shown in EDT. PRN Medication Order 08/06/2014 08/07/2014 08/08/2014 fentaNYL 50mcg/mL injection (CANCELED) ONCE PRN, Starting on Thu08/08/14 at 1727, Until Thu08/08/14 at 1808, Pain, Intra-Operative (Intra-Procedure), Routine 172 (Given - Provid er: Jia Rogel RN)172 (Given - Provider: Jia Rogel RN) midazolam (PF) (VERSED) 1 mg/mL injection (CANCELED) ONCE PRN, Starting on Thu08/08/14 at 1727, Until Thu08/08/14 at 1808, Sleep, Intra-Operative (Intra-Procedure), Routine 172 (Given - Provid er: Jia Rogel RN)172 (Given - Provider: Jia Rogel RN) documented in this encounter Care Teams On Air Host Relationship Specialty Start Date End Date Jose M Sauceda MD [address] [place] [phone] PCP - General 06/09/12 07/25/20 documented as of this encounter
--- OUTSIDE RECORDS SUMMARY | 2024-11-23 08:26 | XMS_ITS | Encounter Summary ---
Author Organization [facility] Address [facility] [place] [address] Care Team Providers Care Hr Analyst Name Role Phone Jose M Sauceda MD Primary Care Provider [phone] Reason for Visit * Reason Comments Post Op Encounter Details Date Type Department Care Team (Latest Contact Info) Description 09/20/2013 10:00 AM EST Procedure visit Urology at [facility] [place] [id number] Wyatt Tay MD Nephrolithiasis (Primary Dx) Discharge Disposition: Home Social History [...] Sign Reading Time Taken Comments Blood Pressure 122/74 09/20/2013 10:15 AM EST Pulse 85 09/20/2013 10:15 AM EST Temperature - - Respiratory Rate - - Oxygen Saturation - - Inhaled Oxygen Concentration - - Weight 111.1 kg (245 lb) 09/20/2013 10:15 AM EST Height 175.3 cm (5' 9) 09/20/2013 10:15 AM EST Body Mass Index 36.18 09/20/2013 10:15 AM EST documented in this encounter Patient Instructions * Patient Instructions* Yoanna Hackett LPN - 09/20/2013 10:46 AM EST Instructions following Cystoscopy Activity: As tolerated by your comfort level. Fluids: You should increase your water today. Avoid coffee, tea and cola. You do not need to ounces of water today. Urination: You will likely have a small amount of blood in your urine for the next several days. This is normal; however, if you are passing large amounts of blood clots or are unable to void please call our office at [phone] before 5PM or [phone] after hours. Please call if: * you have copious blood in your urine * fevers greater than 101.3 F * you are unable to void The number for questions is [phone] before 5 PM weekdays and [phone] after 5 PM and weekends. Follow-up: 3 months with an ultrasound of your kidneys. documented in this encounter Procedure Notes * Wyatt Tay MD - 09/20/2013 10:46 AM ESTAssociated Order(s): CYSTO, STENT REMOVAL Pre-Procedure Diagnose(s): Nephrolithiasis Procedure: Flexible cystoscopy, ureteral stent removal Surgeon: Kendal Pre-Operative Diagnosis: S/p ureteroscopy Post-Operative Diagnosis: Uncomplicated stent removal Complications: None. Procedure: Urinalysis revealed no evidence of an active urinary tract infection. After informed consent was obtained and the external genitalia appropriately had been cleaned and draped lidocaine was instilled into the urethra to achieve topical anesthesia. The flexible telescope was inserted into the urethra and advanced into the bladder under direct vision. The stent was viewed, grasped and removed atraumatically. The patient tolerated the procedure without difficulty. There were no complications. Plan: - RTC 3 months w/ renal sono prior - Dietary instructions for stone prevention given - Call provider if fever/chills, severe pain, nausea/vomiting documented in this encounter Plan of Treatment Not on file documented as of this encounter Procedures Procedure Name Priority Date/Time Associated Diagnosis Comments CYSTO, STENT REMOVAL Routine 09/20/2013 10:49 AM EST Nephrolithiasis documented in this encounter Results * US retroperitoneal complete (12/27/2013 4:47 PM EST) Anatomical Region Laterality Modality Abdomen Ultrasound 12/27/2013 4:47 PM EST Narrative 12/27/2013 4:54 PM EST ? Renal ? (Signed Final 12/27/2013 04:53 pm) Patient Info ID: ? [id number] ? : [birth year] (53 yrs) Name: ? SEFERINO Hines ? Visit Date: 12/27/2013 04:41 pm ? HONEYCUTT Performed By Performed By: ?Britt Ji RDMS Attending: ? Milagros HICKMAN, Dexter Graves Referred By: ? WYATT TAY MD Service(s) Provided URETRO - Retroperitoneal Complete - [id number] ? [id number] Indications S/p stent removal 09/20. Assess for hydro or residual stone Comparison CT scan: 07/06/13. ??OR C arm:09/07/13 Right Kidney Size (cm) ?L: ??11.8 Cortical Thickness: ?Normal Cortical Echogenicity: ?? Normal Hydronephrosis: ?No sonographic evidence Comment: ?Two small sub centimeter ??cysts seen superior and ? mid kidney ?? 0.5 cm non obstructing upper pole ? stone Left Kidney Size (cm) ?L: ??12 Cortical Thickness: ?Normal Cortical Echogenicity: ?? Normal Hydronephrosis: ?No sonographic evidence Urinary Bladder Pre-void (cm) ? L: ??4.3 ? AP: ??5.9 ? TV: ??4.7 Vol (ml): ?62.4 Comment: ?Partially distended, normal contour Impression Ultrasound - ??Retroperitoneal Complete - Summary Small non obstructing right upper pole renal stone. Two small right renal cysts. Left kidney normal. I ??viewed the images and agree with the above interpretation. Thank you for allowing us to participate in the care of SEFERINO HONEYCUTT. Please do not hesitate to call if you have any questions. ? Dexter Linares MD Electronically Signed Final Report ?? 12/27/2013 04:53 pm Procedure Note Dexter Linares MD - 12/27/2013 Renal (Signed Final 12/27/2013 04:53 pm) Patient Info ID: [id number] : 62 (53 yrs) Name: SEFERINO Hines Visit Date: 12/27/2013 04:41 pm YINKA Performed By Performed By: Britt Ji RDMS Attending: Dexter Linares MD Referred By: WYATT TAY MD Service(s) Provided URETRO - Retroperitoneal Complete - [id number] Indications S/p stent removal 09/20. Assess for hydro or residual stone Comparison CT scan: 07/06/13. OR C arm:09/07/13 Right Kidney Size (cm) L: 11.8 Cortical Thickness: Normal Cortical Echogenicity: Normal Hydronephrosis: No sonographic evidence Comment: Two small sub centimeter cysts seen superior and mid kidney 0.5 cm non obstructing upper pole stone Left Kidney Size (cm) L: 12 Cortical Thickness: Normal Cortical Echogenicity: Normal Hydronephrosis: No sonographic evidence Urinary Bladder Pre-void (cm) L: 4.3 AP: 5.9 TV: 4.7 Vol (ml): 62.4 Comment: Partially distended, normal contour Impression Ultrasound - Retroperitoneal Complete - Summary Small non obstructing right upper pole renal stone. Two small right renal cysts. Left kidney normal. I viewed the images and agree with the above interpretation. Thank you for allowing us to participate in the care of SEFERINO HONEYCUTT. Please do not hesitate to call if you have any questions. Dexter Linares MD Electronically Signed Final Report 12/27/2013 04:53 pm Wyatt Tay MD IMG US GEN ORDERABLE S * Cysto, Stent Removal, clinic (09/20/2013 10:49 AM EST) Narrative Wyatt Tay MD - 09/20/2013 10:49 AM EST Wyatt Tay MD ? 09/20/2013 10:49 AM Procedure: Flexible cystoscopy, ureteral stent removal Surgeon: Kendal Pre-Operative Diagnosis: ??S/p ureteroscopy Post-Operative Diagnosis: Uncomplicated stent removal Complications: None. Procedure: Urinalysis revealed no evidence of an active urinary tract infection. After informed consent was obtained and the external genitalia appropriately had been cleaned and draped lidocaine was instilled into the urethra to achieve topical anesthesia. The flexible telescope was inserted into the urethra and advanced into the bladder under direct vision. ??The stent was viewed, grasped and removed atraumatically. ?? The patient tolerated the procedure without difficulty. ?? There were no complications. Plan: - RTC 3 months w/ renal sono prior - Dietary instructions for stone prevention given - Call provider if fever/chills, severe pain, nausea/vomiting Procedure Note Wyatt Tay MD - 09/20/2013 10:46 AM EST Procedure: Flexible cystoscopy, ureteral stent removal Surgeon: Kendal Pre-Operative Diagnosis: S/p ureteroscopy Post-Operative Diagnosis: Uncomplicated stent removal Complications: None. Procedure: Urinalysis revealed no evidence of an active urinary tract infection. After informed consent was obtained and the external genitaliaappropriately had been cleaned and draped lidocaine was instilled into theurethra to achieve topical anesthesia. The flexible telescope was inserted into the urethra and advanced into thebladder under direct vision. The stent was viewed, grasped and removedatraumatically. The patient tolerated the procedure without difficulty. There were nocomplications. Plan: - RTC 3 months w/ renal sono prior - Dietary instructions for stone prevention given - Call provider if fever/chills, severe pain, nausea/vomiting Wyatt Tay MD URO PROCEDURE W RFL ORDERABLES documented in this encounter Visit Diagnoses Diagnosis Nephrolithiasis- Primary Calculus of kidney Nephrolithiasis Calculus of kidney documented in this encounter Care Teams Hr Analyst Relationship Specialty Start Date End Date Jose M Sauceda MD [address] [place] [id number] PCP - General 06/09/12 07/25/20 documented as of this encounter
--- OUTSIDE RECORDS SUMMARY | 2024-11-23 08:26 | XMS_ITS | Encounter Summary ---
Author Organization [facility] Address [facility] [place] [address] Care Team Providers Care Mechanical Manufacturing Engineer Name Role Phone Jose M Sauceda MD Primary Care Provider [phone] Encounter Details Date Type Department Care Team (Late st Contact Info) Description 11/08/2015 - 11/08/2015 11:59 PM EST Hospital Encounter Radiology Library at [facility] [place] [address] [place] [address] [facility], Temporary Pain Discharge Disposition: Home Social History Tobacco Use [...] nightly. 03/04/2016 documented as of this encounter Plan of Treatment Not on file documented as of this encounter Procedures Procedure Name Priority Date/Time Associated Diagnosis Comments FILM LIBRARY STORAGE ONLY MR SPINE Routine 11/08/2015 12:00 AM EST Pain documented in this encounter Results * Film Library- Storage only MR Spine (11/08/2015 12:00 AM EST) Narrative [facility] - 11/28/2015 10:41 AM EST See PACS for result report. Dr De La Torre [facility] FILM LIBRARY ORD ERABLES [place], [place] documented in this encounter Visit Diagnoses Diagnosis Pain Generalized pain documented in this encounter Care Teams Mechanical Manufacturing Engineer Relationship Specialty Start Date End Date Jose M Sauceda MD [address] [place] [id number] PCP - General 06/09/12 07/25/20 documented as of this encounter
--- OUTSIDE RECORDS SUMMARY | 2024-11-23 08:26 | XMS_ITS | Encounter Summary ---
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) Discharge Disposition: Home Social History Tobacco Use Types Packs/Day Years Used Date Smoking Tobacco: Some Days Cigarettes Smokeless Tobacco: Never Comments:avs information Alcohol Use Standard Drinks/Week Comments No 0 (1 standard drink = 0.6 oz pur e alcohol) Sex and Gender Information Value Date Recorded Sex Assigned at Not on file Gender Identity Not on file Sexual Orientation Not on file documented as of this encounter Last Filed Vital Signs Vital Sign Reading Time Taken Comments Blood Pressure 119/69 12/15/2013 3:04 PM EST Pulse 75 12/15/2013 3:04 PM EST Temperature - - Respiratory Rate - - Oxygen Saturation - - Inhaled Oxygen Concentration - - Weight 117 kg (258 lb) 12/15/2013 3:04 PM EST Height 175.3 cm (5' 9) 12/15/2013 3:04 PM EST Body Mass Index 38.1 12/15/2013 3:04 PM EST documented in this encounter Progress Notes * Dejuan Young MD - 12/15/2013 4:57 PM EST GI Staff Case discussed with Dr. Del Valle. I agree with his full and thorough evaluation. * Michael Del Valle - 12/15/2013 2:53 PM EST Gastroenterology and Hepatology Outpatient Follow-Up Problem list: #Chronic hepatitis C, genotype 1A -Diagnosed in 2000 by routine blood work. 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 He recently had a stent placed for a kidney stone. Other than this he has been well and reports no new medical problems. He remains on warfarin for the partial SMV thrombus found over the summer after he fell down some stairs. He denies any symptoms of hepatic decompensation. Specifically no confusion, weight changes, jaundice, pruritus, gastrointestinal bleeding, abdominal distension or edema. Physical Exam: Blood pressure 119/69, pulse 75, height 175.3 cm (5' 9), weight 117.028 kg (258 lb). General: NAD HEENT: MMM, anicteric Abd: soft, non-tender, non-distended, normo-active bowel sounds Ext: No lower ext edema Neuro: awake, alert, oriented Assessment and Plan: 53 year old man with cirrhosis secondary to chronic, treatment-naive, genotype 1a hepatitis C. Clinically well compensated. Will updated labs and imaging for HCC surveillance. He is likely eligible for non-intereron based therapy for HCV treatment (although will need insurance approval given his genotype). -CBC, CMP and HCV RNA today -Schedule RUQ US for HCC surveillance -Will follow up with Jazmín Malone or Laly Barron to discuss anti-viral treatment further - As stated in my prior note, I would suggest he stop warfarin given that the partial SMV thrombus found last May was likely related to trauma. I do not believe he has a need for long-term anticoagulation but will defer to management of that issue to his primary care doctor. Michael Del Valle MD Gastroenterology and Hepatology Fellow documented in this encounter Miscellaneous Notes * Addendum Note - Michael Del Valle - 12/15/2013 3:47 PM ESTAddended by: MICHAEL DEL VALLE on: 12/15/2013 03:47 PM Modules accepted: Orders documented in this encounter Plan of Treatment Not on file documented as of this encounter Procedures Procedure Name Priority Date/Time Associated Diagnosis Comments HCV QUANT Routine 12/15/2013 3:55 PM EST 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 DIFFERENTIAL, AUTOMATED Routine 12/15/2013 3:55 PM EST HEPATITIS C RNA, QUANTITATIVE, PCR Routine 12/15/2013 3:55 PM EST 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 CBC (WITH DIFF) Routine 12/15/2013 3:55 PM EST 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 COMPREHENSIVE METABOLIC PANEL Routine 12/15/2013 3:55 PM EST 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 documented in this encounter Results * (ABNORMAL) Differential, Automated (12/15/2013 3:55 PM EST) Neutrophil % 58.6 34.0 - 71.0 % CERNER MILLENNIUM Neutrophil Absolute 3.19 1.50 - 6.30 x10(3)/mc L CERNER MILLENNIUM Lymph % 22.6 19.0 - 53.0 % CERNER MILLENNIUM Lymphocytes Abs 1.2 1.0 - 3.6 x10(3)/mc L CERNER MILLENNIUM Monocyte % 16.0(H) 4.0 - 13.0 % CERN[facility] MILLENNIUM Monocyte Abs 0.9 0.2 - 1.0 x10(3)/mc L CERNER MILLENNIUM Eos % 2.0 0.0 - 7.0 % [facility] Eosinophils Abs 0.1 0.0 - 0.5 x10(3)/mc L [facility] Basophil % 0.6 0.0 - 2.0 % [facility] Baso Absolute 0.0 0.0 - 0.2 x10(3)/mc L [facility] Immature Gran % 0.20 0.00 - 0.66 % [facility] Comment: Immature granulocytes(IG's)percentage and absolute count will include metamyelocytes, myelocytes, and promyelocytes. Blood smears from CBCs yielding IG's will be scanned manually for concordance. If this scan disagrees with the automated IG or if promyelocytes are noted, a manual differential will be performed. Immature Gran Absolute 0.01 0.00 - 0.05 x10(3)/mc L [facility] Blood specimen (specimen) 12/15/2013 3:55 PM EST 12/15/2013 4:01 PM EST Dejuan Young MD HEMATOLOGY ORDERABLE S [facility] * HCV Quant Chelsey (12/15/2013 3:55 PM EST) HCV Viral Load [id number] IU/mL [facility] HCV Viral Load Result: [id number] Indication for Study: Hepatitis C Infection Analysis: A quantitiative real time reverse transcriptase PCR assay was performed on extracted viral RNA for the purpose of quantification. Sample: plasma (1 mL minimum volume) Method: Chelsey Laya TaqMAN 48 HCV Linear Range: 43IU/mL - 69,000,000IU/mL (95% CI) Interpretation: The result of this analysis is within the limits of detection of the assay. Note: This assay is being performed in [place] [facility] [place] [facility]. Salvatore Noland, Ph.D. Director, Molecular Pathology [facility] Comment: [VERIFIED DATE]12.20.13 Verified By:May Gomez (Electronic Signature) Blood specimen (specimen) 12/15/2013 3:55 PM EST 12/15/2013 4:01 PM EST Narrative Resulting Agency Comment Spec In Lab Dejuan Young MD HEMATOLOGY ORDERABLE S [facility] MILLENNIUM * (ABNORMAL) Comprehensive metabolic panel (non-fasting) (12/15/2013 3:55 PM EST) Glucose 90 60 - 199 mg/dL [facility] MILLENNIUM Comment:Diabetes: >=200 mg/d L plus symptoms Blood Urea Nitrogen 10 10 - 20 mg/dL CERNER MILLENNIUM Creatinine 0.93 0.80 - 1.50 mg/dL [facility] MILLENNIUM Comment: Please note that the pediatric reference intervals supplied above were not validated at [facility] Results from pediatric patients should be interpreted in conjunction to the patient's age, height and muscle mass. Sodium 138 135 - 145 mmol/L CERNER MILLENNIUM Potassium 4.0 3.5 - 5.0 mmol/L [facility] MILLENNIUM Comment: Please note: ??Patients with WBC >100,000 may have falsely elevated Potassium levels. ??For accurate Potassium quantification in these patients send serum separator tube (gold top) for subsequent determinations. ??Contact the Clinical Chemistry Laboratory if there are any questions. Chloride 105 98 - 107 mmol/L CERNER MILLENNIUM Carbon Dioxide 24 22 - 31 mmol/L [facility]ERN[facility] MILLENNIUM Anion Gap 9 5 - 15 mmol/L [facility]ERN[facility] MILLENNIUM Calcium 9.6 8.5 - 10.5 mg/dL [facility] MILLENNIUM Protein, Total 7.4 6.4 - 8.3 gm/dL [facility]ERN[facility] MILLENNIUM Albumin 3.5 3.2 - 5.2 gm/dL [facility]ERN[facility] MILLENNIUM Aspartate Aminotransferase 78(H) 0 - 39 unit/L [facility]ERN[facility] MILLENNIUM Alanine Aminotransferase 60(H) 0 - 55 unit/L [facility]ERN[facility] MILLENNIUM Alkaline Phosphatase 83 40 - 120 unit/L CERNER MILLENNIUM Bilirubin, Total 0.5 0.2 - 1.3 mg/dL CERN[facility] MILLENNIUM Bilirubin, Direct 0.2 0.0 - 0.3 mg/dL CERNER MILLENNIUM Est Glomerular Filtration Rate >60 >=60 [facility]ERNER MILLENNIUM Comment: This estimated GFR (eGFR) value was [...] the following links into your internet browser. http://www.nkdep.nih.gov/lab-evaluation.shtml http://www.kidney.org/professionals/ Blood specimen (specimen) 12/15/2013 3:55 PM EST 12/15/2013 4:01 PM EST Narrative Resulting Agency Comment Spec In Lab Dejuan Young MD CHEMISTRY ORDERABLES [facility] MILLENNIUM * (ABNORMAL) CBC (with Diff) (12/15/2013 3:55 PM EST) White Blood Cell 5.4 4.0 - 10.0 x10(3)/mc L CERNER MILLENNIUM Red Blood Cell 4.77 4.63 - 6.08 x10(6)/mc L CERNER MILLENNIUM Hemoglobin 12.9(L) 13.7 - 17.5 gm/dL CERNER MILLENNIUM Hematocrit 41.1 40.0 - 51.0 % CERNER MILLENNIUM Mean Cell Volume 86.2 79.0 - 92.0 fL CERNER MILLENNIUM Mean Cell Hemoglobin 27.0 25.6 - 32.2 pg CERNER MILLENNIUM Mean Cell Hemoglobin Concentration 31.4(L) 32.0 - 36.5 gm/dL CERNER MILLENNIUM Platelet 88(L) 145 - 370 x10(3)/mc L CERNER MILLENNIUM RDW Standard Deviation 54.1(H) 35.0 - 46.0 fL CERNER MILLENNIUM RDW coefficient of variation 17.3(H) 10.9 - 14.4 % CERNER MILLENNIUM Mean Platelet Volume 11.3 9.0 - 12.0 fL CERNER MILLENNIUM Blood specimen (specimen) 12/15/2013 3:55 PM EST 12/15/2013 4:01 PM EST Narrative Resulting Agency Comment Spec In Lab Dejuan Young MD HEMATOLOGY ORDERABLE S [facility] documented in this encounter Visit Diagnoses Diagnosis 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- Primary Chronic hepatitis C without mention of hepatic coma documented in this encounter Care Teams Special Education Teachers Relationship Specialty Start Date End Date Jose M Sauceda MD [address] [place] [id number] PCP - General 06/09/12 07/25/20 documented as of this encounter
--- OUTSIDE RECORDS SUMMARY | 2024-11-23 08:26 | XMS_ITS | Encounter Summary ---
Author Organization [facility] Address [facility] [place] [address] Care Team Providers Care Insecticide Mixer Name Role Phone Jose M Sauceda MD Primary Care Provider [phone] Encounter Details Date Type Department Care Team (Late st Contact Info) Description 05/31/2015 Telephone [place] [address] Edouard Flores MD Social History Tobacco Use Types Packs/Day [...] encounter Miscellaneous Notes * Telephone Encounter - Edouard Flores MD - 05/31/2015 9:50 PM EDT Called by ED PA at [facility]. Patient presented with RUQ pain and a history of an SMA thrombus. A CT scan with unclear contrast phasing was performed that apparently demonstrated a portal vein thrombus. The providers at [facility] are interested in a method to further evaluate this portal vein finding other than ultrasound, which is unavailable to them tonight. The patient has been having this pain for 3 days and it has been constant. He has been eating regular meals and is currently hungry. Eating does not provoke or worsen this pain. He is unsure of anything that makes it feel better. He has been passing gas. AfVSS, abd mildly TTP in the RUQ I stated that CT scans must be properly phased to characterize the portal vein. I recommended history questions and physical exam maneuvers that would differentiate gall bladder pathology from pepticulcer disease or bowel infarction. Furthermore, I stated that the definitive way to evaluate the portal vein would be a CT scan with venous phase contrast, however if the patient did not appear toxic, then waiting for an ultrasound in the morning might distinguish between gallbladder and portal vein pathology. Finally, I stated that no vascular intervention has been demonstrated to maintain portal vein patency and that most likely, evaluation by a general surgeon for exploratory laparotomy and bowel resection would be necessary in the setting of portal vein thrombosis. I recommended that the [facility] staff continue their evaluation and contact me at the same number should further concerns arise. EDOUARD FLORES MD. 05/31/2015 9:58 PM documented in this encounter Plan of Treatment Not on file documented as of this encounter Visit Diagnoses Not on filedocumented in this encounter Care Teams Insecticide Mixer Relationship Specialty Start Date End Date Jose M Sauceda MD [address] [place] [id number] PCP - General 06/09/12 07/25/20 documented as of this encounter
--- OUTSIDE RECORDS SUMMARY | 2024-11-23 08:26 | XMS_ITS | Encounter Summary ---
Author Organization [facility] [place] [address] Care Team Providers Care Head Sawyer Automatic Name Role Phone Jose M Sauceda MD Primary Care Provider [phone] Reason for Referral * Consultation (Routine) - Cancelled by Ref Office Specialty Diagnoses / Procedures Referred By Tejal elizabeth Referred To Contact Nephrology Diagnoses Kidney stones Kidney stones Procedures Eval & Treat Wyatt Edmonds MD [facility] [place] [address] [facility] [address] [place] [id number] Referral ID Status Reason Start Date Expiration Date Visits Requested Visits Authorized [id number] Cancelled by Ref Office Consult, Test & Treat 4 03/18/2015 1 1 Encounter Details Date Type Department Care Team (Late st Contact Info) Description 09/19/2014 2:40 PM EST [place] [address] CLINIC, Wyatt Dunham MD Kidney stones Discharge Disposition: Home Social History Tobacco Use [...] Sign Reading Time Taken Comments Blood Pressure 130/84 09/19/2014 3:24 PM EST Pulse - - Temperature - - Respiratory Rate 17 09/19/2014 3:24 PM EST Oxygen Saturation - - Inhaled Oxygen Concentration - - Weight 106.6 kg (235 lb) 09/19/2014 3:24 PM EST Height 175.3 cm (5' 9) 09/19/2014 3:24 PM EST Body Mass Index 34.7 09/19/2014 3:24 PM EST documented in this encounter Progress Notes * Wyatt Edmonds MD - 09/19/2014 3:28 PM EST 53M h/o nephrolithiasis for f/u. S/p R URS/LL/stent in 09/07 for large right ureteral and small renal stone. Uncomplicated. Mapping pyelogram negative. Stent removed. Composition = ca jhonny and ca ox. Counseled on dietary changes for stone risk reduction. Today feels well. No pain. No change in voiding habits. Six months ago, renal US small RUP nonobstructive fragment (5mm). Today, renal US shows 8mm RUP stone w/o hydro. Exam: S NTND No CVAT A: Nephrolithiasis, RUP fragment ? enlarging P: Cont dietary recs for stone prevention 24 hr urine x 2 Nephrology consultation RTC 4 mo w/ NCCT prior Alert me for new flank pain, etc. 16 of 17 min spent in counseling and coordination of care documented in this encounter Plan of Treatment Scheduled Referrals Name Type Priority Associated Diagnoses Order Schedule Referral to Nephrology Outpatient Referral Routine Kidney stones Ordered: 09/19/2014 documented as of this encounter Results * CT abdomen & pelvis WO contrast (01/15/2015 2:15 PM EDT) Anatomical Region Laterality Modality Abdomen, Pelvis Computed Tomogra phy 01/15/2015 2:15 PM EDT Impressions 01/15/2015 2:34 PM EDT IMPRESSION: 1. ??2 punctate, nonobstructing calculi are noted within each renal collecting system. No hydronephrosis or ureteral calculi. 2. ??9 mm calcification to the left of midline located within the prostate is unchanged from prior studies. 3. ??Cirrhosis with splenomegaly indicative of portal hypertension. Narrative 01/15/2015 2:34 PM EDT EXAMINATION: CT Abdomen / Pelvis Without Contrast CLINICAL HISTORY: kidney stones TECHNIQUE: Helical CT of the abdomen and pelvis was performed without the use of intravenous contrast COMPARISON: 07/06/2013 FINDINGS: There are 2 punctate nonobstructing calculi within each renal collecting system, best seen on the thin section axial images. No hydronephrosis. No calculi are present along the course of either ureter. There is a 9 mm calcification just to the left of midline, located in the base of the prostate that is unchanged in position since the prior study. No bladder calculi are seen. No focal lesions are identified in either kidney. This examination is limited for the evaluation of solid organs and vasculature structures due to the lack of intravenous contrast. The right lobe of the liver is shrunken with a macronodular lobular surface, and there is marked hypertrophy of the lateral segment of the left lobe. These findings are highly indicative of cirrhosis. Spleen is enlarged to 16.5 cm, and displaces the left kidney anteriorly and medially. Allowing for the limitations due to the lack of intravenous contrast, no focal lesions are visualized within the pancreas or adrenal glands. The retroperitoneal lymph nodes seen on the prior study are grossly unchanged. No pelvic lymphadenopathy. No ??free fluid in the abdomen or pelvis. ??No bowel dilatation or inflammatory changes. 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 Moderate to severe degenerative disc disease noted in the lower lumbar spine. Procedure Note Griselda Laura MD - 01/15/2015 EXAMINATION: CT Abdomen / Pelvis Without Contrast CLINICAL HISTORY: kidney stones TECHNIQUE: Helical CT of the abdomen and pelvis was performed without theuse of intravenous contrast COMPARISON: 07/06/2013 FINDINGS: There are 2 punctate nonobstructing calculi within each renal collectingsystem, best seen on the thin section axial images. No hydronephrosis. No calculiare present along the course of either ureter. There is a 9 mm calcificationjust to the left of midline, located in the base of the prostate that is unchangedin position since the prior study. No bladder calculi are seen. No focallesions are identified in either kidney. This examination is limited for the evaluation of solid organs andvasculature structures due to the lack of intravenous contrast. The right lobe of the liver is shrunken with a macronodular lobularsurface, and there is marked hypertrophy of the lateral segment of the left lobe.These findings are highly indicative of cirrhosis. Spleen is enlarged to 16.5cm, and displaces the left kidney anteriorly and medially. Allowing for thelimitations due to the lack of intravenous contrast, no focal lesions are visualizedwithin the pancreas or adrenal glands. The retroperitoneal lymph nodes seen on the prior study are grosslyunchanged. No pelvic lymphadenopathy. No free fluid in the abdomen or pelvis. No bowel dilatation orinflammatory changes. 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 Moderate to severe degenerative disc disease noted in the lower lumbarspine. IMPRESSION IMPRESSION: 1. 2 punctate, nonobstructing calculi are noted within each renalcollecting system. No hydronephrosis or ureteral calculi. 2. 9 mm calcification to the left of midline located within the prostateis unchanged from prior studies. 3. Cirrhosis with splenomegaly indicative of portal hypertension. Wyatt Edmonds MD IMG CT ORDERABLES documented in this encounter Visit Diagnoses Diagnosis Kidney stones Calculus of kidney Kidney stones Calculus of kidney documented in this encounter Care Teams Head Sawyer Automatic Relationship Specialty Start Date End Date Jose M Sauceda MD [address] [place] [id number] PCP - General 06/09/12 07/25/20 documented as of this encounter
--- OUTSIDE RECORDS SUMMARY | 2024-11-23 08:26 | XMS_ITS | Encounter Summary ---
Author Organization [facility] Address [facility] [place] [address] Care Team Providers Care Mixed Animal Veterinarian Name Role Phone Jose M Sauceda MD Primary Care Provider [phone] Encounter Details Date Type Department Care Team (Late st Contact Info) Description 01/15/2015 3:00 PM EDT Follow-Up Urology at [facility] [place] [id number] Wyatt Edmonds MD Calculus of right kidney Discharge Disposition: Home Social History Tobacco Use [...] Sign Reading Time Taken Comments Blood Pressure 134/69 01/15/2015 2:56 PM EDT Pulse 64 01/15/2015 2:56 PM EDT Temperature - - Respiratory Rate 16 01/15/2015 2:56 PM EDT Oxygen Saturation - - Inhaled Oxygen Concentration - - Weight 102.1 kg (225 lb) 01/15/2015 2:56 PM EDT Height 176.5 cm (5' 9.5) 01/15/2015 2:56 PM EDT Body Mass Index 32.75 01/15/2015 2:56 PM EDT documented in this encounter Progress Notes * Wyatt Edmonds MD - 01/15/2015 3:12 PM EDT 54M h/o nephrolithiasis for f/u. S/p R URS/LL/stent in 09/07 for large right ureteral and small renal stone. Uncomplicated. Mapping pyelogram negative. Stent removed. Composition = ca jhonny and ca ox. Counseled on dietary changes for stone risk reduction. Today feels well. No pain. No change in voiding habits. Six months ago, renal US showed an enlarging RUP nonobstructive fragment (5-->8mm). COrrelative NCCT today shows a small nonobstr fragment on the right, two punctant fragments on L that are not present on bone windows. He never completed his 24 hr urine collections. Exam: S NTND No CVAT A: Nephrolithiasis P: Cont dietary recs for stone prevention Defer on 24 hr urine collections for now RTC 1 yr w/ renal US Alert me for new flank pain, etc. 16 of 17 min spent in counseling and coordination of care documented in this encounter Plan of Treatment Not on file documented as of this encounter Visit Diagnoses Diagnosis Calculus of right kidney Calculus of kidney documented in this encounter Care Teams Mixed Animal Veterinarian Relationship Specialty Start Date End Date Jose M Sauceda MD [address] [place] [id number] PCP - General 06/09/12 07/25/20 documented as of this encounter
--- OUTSIDE RECORDS SUMMARY | 2024-11-23 08:26 | XMS_ITS | Encounter Summary ---
Author Organization [facility] Address [facility] [place] [address] Care Team Providers Care O And M Supervisor Name Role Phone Jose M Sauceda MD Primary Care Provider Encounter Details Date Type Department Care Team (Late st Contact Info) Description 01/15/2015 1:58 PM EDT - 01/15/2015 11:59 PM EDT Hospital [place] [phone] CLINIC, DR ENRIQUEZ Kidney stones Social History Tobacco Use Types Packs/Day Years [...] MG = 1 Tablet(s), Sublingual, PRN 03/02/2008 ledipasvir-sofosbuvir (HARVONI) 90-400 mg TabletIndications:CAH (chronic active hepatitis) Take 1 tablet by mouth daily. 28 tablet 2 01/01/2015 07/16/2015 traZODone (DESYREL) 100 mg tablet Take 150 mg by mouth nightly. 03/04/2016 documented as of this encounter Plan of Treatment Not on file documented as of this encounter Procedures Procedure Name Priority Date/Time Associated Diagnosis Comments CT ABDOMEN AND PELVIS WO CONTRAST Routine 01/15/2015 2:15 PM EDT Kidney stones documented in this encounter Results * CT abdomen & [...] Diagnoses Diagnosis Kidney stones Calculus of kidney documented in this encounter Care Teams O And M Supervisor Relationship Specialty Start Date End Date Jose M Sauceda MD [address] [place] [address] PCP - General 06/09/12 07/25/20 documented as of this encounter
--- OUTSIDE RECORDS SUMMARY | 2024-11-23 08:26 | XMS_ITS | Encounter Summary ---
Author Organization [facility] Address [facility] [place] [address] Care Team Providers Care Senior Java Web Developer Name Role Phone Nena Sauceda MD Primary Care Provider [phone] Reason for Visit * Reason Comments Follow-up Encounter Details Date Type Department Care Team (Late st Contact Info) Description 07/16/2015 1:30 PM EDT Follow-Up Gastroenterology at [facility] [place] [phone] Lashell Marcos MD Compensated HCV cirrhosis (Primary Dx) Discharge Disposition: Home Social History [...] Sign Reading Time Taken Comments Blood Pressure 138/82 07/16/2015 1:50 PM EDT Pulse 93 07/16/2015 1:50 PM EDT Temperature - - Respiratory Rate - - Oxygen Saturation - - Inhaled Oxygen Concentration - - Weight 108.3 kg (238 lb 11.2 oz) 07/16/2015 1:50 PM EDT Weighed with shoes. Height 176.5 cm (5' 9.5) 07/16/2015 1: 50 PM EDT Body Mass Index 34.74 07/16/2015 1:50 PM EDT documented in this encounter Patient Instructions * Patient Instructions* Lashell Marcos MD - 07/16/2015 2:48 PM EDT 1. Start Lactulose 30ml twice to three times daily- aim for 3-4 bowel movements daily 2. Blood work locally in sep 2014 3. US of the liver locally 4. Follow up in December 2015 with blood work and US the same day documented in this encounter Progress Notes * Lashell Marcos MD - 07/16/2015 2:30 PM EDT Gastroenterology and Hepatology Follow Up Note Patient: Seferino Honeycutt Jr. Gender: Male : 1960 Provider: Lashell Marcos MD Interval History: Mr. Seferino Honeycutt Jr. is here for follow up for Hepatitis C cirrhosis. He has now completed 12 weeks of Harvoni, today at 3 months after completing therapy. He did well on treatment. From a liver standpoint, he has noticed problems with concentration and has noticed feeling disoriented at times. He denies day/night reversal or overt confusion. He denies any jaundice, fluid retention or overt bleeding. He still smokes. He does not drink alcohol. Preventative Health: HAV- Immune HBV- Immune HIV Status- Neg Influenza Vaccine: Jun 2014 Pneumococcus Vaccine: 09/2007 Gastroscopy: 07/2014- normal esophagus, erosive gastropathy, normal duodenum Colonoscopy: 2010- normal Imaging for HCC surveillance: December 2014- cirrhosis with splenomegaly indicative of portal hypertension. 2 punctate, nonobstructing calculi are noted within each renal collecting system. No hydronephrosis or ureteral calculi. 9 mm calcification to the left of midline located within the prostate is unchanged from prior studies PROBLEM LIST 1. Hepatitis C- G1a, diagnosed in 2000, likely acquired from IVDU - Harvoni 2. Cirrhosis - Based on thrombocytopenia and hypoalbuminemia and imaging CT of abdomen (December 2014) - HE- Jun 2015- started on Lactulose 3. History of alcohol abuse- sober since 2004 4. 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 Less likely due to portal hypertension as PV and SV patent 5. Hypertension 6. BPH 7. PR s/p PCI 2006 MEDICATIONS: Current Outpatient Prescriptions Medication Sig Dispense Refill ??? tamsulosin (FLOMAX) 0.4 mg Capsule, Sust. Release 24 hr Take 0.4 mg by mouth daily. ??? lisinopril (PRINIVIL;ZESTRIL) 10 mg tablet Take 10 mg by mouth daily. ??? traZODone (DESYREL) 100 mg tablet Take 150 mg by mouth nightly. ??? gabapentin (NEURONTIN) 100 mg capsule Take 100 mg by mouth daily. ??? BUPROPION HCL (WELLBUTRIN XL ORAL) [...] this visit. ALLERGIES/ADR Allergies Allergen Reactions ??? Bee Sting [Hymenoptera Allergenic Extract] Anaphylaxis PHYSICAL EXAMINATION: Filed Vitals: 07/16/15 1350 BP: 138/82 Pulse: 93 Height: 176.5 cm (5' 9.5) Weight: 108.274 kg (238 lb 11.2 oz) Body mass index is 34.76 kg/(m^2). GEN: Healthy in appearance, no acute distress. Mild asterixis SKIN: No rashes or abnormal lesions noted. No stigmata of chronic liver disease HEENT: Nonicteric sclera, no oral lesions NECK: No lymphadenopathy or thyromegaly LUNGS: Clear to auscultation bilaterally COR: Regular, normal S1 and S2 without murmurs ABD: Soft distended secondary to adiposity. Normal active bowel sounds. No tenderness to deep palpation in all 4 quadrants. No ascites. No hepatosplenomegaly. EXT: No edema, cyanosis or edema PERTINENT LABS AND IMAGING: Reviewed in scan documents IMPRESSION/PLAN: Mr. Honeycutt is a 55M with cirrhosis related to his Hepatitis C. He is now at SVR 12 with undetectable viral load. I predict he should do well. He needs to be monitored for complications of cirrhosis: monitoring for ascites, hepatic ecephalopathy, HCC and esophageal variceal screening. 1. Hepatic encephalopathy- He has asterixis on exam today. I am starting him on lactulose. 2. Ascites- No clinical or radiological evidence 3. Variceal Screening- Endoscopy in 2016 4. HCC surveillance- he is overdue- requisition given to him to have one done locally 5. Hepatitis C- repeat blood work in Sep 2015 6. He has CAD and wondering why he is not on a statin or ASA. Both these are safe in someone with cirrhosis 7. Follow up in 6 months with US and blood work the same day The patient was given my contact information and will call me with concerns or questions 25 minutes of this 30 minute [id number] encounter were spent counseling the patient in cirrhosis Lashell Marcos MD Section of Gastroenterology [place] [address] Cc: NENA SAUCEDA MD ([facility]) [address] [place] [address] documented in this encounter Plan of Treatment Not on file documented as of this encounter Results * Prothrombin Time (03/04/2016 9:31 AM EDT) Prothrombin Time 14.2 12.0 - 15.0 sec [facility] Comment: An [...] International Normalization Ratio 1.1 0.9 - 1.1 [facility] Blood specimen (specimen) 03/04/2016 9:31 AM EDT 03/04/2016 9:44 AM EDT Narrative Resulting Agency Comment Spec In Lab Lashell Marcos MD HEMATOLOGY ORDERABLE S [facility] [address] [place] [address] * Comprehensive metabolic panel (non-fasting) (03/04/2016 9:31 AM EDT) Glucose 74 65 - 199 mg/dL [facility] Comment:Diabetes: >=200 mg/d L plus symptoms Blood Urea Nitrogen 14 10 - 20 mg/dL [facility] Creatinine 0.93 0.80 - 1.50 mg/dL [facility] Comment: Please note that the pediatric reference intervals supplied above were not validated at [facility] Results from pediatric patients should be interpreted in conjunction to the patient's age, height and muscle mass. Sodium 144 135 - 145 mmol/L [facility] Potassium 4.1 3.5 - 5.0 mmol/L [facility] Comment: Please note: ??Patients with WBC >100,000 may have falsely elevated Potassium levels. ??For accurate Potassium quantification in these patients send serum separator tube (gold top) for subsequent determinations. ??Contact the Clinical Chemistry Laboratory if there are any questions. Chloride 106 98 - 107 mmol/L [facility] Carbon Dioxide 24 22 - 31 mmol/L [facility] Anion Gap 14 5 - 15 mmol/L [facility] Calcium 9.7 8.5 - 10.5 mg/dL [facility] Protein, Total 7.5 6.1 - 8.0 gm/dL [facility] Albumin 4.2 3.2 - 5.2 gm/dL [facility] Aspartate Aminotransferase 33 0 - 39 unit/L [facility] Alanine Aminotransferase 24 0 - 55 unit/L [facility] Alkaline Phosphatase 84 40 - 120 unit/L [facility] Bilirubin, Total 0.3 0.2 - 1.3 mg/dL [facility] Bilirubin, Direct 0.1 0.0 - 0.3 mg/dL [facility] Est Glomerular Filtration Rate >60 >=60 [facility] Comment: This estimated GFR (eGFR) [...] the following links into your internet browser. [email or web address].[email or web address] Blood specimen (specimen) 03/04/2016 9:31 AM EDT 03/04/2016 9:44 AM EDT Narrative Resulting Agency Comment Spec In Lab Lashell Marcos MD CHEMISTRY ORDERABLES Performing Organization Address City/State/[facility] Co de Phone Number [facility] [place] [address] documented in this encounter Visit Diagnoses Diagnosis Compensated HCV cirrhosis- Primary Chronic hepatitis C without mention of hepatic coma documented in this encounter Care Teams Senior Java Web Developer Relationship Specialty Start Date End Date Nena Sauceda MD [address] [place] [id number] PCP - General 06/09/12 07/25/20 documented as of this encounter
--- OUTSIDE RECORDS SUMMARY | 2024-11-23 08:26 | XMS_ITS | Encounter Summary ---
Author Organization [facility] Address [facility] [place] [address] Care Team Providers Care Pricer Name Role Phone Jose M Sauceda MD Primary Care Provider [phone] Encounter Details Date Type Department Care Team (Late st Contact Info) Description 09/07/2013 7:25 AM EST Anesthesia Event [place] [phone] Faby Yancey MD [facility] DR ANESTHESIOLOGY [place] [address] Tolu Bailey MD Anesthesia Record Procedure Summary Procedure Name Responsible Anesthesiologist Anesthesia Start Time Anesthesia Stop Time CYSTOURETEROSCOPY, LITHOTRIPSY (WRVU 7.5) (Right: Ureter) Faby Yancey MD 09/07/13 0725 09/07/13 0859 Events Date Time Event Comment 09/07/2013 0718 0725 Start 0731 AN Verify 0731 An Start Data 0734 An Induction 0736 An Intubation 0738 Anesthesia Ready 0852 Extubation/LMA Out 0854 an stop data 0859 Stop Meds Name Total Midazolam 1 mg fentaNYL 25 mcg propofol 400 mg PHENYLephrine 400 mcg Ondansetron 4 mg Dexamethasone 4 mg succinylcholine 100 mg ceFAZolin 1 g gentamicin 80 mg lactated ringers 700 mL * Agents Name O2 N2O Desflurane (et) Isoflurane (et) * Blood No blood administrations on file. Lines, Drains, and Airways Type Details Placement Removal (RETIRED) Peripheral IV Line - Single Lumen 07/08/13; 192; 08/08/14; 1808 07/08/131928 by Rosey Hernadez RN 08/08/141807 by Deshawn Heredia, TANG (RETIRED) Peripheral IV Line - Single Lumen 09/07/13; 0643; 09/07/13; 1023 09/07/13 0643 by Nikolay Tripp RN 09/07/13 1023 by Yael Weston RN (RETIRED) Non-Surgical Airway Mask Ventilation: Adjunct (2); ETT Type: Cuffed, Oral; ETT Size: 8 mm; Oral Airway: 40 mm (00); Removal Date: 09/07/13; Removal Time: 85109/07/13 0759 by 09/07/13 0852 by Faby Yancey MD documented in this encounter Social History Tobacco [...] OR Notes * Anesthesia Postprocedure Evaluation - Faby Yancey MD - 09/12/2013 7:55 PM EST Patient: Seferino Pateljae Manzo Procedure(s) Performed: Procedure(s): CYSTOURETEROSCOPY, LITHOTRIPSY CYSTO, REMOVAL OF STENT, FOREIGN BODY OR CALCULUS, SIMPLE CYSTO, STENT PLACEMENT MODIFIER HOLMIUM LASER Actual Anesthetic: general Patient location: PACU Post-op pain: Adequate analgesia Post-op nausea: no nausea or vomiting Last Vitals: Filed Vitals: 09/07/13 0926 BP: 142/67 Pulse: 88 Temp: Resp: 18 Post-op cardiovascular and respiratory status: is stable Level of consciousness: awake, alert and oriented Complications: no apparent complications and tolerated the procedure well Fluid Status: normal * Anesthesia Preprocedure Evaluation - Tolu Bailey MD - 09/06/2013 4:28 PM EST Images from the original note were not included. Pre-Anesthesia Evaluation for: Lacon H Honeycutt Jr. a 53 y.o. male. Procedure(s): CYSTOURETEROSCOPY, LITHOTRIPSY CYSTO, REMOVAL OF STENT, FOREIGN BODY OR CALCULUS, SIMPLE CYSTO, STENT PLACEMENT MODIFIER HOLMIUM LASER Patient Active Problem List Diagnosis ??? Spinal stenosis, lumbar region, without neurogenic claudication ??? Chronic Mechanical low back pain ??? CAD (coronary artery disease), [place] coronary artery ACS with PCI to RCA in two locations, September 2007. ??? Tobacco abuse disorder ??? Hepatitis C ??? Hypertension Past Medical History Diagnosis Date ??? Depression ??? Cataract ??? Chronic low back pain ??? H/O acute myocardial infarction ??? High blood pressure Past Surgical History Procedure Date ??? Upper gi endoscopy, exam 07/13/2012 UPPER GI ENDOSCOPY performed by GILA MELENDEZ at [facility] ENDOSCOPY ??? Eye surgery ??? Cataract removal ??? Coronary angioplasty with stent placement ??? Cystoscopy, insert ureteral stent 07/09/2013 CYSTO, STENT PLACEMENT performed by Wyatt Edmonds MD at [facility] MAIN OR ??? Cystourethroscopy, ureter catheter 07/09/2013 CYSTO, RETROGRADE, URETEROPYELOGRAPHY performed by Wyatt Edmonds MD at [facility] MAIN OR History Substance Use Topics ??? Smoking status: Current Every Day Smoker -- 0.5 packs/day Types: Cigarettes ??? Smokeless tobacco: Never Used Comment: avs information ??? Alcohol Use: No History Drug Use Allergies Allergen Reactions ??? Bee Sting (Hymenoptera Allergenic Extract) Anaphylaxis Medications: MAR and/or home medications have been reviewed. Physical Exam: There were no vitals filed for this visit. There is no height or weight on file to calculate BMI. Airway Assessment: Mallampati: II TM distance: >3 FB Neck ROM: full Cardiovascular Assessment: cardiovascular exam normal Pulmonary Assessment: pulmonary exam normal Dental Assessment: Misc Assessment: Patient is wearing No contact(s). IV access: Peripheral line Anesthesia Plan: ASA 3 general, with a(n) intravenous induction Preliminary note based on chart review only: This is a 53 y/o M smoker with Hep C, CAD (ACS in 2006 s/p PCI x2 to RCA, most recent echo 2007 - preserved EF, no signs of ischemia), recent mesenteric ischemia on coumadin (last INR 1.7 on 07/29) HTN, GERD, and spinal stenosis; here for cystoureteroscopy, lithothotripsy and stent removal/replacement for R ureteral stone. A/P: GETA, adequate IV access - last case: easy mask, grade 1 view with mac 4, 7.5 ETT - cardiac history as noted above - no pulmonary issues referenced in problem list - current smoking history - GERD is an issue per patient questionairre - no SAMANTHA referenced in problem list Will review PMHx, NPO, code status, blood and anesthesia consent with patient/family on the AM of surgery. NB: Assessment and anesthesia plan based on review of electronic medical record only and subject tochange pending face to face assessment of patient and discussion with surgeon on day of surgery. Tolu Bailey MD Anesthesiology, CA-1 Pager [phone] Day of Surgery Addendum (09/07/13): Confirmed above as true and correct except patient denies GERD history. Feeling well, no recent illness, chest pain or shortness of breath. Patient is on warfarin which was not held preop. INR today is 1.7. Surgeon is aware and wishes to proceed given low operative bleeding risk. Appropriate NPO. Consents to blood products if needed. Full code. Tolu Bailey MD Pager [phone] Region - Other Informed Consent: Anesthetic plan and risks discussed with patient. Use of blood products discussed with patient whom consented to blood products. [facility]. Assessment: documented in this encounter Plan of Treatment Not on file documented as of this encounter Visit Diagnoses Not on filedocumented in this encounter Administered Medications Inactive Administered Medications - up to 3 most recent administrations Medication Order MAR Action Action Date Dose Rate Site ceFAZolin (ANCEF) 1g in dextrose 5% 50mL PRN, Starting on Thu09/07/13 at 0743, Until Thu09/07/13 at 0954, Administer over 30 Minutes, Anesthesia Intra-op Given 09/07/2013 7:43 AM EST 1 g dexamethasone (DECADRON) injection PRN, Starting on Thu09/07/13 at 0754, Until Thu09/07/13 at 0954, Anesthesia Intra-op, Routine Given 09/07/2013 7:54 AM EST 4 mg fentaNYL 50mcg/mL injection PRN, Starting on Thu09/07/13 at 0725, Until Thu09/07/13 at 0954, Pain, Anesthesia Intra-op, Routine Given 09/07/2013 7:25 AM EST 25 mcg gentamicin (GARAMYCIN) injection PRN, Starting on Thu09/07/13 at 0747, Until Thu09/07/13 at 0954, Anesthesia Intra-op, Routine Given 09/07/2013 7:47 AM EST 80 mg lactated ringers infusion CONTINUOUS PRN, Starting on Thu09/07/13 at 0725, Until Thu09/07/13 at 0954, Anesthesia Intra-op New Bag 09/07/2013 7:25 AM EST mL midazolam (VERSED) injection PRN, Starting on Thu09/07/13 at 0725, Until Thu09/07/13 at 0954, Sleep, Anesthesia Intra-op, Routine Given 09/07/2013 7:25 AM EST 1 mg ondansetron (ZOFRAN) injection PRN, Starting on Thu09/07/13 at 0831, Until Thu09/07/13 at 0954, Nausea, Anesthesia Intra-op, Routine Given 09/07/2013 8:31 AM EST 4 mg PHENYLephrine HCl in NS (PF) (TOSHIA-SYNEPHRINE) 0.8 mg/10 mL (80 mcg/mL) injection Syrg PRN, Starting on Thu09/07/13 at 0814, Until Thu09/07/13 at 0954, Anesthesia Intra-op, Routine Given 09/07/2013 8:29 AM EST 80 mcg Given 09/07/2013 8:25 AM EST 80 mcg Given 09/07/2013 8:21 AM EST 80 mcg propofol (DIPRIVAN) 10 mg/mL bolus injection (Anesthesia) PRN, Starting on Thu09/07/13 at 0734, Until Thu09/07/13 at 0954, Anesthesia Intra-op Given 09/07/2013 8:16 AM EST 10 0 mg Given 09/07/2013 7:34 AM EST 300 mg succinylcholine (ANECTINE) injection PRN, Starting on Thu09/07/13 at 0734, Until Thu09/07/13 at 0954, Anesthesia Intra-op, Routine Given 09/07/2013 7:34 AM EST 100 mg documented in this encounter Care Teams Pricer Relationship Specialty Start Date End Date Jose M Sauceda MD [address] [place] [id number] PCP - General 06/09/12 07/25/20 documented as of this encounter
--- OUTSIDE RECORDS SUMMARY | 2024-11-23 08:26 | XMS_ITS | Encounter Summary ---
Author Organization [facility] [place] [address] Care Team Providers Care Exchange Trouble Shooter Name Role Phone Jose M Sauceda MD Primary Care Provider [phone] Encounter Details Date Type Department Care Team (Latest Contact Info) Description 03/08/2014 12:34 PM EDT - 03/08/2014 2:25 PM EDT Hospital En[place] [phone] Lashell Marcos MD Lacy, Brian E, MD Discharge Disposition: Home Social History Tobacco [...] Sign Reading Time Taken Comments Blood Pressure 159/98 03/08/2014 2:07 PM EDT Pulse 77 03/08/2014 2:07 PM EDT Temperature - - Respiratory Rate 18 03/08/2014 2:07 PM EDT Oxygen Saturation 95% 03/08/2014 2:07 PM EDT Inhaled Oxygen Concentration - - Weight - - Height - - Body Mass Index - - documented in this encounter Discharge Instructions * Discharge Instructions* Savanna Coello RN - 03/08/2014 2:08 PM EDT UPPER GI ENDOSCOPY WHAT TO EXPECT AFTER THE PROCEDURE After the test you may feel a little more gassy or bloated than usual, this is normal. ACTIVITY Because of the sedation that you received your judgement and reaction time are affected Go home and rest quietly for the remainder of the day. You may resume your normal activities tomorrow. Change from one position to the next slowly. You may lose your balance unexpectedly Be careful on stairs, as you may be unsteady on your feet. FOR THE NEXT [address] OR OPERATE ANY MACHINERY DO NOT DRINK ALCOHOLIC BEVERAGES DO NOT SIGN LEGAL DOCUMENTS If you are a smoker: DO NOT SMOKE WHILE YOU ARE ALONE Diet Start by eating small portions of foods that ordinarily will not upset your stomach. Be gentle withwhat you choose to start with. Drink plenty of fluids ( unless otherwise [...] do not get better as expected. Thursday-Thursday Clinic [phone] 8a-5p Same Day Endo [phone] 7a-8p Otherwise contact [phone] and ask to speak to the search engineer construction craft laborer Follow-up care is a castillo part of your treatment and safety. Be sure to make and go to all appointments, and call your doctor if you are having problems. Instructions have been reviewed and patient expresses understanding * Patient Instructions* Aaron Varma MD - 03/08/2014 1:59 PM EDT Please see Recommendations in the Provation procedure report which is documented in the procedural note in [facility]. documented in this encounter Medications at Time of Discharge Medication Sig Dispensed Refills Start Date End Date lisinopril (PRINIVIL;ZESTRIL) 10 mg tablet Take 10 [...] MG = 1 Tablet(s), Sublingual, PRN 03/02/2008 sertraline (ZOLOFT) 50 mg tablet Take 100 mg by mouth daily. 08/08/2014 traZODone (DESYREL) 100 mg tablet Take 150 mg by mouth nightly. 03/04/2016 documented as of this encounter H&P Notes * Aaron Varma MD - 03/08/2014 1:24 PM EDT See pcp notes; see liver clinic notes; screening for varices; stable for procedure; consent signed. documented in this encounter Miscellaneous Notes * Miscellaneous - Provider, Scanning - 03/08/2014 9:36 PM EDT * Miscellaneous - Provider, Scanning - 03/08/2014 1:40 PM EDT documented in this encounter Plan of Treatment Not on file documented as of this encounter Procedures Procedure Name Priority Date/Time Associated Diagnosis Comments SURGICAL PATHOLOGY REPORT Routine 03/08/2014 2:01 PM EDT SPECIMEN TO PATHOLOGY Routine 03/08/2014 2:01 PM EDT UPPER GI ENDOSCOPY Routine 03/08/2014 1: 39 PM EDT UPPER GASTROINTESTINAL ENDOSCOPY,WITH BIOPSY SINGLE OR MULTIPLE (WRVU 2.39) 03/08/2014 1:39 PM EDT Cirrhosis of liver documented in this encounter Results * Surgical Pathology Report (03/08/2014 2:01 PM EDT) Final Diagnosis ? [facility] ? Provider: ?? AARON VARMA ? Pt. Name: ?? RACHEL ROMEO, SEFERINO Hines ? Acc #: ?[id number] ?Pt. ? Col Date: ?? 03/08/2014 ? /Sex: ?1960,(54 years),Male ? Rec Date: ?? 03/08/2014 ? LOC: ?4T ? SURGICAL PATHOLOGY ? ---Pathologic Diagnosis--- ? Stomach, biopsy: ?Gastric antrum-type and body/fundic-typ e mucosa, negative for diagnostic ? abnormality. ? CR-0 ? 03/09/14 ? [facility] ? 03/09/14 Verified by: ? Jerry Knox MD ? Pathologist ? (Electronic Signature) ? The attending pathologist whose signature appears on this report has ? reviewed all diagnostic slides and has edited the gross and/or ? microscopic portion of the report in rendering the final pathologic ? diagnosis. ? ---Gross Description--- ? A - Labeled/Fixativ e: Stomach, formalin. ? Quantity/Size: Six, ranging from 0.1-0.5 cm. ? Tissue Description: Soft, pink tissues. ? Sections/Proces sing: (T2) ??sns ? ---Clinical Information--- ? Specimen Submitted: ? A - Stomach ? Clinical History: ? Cirrhosis, question varices ? Clinical Diagnosis: ? Four small erosions, gastritis; question HP 03/09/2014 4:49 PM EDT [facility] GI Biopsy 03/08/2014 2:01 PM EDT 03/08/2014 2:01 PM EDT Aaron Varma MD PATHOLOGY/CYTOLOGY O HORTENCIA Performing Organization Address [facility] Co de Phone Number [facility] [place] [address] * Specimen to Pathology (surgical or derm) (03/08/2014 2:01 PM EDT) AP Specimen 03/08/2014 2:01 PM EDT 03/08/2014 2:01 PM EDT Narrative [facility] - 03/08/2014 2:01 PM EDT Specimen requisition ordered. ??Separate Pathology report to follow Aaron Varma MD PATHOLOGY/CYTOLOGY O RDNATASHA Performing Organization Address [facility]/ZIP Co de Phone Number [facility] * UPPER GI ENDOSCOPY (03/08/2014 1:39 PM EDT) UPPER GI ENDOSCOPY [facility] Endoscopy ___ Patient Name: Seferino Honeycutt ? Procedure Date: 03/08/2014 1:39 PM ? Date of : 1960 ? Age: 54 ? Order #: [id number] ? ___ Procedure: ? Upper GI endoscopy Indications: ? Cirrhosis with suspected esophageal ? varices Providers: ? Aaron Varma MD, Selene Reynolds, ? Juan Carlos Madera RN, Referring MD: ?Jose M Sauceda MD Requesting Provider: Alycia Malone APRN Medicines: ? Midazolam 3 mg IV, Fentanyl 125 ? micrograms IV, Diphenhydramine 50 mg ? IV, Benzocaine spray Complications: ? No immediate complications. ___ Procedure: ? The procedure, indications, benefits, ? risks [...] ? endoscopy was accomplished without ? difficulty. ? Findings: ? The examined duodenum was normal. ? Four dispersed, small non-bleeding erosions were ? found in the prepyloric region of the stomach. There ? were no stigmata of recent bleeding. Biopsies were ? taken with a cold forceps for histology from this ? area and from throughout the stomach to rule out H. ? pylori. ? Patchy mildly erythematous mucosa without bleeding ? was found in the gastric fundus and in the gastric ? body. Biopsies were taken with a cold forceps for ? histology. ? The Z-line was regular and was found 40 cm from the ? incisors. ? The middle third of the esophagus was normal. ? The upper third of the esophagus was normal. ? Impression: ?- Normal examined duodenum. ? - Non-bleeding erosive gastropathy. ? Biopsied. ? - Erythematous mucosa in the gastric ? fundus and gastric body. Biopsied. ? - Z-line regular, 40 cm from the ? incisors. ? - LA grade esophagitis. ? - Normal middle third of esophagus. ? - Normal upper third of esophagus. Recommendation: ?- Await pathology results. ? - Letter to be sent to patient and ? referring provider in 8-10 days ? - Use Prilosec (omeprazole) 20 mg PO ? daily for 12 weeks. Take 30 minutes ? before breakfast every day. ? - Avoid all anti-inflammatory agents ? (no motrin, advil, ibuprofen, aleve) ? and avoid all aspirin products. ? - Return to primary care physician as ? previously scheduled. ? Procedure Code(s): ?? --- Professional --- ? 10663, Upper gastrointestinal ? endoscopy including esophagus, ? stomach, and either the duodenum ? and/or jejunum as appropriate; with ? biopsy, single or multiple CPT (R) 2012 [employer]. All Rights Reserved. The codes documented in this report are preliminary and upon ship's electronic warfare officer review may be revised to meet current compliance requirements. Attending Participation: ? I personally performed the entire procedure. ? Aaron Varma MD 03/08/2014 2:21 PM This report has been signed electronically. Number of Addenda: 0 Note Initiated On: 03/08/2014 1:39 PM PROVATION 03/08/2014 1:39 PM EDT Jose M Sauceda MD GENERAL SURGICAL ORD ERABLES PROVATION documented in this encounter Visit Diagnoses Not on filedocumented in this encounter Administered Medications Inactive Administered Medications - up to 3 most recent administrations Medication Order MAR Action Action Date Dose Rate Site lactated ringers infusion 100 mL/hr, Intravenous, CONTINUOUS, Starting on Thu03/08/14 at 1315, Until Thu03/08/14 at 1430, Endoscopy (Day of Procedure) New Bag 03/08/2014 1:15 PM EDT 100 mL/hr 100 mL/hr documented in this encounter Active and Recently Administered Medications Times are shown in EDT. Continuous Medication Order 03/06/2014 03/07/2014 03/08/2014 lactated ringers infusion (CANCELED) 100 mL/hr, Intravenous, CONTINUOUS, Starting on 03/08/14 at 1315, Until Thu03/08/14 at 1430, Endoscopy (Day of Procedure) 1315 (New Bag - Prov ider: Selene Reynolds RN) PRN Medication Order 03/06/2014 03/07/2014 03/08/2014 benzocaine (TOPEX) 20 % oral spray (CANCELED) ONCE PRN, Pain, Starting on Thu03/08/14 at 1345, Until Thu03/08/14 at 1430, Intra-Operative (Intra-Procedure) 1345 (Given - Provid er: Aaron Varma MD) diphenhydrAMINE (BENADRYL) injection (CANCELED) ONCE PRN, Starting on Thu03/08/14 at 1345, Until Thu03/08/14 at 1430, Itching, Intra-Operative (Intra-Procedure), Routine 1345 (Given - Provid er: Selene Reynolds RN)1348 (Given - Provider: Selene Reynolds RN) fentaNYL 50mcg/mL injection (CANCELED) ONCE PRN, Starting on Thu03/08/14 at 1345, Until Thu03/08/14 at 1430, Pain, Intra-Operative (Intra-Procedure), Routine 1345 (Given - Provid er: Selene Reynolds RN)1348 (Given - Provider: Selene Reynolds RN)1352 (Given - Provider: Selene Reynolds RN) midazolam (PF) (VERSED) 1 mg/mL injection (CANCELED) ONCE PRN, Starting on Thu03/08/14 at 1345, Until Thu03/08/14 at 1430, Sleep, Intra-Operative (Intra-Procedure), Routine 1345 (Given - Provid er: Selene Reynolds RN)1348 (Given - Provider: Selene Reynolds RN)1352 (Given - Provider: Selene Reynolds RN) documented in this encounter Care Teams Exchange Trouble Shooter Relationship Specialty Start Date End Date Jose M Sauceda MD [address] [place] [id number] PCP - General 06/09/12 07/25/20 documented as of this encounter
--- OUTSIDE RECORDS SUMMARY | 2024-11-23 08:26 | XMS_ITS | Encounter Summary ---
Author Organization [facility] Address [facility] [place] [address] Care Team Providers Care Ed Physicians Name Role Phone Jose M Sauceda MD Primary Care Provider [phone] Reason for Visit * Reason Onset Date Comments Prior Authorization 07/13/2013 Encounter Details Date Type Department Care Team (Late st Contact Info) Description 07/13/2013 [place] [phone] Wyatt Edmonds MD Prior Authorization Social History Tobacco Use Types [...] encounter Miscellaneous Notes * Telephone Encounter - Mitali Marin RN - 07/13/2013 4:45 PM EDT Oxycontin prescription not authorized by patient's insurance. Substitute ordered by Dr. Simms - pt notified. 3 day emergency supply called into [facility] and hard copy mailed. documented in this encounter Plan of Treatment Not on file documented as of this encounter Visit Diagnoses Not on filedocumented in this encounter Care Teams Ed Physicians Relationship Specialty Start Date End Date Jose M Sauceda MD [address] [address] PCP - General 06/09/12 07/25/20 documented as of this encounter
--- OUTSIDE RECORDS SUMMARY | 2024-11-23 08:26 | XMS_ITS | Encounter Summary ---
Author Organization [facility] Address [facility] [place] [address] Care Team Providers Care Bobbin Disker Name Role Phone Jose M Sauceda MD Primary Care Provider [phone] Encounter Details Date Type Department Care Team (Latest Contact Info) Description 09/08/2014 11:02 AM EST - 09/08/2014 11:59 PM [facility] Hospital [place] [phone] CLINIC, Toni Munguia MD [facility] [place] [address] Cirrhosis of liver Discharge Disposition: Home Social History Tobacco Use [...] Date/Time Associated Diagnosis Comments US ABDOMEN COMPLETE Routine 09/08/2014 1 1:55 AM EST Cirrhosis of liver documented in this encounter Results * US abdomen complete (09/08/2014 11:55 AM EST) Anatomical Region Laterality Modality Abdomen, Vascular Ultrasound 09/08/2014 11:5 5 AM EST Narrative 09/08/2014 12:06 PM EST Abdominal ?(Signed Final 09/08/2014 12:05 ? pm) Patient Info ID #: ? [id number] ?: ??[birth year] (54 yrs) Name: ? SEFERINO Hines ?Visit Date: 09/08/2014 11:49 am ? RACHEL Performed By Performed By: ?Salma Guerra RDMS Attending: ? Agustin HICKMAN, Dexter Walton Referred By: ? VARGAS BATES APRN Service(s) Provided ??[facility] - Abdominal Complete Survey - [phone] ? [id number] Indications ??cirrhosis, screen for hcc Comparison CT [...] 09/08/2014 12:05 pm) Patient Info ID #: [id number] : [birth year] (54 yrs) Name: SEFERINO Hines Visit Date: 09/08/2014 11:49 am RACHEL Performed By Performed By: Salma Guerra RDMS Attending: Dexter Velez MD Referred By: VARGAS BATES APRN Service(s) Provided [facility] - Abdominal Complete Survey - [phone] Indications cirrhosis, screen for hcc Comparison CT [...] alcohol documented in this encounter Care Teams Bobbin Disker Relationship Specialty Start Date End Date Jose M Sauceda MD [address] [place] [phone] PCP - General 06/09/12 07/25/20 documented as of this encounter
--- OUTSIDE RECORDS SUMMARY | 2024-11-23 08:26 | XMS_ITS | Encounter Summary ---
Author Organization [facility] [place] [address] Care Team Providers Care Firewall Engineer Name Role Phone Jose M Sauceda MD Primary Care Provider [phone] Encounter Details Date Type Department Care Team ([facility] st Contact Info) Description 09/19/2014 [place] [address] Wyatt Edmonds MD Social History Tobacco Use Types Packs/Day [...] on filedocumented in this encounter Care Teams Firewall Engineer Relationship Specialty Start Date End Date Jose M Sauceda MD [address] [place] [address] PCP - General 06/09/12 07/25/20 documented as of this encounter
--- OUTSIDE RECORDS SUMMARY | 2024-11-23 08:26 | XMS_ITS | Encounter Summary ---
Author Organization [facility] Address [facility] [place] [address] Care Team Providers Care Painter Chassis Name Role Phone Jose M Sauceda MD Primary Care Provider [phone] Encounter Details Date Type Department Care Team (Late st Contact Info) Description 03/27/2015 Telephone [place] [phone] Key Ly, RN Social History Tobacco Use Types Packs/Day [...] encounter Miscellaneous Notes * Telephone Encounter - Key Ly RN - 03/27/2015 9:45 AM EDT Called pt to check in on labs / status of Harvoni 12 wk course. Left message to please call nurses back today. He calls back. He has been feeling good, no complaints during course of Harvoni. Denies side effects and says he feels better than usual. Has not had labs done. He has about 2 more weeks left of medication ~ is at week 10. We rev'd labs schedule - he will go week after finishing Harvoni, to [facility]. Orders efaxed today. He will need again at 3 and 6 mths post tx, he is aware. Will need gif 3 mths post tx, so ~ June. He is aware, transf to schedulers to arrange. documented in this encounter Plan of Treatment Not on file documented as of this encounter Visit Diagnoses Diagnosis Chronic hepatitis C without hepatic coma documented in this encounter Care Teams Painter Chassis Relationship Specialty Start Date End Date Jose M Sauceda MD [address] [place] [id number] PCP - General 06/09/12 07/25/20 documented as of this encounter
--- OUTSIDE RECORDS SUMMARY | 2024-11-23 08:26 | XMS_ITS | Encounter Summary ---
Author Organization [facility] Address [facility] [place] [address] Care Team Providers Care Tank Builder Helper Name Role Phone Nena Sauceda MD Primary Care Provider [phone] Reason for Visit * Reason Comments Follow-up Encounter Details Date Type Department Care Team (Late st Contact Info) Description 03/04/2016 10:30 AM EDT Office Visit Gastroenterology at [facility] [place] [phone] Des Brannon MD Chronic hepatitis C with cirrhosis Social History [...] Sign Reading Time Taken Comments Blood Pressure 114/65 03/04/2016 10:19 AM EDT Pulse 79 03/04/2016 10:19 AM EDT Temperature - - Respiratory Rate - - Oxygen Saturation - - Inhaled Oxygen Concentration - - Weight 113.4 kg (250 lb) 03/04/2016 10:19 AM EDT Height 175.3 cm (5' 9) 03/04/2016 10:19 AM EDT Body Mass Index 36.92 03/04/2016 10:19 AM EDT documented in this encounter Patient Instructions * Patient Instructions* Des Brannon MD - 03/04/2016 11:05 AM EDT 1. Start lactulose 10gm twice or three times daily, aim for 2-3 bowel movements daily 2. Upper endoscopy for varices 3. US locally to assess for liver cancer 4. Follow up in Nov with blood work and US the same day documented in this encounter Progress Notes * Des Brannon MD - 02/27/2016 11:30 PM EDT Gastroenterology and Hepatology Follow Up Note Patient: Seferino Honeycutt Jr. Gender: Male : 1960 Physician: Des Brannon MD Interval History: Mr. Seferino Honecyutt Jr. is here for follow up for cirrhosis. I last saw him in June 2015. No new medical issues since I last saw him, except that he was started on two anti-depressants. He unfortunately didn't follow any of the recommendations we discussed during his last appointment. He reports poor sleep and has also noticed poor concentration. He denies any jaundice, no overt bleeding, fluid retention. Preventative Health: HAV- Immune HBV- Immune ?? HIV Status- Neg ?? Influenza Vaccine: Jun 2014 Pneumococcus Vaccine: 09/2007 Gastroscopy: 07/2014- normal esophagus, erosive gastropathy, normal duodenum ?? Colonoscopy: 2010- normal ?? Imaging for HCC surveillance: December 2014- cirrhosis [...] patent 5. Hypertension ?? 6. BPH 7. [place] s/p PCI 2006 MEDICATIONS: Current Outpatient Prescriptions [...] Allergenic Extract] Anaphylaxis PHYSICAL EXAMINATION: Filed Vitals: 03/04/16 1019 BP: 114/65 Pulse: 79 Height: 175.3 cm (5' 9) Weight: 113.399 kg (250 lb) Body mass index is 36.9 kg/(m^2). GEN: Healthy in appearance, no acute distress. +ve Mild asterixis SKIN: Spider angiomas. HEENT: Nonicteric sclera, no oral lesions NECK: No lymphadenopathy or thyromegaly LUNGS: Clear to auscultation bilaterally COR: Regular, normal S1 and S2 without murmurs ABD: Soft and non-distended. Normal active bowel sounds. No tenderness to deep palpation in all 4 quadrants. No ascites. No hepatosplenomegaly. EXT: No edema, cyanosis or edema PERTINENT LABS AND IMAGING: Recent Labs 03/04/16 0931 WBC 4.4 RBC 4.63 HGB 12.4* HCT 38.6* MCV 83.4 MCH 26.8 MCHC 32.1 PLATELET 79* RDWCV 16.0* Lab Results Component Value Date ALT 24 03/04/2016 AST 33 03/04/2016 ALKPHOS 84 03/04/2016 BILITOT 0.3 03/04/2016 Recent Labs 03/04/16 0931 NA 144 K 4.1 CL 106 CO2 24 BUN 14 CREATININE 0.93 GLUCOSE 74 Recent Labs 03/04/16 0931 INR 1.1 IMPRESSION/PLAN: Mr. Honeycutt is a 55M with well compensated cirrhosis secondary to Hepatitis C. His MELD is 7. 1. Hepatic encephalopathy- I have given him written instruction to start lactulose 2-3 times daily,aim for 2-3 bowel movements daily 2. Ascites- No clinical or radiological evidence 3. Variceal Screening- re-schedule upper endoscopy in the next couple of months 4. HCC surveillance- He ate breakfast this morning and wasn't able to have his US done. He will have it done locally in [place]. ?? 5. Hepatitis C- I am checking his HCV viral load today 6. Follow up in Aug 2016 with blood work and US the same day The patient was given my contact information and will call me with concerns or questions 25 minutes of this 30 minute [id number] visit were spent counseling, discussing disease, treatment and prognosis. ?? Des Brannon MD Section of Gastroenterology [place] [address] Cc: NENA SAUCEDA MD [address] [place] [id number] documented in this encounter Plan of Treatment Scheduled Orders Name Type Priority Associated Diagnoses Orde r Schedule UPPER GI ENDOSCOPY Procedures Routine Chronic hepatitis C with cirrhosis Ordered: 03/04/2016 documented as of this encounter Results * (ABNORMAL) Prothrombin Time (10/02/2016 12:01 PM EST) Prothrombin Time 15.1(H) 12.0 - 15.0 sec [facility] Comment: An [...] International Normalization Ratio 1.1 0.9 - 1.1 [facility] Blood specimen (specimen) 10/02/2016 12:01 PM EST 10/02/2016 12:09 PM EST Narrative Resulting Agency Comment Spec In Lab Des Brannon MD HEMATOLOGY ORDERABLE S [facility] [place] [address] * Comprehensive metabolic panel (non-fasting) (10/02/2016 12:01 PM EST) Glucose 116 65 - 199 mg/dL [facility] Comment:Diabetes: >=200 mg/d L plus symptoms Blood Urea Nitrogen 16 10 - 20 mg/dL [facility] Creatinine 0.94 0.80 - 1.50 mg/dL [facility] Comment: Please note that the pediatric reference intervals supplied above were not validated at [facility]. Results from pediatric patients should be interpreted in conjunction to the patient's age, height and muscle mass. Sodium 142 135 - 145 mmol/L [facility] Potassium 4.4 3.5 - 5.0 mmol/L [facility] Comment: Please note: ??Patients with WBC >100,000 may have falsely elevated Potassium levels. ??For accurate Potassium quantification in these patients send serum separator tube (gold top) for subsequent determinations. ??Contact the Clinical Chemistry Laboratory if there are any questions. Chloride 103 98 - 107 mmol/L [facility] Carbon Dioxide 25 22 - 31 mmol/L [facility] Anion Gap 14 5 - 15 mmol/L [facility] Calcium 9.2 8.5 - 10.5 mg/dL [facility] Protein, Total 7.6 6.1 - 8.0 gm/dL [facility] Albumin 4.2 3.2 - 5.2 gm/dL [facility] Aspartate Aminotransferase 25 0 - 39 unit/L [facility] Alanine Aminotransferase 18 0 - 55 unit/L [facility] Alkaline Phosphatase 81 40 - 120 unit/L [facility] Bilirubin, Total 0.7 0.2 - 1.3 mg/dL [facility] Bilirubin, Direct 0.2 0.0 - 0.3 mg/dL [facility] Est [...] the following links into your internet browser. [email or web address] Blood specimen (specimen) 10/02/2016 12:01 PM EST 10/02/2016 12:09 PM EST Narrative Resulting Agency Comment Spec In Lab Des Brannon MD CHEMISTRY ORDERABLES Performing Organization Address City/State/[facility] Co de Phone Number [facility] [place] [phone] * US Abdomen Complete With Vascular (10/02/2016 11:30 AM EST) Anatomical Region Laterality Modality Abdomen Ultrasound 10/02/2016 11:3 0 AM EST Narrative 10/02/2016 12:15 PM EST Abdominal Duplex ? (Signed Final 10/02/2016 12:14 pm) PATIENT INFO: ID #: ? [id number] ? : [birth year] (56 yrs) Name: ? SEFERINO HONEYCUTT ?Visit Date:10/02/2016 11:30 am PERFORMED BY: Performed By: ? Law Rao RDMS Attending: ?Milagros HICKMAN, Dexter Graves Associate: ?Acosta HICKMAN, Jacek Alvarez Referred By: ?DES BRANNON MD Location: ? [place] SERVICE(S) PROVIDED: ??UABDCVASC - Abdominal Complete Survey with Vascular - 26736, 73791 ??[id number] INDICATIONS: ??HCV cirrhosis assess for HCC and PV patency COMPARISON: Prior US: VASC 04/15/16 ------ LIVER: ------ Right Lobe [...] ? Patent Splenic Vein At ? [place]: Splenic Vein: ? Patent ?Direction of Flow Main Portal ?Hepatopetal Vein: ? Dexter Linares MD Electronically Signed Final Report ?? 10/02/2016 12:14 pm Procedure Note Dexter Linares MD - 10/02/2016 Abdominal Duplex (Signed Final 10/02/2016 12:14pm) PATIENT INFO: ID #: [id number] : [birth year] (56 yrs) Name: SEFERINO HONEYCUTT Visit Date:10/02/2016 11:30 am PERFORMED BY: Performed By: Law Rao RDMS Attending: Dexter Linares MD Associate: Jacek Shane MD Referred By: DSE BRANNON MD Location: [place] SERVICE(S) PROVIDED: UABDCVASC - Abdominal Complete Survey with Vascular - [id number], [id number] INDICATIONS: HCV cirrhosis assess for HCC and [...] Portal Vein: Patent Splenic Vein At [place]: Splenic Vein: Patent Direction of Flow Main Portal Hepatopetal Vein: Dexter Linares MD Electronically Signed Final Report 10/02/2016 12:14 pm Des Brannon MD IMG US GEN ORDERABLE S * US Abdomen Complete With Vascular (04/15/2016 [...] 04:19 pm) PATIENT INFO: ID #: ? [id number] ? : [birth year] (56 yrs) Name: ? SEFERINO HONEYCUTT ?Visit Date:04/15/2016 03:52 pm PERFORMED BY: Performed By: ? Kerry Heredia RDMS Attending: ?Jose HICKMAN, Alberta Haile Referred By: ?DES BRANNON MD SERVICE(S) PROVIDED: ??UABDCVASC - Abdominal Complete Survey with Vascular - 19084, 11449 ??[id number] INDICATIONS: ??HCv cirrhosis,a ssess for hcc and [...] Final 04/15/2016 04:19pm) PATIENT INFO: ID #: [id number] : [birth year] (56 yrs) Name: SEFERINO HONEYCUTT Visit Date:04/15/2016 03:52 pm PERFORMED BY: Performed By: Kerry Heredia RDMS Attending: Alberta Garcia MD Referred By: DES BRANNON MD SERVICE(S) PROVIDED: UABDCVASC - Abdominal Complete Survey with Vascular - 94225, 87541 [id number] INDICATIONS: HCv cirrhosis,a ssess for hcc and [...] mention of hepatic coma Chronic hepatitis C with cirrhosis Chronic hepatitis C without mention of hepatic coma Chronic hepatitis C with cirrhosis Chronic hepatitis C without mention of hepatic coma documented in this encounter Care Teams Tank Builder Helper Relationship Specialty Start Date End Date Nena Sauceda MD [address] [place] [id number] PCP - General 06/09/12 07/25/20 documented as of this encounter
--- OUTSIDE RECORDS SUMMARY | 2024-11-23 08:26 | XMS_ITS | Encounter Summary ---
Author Organization [facility] Address [facility] [place] [address] Care Team Providers Care Full Charge Bookkeeper Name Role Phone Jose M Sauceda MD Primary Care Provider [phone] Reason for Visit * Reason Onset Date Comments Medication Refill 01/01/2015 Encounter Details Date Type Department Care Team (Late st Contact Info) Description 01/01/2015 Refill [place] [phone] Alycia Malone, MICROBIOLOGY COORDINATOR [facility] [place] [address] CAH (chronic active hepatitis) Social History Tobacco Use Types Packs/Day Years [...] as of this encounter Visit Diagnoses Diagnosis CAH (chronic active hepatitis) Other chronic hepatitis documented in this encounter Care Teams Full Charge Bookkeeper Relationship Specialty Start Date End Date Jose M Sauceda MD [address] [place] [id number] PCP - General 06/09/12 07/25/20 documented as of this encounter
--- OUTSIDE RECORDS SUMMARY | 2024-11-23 08:26 | XMS_ITS | Encounter Summary ---
Author Organization [facility] Address [facility] [place] [address] Care Team Providers Care Follow Up Rep Name Role Phone Jose M Sauceda MD Primary Care Provider [phone] Encounter Details Date Type Department Care Team (Late st Contact Info) Description 07/13/2013 [place] [phone] Mike Simms MD [facility] [place] [address] Social History Tobacco Use Types Packs/Day Years [...] encounter Miscellaneous Notes * Telephone Encounter - Mike Simms - 07/13/2013 11:17 AM EDT Returned call, Left message. documented in this encounter Plan of Treatment Not on file documented as of this encounter Visit Diagnoses Not on filedocumented in this encounter Care Teams Follow Up Rep Relationship Specialty Start Date End Date Jose M Sauceda MD [address] [place] [id number] PCP - General 06/09/12 07/25/20 documented as of this encounter
--- OUTSIDE RECORDS SUMMARY | 2024-11-23 08:26 | XMS_ITS | Encounter Summary ---
[place] [address] Care Team Providers Care Business Services Representative Name Role Phone Jose M Sauceda MD Primary Care Provider [phone] Encounter Details Date Type Department Care Team (Latest Contact Info) Description 09/07/2013 5:57 AM EST - 09/07/2013 10:20 AM EST Hospital Encounter [place] [phone] Sophia Tay MD Anticoagulated on warfarin Discharge Disposition: Home Social History Tobacco Use [...] Sign Reading Time Taken Comments Blood Pressure 142/67 09/07/2013 9:26 AM EST Pulse 88 09/07/2013 9:26 AM EST Temperature 36.2 ??C (97.2 ??F) 09/07/2013 8:56 AM ES T Respiratory Rate 18 09/07/2013 9:26 AM EST Oxygen Saturation 100% 09/07/2013 9:26 AM EST Inhaled Oxygen Concentration - - Weight 111.1 kg (245 lb) 09/07/2013 6:26 AM EST Height 175.3 cm (5' 9) 09/07/2013 6:26 AM EST Body Mass Index 36.18 09/07/2013 6:26 AM EST documented in this encounter Discharge Instructions * Discharge Instructions* Yael Weston RN - 09/07/2013 9:36 AM EST POST ANESTHESIA INSTRUCTIONS Go home, rest, use caution on stairs. Change positions slowly. Do not smoke if you are alone. Diet light to regular as tolerated today. If nausea occurs start with clear liquids and progress slowly. No driving, operating machinery, alcoholic beverages and no important decisions for 24 hours. Monitor IV site for signs and symptoms of infection: increasing redness, swelling, foul drainage, if occurs contact M.D. Patients who have had endotrachial tubes (this tube, used by anesthesia department, is passed down your throat after you are asleep, to ensure safe air passage during your operation). A sore throat is normal due to the tube. Cold liquids or soothing lozenges will help ease the discomfort. The generalized muscle aches are due to the medication given to you just before the tube is inserted. As the medication wears off, you may develop muscle soreness, which usually goes away in 12-24 hours. * Patient Instructions* Zeyad Dupree - 09/07/2013 8:54 AM EST Instructions following Cystoscopic Surgery with a Ureteral Stent Placement You have a ureteral stent in place, it is normal for it to cause some irritation in your bladder and cause you to have blood in your urine. It may bother you when you urinate. This is normal. If you cannot tolerate this irritation or if you have severe back or side pain, you should call our office [phone] before 5PM or [phone] after hours. Wound Care: None needed Activity: As tolerated by your comfort level. Urination: You will likely have a small amount of blood in your urine while the stent is in place. This is normal; however, if you are passing large amounts of blood clots, bright red blood or are bleeding an unable to urinate please call our office at [phone] 5PM or [phone] after hours. Call Doctor for: Please call if you have copious blood in your urine, severe back or side pain, pain not controlled by pain medications, persistent nausea and vomiting, or for any fevers greater [id number] F. The number for questions is [phone] before 5 PM weekdays and [phone] after 5 PM and weekends. Pain Medication: No driving for 8 hours after any dose of opioid pain medication if one was prescribed for you. You may use ibuprofen (motrin, advil) in addition to this medication if your pain is not totally controlled by the opioid. Follow-up: Will be scheduled for stent removal in the clinic in 7 days. documented in this encounter Medications at Time of Discharge Medication Sig Dispensed Refills Start Date End Date BUPROPION HCL (WELLBUTRIN XL ORAL) Take 150 mg by mouth 2 times daily. metoprolol succinate (TOPROL-XL) 50 mg 24 hr tablet Take 50 mg by mouth daily. hydrochlorothiazide (HYDRODIURIL) 25 mg tabletIndications:hy pertension Take 25 mg by mouth daily. Indications: Hypertension nitroGLYcerin (NITROSTAT) 0.4 mg SL tablet 0.4 MG = 1 Tablet(s), Sublingual, PRN 03/02/2008 cephALEXin (KEFLEX) 500 mg capsule Take 1 capsule by mouth 4 times daily for 3 days. 12 capsule 0 09/07/2013 09/10/2013 OXYcodone (ROXICODONE) 5 mg immediate release tablet Take 1 tablet by mouth every 4 hours as needed for Pain. 30 tablet 0 09/07/2013 12/15/2013 tamsulosin (FLOMAX) 0.4 mg capsule Take 1 capsule by mouth daily. 14 tablet 0 07/09/2013 01/14/2014 warfarin (COUMADIN) 5 mg tablet Take 5 mg by mouth daily. 02/13/2014 documented as of this encounter H&P Notes * Zeyad Dupree - 09/07/2013 7:02 AM EST The patient's history and physical exam have been reviewed and completed. There has been no interval change from that of the pre-operative history and physical exam done with Dr. Tay on 07/08. OK to proceed with planned cysto, RIGHT URS / Laser lithotripsy, Ureteral stent exchange. documented in this encounter Procedure Notes * Alexus Ryan - 09/07/2013 4:52 PM ESTAssociated Order(s): SCAN DOC: IMPLANTABLE DEVICES documented in this encounter Miscellaneous Notes * Miscellaneous - Provider, Scanning - 09/07/2013 4:53 PM EST * Miscellaneous - Provider, Scanning - 09/07/2013 4:52 PM EST * Miscellaneous - Provider, Scanning - 09/07/2013 4:52 PM EST * Miscellaneous - Provider, Scanning - 09/07/2013 12:55 PM EST * OR Attestation - Sophia Tay MD - 09/07/2013 9:27 AM EST Attestation: Case Date: 09/07/2013 I was present and I participated during the entire procedure (does not need to include opening and closing). SOPHIA TAY MD 09/07/2013 * Op Note - Zeyad Dupree - 09/07/2013 8:52 AM EST Operative Note Patient Name: Vanessa Honeycutt Jr. : [id number] MR#: [id number] Case Date: 09/07/2013 Surgeon: Surgeon(s) and Role: * Sophia Tay MD - Primary * Michael David MD - Resident-Surgeon Chief * Zeyda Dupree MD - Resident-Surgeon Franklyn Preoperative diagnosis: RT URETERAL STONE Postoperative diagnosis: RT URETERAL STONE Procedure(s): CYSTOURETEROSCOPY, LITHOTRIPSY CYSTO, REMOVAL OF STENT, FOREIGN BODY OR CALCULUS, SIMPLE CYSTO, STENT PLACEMENT MODIFIER HOLMIUM LASER Anesthesia: General Findings: Large R ureteral stone, small R renal stone. Large stone fragmented with laser and all pieces extracted. Mapping pyelogram negative at completion. 6F 26cm JJ R ureteral stent replaced. Complications: none Fluids: 1.6L Estimated Blood Loss: 2cc Drains: 6F 26cm Jj R Ureteral Stent Disposition: awakened from anesthesia, extubated and taken to the recovery room in a stable condition, having suffered no apparent untoward event. Condition: doing well without problems (Please see the Surgical Encounter Summary for any Implant and Specimen details pertinent to this patient.) HPI: The patient is a 53-year-old male who presented with acute onset right flank pain and was found to have a right ureteral stone. He underwent ureteral stent placement. He presents today for planned right ureteroscopy, laser lithotripsy, and ureteral stent exchange. Procedure in Detail: The patient was met in preop. Informed consent was obtained and his right side marked. He was taken to the OR and placed in the dorsal lithotomy position after induction of general anesthesia. A time-out was performed in which the correct patient, procedure, and sided were confirmed by the team. IV antibiotics were administered. Cystoscope was passed per urethra and the prior indwelling stent grasped and pulled to the meatus. A Sensor wire was passed through the stent and the stent removed. A semirigid ureteroscope was driven up the ureter and a large stone encountered. The stone was fragmented using the holmium laser. All pieces were actively extracted. A second wire was then placed through the scope and the scope removed. A flexible ureteroscope was passed in the renal pelvis, and calyces were inspected in systematic fashion. There was a second smaller stone noted in an interpolar calyx as well as a papillary-tip calcification. The papillary-tip calcification was lasered off the papilla, and the stone was removed with the flexible scope. The ureter was inspected on withdrawal of the flexible scope, and there were no stones or mucosal injuries appreciated. A 6-Estonian 26-cm double-J stent was then placed in the normal fashion with a good curl appreciated fluoroscopically in the renal pelvis and endoscopically in the bladder. The patient's bladder was emptied. He was awakened from anesthesia, extubated, and taken to the recovery room having suffered no untoward events. The plan will be for the patient to follow up in the Urology Clinic in seven days for cystoscopic stent removal. * Brief Op Note - Zeyad Dupree - 09/07/2013 8:51 AM EST Brief Operative Note Patient Name: Vanessa Honeycutt Jr. : [id number] MR#: [id number] Case Date: 09/07/2013 Surgeon: Surgeon(s) and Role: * Sophia Tay MD - Primary * Michael David MD - Resident-Surgeon Chief * Zeyad Dupree MD - Resident-Surgeon Franklyn Preoperative diagnosis: RT URETERAL STONE Postoperative diagnosis: RT URETERAL STONE Procedure(s): CYSTOURETEROSCOPY, LITHOTRIPSY CYSTO, REMOVAL OF STENT, FOREIGN BODY OR CALCULUS, SIMPLE CYSTO, STENT PLACEMENT MODIFIER HOLMIUM LASER Anesthesia: General Findings: Large R ureteral stone, small R renal stone. Large stone fragmented with laser and all pieces extracted. Mapping pyelogram negative at completion. 6F 26cm JJ R ureteral stent replaced. Complications: none Fluids: 1.6L Estimated Blood Loss: 2cc Drains: 6F 26cm Jj R Ureteral Stent Disposition: awakened from anesthesia, extubated and taken to the recovery room in a stable condition, having suffered no apparent untoward event. Condition: doing well without problems (Please see the Surgical Encounter Summary for any Implant and Specimen details pertinent to this patient.) documented in this encounter Plan of Treatment Pending Results Name Type Priority Associated Diagnoses Date /Time XR Fluoro OR c-arm storage only Imaging Routine 09/07/2013 9:10 AM EST Scheduled Orders Name Type Priority Associated Diagnoses Orde r Schedule XR Fluoro OR c-arm storage only Imaging Routine Once PRN (for Ra diant use) for 1 Occurrences starting 09/07/2013 until 09/07/2013 documented as of this encounter Procedures Procedure Name Priority Date/Time Associated Diagnosis Comments IMPLANTABLE DEVICES SCAN 09/07/2013 4:52 PM EST SURGICAL PATHOLOGY REPORT Routine 09/07/2013 8:44 AM EST SPECIMEN TO PATHOLOGY Routine 09/07/2013 8:44 AM EST MODIFIER HOLMIUM LASER Yes 09/07/2013 7:17 AM EST RT URETERAL STONE CYSTO, STENT PLACEMENT (WRVU 2.82) Yes 09/07/2013 7:17 AM EST RT URETERAL STONE CYSTO, REMOVAL OF STENT, FOREIGN BODY OR CALCULUS, SIMPLE (WRVU 2.81) Yes 09/07/2013 7:17 AM EST RT URETERAL STONE CYSTOURETEROSCOPY, LITHOTRIPSY (WRVU 7.5) Yes 09/07/2013 7:17 AM EST RT URETERAL STONE PROTHROMBIN TIME STAT 09/07/2013 6:08 AM EST Anticoagulated on warfarin documented in this encounter Results * SCAN DOC: IMPLANTABLE DEVICES (09/07/2013 4:52 PM EST) Narrative 09/07/2013 4:52 PM EST Procedure Note Provider, Scanning - 09/07/2013 4:52 PM EST Scanning Provider MEDIA MGR SCAN EXT O RDR/RSLT * Surgical Pathology Report (09/07/2013 8:44 AM EST) Surgical Pathology Report ? [facility] ? Provider: ?? SOPHIA TAY ?Pt. Name: ?? YINKA ROMEO, VANESSA Hines ? Acc #: ?[id number] ?Pt. ? Col Date: ?? 09/07/2013 ?/Sex: ?1960,(53 years),Male ? Rec Date: ?? 09/07/2013 ?LOC: ?SDP ? SURGICAL PATHOLOGY ? ---Pathologic Diagnosis--- ? Calculi, right ureter (see Comment). ? CR-0 ? 09/12/13 ? BJM ? 09/15/13 Verified by: ? Lab Review, Limited Histology ? (Electronic Signature) ? The attending pathologist whose signature appears on this report has ? reviewed all diagnostic slides and has edited the gross and/or ? microscopic portion of the report in rendering the final pathologic ? diagnosis. ? ---Comment--- ? The Report of Stone Analysis, order # [id number], has been received from ? the [facility], [address], [place], [place] ??[address]. ? For the full text of the [facility] report please refer to Non-DH Documentation ? Pathology in the electronic medical record (eDH). ? ---Gross Description--- ? Specimen submitted for chemical analysis. ? ---Clinical Information--- ? Specimen Submitted: ? A - Rt ureteral stone ? Clinical History: ? Rt ureteral stone CERNER MILLENNIUM 09/07/2013 8:44 AM EST Sophia Tay MD PATHOLOGY/CYTOLOGY O HORTENCIA Performing Organization Address [facility] Co de Phone Number CERNER MILLENNIUM * Specimen to Pathology (surgical or derm) (09/07/2013 8:44 AM EST) AP Specimen 09/07/2013 8:44 AM EST 09/07/2013 8:44 AM EST Narrative CERNER MILLENNIUM - 09/07/2013 8:44 AM EST Specimen requisition ordered. ??Separate Pathology report to follow Sophia Tay MD PATHOLOGY/CYTOLOGY O HORTENCIA Performing Organization Address [facility]/ZIP Co de Phone Number CERNER MILLENNIUM * (ABNORMAL) Prothrombin Time (09/07/2013 6:08 AM EST) Prothrombin Time 20.1(H) 12.0 - 15.0 sec [facility] Comment: [facility] Transfusion Committee Guidelines: INR less than 2.0, PTT less than OR equal to 43.5 seconds, or Fibrinogen greater than or equal to 100 mg/dl indicate adequate procoagulant activity for hemostasis in patients without underlying bleeding disorders. International Normalization Ratio 1.7(H) 0.9 - 1.1 [facility] Blood specimen (specimen) 09/07/2013 6:08 AM EST 09/07/2013 6:13 AM EST Narrative Resulting Agency Comment Spec In Lab Damián Quintanilla MD HEMATOLOGY ORDERABLE S [facility] documented in this encounter Visit Diagnoses Diagnosis Anticoagulated on warfarin Encounter for long-term (current) use of anticoagulants documented in this encounter Administered Medications Inactive Administered Medications - up to 3 most recent administrations Medication Order MAR Action Action Date Dose Rate Site fentaNYL 50mcg/mL injection 25-50 mcg, Intravenous, EVERY 5 MIN PRN, Starting on Thu09/07/13 at 0900, Until Thu09/07/13 at 1255, Pain, for breakthrough pain, Hold for respiratory rate less than 10 per minute. Maximum dose: 250 mcg over one hour., PACU Recovery, Routine Given 09/07/2013 9:26 AM EST 50 mcg Given 09/07/2013 9:15 AM EST 50 mcg lactated ringers infusion 1,000 mL 1,000 mL, at 100 mL/hr, Intravenous, CONTINUOUS, Starting on Thu09/07/13 at 0645, Until Thu09/07/13 at 1255, Day of Surgery (Day of Procedure) New Bag 09/07/2013 6:45 AM EST 1,000 mLs 100 mL/hr OXYcodone (ROXICODONE) immediate release tablet 5 mg 5 mg, Oral, EVERY 4 HOURS PRN, Starting on Thu09/07/13 at 0852, Until Thu09/07/13 at 1255, Pain, Routine Given 09/07/2013 9:36 AM EST 5 mg documented in this encounter Active and Recently Administered Medications Times are shown in EST. Continuous Medication Order 09/05/2013 09/06/2013 09/07/2013 lactated ringers infusion 1,000 mL (CANCELED) 1,000 mL, at 100 mL/hr, Intravenous, CONTINUOUS, Starting on Thu09/07/13 at 0645, Until Thu09/07/13 at 1255, Day of Surgery (Day of Procedure) 0645 (New Bag - Prov ider: Nikolay Tripp RN) PRN Medication Order 09/05/2013 09/06/2013 09/07/2013 fentaNYL 50mcg/mL injection (CANCELED) 25-50 mcg, Intravenous, EVERY 5 MIN PRN, Starting on Thu09/07/13 at 0900, Until Thu09/07/13 at 1255, Pain, for breakthrough pain, Hold for respiratory rate less than 10 per minute. Maximum dose: 250 mcg over one hour., PACU Recovery, Routine 0915 (Given - Provid er: Yael Weston RN)0926 (Given - Provider: Yael Weston RN) iohexol (OMNIPAQUE) injection (CANCELED) ONCE PRN, Starting on Thu09/07/13 at 0751, Until Thu09/07/13 at 1255, Per Protocol, Intra-Operative (Intra-Procedure), Routine 0751 (Given - Provid er: Sophia Tay MD - Comment: mixed 1:1 with NaCl) OXYcodone (ROXICODONE) immediate release tablet 5 mg (CANCELED) 5 mg, Oral, EVERY 4 HOURS PRN, Starting on Thu09/07/13 at 0852, Until Thu09/07/13 at 1255, Pain, Routine 0936 (Given - Provid er: Yael Weston RN) documented in this encounter Care Teams Business Services Representative Relationship Specialty Start Date End Date Jose M Sauceda MD [address] [place] [id number] PCP - General 06/09/12 07/25/20 documented as of this encounter
--- OUTSIDE RECORDS SUMMARY | 2024-11-23 08:26 | XMS_ITS | Encounter Summary ---
Author Organization [facility] [address] Care Team Providers Care Cover Cutter Name Role Phone Jose M Sauceda MD Primary Care Provider [phone] Encounter Details Date Type Department Care Team (Late st Contact Info) Description 09/06/2013 Orders [place] [address] Adriana Currie PA Anticoagulated on warfarin Anesthesia Record Procedure Summary Procedure Name Responsible Anesthesiologist Anesthesia Start Time Anesthesia Stop Time CYSTOURETEROSCOPY, LITHOTRIPSY (WRVU 7.5) (Right: Ureter) Faby Yancey MD 09/07/13 0725 09/07/13 0859 Events Date Time Event Comment 09/07/2013 0718 0725 Start 0731 AN Verify 0731 An Start Data 0734 An Induction 0736 An Intubation 0738 Anesthesia Ready 0852 Extubation/LMA Out 0854 an stop data 0859 Stop Meds * Agents No agents on file. * Blood No blood administrations on file. Lines, Drains, and Airways Type Details Placement Removal (RETIRED) Peripheral IV Line - Single Lumen 07/08/13; 192; 08/08/14; 1808 07/08/131928 by Rosey Hernadez RN 08/08/141807 by Deshawn Heredia, RN (RETIRED) Peripheral IV Line - Single Lumen 09/07/13; 0643; 09/07/13; 1023 09/07/13 0643 by Nikolay Tripp, RN 09/07/13 102 by Yael Weston, RN (RETIRED) Non-Surgical Airway Mask Ventilation: Adjunct [...] as of this encounter Visit Diagnoses Diagnosis Anticoagulated on warfarin Encounter for long-term (current) use of anticoagulants documented in this encounter Care Teams Cover Cutter Relationship Specialty Start Date End Date Jose M Sauceda MD [address] [place] [id number] PCP - General 06/09/12 07/25/20 documented as of this encounter
--- OUTSIDE RECORDS SUMMARY | 2024-11-23 08:26 | XMS_ITS | Encounter Summary ---
Author Organization [facility] [place] [address] Care Team Providers Care Transplant Coordinator Name Role Phone Jose M Sauceda MD Primary Care Provider [phone] Encounter Details Date Type Department Care Team ([facility] st Contact Info) Description 12/24/2015 [place] [address] Wyatt Edmonds MD Renal stones Social History Tobacco Use Types Packs/Day [...] as of this encounter Visit Diagnoses Diagnosis Renal stones Calculus of kidney documented in this encounter Care Teams Transplant Coordinator Relationship Specialty Start Date End Date Jose M Sauceda MD [address] [place] [id number] PCP - General 06/09/12 07/25/20 documented as of this encounter
--- OUTSIDE RECORDS SUMMARY | 2024-11-23 08:26 | XMS_ITS | Encounter Summary ---
Author Organization [facility] Address [facility] [place] [address] Care Team Providers Care Motion Picture Set Grip Name Role Phone Jose M Sauceda MD Primary Care Provider [phone] Encounter Details Date Type Department Care Team (Late st Contact Info) Description 09/19/2014 2:00 PM EST - 09/19/2014 11:59 PM [facility] Hospital Encounter Ultrasound at [facility] [place] [address] Social History Tobacco Use Types Packs/Day Years [...] Name Priority Date/Time Associated Diagnosis Comments US RETROPERITONEAL COMPLETE Routine 09/19/2014 3:06 PM EST documented in this encounter Results * US retroperitoneal complete (09/19/2014 3:06 PM EST) Anatomical Region Laterality Modality Abdomen Ultrasound 09/19/2014 3:06 PM EST Narrative 09/19/2014 3:25 PM EST Renal ?(Signed Final 09/19/2014 03:25 ? pm) Patient Info ID #: ? [id number] ?: ??[birth year] (54 yrs) Name: ? SEFERINO Hines ?Visit Date: 09/19/2014 02:59 pm ? RACHEL Performed By Performed By: ?James WAYNE, ??Charu Associate: ? Candida Bravo MD Attending: ? Dexter Linares MD Referred By: ? SOPHIA TAY MD Service(s) Provided ??URETRO - Retroperitoneal Complete - [id number] ? [id number] Indications ??kidney stone Comparison Ultrasound: 12/27/2013 Right Kidney Size (cm) ?L: ??11.6 Cortical Thickness: ?Normal Cortical Echogenicity: ?? Normal Hydronephrosis: ?No sonographic evidence Comment: ?Two small subcentimeter cysts seen in superior ? and mid kidney. Small upper pole stone seen ? measuring 7mm. Left Kidney Size (cm) ?L: ??12.5 Cortical Thickness: ?Normal Cortical Echogenicity: ?? Normal Hydronephrosis: ?No sonographic evidence Comment: ?Small subcentimeter cyst seen in upper pole. Urinary Bladder Pre-void (cm) ? L: ??6.4 ? AP: ??4.4 ? TV: ??6.2 Vol (ml): ?91.4 Comment: ?Partially distended, normal contour Impression Ultrasound - ??Retroperitoneal Complete - Summary 1. 7 mm non-obstructing right upper pole renal stone. 2. Sub cm bilateral simple renal cysts. 3. No hydronephrosis either side. 4. ??Normal urinary bladder. I ??viewed the images and agree with the above interpretation. ? Dexter Linares MD Electronically Signed Final Report ?? 09/19/2014 03:25 pm Film and interpretation reviewed by the attending Procedure Note Dexter Linares MD - 09/19/2014 Renal (Signed Final 09/19/2014 03:25 pm) Patient Info ID #: [id number] : [birth year] (54 yrs) Name: SEFERINO Hines Visit Date: 09/19/2014 02:59 pm [place] Performed By Performed By: Charu Ramirez RDMS Associate: Candida Bravo MD Attending: Dexter Linares MD Referred By: SOPHIA TAY MD Service(s) Provided URETRO - Retroperitoneal Complete - [id number] Indications kidney stone Comparison Ultrasound: 12/27/2013 Right Kidney Size (cm) L: 11.6 Cortical Thickness: Normal Cortical Echogenicity: Normal Hydronephrosis: No sonographic evidence Comment: Two small subcentimeter cysts seen in superior and mid kidney. Small upper pole stone seen measuring 7mm. Left Kidney Size (cm) L: 12.5 Cortical Thickness: Normal Cortical Echogenicity: Normal Hydronephrosis: No sonographic evidence Comment: Small subcentimeter cyst seen in upper pole. Urinary Bladder Pre-void (cm) L: 6.4 AP: 4.4 TV: 6.2 Vol (ml): 91.4 Comment: Partially distended, normal contour Impression Ultrasound - Retroperitoneal Complete - Summary 1. 7 mm non-obstructing right upper pole renal stone. 2. Sub cm bilateral simple renal cysts. 3. No hydronephrosis either side. 4. Normal urinary bladder. I viewed the images and agree with the above interpretation. Dexter Linares MD Electronically Signed Final Report 09/19/2014 03:25 pm Film and interpretation reviewed by the attending Sophia Tay MD IMG US GEN ORDERABLE S documented in this encounter Visit Diagnoses Not on filedocumented in this encounter Care Teams Motion Picture Set Grip Relationship Specialty Start Date End Date Jose M Sauceda MD [address] [place] [id number] PCP - General 06/09/12 07/25/20 documented as of this encounter
--- OUTSIDE RECORDS SUMMARY | 2024-11-23 08:26 | XMS_ITS | Encounter Summary ---
Author Organization [facility] Address [facility] [place] [address] Care Team Providers Care Ophthalmic Technician Apprentice Name Role Phone Jose M Sauceda MD Primary Care Provider [phone] Encounter Details Date Type Department Care Team (Late st Contact Info) Description 07/13/2013 [place] [address] Mike Simms MD [facility] [place] [address] Social History Tobacco Use Types Packs/Day Years [...] on filedocumented in this encounter Care Teams Ophthalmic Technician Apprentice Relationship Specialty Start Date End Date Jose M Sauceda MD [address] [place] [id number] PCP - General 06/09/12 07/25/20 documented as of this encounter
--- OUTSIDE RECORDS SUMMARY | 2024-11-23 08:26 | XMS_ITS | Encounter Summary ---
Author Organization [facility] Address [place] [address] Care Team Providers Care Chalk Molding Machine Operator Name Role Phone Jose M Sauceda MD Primary Care Provider [phone] Encounter Details Date Type Department Care Team (Late st Contact Info) Description 08/08/2014 4:30 PM EDT - 08/08/2014 5:00 PM EDT Surgery [place] [phone] Des Brannon MD EGD, UPPER GI ENDOSCOPY (WRVU 2.09) Social [...] encounter Discharge Instructions * Discharge Instructions* Deshawn Heredia, TANG - 08/08/2014 5:40 PM EDT You may [...] occurs please contact your M.D. Please call [phone] before 5 pm with problems, questions or concerns. After 5pm call [phone] and ask to speak with the supervisor correspondence section applications sales representative. Discharge instructions reviewed with patient who expresses understanding. * Attachments The following attachments cannot be sent through Care Everywhere. * EGD (UPPER ENDOSCOPY) : POST-OP (NEPALESE) documented in this encounter Medications at Time [...] Diagnosis Code ??? CAD (coronary artery disease), [place] coronary artery 414.01 ??? Tobacco abuse disorder [...] (08/08/2014 5:24 PM EDT) UPPER GI ENDOSCOPY [facility] Endoscopy Patient Name: Seferino Honeycutt ? Procedure Date: 08/08/2014 5:24 PM ? Date of : 1960 ? Age: 54 ? Order #: [id number] ? Procedure: ? Upper GI endoscopy Indications: ? Screening procedure, Cirrhosis with ? suspected esophageal varices Providers: ? Des M. Dinani, Vee ? Jia Lin, TANG, Zbigniew Alicea. ? Capo, Milk Drier Referring MD: ?Jose M Sauceda MD Medicines: [...] mention of alcohol documented in this encounter Administered Medications Inactive Administered Medications - up to 3 most recent administrations Medication Order MAR Action Action Date Dose Rate Site fentaNYL 50mcg/mL injection ONCE PRN, Starting on Thu08/08/14 at 1727, Until Thu08/08/14 at 1808, Pain, Intra-Operative (Intra-Procedure), Routine Given 08/08/2014 5:28 PM EDT 100 mcg Given 08/08/2014 5:27 PM EDT 50 mcg midazolam (PF) (VERSED) 1 mg/mL injection ONCE PRN, Starting on Thu08/08/14 at 1727, Until Thu08/08/14 at 1808, Sleep, Intra-Operative (Intra-Procedure), Routine Given 08/08/2014 5:29 PM EDT 1 mg Given 08/08/2014 5:27 PM EDT 2 mg documented in this encounter Active and Recently Administered Medications Times are shown in EDT. PRN Medication Order 08/06/2014 08/07/2014 08/08/2014 fentaNYL 50mcg/mL injection (CANCELED) ONCE PRN, Starting on Thu08/08/14 at 1727, Until Thu08/08/14 at 1808, Pain, Intra-Operative (Intra-Procedure), Routine 1727 (Given - Provid er: Jia Rogel RN)1728 (Given - Provider: Jia Rogel RN) midazolam (PF) (VERSED) 1 mg/mL injection (CANCELED) ONCE PRN, Starting on Thu08/08/14 at 1727, Until Thu08/08/14 at 1808, Sleep, Intra-Operative (Intra-Procedure), Routine 172 (Given - Provid er: Jia Rogel RN)172 (Given - Provider: Jia Rogel RN) documented in this encounter Care Teams Chalk Molding Machine Operator Relationship Specialty Start Date End Date Jose M Sauceda MD [address] [place] [address] PCP - General 06/09/12 07/25/20 documented as of this encounter
--- OUTSIDE RECORDS SUMMARY | 2024-11-23 08:26 | XMS_ITS | Encounter Summary ---
Author Organization [facility] Address [place] [address] Care Team Providers Care Set Up Mechanic Coating Machines Name Role Phone Jose M Sauceda MD Primary Care Provider [phone] Encounter Details Date Type Department Care Team (Late st Contact Info) Description 03/08/2014 1:45 PM EDT - 03/08/2014 2:15 PM EDT [place] [phone] Aaron Varma MD UPPER GASTROINTESTINAL ENDOSCOPY,WITH BIOPSY SINGLE OR MULTIPLE (WRVU 2.39) Social History Tobacco Use Types [...] not get better as expected. Thursday-Thursday Clinic [phone] 8a-5p Same Day Endo [phone] 7a-8p Otherwise contact [phone] and ask to speak to the tube skiver container maker Follow-up care is a castillo part of [...] (03/08/2014 2:01 PM EDT) Final Diagnosis ? [facility] ? Provider: ?? AARON VARMA ? Pt. Name: ?? YINKA ROMEO, VANESSA Hines ? Acc #: ?[id number] ?Pt. ? Col Date: ?? 03/08/2014 ? [...] gastritis; question HP 03/09/2014 4:49 PM EDT [facility] GI Biopsy 03/08/2014 2:01 PM EDT 03/08/2014 2:01 PM EDT Aaron Varma MD PATHOLOGY/CYTOLOGY O HORTENCIA Performing Organization Address [facility]/ZIP Co de Phone Number [facility] [place] [address] * Specimen to Pathology (surgical or derm) (03/08/2014 2:01 PM EDT) AP Specimen 03/08/2014 2:01 PM EDT 03/08/2014 2:01 PM EDT Narrative EULOGIO FULTON - 03/08/2014 2:01 PM EDT Specimen requisition ordered. ??Separate Pathology report to follow Aaron Varma MD PATHOLOGY/CYTOLOGY O HORTENCIA EULOGIO MICHAELMIGUELITO * UPPER GI ENDOSCOPY (03/08/2014 1:39 PM EDT) UPPER GI ENDOSCOPY [facility] Endoscopy ___ Patient Name: Vanessa Honeycutt ? Procedure Date: 03/08/2014 1:39 PM ? Date of : 1960 ? Age: 54 ? Order #: [id number] ? ___ Procedure: ? Upper GI endoscopy [...] Procedure Code(s): ?? --- Professional --- ? 26865, Upper gastrointestinal ? endoscopy including esophagus, ? stomach, and either the duodenum ? and/or jejunum as appropriate; with ? biopsy, single or multiple CPT (R) 2012 [employer]. All Rights Reserved. The codes documented in this report are preliminary and upon appeals referee review may be revised to meet current [...] Action Action Date Dose Rate Site benzocaine (TOPEX) 20 % oral spray ONCE PRN, Pain, Starting on Thu03/08/14 at 1345, Until Thu03/08/14 at 1430, Intra-Operative (Intra-Procedure) Given 03/08/2014 1:45 PM EDT 3 each diphenhydrAMINE (BENADRYL) injection ONCE PRN, Starting on Thu03/08/14 at 1345, Until Thu03/08/14 at 1430, Itching, Intra-Operative (Intra-Procedure), Routine Given 03/08/2014 1:48 PM EDT 25 mg Given 03/08/2014 1:45 PM EDT 25 mg fentaNYL 50mcg/mL injection ONCE PRN, Starting on Thu03/08/14 at 1345, Until Thu03/08/14 at 1430, Pain, Intra-Operative (Intra-Procedure), Routine Given 03/08/2014 1:52 PM EDT 2 5 mcg Given 03/08/2014 1:48 PM EDT 50 mcg Given 03/08/2014 1:45 PM EDT 50 mcg lactated ringers infusion 100 mL/hr, Intravenous, CONTINUOUS, Starting on Thu03/08/14 at 1315, Until Thu03/08/14 at 1430, Endoscopy (Day of Procedure) New Bag 03/08/2014 1:15 PM EDT 100 mL/hr 100 mL/hr midazolam (PF) (VERSED) 1 mg/mL injection ONCE PRN, Starting on Thu03/08/14 at 1345, Until Thu03/08/14 at 1430, Sleep, Intra-Operative (Intra-Procedure), Routine Given 03/08/2014 1:52 PM EDT 1 mg Given 03/08/2014 1:48 PM EDT 1 mg Given 03/08/2014 1:45 PM EDT 1 mg documented in this encounter Active and Recently Administered Medications Times are shown in EDT. Continuous Medication Order 03/06/2014 03/07/2014 03/08/2014 lactated ringers infusion (CANCELED) 100 mL/hr, Intravenous, CONTINUOUS, Starting on Thu03/08/14 [...] RN) documented in this encounter Care Teams Set Up Mechanic Coating Machines Relationship Specialty Start Date End Date Jose M Sauceda MD [address] [place] [address] PCP - General 06/09/12 07/25/20 documented as of this encounter
--- OUTSIDE RECORDS SUMMARY | 2024-11-23 08:26 | XMS_ITS | Encounter Summary ---
Author Organization [facility] Address [facility] [place] [address] Care Team Providers Care Business Development Coordinator Name Role Phone Jose M Sauceda MD Primary Care Provider [phone] Encounter Details Date Type Department Care Team (Late st Contact Info) Description 12/27/2013 4:40 PM EST [place] [phone] CLINIC, Wyatt Dunham MD Kidney stone (Primary Dx) Discharge Disposition: Home Social History [...] Sign Reading Time Taken Comments Blood Pressure 128/63 12/27/2013 4:59 PM EST Pulse 69 12/27/2013 4:59 PM EST Temperature - - Respiratory Rate - - Oxygen Saturation - - Inhaled Oxygen Concentration - - Weight 117.9 kg (260 lb) 12/27/2013 4:59 PM EST Height 177.8 cm (5' 10) 12/27/2013 4:59 PM EST Body Mass Index 37.31 12/27/2013 4:59 PM EST documented in this encounter Progress Notes * Wyatt Edmonds MD - 12/27/2013 5:13 PM EST 53M h/o nephrolithiasis for f/u. S/p R URS/LL/stent in 09/07 for large right ureteral and small renal stone. Uncomplicated. Mapping pyelogram negative. Stent removed. Composition = ca jhonny and ca ox. Counseled on dietary changes for stone risk reduction. Today feels well. No pain. No change in voiding habits. Renal US small RUP nonobstructive fragment Exam: S NTND No CVAT A: Nephrolithiasis, small RUP fragment on US P: Discussed options of CT for additional characterization, follow up endoscopy, vs observation. I recommended the latter based on small size and negative prior nephroscopy. He is in agreement. We reviewed risks of recurrent colic and he will alert me for symptomatic changes. We discussed dietary modifications again in detail. He declines a more detailed metabolic evaluation at this time. His questions were answered. RTC 6 months w/ renal sonogram. 16 of 17 min spent in counseling and coordination of care documented in this encounter Plan of Treatment Not on file documented as of this encounter Visit Diagnoses Diagnosis Kidney stone- Primary Calculus of kidney documented in this encounter Care Teams Business Development Coordinator Relationship Specialty Start Date End Date Jose M Sauceda MD [address] [place] [address] PCP - General 06/09/12 07/25/20 documented as of this encounter
--- OUTSIDE RECORDS SUMMARY | 2024-11-23 08:26 | XMS_ITS | Encounter Summary ---
Author Organization [facility] Address [facility] [place] [address] Care Team Providers Care Mental Hygienist Name Role Phone Jose M Sauceda MD Primary Care Provider [phone] Encounter Details Date Type Department Care Team ([facility] st Contact Info) Description 08/07/2014 Notes Only [facility]ology at [facility] [place] [address] Tonia Burk, RN Social History Tobacco Use [...] Progress Notes * Tonia Burk, RN - 08/07/2014 4:09 PM EDT Enrollment form, labs, notes, faxed to [facility] for Arianna. Await response. documented in this encounter Plan of Treatment Not on file documented as of this encounter Visit Diagnoses Not on filedocumented in this encounter Care Teams Mental Hygienist Relationship Specialty Start Date End Date Jose M Sauceda MD [address] [place] [address] PCP - General 06/09/12 07/25/20 documented as of this encounter
--- OUTSIDE RECORDS SUMMARY | 2024-11-23 08:26 | XMS_ITS | Encounter Summary ---
Author Organization [facility] [place] [address] Care Team Providers Care Leaflet Or Newspaper Deliverer Name Role Phone Jose M Sauceda MD Primary Care Provider [phone] Encounter Details Date Type Department Care Team (Late st Contact Info) Description 06/13/2015 Orders [place] [address] Lashell Marcos MD Cirrhosis of liver without ascites, unspecified hepatic [...] type documented in this encounter Care Teams Leaflet Or Newspaper Deliverer Relationship Specialty Start Date End Date Jose M Sauceda MD [address] [place] [address] PCP - General 06/09/12 07/25/20 documented as of this encounter
--- OUTSIDE RECORDS SUMMARY | 2024-11-23 08:26 | XMS_ITS | Encounter Summary ---
Author Organization [facility] Address [facility] [place] [address] Care Team Providers Care Cloth Designer Name Role Phone Jose M Sauceda MD Primary Care Provider [phone] Encounter Details Date Type Department Care Team (Latest Contact Info) Description 12/27/2013 3:45 PM EST - 12/27/2013 11:59 PM EST Hospital Encounter Ultrasound at [facility] [place] [address] Nephrolithiasis Social History Tobacco Use Types Packs/Day Years [...] MG = 1 Tablet(s), Sublingual, PRN 03/02/2008 QUEtiapine (SEROQUEL) 25 mg tablet Take 25 mg by mouth 3 times daily. 03/08/2014 sertraline (ZOLOFT) 50 mg tablet Take 100 mg by mouth daily. 08/08/2014 traZODone (DESYREL) 100 mg tablet Take 150 mg by mouth nightly. 03/04/2016 tamsulosin (FLOMAX) 0.4 mg capsule Take 1 capsule by mouth daily. 14 tablet 0 07/09/2013 01/14/2014 warfarin (COUMADIN) 5 mg tablet Take 5 mg by mouth daily. 02/13/2014 documented as of this encounter Plan of Treatment Not on file documented as of this encounter Procedures Procedure Name Priority Date/Time Associated Diagnosis Comments US RETROPERITONEAL COMPLETE Routine 12/27/2013 4:47 PM EST Nephrolithiasis documented in this encounter Results * US retroperitoneal complete (12/27/2013 4:47 PM EST) Anatomical Region Laterality Modality Abdomen Ultrasound 12/27/2013 4:47 PM EST Narrative 12/27/2013 4:54 PM EST ? Renal ? (Signed Final 12/27/2013 04:53 pm) Patient Info ID: ? [id number] ? : [birth year] (53 yrs) Name: ? SEFERINO Hines ? Visit Date: 12/27/2013 04:41 pm ? YINKA Performed By Performed By: ?Britt Ji RDMS Attending: ? Dexter Linares MD Referred By: ? SOPHIA TAY MD Service(s) Provided URETRO - Retroperitoneal Complete - [id number] ? [id number] Indications S/p stent removal 09/20. Assess for [...] Final 12/27/2013 04:53 pm) Patient Info ID: [id number] : [birth year] (53 yrs) Name: SEFERINO Hines Visit Date: 12/27/2013 04:41 pm [place]T Performed By Performed By: Britt Ji RDMS Attending: Dexter Linares MD Referred By: SOPHIA TAY MD Service(s) Provided URETRO - Retroperitoneal Complete - [id number] Indications S/p stent removal 09/20. Assess for [...] Electronically Signed Final Report 12/27/2013 04:53 pm Sophia Tay MD IMG US GEN ORDERABLE S documented in this encounter Visit Diagnoses Diagnosis Nephrolithiasis Calculus of kidney documented in this encounter Care Teams Cloth Designer Relationship Specialty Start Date End Date Jose M Sauceda MD [address] [place] [address] PCP - General 06/09/12 07/25/20 documented as of this encounter
--- OUTSIDE RECORDS SUMMARY | 2024-11-23 08:26 | XMS_ITS | Encounter Summary ---
[place] [address] Care Team Providers Care Manager Market Research Name Role Phone Jose M Sauceda MD Primary Care Provider [phone] Encounter Details Date Type Department Care Team (Late st Contact Info) Description 09/07/2013 7:30 AM EST - 09/07/2013 9:28 AM EST Surgery [place] [phone] Sophia Tay MD CYSTOURETEROSCOPY, LITHOTRIPSY (WRVU 7.5) Social History Tobacco Use Types Packs/Day Years [...] side pain, you should call our office [phone] before 5PM or [phone] after hours. Wound Care: None needed Activity: As tolerated by your comfort level. Urination: You will likely have a small amount of blood in your urine while the stent is in place. This is normal; however, if you are passing large amounts of blood clots, bright red blood or are bleeding an unable to urinate please call our office at [phone] 5PM or [phone] after hours. Call Doctor for: Please call if you have copious blood in your urine, severe back or side pain, pain not controlled by pain medications, persistent nausea and vomiting, or for any fevers greater [id number] F. The number for questions is [phone] before 5 PM weekdays and [phone] after 5 PM and weekends. Pain Medication: [...] documented in this encounter Procedure Notes * Provider, Scanning - 09/07/2013 4:52 PM ESTAssociated Order(s): SCAN [...] Note Patient Name: Vanessa Honeycutt Jr. : [id number] MR#: [id number] Case Date: 09/07/2013 Surgeon: Surgeon(s) and Role: * Sophia Tay MD - Primary * Michael David MD - Resident-Surgeon Chief * Dagrosa, Zeyad M, MD - Resident-Surgeon Franklyn Preoperative diagnosis: RT [...] no stones or mucosal injuries appreciated. A 6-Kyrgyz 26-cm double-J stent was then placed in [...] Note Patient Name: Vanessa Honeycutt Jr. : [id number] MR#: [id number] Case Date: 09/07/2013 Surgeon: Surgeon(s) and Role: [...] 8:44 AM EST) Surgical Pathology Report ? [facility] ? Provider: ?? SOPHIA TAY ?Pt. Name: ?? VANESSA HONEYCUTT JR ? Acc #: ?[id number] ?Pt. ? Col Date: ?? 09/07/2013 ?/Sex: [...] The Report of Stone Analysis, order # [id number], has been received from ? the [facility], [address], [place], [place] ??[address]. ? For the full text of the [facility] report please refer to Non-DH Documentation ? Pathology in the electronic medical record (eDH). ? ---Gross Description--- ? Specimen submitted for chemical analysis. ? ---Clinical Information--- ? Specimen Submitted: ? A - Rt ureteral stone ? Clinical History: ? Rt ureteral stone CERNER MILLENNIUM 09/07/2013 8:44 AM EST Sophia Tay MD PATHOLOGY/CYTOLOGY O HORTENCIA Performing Organization Address [facility] de Phone Number EULOGIO MILLENNIUM * Specimen to Pathology (surgical or derm) (09/07/2013 8:44 AM EST) AP Specimen 09/07/2013 8:44 AM EST 09/07/2013 8:44 AM EST Narrative CERNER MILLENNIUM - 09/07/2013 8:44 AM EST Specimen requisition ordered. ??Separate Pathology report to follow Sophia Tay MD PATHOLOGY/CYTOLOGY O HORTENCIA Performing Organization Address [facility]/State/ZIP Co de Phone Number EULOGIO FULTON * (ABNORMAL) Prothrombin Time (09/07/2013 6:08 AM EST) Prothrombin Time 20.1(H) 12.0 - 15.0 sec EULOGIO FULTON Comment: [facility] Transfusion Committee Guidelines: INR less than 2.0, PTT less than OR equal to 43.5 seconds, or Fibrinogen greater than or equal to 100 mg/dl indicate adequate procoagulant activity for hemostasis in patients without underlying bleeding disorders. International Normalization Ratio 1.7(H) 0.9 - 1.1 [facility] FULT[facility] Blood specimen (specimen) 09/07/2013 6:08 AM EST 09/07/2013 6:13 AM EST Narrative Resulting Agency Comment Spec In Lab Damián Quintanilla MD HEMATOLOGY ORDERABLE S Performing Organization Address City/State/[facility] Co de Phone Number EULOGIO FULTON documented in this encounter Visit Diagnoses Not [...] Given 09/07/2013 9:15 AM EST 50 mcg iohexol (OMNIPAQUE) injection ONCE PRN, Starting on Thu09/07/13 at 0751, Until Thu09/07/13 at 1255, Per Protocol, Intra-Operative (Intra-Procedure), Routine Given 09/07/2013 7:51 AM EST 50 mLs 19- Surgical Site lactated ringers infusion 1,000 mL 1,000 mL, [...] RN) documented in this encounter Care Teams Manager Market Research Relationship Specialty Start Date End Date Jose M Sauceda MD [address] [place] [address] PCP - General 06/09/12 07/25/20 documented as of this encounter
--- OUTSIDE RECORDS SUMMARY | 2024-11-23 08:26 | XMS_ITS | Encounter Summary ---
Author [facility] Address [facility] [place] [address] Care Team Providers Care Handbag Stitcher Name Role Phone Jose M Sauceda MD Primary Care Provider Encounter Details Date Type Department Care Team ([facility] st Contact Info) Description 02/23/2014 Orders [place] [phone] Alycia Malone APRN [facility] [place] [address] Cirrhosis (Primary Dx) Social History Tobacco Use Types Packs/Day Years [...] as of this encounter Visit Diagnoses Diagnosis Cirrhosis- Primary Cirrhosis of liver without mention of alcohol documented in this encounter Care Teams Handbag Stitcher Relationship Specialty Start Date End Date Jose M Sauceda MD [address] [place] [address] PCP - General 06/09/12 07/25/20 documented as of this encounter
--- OUTSIDE RECORDS SUMMARY | 2024-11-23 08:26 | XMS_ITS | Encounter Summary ---
Author Organization [facility] Address [facility] [place] [address] Care Team Providers Care Aircraft Detail Draftsperson Name Role Phone Jose M Sauceda MD Primary Care Provider [phone] Encounter Details Date Type Department Care Team (Late st Contact Info) Description 08/08/2013 4:20 PM EDT [place] [id number] Wyatt Tay MD Hematuria (Primary Dx) Discharge Disposition: Home Social History [...] Sign Reading Time Taken Comments Blood Pressure 136/67 08/08/2013 4:26 PM EDT Pulse 63 08/08/2013 4:26 PM EDT Temperature - - Respiratory Rate 18 08/08/2013 4:26 PM EDT Oxygen Saturation - - Inhaled Oxygen Concentration - - Weight 111.1 kg (245 lb) 08/08/2013 4:26 PM EDT Height 176.5 cm (5' 9.5) 08/08/2013 4:26 PM EDT Body Mass Index 35.66 08/08/2013 4:26 PM EDT documented in this encounter Progress Notes * Wyatt Tay MD - 08/08/2013 4:42 PM EDT 53M h/o R ureteral stone s/p stent placement on 07/09/13. Also on coumadin for SMV thrombosis. Presents for follow up. Does not yet have scheduling for ureteroscopy. Having sporadic mild gross hematuria and bothered by stent. No fever or chills. No heavy bleeding. Exam: S NTND No CVAT A: R ureteral stone s/p stent placement P: We discussed treatment options in detail. I recommended R URS/LL/stent placement. Risks of bleeding, infection, damage to urinary tract, need for additional treatment were reviewed. We will have him give a urine culture today to ensure no additional perioperative prophylaxis is required. Risks of bleeding augmented by his coumadin therapy were discussed. We will have him scheduled vikram. His questions were answered. 16 of 17 min spent in counseling and coordination of care documented in this encounter Plan of Treatment Not on file documented as of this encounter Procedures Procedure Name Priority Date/Time Associated Diagnosis Comments URINE CULTURE Routine 08/08/2013 4:51 PM EDT Hematuria URINALYSIS WITH REFLEX CULTURE Routine 08/08/2013 4:38 PM EDT Hematuria documented in this encounter Results * Urine culture Clean Catch Urine (08/08/2013 4:51 PM EDT) Urine Culture ? Patient Name: SEFERINO HONEYCUTT JR Ordered By: WYATT TAY ? MR#: [id number] ?LOC: ??5B ? /Sex: ??1960 (53 years), ? Male ? PROCEDURE: Urine Culture ?SOURCE: U CC ? COLLECTED: 08/08/2013 16:51 ? STARTED: 08/08/2013 16:51 ? FINAL REPORT ? Final Report ? Verified:2012 15:29 ? 1,000-9,000 cfu/ml Gram Positive organisms , probable contaminant ? CERNER MILLENNIUM Urine specimen obtained by clean catch procedure (specimen) 08/08/2013 4:51 PM EDT 08/08/2013 4:51 PM EDT Narrative Resulting Agency Comment Spec In Lab Wyatt Tay MD MICROBIOLOGY - GENER AL ORDERABLES CERNER MILLENNIUM * (ABNORMAL) Urinalysis with microscopic (08/08/2013 4:38 PM EDT) Glucose, Urine Dipstick Negative Negative mg/dL CERNER MILLENNIUM Protein, Urine Dipstick 100(A) Neg mg/dL CERNER MILLENNIUM Bilirubin, Urine Dipstick Negative Negative mg/dL CERNER MILLENNIUM Urobilinogen, Urine Dipstick 2.0(A) Normal mg/dL CERNER MILLENNIUM pH, Urn (dipstick) 6.0 5.0 - 8.0 CERNER MILLENNIUM Blood, Urine Dipstick Large(A) Neg CERNER MILLENNIUM Ketone, Urine Dipstick Neg Neg mg/dL CERNER MILLENNIUM Nitrite, Urine Dipstick Neg Neg CERNER MILLENNIUM Leukocytes, Urine Dipstick Large(A) Neg CERNER MILLENNIUM Appearance, Urine Dipstick Cloudy(A) Clear CERNER MILLENNIUM Specific [place] Urine Automated 1.016 1.002 - 1.030 CERNER MILLENNIUM Color, Urine Dipstick Red Yellow CERNER MILLENNIUM RBC, Urine >182(H) 0 - 3 /HPF CERNER MILLENNIUM WBC, Urine 42(H) 0 - 3 /HPF CERNER MILLENNIUM Bacteria, Urine Occasional /HPF CERNER MILLENNIUM Renal Epithelial Cells, Urine 1(H) <=0 /HPF CERNER MILLENNIUM Urine specimen (specimen) 08/08/2013 4:38 PM EDT 08/08/2013 4:48 PM EDT Narrative Resulting Agency Comment Spec In Lab Wyatt Tay MD URINE ORDERABLES [facility] MICHAELMIGUELITO documented in this encounter Visit Diagnoses Diagnosis Hematuria- Primary Hematuria, unspecified documented in this encounter Care Teams Aircraft Detail Draftsperson Relationship Specialty Start Date End Date Jose M Sauceda MD [address] [place] [id number] PCP - General 06/09/12 07/25/20 documented as of this encounter
--- OUTSIDE RECORDS SUMMARY | 2024-11-23 08:27 | XMS_ITS | Encounter Summary ---
Author Organization [facility] Address [facility] [place] [address] Care Team Providers Care Dressed Poultry Grader Name Role Phone Jose M Sauceda MD Primary Care Provider [phone] Encounter Details Date Type Department Care Team ([facility] st Contact Info) Description 07/09/2013 External Results XRay at [address] [place] [address] Provider, Scanning Social History Tobacco Use Types [...] Name Priority Date/Time Associated Diagnosis Comments CT SCAN (SCAN) Routine 07/06/2013 documented in this encounter Results * Scan Doc: CT Scan (07/06/2013) Anatomical Region Laterality Modality Other Scanning Provider MEDIA MGR SCAN EXT O RDR/RSLT documented in this encounter Visit Diagnoses Not on filedocumented in this encounter Care Teams Dressed Poultry Grader Relationship Specialty Start Date End Date Jose M Sauceda MD [address] [facility] [address] [place] [address] PCP - General 06/09/12 07/25/20 documented as of this encounter
--- OUTSIDE RECORDS SUMMARY | 2024-11-23 08:27 | XMS_ITS | Encounter Summary ---
Author Organization [facility] Address [facility] [place] [address] Care Team Providers Care Sock Mender Name Role Phone Nena Sauceda MD Primary Care Provider [phone] Reason for Visit * Reason Comments Kidney Stone Encounter Details Date Type Department Care Team (Late st Contact Info) Description 07/08/2013 8:33 PM EDT - 07/09/2013 1:07 PM EDT Emergency [address] [place] [id number] Chris Mojica MD Hyams, Elias S, MD Kidney stone Discharge Disposition: Home Social History Tobacco Use [...] Sign Reading Time Taken Comments Blood Pressure 116/85 07/09/2013 10:23 AM EDT Pulse 64 07/09/2013 10:23 AM EDT Temperature 36.4 ??C (97.5 ??F) 07/09/2013 10:23 AM E DT Respiratory Rate 16 07/09/2013 10:23 AM EDT Oxygen Saturation 94% 07/09/2013 9:30 AM EDT Inhaled Oxygen Concentration - - Weight 113.4 kg (250 lb) 07/08/2013 11:51 PM EDT Height 175.3 cm (5' 9) 07/08/2013 11:51 PM EDT Body Mass Index 36.92 07/08/2013 11:51 PM EDT documented in this encounter Discharge Instructions * Patient Instructions* Michael David MD - 07/09/2013 8:46 AM EDT Instructions following Cystoscopic Surgery with a Ureteral [...] side pain, you should call our office [phone] before 5PM or [phone] after hours. Wound Care: None needed Activity: As tolerated by your comfort level. Urination: You will likely have a small amount of blood in your urine while the stent is in place. This is normal; however, if you are passing large amounts of blood clots, bright red blood or are bleeding an unable to urinate please call our office at [phone] 5PM or [phone] after hours. Call Doctor for: Please call if you have copious blood in your urine, severe back or side pain, pain not controlled by pain medications, persistent nausea and vomiting, or for any fevers greater uuie228.3 F. The number for questions is [phone] before 5 PM weekdays and [phone] after 5 PM and weekends. Pain Medication: No driving for 8 hours after any dose of opioid pain medication if one was prescribed for you. You may use ibuprofen (motrin, advil) in addition to this medication if your pain is not totally controlled by the opioid. Follow-up: Please call [phone] (clinic number for appointments) to confirm date and time of your appointment if you do not receive your apointment in 1 week. documented in this encounter Medications at Time [...] MG = 1 Tablet(s), Sublingual, PRN 03/02/2008 amoxicillin-clavulan ate (AUGMENTIN) 875-125 mg per tablet Take 1 tablet by mouth 2 times daily for 14 days. 28 tablet 0 07/09/2013 07/23/2013 docusate sodium (COLACE) 100 mg capsule Take 1 capsule by mouth 2 times daily for 14 days. 28 capsule 0 07/09/2013 07/23/2013 OXYcodone (OXYCONTIN) 10 mg CR tablet Take 1 tablet by mouth every 4 hours as needed. 30 tablet 0 07/09/2013 07/13/2013 tamsulosin (FLOMAX) 0.4 mg capsule Take 1 capsule by mouth daily. 14 tablet 0 07/09/2013 01/14/2014 warfarin (COUMADIN) 5 mg tablet Take 5 mg by mouth daily. 02/13/2014 documented as of this encounter Progress Notes * Aurora Raman RN - 07/09/2013 1:03 PM EDT Pt discharged home with no services. Discharge instructions reviewed with pt, who confirmed understanding of materials. Prescriptions given to pt & IV removed. Pt declined wheelchair/staff escortto door, left in private car. * Michael David MD - 07/09/2013 11:03 AM EDT 53M with right distal stone and Group A strep UTI. No interval changes. No fevers. Was on unasyn overnight. Was stented the AM, no marbin-operative complications. Plan: d/c home this AM, will give him augmentin x 2 weeks, schedule for ureteroscopy in 2 weeks. documented in this encounter H&P Notes * Michael David MD - 07/08/2013 4:31 PM EDT Urology History and Physical Exam for Admission History of Present Illness Vanessa Honeycutt Jr. is a 53 y.o. year old male referred from the [facility] ED for work up of urolithiasis Patient was recently discharged from [facility] having been diagnosed with meseneric ischemia. He thought his stone pain was related to his dull constant pain of mesenteric ischemia and finally presented to [facility] with a week of worsening right flank pain. He denies having any fevers/chills. Has had hematuria but no dysuria. He is otherwise feeling okay. During his work-up at the OSH he had a urine cultre which resulted today as > 100K GBS. He was instructed to come to the ED. He has had stones in the past, but was able to pass them himself. Additional Past Medical History CAD Tobaccoism Hep C dx 2000 HTN Mesenteric ischemia Past Surgical History Coronary stent placment Family History Brother with hepatitis C Father from alcoholic cirrhosis Social History tbacco use: Alcohol use: no alcohol since 2004 Hx of IVDU Employment: [employer] of Systems As above and GEN: No fevers, chills, malaise, night sweats NEURO: No headache, change in vision CARDS: Nchest pain, palpitations PULM: No SOB, URI GI: No nausea, vomiting, constipation, diarrhea : No hematuria, dysuria MSK:[place]/spine pain ENDO: No excessive thirst SKIN: No rashes EXT: No numbness/tigling in extremities, DVT Physical Exam: Vital signs have been reviewed and are wnl. GENERAL: No acute distress, A/O x 3. HEENT: NC/AT, CN 2-12 in-tact. LUNGS: Breath sounds CTA b/l, no wheezes/rales/rhonci. COR: Regular rate and rhythm. No murmurs/rubs/gallops. ABD: soft, non-tender, non-distended. Bowel sounds normoactive. Right CVA more tender than left EXTREMITIES: No clubbing/cyanosis/edema. Recent Labs Basename 07/08/13 1940 WBC 4.8 HGB 14.2 HCT 40.8 PLATELET 115* NA 137 K 4.0 CL 102 CO2 26 BUN 10 CREATININE 1.08 INR 2.1* Imaging: I have personally reviewed the patient's imaging studies and have found the following: Patient with 8mm right disal ureteral stone with associated hydronephrosis. Assessment: Right distal ureteral stone with reported >100K colony count of GBS at outside hospital. He is asymptomatic from his UTI and non-toxic appearing. He is having significant pain. Plan: Admit for IV antibiotics, OR in AM for ureteral stent placement. documented in this encounter Procedure Notes * Alexus Ryan - 07/10/2013 11:43 AM EDTAssociated Order(s): SCAN DOC: ARMATURE AND ROTOR WINDER documented in this encounter ED Notes * Chris Mojica MD - 07/08/2013 7:46 PM EDT Emergency Department Vanessa Honeycutt Jr. is a 53 y.o. male who presents to [facility] with ureterolithiasis. History of Present Illness / Review of Systems The patient is resting comfortably in the bed. Physical Exam: I reviewed the patient???s vitals as recorded in the electronic medical record and ED nursing notes. The patient was non-toxic appearing and in no obvious distress. Assessment/Plan: This 53 y.o. male was transferred from an outside hospital emergency department to receive specialty care provided by the urology service for ureterolithiasis. I discussed the case with resident/fellow of the accepting service. The patient was deemed to be stable and not requiring significant involvement from the attending emergency physician at this time. The accepting service has assumed further care of the patient. Please see their notes for any further clinical details. Chris Mojica MD 07/08/13 194 documented in this encounter Miscellaneous Notes * Discharge Summary - Michael David MD - 07/09/2013 11:05 AM EDT Urology Discharge Summary Primary Diagnosis: right obstructing stone Secondary Diagnosis: Patient Active Problem List Diagnosis Code ??? CAD (coronary artery disease), [place] coronary artery 414.01 ??? Tobacco abuse disorder 305.1 ??? Hepatitis C 070.70 ??? Hypertension 401.9 ??? Spinal stenosis, lumbar region, without neurogenic claudication 724.02 ??? Chronic Mechanical low back pain 724.2 Operations and Procedures: CYSTO, STENT PLACEMENT; CYSTO, RETROGRADE, URETEROPYELOGRAPHY Surgeons: Surgeon(s) and Role: * Sophia Edmonds MD - Primary * Michael David MD - Resident-Surgeon Chief History of Present Illness: Vanessa Honeycutt Jr. is a 53 y.o. year old male referred from the [facility] ED for work up of urolithiasis Patient was recently discharged from [facility] having been diagnosed with meseneric ischemia. He thought his stone pain was related to his dull constant pain of mesenteric ischemia and finally presented to [facility] with a week of worsening right flank pain. He denies having any fevers/chills. Has had hematuria but no dysuria. He is otherwise feeling okay. During his work-up at the OSH he had a urine cultre which resulted today as > 100K GBS. He was instructed to come to the ED. He has had stones in the past, but was able to pass them himself. Hospital Course: Patient admitted to the floor from the ED. Underwent right ureteral stent placement the next morning. He tolerated the procedure well. He remained afebrile with stable vital signs throughout his admission. He was deemed safe for discharge on POD#0. He will be scheduled for ureteroscopy in 2 weeks. He will remain on antibiotics until then. Vital Signs Last value Range last 24hrs Temperature Temp: 36.4 ??C (97.5 ??F) Temp: [36.1 ??C (97 ??F)-37.3 ??C (99.1 ??F)] Heart Rate Heart Rate: 64 Heart Rate: [59-82] Blood Pressure BP: 116/85 mmHg BP: (113-168)/(65-87) Respiratory Rate Resp: 16 Resp: [16-22] SpO2 SpO2: 94 % SpO2: [94 %-100 %] Pertinent Lab Data: Recent Labs Basename 07/08/130 WBC 4.8 HGB 14.2 PLATELET 115* NA 137 K 4.0 CL 102 CO2 26 BUN 10 CREATININE 1.08 CALCIUM -- MAGNESIUM -- INR 2.1* PTT -- Physical Exam: General: NAD, resting comfortably, pleasant, conversant Abd: soft, nontender, non-distended : improved right CVA tenderness Skin: warm, dry Imaging: Condition at discharge: Stable Mental Status: awake and alert, oriented x 3 Medications: Current Discharge Medication List New Meds Dose Details amoxicillin-clavulanate (AUGMENTIN) 875-125 mg per tablet 1 tablet Take 1 tablet by mouth 2 times daily for 14 days. Qty: 28 tablet Refills: 0 docusate sodium (COLACE) 100 mg capsule 100 mg Take 1 capsule by mouth 2 times daily for 14 days. Qty: 28 capsule Refills: 0 tamsulosin (FLOMAX) 0.4 mg capsule 0.4 mg Take 1 capsule by mouth daily. Qty: 14 tablet Refills: 0 Continued medications with revised dosing Dose Details OXYcodone (OXYCONTIN) 10 mg CR tablet 10 mg Take 1 tablet by mouth every 4 hours as needed. Qty: 30 tablet Refills: 0 Continued medications, unchanged Dose Details BUPROPION HCL (WELLBUTRIN XL ORAL) Take by mouth 2 times daily. warfarin (COUMADIN) 5 mg tablet 5 mg Take 5 mg by mouth daily. metoprolol succinate (TOPROL-XL) 50 mg 24 hr tablet 50 mg Take 50 mg by mouth daily. hydrochlorothiazide (HYDRODIURIL) 25 mg tablet 25 mg Take 25 mg by mouth daily. Indications: Hypertension nitroGLYcerin (NITROSTAT) 0.4 mg SL tablet 0.4 MG = 1 Tablet(s), Sublingual, PRN Disposition: home Allergies: No Known Allergies Outpatient Services/Studies: No discharge procedures on file. Scheduled Appointments: Future Appointments and Orders Future Appointments: Provider: Department: Dept Phone: Center: 07/19/2013 1:40 PM Sophia Edmonds MD Urology [phone] [facility] Instructions Given to Patient at Discharge: Provider Instructions Instructions following Cystoscopic Surgery with a Ureteral [...] side pain, you should call our office [phone] before 5PM or [phone] after hours. Wound Care: None needed Activity: As tolerated by your comfort level. Urination: You will likely have a small amount of blood in your urine while the stent is in place. This is normal; however, if you are passing large amounts of blood clots, bright red blood or are bleeding an unable to urinate please call our office at [phone] 5PM or [phone] after hours. Call Doctor for: Please call if you have copious blood in your urine, severe back or side pain, pain not controlled by pain medications, persistent nausea and vomiting, or for any fevers greater znzs505.3 F. The number for questions is [phone] before 5 PM weekdays and [phone] after 5 PM and weekends. Pain Medication: No driving for 8 hours after any dose of opioid pain medication if one was prescribed for you. You may use ibuprofen (motrin, advil) in addition to this medication if your pain is not totally controlled by the opioid. Follow-up: Please call [phone] (clinic number for appointments) to confirm date and time of your appointment if you do not receive your apointment in 1 week. General Instructions None Signed: MICHAEL DAVID MD 07/09/2013 Primary [place] Physician: NENA SAUCEDA MD #[address] [place] [address] * OR Attestation - Sophia Edmonds MD - 07/09/2013 9:26 AM EDT Attestation: Case Date: 07/09/2013 I was present and I participated during the entire procedure (does not need to include opening and closing). SOPHIA EDMONDS MD 07/09/2013 * Op Note - Michael David MD - 07/09/2013 8:41 AM EDT [facility] Operative Note Patient Name: Vanessa Honeycutt JrPato : [id number] MR#: [id number] Case Date: 07/09/2013 Surgeon: Surgeon(s) and Role: * Sophia Edmonds MD - Primary * Michael David MD - Resident-Surgeon Chief Preoperative diagnosis: right ureteral stone Postoperative diagnosis: right ureteral stone Procedure(s): CYSTO, RIGHT STENT PLACEMENT CYSTO, RETROGRADE, URETEROPYELOGRAPHY Anesthesia: Consult Findings: tight fitting [id number] stent, UOs orthotopic Complications: none Fluids: 200cc Estimated Blood Loss: none Drains: [id number] right ureteral stent Disposition: awakened from anesthesia, extubated and taken to the recovery room in a stable condition, having suffered no apparent untoward event. Condition: doing well without problems HPI/Surgical Indications: *Vanessa Honeycutt Jr. is a 53 y.o. year old male referred from the [facility] ED for work up of urolithiasis Patient was recently discharged from [facility] having been diagnosed with meseneric ischemia. He thought his stone pain was related to his dull constant pain of mesenteric ischemia and finally presented to [facility] with a week of worsening right flank pain. He denies having any fevers/chills. Has had hematuria but no dysuria. He is otherwise feeling okay. During his work-up at the OSH he had a urine cultre which resulted today as > 100K GBS. He was instructed to come to the ED. He has had stones in the past, but was able to pass them himself. Procedure Description: The patient was consented prior to be being brought back to the Operating Room. he was then placed on the operating room table in supine position, and general anesthesia was then induced. The patient was then placed in dorsal lithotomy position and prepped and draped in the routine sterile fashion. After an adequate time-out, a 22-Tuvaluan cystoscope was then gently passed through the patient's urethra and into the patient's bladder. his bladder was then emptied. A visual inspection of the bladder revealed no bladder lesions or suspicious areas. A 5-Tuvaluan [place] was then easily passed into the ureteral orfice and contrast was injected filling up the ureter and collecting system. The [place] was then advanced up into the renal pelvis. A guidewire was then passed up through the [place] and into the renal pelvis. The [place] was then removed. A 6-Tuvaluan 26cm l ureteral stent was then passed over the wire and into the renal pelvis. The position of the stent was confirmed using fluoroscopy guidance in the renal pelvis. The stent was noted to be in appropriate position in the bladder. The patient was subsequently extubated and returned to the PACU in excellent condition. There were no complications. * Brief Op Note - Michael David MD - 07/09/2013 8:40 AM EDT Brief Operative Note Patient Name: Vanessa Honeycutt Jr. : [id number] MR#: [id number] Case Date: 07/09/2013 Surgeon: Surgeon(s) and Role: * Sophia Edmonds MD - Primary * Michael David MD - Resident-Surgeon Chief Preoperative diagnosis: right ureteral stent Postoperative diagnosis: * No post-op diagnosis entered * Procedure(s): CYSTO, STENT PLACEMENT CYSTO, RETROGRADE, URETEROPYELOGRAPHY Anesthesia: Consult Findings: tight fitting [id number] stent, UOs orthotopic Complications: none Fluids: 200cc Estimated Blood Loss: none Drains: [id number] right ureteral stent Disposition: awakened from anesthesia, extubated and taken to the recovery room in a stable condition, having suffered no apparent untoward event. 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 * Miscellaneous - Provider, Scanning - 07/08/2013 9:18 PM EDT * Miscellaneous - Provider, Scanning - 07/08/2013 8:04 PM EDT * ED Triage - Ryan Ramirez RN - 07/08/2013 7:11 PM EDT Seen at [facility] over past weeks for blood clot in intestines, started on coumadin, developed hematuria and dark colored stools. This week - change in pain location from mid-abdomen to right groin and had increase in pain. Seen again at [facility] and diagnosed as kidney stone. Today was called by [facility] who stated that he had an infection and advised that he be seen here. documented in this encounter Plan of Treatment Pending Results Name Type Priority Associated Diagnoses Date /Time XR Fluoro OR c-arm storage only Imaging Routine 07/09/2013 8:31 AM EDT Scheduled Orders Name Type Priority Associated Diagnoses Orde r Schedule XR Fluoro OR c-arm storage only Imaging Routine Once PRN (for Ra diant use) for 1 Occurrences starting 07/09/2013 until 07/09/2013 documented as of this encounter Procedures Procedure Name Priority Date/Time Associated Diagnosis Comments ARMATURE AND ROTOR WINDER SCAN 07/10/2013 11:43 AM EDT CYSTO,RETROGRADE,URETEROPY ELOGRAPHY Routine 07/09/2013 8:28 AM EDT CYSTO, RETROGRADE, URETEROPYELOGRAPHY (WRVU 2.37) 07/09/2013 7:48 AM EDT right ureteral stone CYSTO, STENT PLACEMENT (WRVU 2.82) 07/09/2013 7:48 AM EDT right ureteral stone URINE CULTURE STAT 07/08/2013 8:40 PM EDT URINALYSIS WITH REFLEX CULTURE STAT 07/08/2013 8:39 PM EDT CYSTO, STENT PLACEMENT Routine 3 7:57 PM EDT DIFFERENTIAL, AUTOMATED STAT 07/08/20 13 7:40 PM EDT CREATININE Routine 07/08/2013 7:40 PM EDT PROTHROMBIN TIME STAT 07/08/2013 7:40 PM EDT CBC (WITH DIFF) STAT 07/08/2013 7:40 PM EDT BUN STAT 07/08/2013 7:40 PM EDT GLUCOSE STAT 07/08/2013 7:40 PM EDT ELECTROLYTES PANEL STAT 07/08/2013 7: 40 PM EDT documented in this encounter Results * SCAN DOC: ARMATURE AND ROTOR WINDER (07/10/2013 11:43 AM EDT) Anatomical Region Laterality Modality Other Narrative 07/10/2013 1:10 PM EDT Procedure Note Provider, Scanning - 07/10/2013 11:43 AM EDT Scanning Provider MEDIA MGR SCAN EXT O RDR/RSLT * Urine culture Clean Catch Urine (07/08/2013 8:40 PM EDT) Urine Culture ? Patient Name: VANESSA HONEYCUTT JR Ordered By: CHRIS MOJICA ? MR#: [id number] ?LOC: ??4WST ? /Sex: ??1960 (53 years), ? Male ? PROCEDURE: Urine Culture ?SOURCE: U CC ? COLLECTED: 07/08/2013 20:40 ? STARTED: 07/08/2013 21:12 ? FINAL REPORT ? Final Report ? Verified:06/26 15:15 ? No growth (Less than 1,000 cfu/ml). ? __ [facility]ER MILLENNIUM Urine specimen obtained by clean catch procedure (specimen) 07/08/2013 8:40 PM EDT 07/08/2013 9:12 PM EDT Narrative Resulting Agency Comment Spec In Lab Chris Mojica MD MICROBIOLOGY - GENER AL ORDERABLES [facility] MILLENNI[facility] * (ABNORMAL) Urinalysis with microscopic (07/08/2013 8:39 PM EDT) Glucose, Urine Dipstick Negative Negative mg/dL [facility] MILLENNIUM Protein, Urine Dipstick Trace(A) Neg mg/dL [facility] MILLENNI[facility] Bilirubin, Urine Dipstick Negative Negative mg/dL [facility] MILLENNI[facility] Urobilinogen, Urine Dipstick Normal mg/dL [facility]ER MILLENNIUM pH, Urn (dipstick) 6.0 5.0 - 8.0 [facility] MILLENNIUM Blood, Urine Dipstick Large(A) Neg [facility] MILLENNIUM Ketone, Urine Dipstick Negative mg/dL [facility] MILLENNIUM Nitrite, Urine Dipstick Negative [facility] MILLENNIUM Leukocytes, Urine Dipstick Trace(A) Neg [facility] MILLENNIUM Appearance, Urine Dipstick Clear Clear CERNER MILLENNIUM Specific [place] Urine Automated 1.008 1.002 - 1.030 CERNER MILLENNIUM Color, Urine Dipstick Yellow Yellow [facility]ERNER MILLENNIUM RBC, Urine 33(H) 0 - 3 /HPF [facility] MILLENNIUM WBC, Urine 4(H) 0 - 3 /HPF [facility] MILLENNIUM Bacteria, Urine Rare(A) None /HPF [facility] MILLENNIUM Urine specimen (specimen) 07/08/2013 8:39 PM EDT 07/08/2013 8:55 PM EDT Narrative Resulting Agency Comment Spec In Lab Chris Mojica MD URINE ORDERABLES [facility]ILLENNI[facility] * (ABNORMAL) Differential, Automated (07/08/2013 7:40 PM EDT) Neutrophil % 62.8 34.0 - 71.0 % [facility] MILLENNIUM Neutrophil Absolute 2.98 1.50 - 6.30 x10(3)/mc L [facility] MILLENNIUM Lymph % 17.9(L) 19.0 - 53.0 % [facility]ERN[facility] MILLENNIUM Lymphocytes Abs 0.8(L) 1.0 - 3.6 x10(3)/mc L [facility]ERN[facility] MILLENNIUM Monocyte % 16.0(H) 4.0 - 13.0 % CERNER MILLENNIUM Monocyte Abs 0.8 0.2 - 1.0 x10(3)/mc L [facility]ERNER MILLENNIUM Eos % 2.5 0.0 - 7.0 % CERNER MILLENNIUM Eosinophils Abs 0.1 0.0 - 0.5 x10(3)/mc L CERNER MILLENNIUM Basophil % 0.6 0.0 - 2.0 % CERNER MILLENNIUM Baso Absolute 0.0 0.0 - 0.2 x10(3)/mc L [facility]ERN[facility] MILLENNIUM Immature Gran % 0.20 0.00 - 0.66 % [facility]ERN[facility] MILLENNIUM Comment: Immature granulocytes(IG's)percentage and absolute count will include metamyelocytes, myelocytes, and promyelocytes. Blood smears from CBCs yielding IG's will be scanned manually for concordance. If this scan disagrees with the automated IG or if promyelocytes are noted, a manual differential will be performed. Immature Gran Absolute 0.01 0.00 - 0.05 x10(3)/mc L CERNER MILLENNIUM Blood specimen (specimen) 07/08/2013 7:40 PM EDT 07/08/2013 7:41 PM EDT Chris Mojica MD HEMATOLOGY ORDERABLE S [facility] * (ABNORMAL) Prothrombin Time (07/08/2013 7:40 PM EDT) Prothrombin Time 24.4(H) 12.0 - 15.0 sec [facility] MILLENNIUM Comment: [facility] Transfusion Committee Guidelines: INR less than 2.0, PTT less than OR equal to 43.5 seconds, or Fibrinogen greater than or equal to 100 mg/dl indicate adequate procoagulant activity for hemostasis in patients without underlying bleeding disorders. International Normalization Ratio 2.1(H) 0.9 - 1.1 [facility] MILLENNIUM Blood specimen (specimen) 07/08/2013 7:40 PM EDT 07/08/2013 7:41 PM EDT Narrative Resulting Agency Comment Spec In Lab Chris Mojica MD HEMATOLOGY ORDERABLE S Performing Organization Address [facility] de Phone Number [facility] * Glucose, random (07/08/2013 7:40 PM EDT) Glucose 143 60 - 199 mg/dL [facility] Comment:Diabetes: >=200 mg/d L plus symptoms Blood specimen (specimen) 07/08/2013 7:40 PM EDT 07/08/2013 7:41 PM EDT Narrative Resulting Agency Comment Spec In Lab Chris Mojica MD CHEMISTRY ORDERABLES Performing Organization Address [facility] Phone Number [facility] * Creatinine (07/08/2013 7:40 PM EDT) Creatinine 1.08 0.80 - 1.50 mg/dL [facility] Comment: Please note that the pediatric reference intervals supplied above were not validated at [facility]. Results from pediatric patients should be interpreted in conjunction to the patient's age, height and muscle mass. Est Glomerular Filtration Rate >60 >=60 [facility] MILL[facility]NIUM Comment: This estimated GFR (eGFR) value [...] internet browser. http://www.nkdep.nih.gov/lab-evaluation.shtml http://www.kidney.org/professionals/ Blood specimen (specimen) 07/08/2013 7:40 PM EDT 07/08/2013 7:41 PM EDT Narrative Resulting Agency Comment Spec In Lab Chris Mojica MD CHEMISTRY ORDERABLES CERNER MILLENNIUM * BUN (07/08/2013 7:40 PM EDT) Blood Urea Nitrogen 10 10 - 20 mg/dL CERNER MILLENNIUM Blood specimen (specimen) 07/08/2013 7:40 PM EDT 07/08/2013 7:41 PM EDT Narrative Resulting Agency Comment Spec In Lab Chris Mojica MD CHEMISTRY ORDERABLES CERNER MILLENNIUM * (ABNORMAL) CBC (with Diff) (07/08/2013 7:40 PM EDT) White Blood Cell 4.8 4.0 - 10.0 x10(3)/mc L CERNER MILLENNIUM Red Blood Cell 4.23(L) 4.63 - 6.08 x10(6)/mc L CERNER MILLENNIUM Hemoglobin 14.2 13.7 - 17.5 gm/dL CERNER MILLENNIUM Hematocrit 40.8 40.0 - 51.0 % CERNER MILLENNIUM Mean Cell Volume 96.5(H) 79.0 - 92.0 fL CERNER MILLENNIUM Mean Cell Hemoglobin 33.6(H) 25.6 - 32.2 pg CERNER MILLENNIUM Mean Cell Hemoglobin Concentration 34.8 32.0 - 36.5 gm/dL CERNER MILLENNIUM Platelet 115(L) 145 - 370 x10(3)/mc L CERNER MILLENNIUM RDW Standard Deviation 44.1 35.0 - 46.0 fL CERNER MILLENNIUM RDW coefficient of variation 12.6 10.9 - 14.4 % CERNER MILLENNIUM Mean Platelet Volume 11.8 9.0 - 12.0 fL CERNER MILLENNIUM Blood specimen (specimen) 07/08/2013 7:40 PM EDT 07/08/2013 7:41 PM EDT Narrative Resulting Agency Comment Spec In Lab Chris Mojica MD HEMATOLOGY ORDERABLE S Performing Organization Address [facility] de Phone Number EULOGIO MAGANAIUM * Electrolytes panel (07/08/2013 7:40 PM EDT) Sodium 137 135 - 145 mmol/L CERNER MILLENNIUM Potassium 4.0 3.5 - 5.0 mmol/L CERNER MILLENNIUM Comment: Please note: ??Patients with WBC >100,000 may have falsely elevated Potassium levels. ??For accurate Potassium quantification in these patients send serum separator tube (gold top) for subsequent determinations. ??Contact the Clinical Chemistry Laboratory if there are any questions. Chloride 102 98 - 107 mmol/L CERNER MILLENNIUM Carbon Dioxide 26 22 - 31 mmol/L CERNER MILLENNIUM Anion Gap 9 5 - 15 mmol/L CERNER MILLENNIUM Blood specimen (specimen) 07/08/2013 7:40 PM EDT 07/08/2013 7:41 PM EDT Narrative Resulting Agency Comment Spec In Lab Chris Mojica MD CHEMISTRY ORDERABLES Performing Organization Address [facility] de Phone Number EULOGIO FULTON documented in this encounter Visit Diagnoses Diagnosis Kidney stone Calculus of kidney documented in this encounter Administered Medications Inactive Administered Medications - up to 3 most recent administrations Medication Order MAR Action Action Date Dose Rate Site ampicillin-sulbactam (UNASYN) 1.5 g vial attach to sodium chloride 0.9% 50 mL Mini-Bag Plus 1.5 g, Intravenous, EVERY 6 HOURS SCHEDULED, First dose on 07/09/13 at 0000, Until Discontinued, Administer over 30 Minutes, Recovery (Recovery-Hospital Unit), Indication for (Active or Suspected): Prophylaxis Given 07/09/2013 6:00 AM EDT 1.5 g 100 mL/ hr Given 07/09/2013 12:00 AM EDT 1.5 g 100 mL/hr buPROPion (WELLBUTRIN XL) XL tablet 150 mg 150 mg, Oral, DAILY, First dose on 07/09/13 at 0900, Until Discontinued, Recovery (Recovery-Hospital Unit) Given 07/09/2013 10:27 AM EDT 150 mg hydrochlorothiazide (HYDRODIURIL) tablet 25 mg 25 mg, Oral, DAILY, First dose on 07/09/13 at 0900, Until Discontinued, Recovery (Recovery-Hospital Unit), Routine Given 07/09/2013 10:26 AM EDT 25 mg HYDROmorphone (DILAUDID) 1 mg/mL NUCLEAR CARDIOLOGY TECHNOLOGIST 30 mL Intravenous, NUCLEAR CARDIOLOGY TECHNOLOGIST ONLY, Starting on Thu07/08/13 at 2330, Until 07/09/13 at 1508, Recovery (Recovery-Hospital Unit) Restarted 07/09/2013 9:00 AM EDT New Syringe/Cartridge 07/08/2013 11:30 PM EDT HYDROmorphone (DILAUDID) injection 0.2-0.5 mg 0.2-0.5 mg, Intravenous, EVERY 4 HOURS PRN, Starting on Thu07/08/13 at 1639, Until 07/09/13 at 1508, Pain, STAT Given 07/08/2013 7:35 PM EDT 0.5 mg HYDROmorphone (DILAUDID) injection 0.5 mg 0.5 mg, Intravenous, ONCE, 1 dose, On Thu07/08/13 at 2145, STAT Given 07/08/2013 9:45 PM EDT 0.5 mg HYDROmorphone (DILAUDID) injection 1 mg 1 mg, Intravenous, ONCE, 1 dose, On Thu07/08/13 at 2100, STAT Given 07/08/2013 9:00 PM EDT 1 mg lactated ringers infusion 1,000 mL 1,000 mL, at 100 mL/hr, Intravenous, CONTINUOUS, Starting on Thu07/08/13 at 2330, Until 07/09/13 at 1508, Recovery (Recovery-Hospital Unit) Restarted 07/09/2013 9:00 AM EDT 1,000 mLs 100 mL /hr New Bag 07/09/2013 8:00 AM EDT mL New Bag 07/08/2013 11:30 PM EDT 1,000 mLs 100 mL/hr metoprolol succinate (TOPROL-XL) XL tablet 50 mg 50 mg, Oral, DAILY, First dose on 07/09/13 at 0900, Until Discontinued, Recovery (Recovery-Hospital Unit), Routine Given 07/09/2013 10:26 AM EDT 50 mg OXYcodone (ROXICODONE) immediate release tablet 5-10 mg 5-10 mg, Oral, ONCE, 1 dose, On 07/09/13 at 1215, Routine Given 07/09/2013 12:11 PM EDT 5 mg NUCLEAR CARDIOLOGY TECHNOLOGIST castillo Intravenous, CONTINUOUS, Starting on Thu07/08/13 at 2330, Until 07/09/13 at 1508, Needed for nurse NUCLEAR CARDIOLOGY TECHNOLOGIST pump access., Recovery (Recovery-Hospital Unit) New Bag 07/08/2013 11:30 PM EDT sodium chloride 0.9 % flush 5 mL 5 mL, Intravenous, EVERY 12 HOURS, First dose on Thu07/08/13 at 1700, Until Discontinued, Routine Given 07/09/2013 5:00 AM EDT 5 mLs sodium chloride 0.9 % flush 5 mL 5 mL, Intravenous, EVERY 12 HOURS, First dose on Thu07/08/13 at 2330, Until Discontinued, Recovery (Recovery-Hospital Unit) Given 07/09/2013 11:30 AM EDT 5 mLs Given 07/08/2013 11:30 PM EDT 5 mLs warfarin (COUMADIN) tablet 0.5 mg 0.5 mg, Oral, EVERY EVENING, First dose on Thu07/08/13 at 2330, Until Discontinued, Recovery (Recovery-Hospital Unit), Routine Given 07/08/2013 11:30 PM E DT 0.5 mg documented in this encounter Active and Recently Administered Medications Times are shown in EDT. Scheduled Medication Order 07/07/2013 07/08/2013 07/09/2013 ampicillin-sulbactam (UNASYN) 1.5 g vial attach to sodium chloride 0.9% 50 mL Mini-Bag Plus (CANCELED) 1.5 g, Intravenous, EVERY 6 HOURS SCHEDULED, First dose on 07/09/13 at 0000, Until Discontinued, Administer over 30 Minutes, Recovery (Recovery-Hospital Unit), Indication for (Active or Suspected): Prophylaxis 0000 (Given - Provid er: Anna See RN)0600 (Given - Provider: Anna See RN)1200 (Not Given - Provider: Aurora Raman RN - Reason: Patient/family refused - Comment: Discharge) buPROPion (WELLBUTRIN XL) XL tablet 150 mg (CANCELED) 150 mg, Oral, DAILY, First dose on 07/09/13 at 0900, Until Discontinued, Recovery (Recovery-Hospital Unit) 1027 (Given - Provid er: Aurora Raman RN - Comment: Pt in OR) hydrochlorothiazide (HYDRODIURIL) tablet 25 mg (CANCELED) 25 mg, Oral, DAILY, First dose on 07/09/13 at 0900, Until Discontinued, Recovery (Recovery-Hospital Unit), Routine 1026 (Given - Provid er: Aurora Raman RN - Comment: Pt in OR) HYDROmorphone (DILAUDID) injection 0.5 mg (COMPLETED) 0.5 mg, Intravenous, ONCE, 1 dose, On Thu07/08/13 at 2145, STAT 2145 (Given - Provider: Rosey Hernadez RN) HYDROmorphone (DILAUDID) injection 1 mg (COMPLETED) 1 mg, Intravenous, ONCE, 1 dose, On Thu07/08/13 at 2100, STAT 2100 (Given - Provider: Rosey Hernadez RN) metoprolol succinate (TOPROL-XL) XL tablet 50 mg (CANCELED) 50 mg, Oral, DAILY, First dose on 07/09/13 at 0900, Until Discontinued, Recovery (Recovery-Hospital Unit), Routine 1026 (Given - Provid er: Aurora Raman RN - Comment: Pt in OR) OXYcodone (ROXICODONE) immediate release tablet 5-10 mg (COMPLETED) 5-10 mg, Oral, ONCE, 1 dose, On 07/09/13 at 1215, Routine 1211 (Given - Provid er: Aurora Raman RN) sodium chloride 0.9 % flush 5 mL (CANCELED) 5 mL, Intravenous, EVERY 12 HOURS, First dose on Thu07/08/13 at 1700, Until Discontinued, Routine 1700 (Not Given - Provider: Anna See RN - Reason: See comment - Comment: patient in ED) 0500 (Given - Provider: Anna See RN)0802 (DEC Hold - Provider: Admin Adt - Reason: Transfer to a Procedural area)1008 (DEC Unhold - Provider: Admin Adt) sodium chloride 0.9 % flush 5 mL (CANCELED) 5 mL, Intravenous, EVERY 12 HOURS, First dose on Thu07/08/13 at 2330, Until Discontinued, Recovery (Recovery-Hospital Unit) 2330 (Given - Provider: Zuleima Livingston RN) 1130 (Given - Provider: Aurora Raman RN) warfarin (COUMADIN) tablet 0.5 mg (CANCELED) 0.5 mg, Oral, EVERY EVENING, First dose on Thu07/08/13 at 2330, Until Discontinued, Recovery (Recovery-Hospital Unit), Routine 2330 (Given - Provider: Anna See RN) Continuous Medication Order 07/07/2013 07/08/2013 07/09/2013 HYDROmorphone (DILAUDID) 1 mg/mL NUCLEAR CARDIOLOGY TECHNOLOGIST 30 mL (CANCELED) Intravenous, NUCLEAR CARDIOLOGY TECHNOLOGIST ONLY, Starting on Thu07/08/13 at 2330, Until 07/09/13 at 1508, Recovery (Recovery-Hospital Unit) 2330 (New Syringe/Cartridge - Provider: Anna See RN) 0900 (Restarted - Provider: Juliane Alonzo, RN) lactated ringers infusion 1,000 mL (CANCELED) 1,000 mL, at 100 mL/hr, Intravenous, CONTINUOUS, Starting on Thu07/08/13 at 2330, Until 07/09/13 at 1508, Recovery (Recovery-Hospital Unit) 2330 (New Bag - Provider: Zuleima Livingston RN) 0800 (New Bag - Provider: Sharla Martin)0824 (Anesthesia Volume Adjustment - Provider: Sharla Martin)0900 (Restarted - Provider: Juliane Alonzo, RN) NUCLEAR CARDIOLOGY TECHNOLOGIST castillo (CANCELED) Intravenous, CONTINUOUS, Starting on Thu07/08/13 at 2330, Until 07/09/13 at 1508, Needed for nurse NUCLEAR CARDIOLOGY TECHNOLOGIST pump access., Recovery (Recovery-Hospital Unit) 2330 (New Bag - Provider: Anna See, TANG) PRN Medication Order 07/07/2013 07/08/2013 07/09/2013 HYDROmorphone (DILAUDID) injection 0.2-0.5 mg (CANCELED) 0.2-0.5 mg, Intravenous, EVERY 4 HOURS PRN, Starting on 07/08/13 at 1639, Until 07/09/13 at 1508, Pain, STAT 1935 (Given - Provider: Rosey Hernadez, TANG) 0802 (DEC Hold - Provider: Admin Adt - Reason: Transfer to a Procedural area)1008 (DEC Unhold - Provider: Admin Adt) iohexol (OMNIPAQUE) injection (CANCELED) ONCE PRN, Starting on 07/09/13 at 0844, Until 07/09/13 at 0933, Per Protocol, Intra-Operative (Intra-Procedure), Routine 0844 (Given - Provid er: Sophia Edmonds MD) documented in this encounter Care Teams Sock Mender Relationship Specialty Start Date End Date Nena Sauceda MD [address] [place] [id number] PCP - General 06/09/12 07/25/20 documented as of this encounter
--- OUTSIDE RECORDS SUMMARY | 2024-11-23 08:27 | XMS_ITS | Encounter Summary ---
Author Organization [facility] Address [facility] [place] [address] Care Team Providers Care Lump Room Supervisor Name Role Phone Jose M Sauceda MD Primary Care Provider [phone] Encounter Details Date Type Department Care Team (Latest Contact Info) Description 07/13/2012 2:13 PM EDT - 07/13/2012 4:51 PM EDT Hospital En[place] [id number] Velma Rodas MD [facility] [place] [address] Gila Melendez MD Discharge Disposition: Home Social History Tobacco Use Types Packs/Day Years Used Date Smoking Tobacco: Every Day Cigarettes Alcohol Use Standard Drinks/Week Comments No 0 (1 standard drink = 0.6 oz pur e alcohol) Sex and Gender Information Value Date Recorded Sex Assigned at Not on file Gender Identity Not on file Sexual Orientation Not on file documented as of this encounter Last Filed Vital Signs Vital Sign Reading Time Taken Comments Blood Pressure 104/70 07/13/2012 3:58 PM EDT Pulse 70 07/13/2012 3:58 PM EDT Temperature 36.6 ??C (97.9 ??F) 07/13/2012 2:57 PM ED T Respiratory Rate 13 07/13/2012 3:58 PM EDT Oxygen Saturation 96% 07/13/2012 3:58 PM EDT Inhaled Oxygen Concentration - - Weight - - Height - - Body Mass Index - - documented in this encounter Discharge Instructions * Patient Instructions* Gila Melendez MD - 07/13/2012 3:32 PM EDT Please see Recommendations in the Provation procedure report which is documented in the procedural note in [facility]. * Attachments The following attachments cannot be sent through Care Everywhere. * UPPER GI ENDOSCOPY: WHAT TO EXPECT AT HOME ([employer] [place]) documented in this encounter Medications at Time of Discharge Medication Sig Dispensed Refills Start Date End Date metoprolol succinate (TOPROL-XL) 50 mg 24 hr tablet Take 50 mg by mouth daily. hydrochlorothiazide (HYDRODIURIL) 25 mg tabletIndications:hype rtension Take 25 mg by mouth daily. Indications: Hypertension nitroGLYcerin (NITROSTAT) 0.4 mg SL tablet 0.4 MG = 1 Tablet(s), Sublingual, PRN 03/02/2008 sertraline (ZOLOFT) 50 mg tablet Take 50 mg by mouth daily. 06/22/2013 documented as of this encounter H&P Notes * Gila Melendez MD - 07/13/2012 3:23 PM EDT Gastroenterology and Hepatology Pre-Procedure History and Physical Exam Procedure: EGD: Indication: screening for esophageal varices Patient Active Problem List Diagnoses Code ??? CAD (coronary artery disease), [place] coronary artery 414.01D ??? Tobacco abuse disorder 305.1BT ??? Hepatitis C 070.70A ??? Hypertension 401.9AJ EXAM: HEENT: Airway examined, oropharynx clear LUNGS: Clear to auscultation HEART: Regular rate and rhythm, normal S1, S2 ABDOMEN: Normal bowel sounds, soft, non tender, non distended, A/P Proceed with the planned endoscopic procedure. Risks and benefits of the procedure explained to the patient. Consent signed. documented in this encounter Miscellaneous Notes * Miscellaneous - Provider, Alexus - 07/14/2012 4:06 AM EDT * OR Attestation - Gila Melendez MD - 07/13/2012 3:32 PM EDT Attestation: Case Date: 07/13/2012 I performed this procedure without the involvement of a resident. GILA MELENDEZ MD 07/13/2012 * Miscellaneous - Provider, Scanning - 07/13/2012 2:29 PM EDT documented in this encounter Plan of Treatment Not on file documented as of this encounter Procedures Procedure Name Priority Date/Time Associated Diagnosis Comments UPPER GI ENDOSCOPY 07/13/2012 3: 20 PM EDT Hepatitis C UPPER GI ENDOSCOPY Routine 07/13/2012 3: 18 PM EDT documented in this encounter Results * UPPER GI ENDOSCOPY (07/13/2012 3:18 PM EDT) UPPER GI ENDOSCOPY [facility] Endoscopy Patient Name: Seferino Honeycutt ? Procedure Date: 07/13/2012 3:18 PM ? Date of : 1960 ? Age: 52 ? Order #: [id number] ? Procedure: ? Upper GI endoscopy Indications: ? Cirrhosis rule out esophageal varices Providers: ? Gila Melendez MD, Stephenie Harris, ? RN, Courtney Bai, Tube Operator Referring MD: ?Jose M Sauceda MD, Hardik Fernández MD, ? Velma Rodas MD Medicines: ? Midazolam 3 mg IV, Fentanyl 150 ? micrograms IV, Benzocaine spray Complications: ? No immediate complications. Procedure: ? Pre-Anesthesia Assessment: ? - ASA Grade Assessment: II - A ? patient with mild systemic disease. ? - Mental Status Examination: alert ? and oriented. ? - Airway Examination: normal ? oropharyngeal airway and neck ? mobility. ? - Respiratory Examination: clear to ? auscultation. ? - CV Examination: normal. ? The procedure, indications, benefits, ? risks and alternatives were explained ? to the patient. Specifically ? discussed were potential ? complications including, but not ? limited to, bleeding, perforation, ? infection, missing a cancer, and ? adverse medication reactions. The New ? Lease 2012 was introduced through the ? mouth, and advanced to the second ? part of duodenum. The patient ? tolerated the procedure well. The ? upper GI endoscopy was accomplished ? without difficulty. The patient ? tolerated the procedure well. ? Findings: ? The esophagus was normal. There were no esophageal ? varices. ? There was a considerable amount of retained food and ? secretions in the stomach. ? There were no gastric varices. ? The pylorus was widely patent. (no evidence of ? gastric outlet obstruction) ? The duodenum to the second portion was normal. ? Impression: ?- Normal esophagus. No esophageal or ? gastric varices. ? -Retained food in stomach (will ? question him about last meal). If he ? has been NPO, then consider ? possibility of gastroparesis. Recommendation: ?- Return to GI clinic. ? ___ Gila Melendez MD 07/13/2012 3:37 PM ? Number of Addenda: 0 Note Initiated On: 07/13/2012 3:18 PM PROVATION 07/13/2012 3:18 PM EDT Jose M Sauceda MD GENERAL SURGICAL ORD ERABLES PROVATION documented in this encounter Visit Diagnoses Not on filedocumented in this encounter Active and Recently Administered Medications Times are shown in EDT. PRN Medication Order 07/11/2012 07/12/2012 07/13/2012 benzocaine (HURRICANE) 20 % oral spray (CANCELED) ONCE PRN, Pain, Starting on Thu07/13/12 at 1524, Until Thu07/13/12 at 1851, For Procedural use. [place] on area for one second. May repeat if necessary. Do not exceed a spray duration of 2 seconds., Intra-Operative (Intra-Procedure) 1524 (Given - Provid er: Stephenie Harris RN) fentaNYL 50mcg/mL injection (CANCELED) ONCE PRN, Starting on Thu07/13/12 at 1524, Until Thu07/13/12 at 1851, Pain, Intra-Operative (Intra-Procedure), Routine 1524 (Given - Provid er: Stephenie Harris RN - Comment: start of sedation)1525 (Given - Provider: Stephenie Harris RN - Comment: meds for sedation)1528 (Given - Provider: Stephenie Harris RN - Comment: meds for sedation) midazolam (VERSED) injection (CANCELED) ONCE PRN, Starting on Thu07/13/12 at 1524, Until Thu07/13/12 at 1851, Sleep, Intra-Operative (Intra-Procedure), Routine 1524 (Given - Provid er: Stephenie Harris RN - Comment: start of sedation)1525 (Given - Provider: Stephenie Harris RN - Comment: meds for sedation)1528 (Given - Provider: Stephenie Harris RN - Comment: meds for sedation) documented in this encounter Care Teams Lump Room Supervisor Relationship Specialty Start Date End Date Jose M Sauceda MD [address] [place] [id number] PCP - General 06/09/12 07/25/20 documented as of this encounter
--- OUTSIDE RECORDS SUMMARY | 2024-11-23 08:27 | XMS_ITS | Encounter Summary ---
Author Organization [facility] Address [facility] [place] [address] Care Team Providers Care Fondant Puff Maker Name Role Phone Jose M Sauceda MD Primary Care Provider [phone] Encounter Details Date Type Department Care Team (Late st Contact Info) Description 06/16/2013 Orders [place] [address] Daniel Romero MD [facility] [place] [address] Social History Tobacco Use Types Packs/Day Years [...] Associated Diagnosis Comments FILM LIBRARY STORAGE ONLY CT ABDOMEN AND PELVIS Routine 06/16/2013 12:22 AM EDT documented in this encounter Results * Film Library- Storage only CT abdomen & pelvis (06/16/2013 12:22 AM EDT) 06/16/2013 12:2 2 AM EDT Narrative RAD - 05/09/2014 10:37 AM EDT This is a non-reportable exam. Procedure Note Michael Moffett - 05/09/2014 This is a non-reportable exam. Daniel Romero MD [facility] [place]M LIBRARY ORD ERABLES RAD [address] [place] [address] documented in this encounter Visit Diagnoses Not on filedocumented in this encounter Care Teams Fondant Puff Maker Relationship Specialty Start Date End Date Jsoe M Sauceda MD [address] [place] [id number] PCP - General 06/09/12 07/25/20 documented as of this encounter
--- OUTSIDE RECORDS SUMMARY | 2024-11-23 08:27 | XMS_ITS | Encounter Summary ---
[place] [address] Care Team Providers Care Addiction Treatment Counselor Name Role Phone Jose M Sauceda MD Primary Care Provider [phone] Encounter Details Date Type Department Care Team (Late st Contact Info) Description 07/13/2012 3:30 PM EDT - 07/13/2012 4:00 PM EDT [place] [id number] Gila Melendez MD UPPER GI ENDOSCOPY Social History Tobacco Use Types Packs/Day Years [...] GI ENDOSCOPY: WHAT TO EXPECT AT HOME ([place]) documented in this encounter Medications at Time [...] Diagnoses Code ??? CAD (coronary artery disease), [place] coronary artery 414.01D ??? Tobacco abuse disorder [...] Notes * Miscellaneous - Provider, Scanning - 07/14/2012 4:06 AM EDT * OR [...] (07/13/2012 3:18 PM EDT) UPPER GI ENDOSCOPY [facility] Endoscopy Patient Name: Seferino Honeycutt ? Procedure Date: 07/13/2012 3:18 PM ? N: [id number] ? Date of : 1960 ? Age: 52 ? Order #: [id number] ? Procedure: ? Upper GI endoscopy Indications: ? Cirrhosis rule out esophageal varices Providers: ? Gila Melendez MD, Stephenie Harris, ? RN, Courtney Bai, Technologies Division Chair Referring MD: ?Jose M Sauceda MD, Hardik [...] documented in this encounter Visit Diagnoses Diagnosis Hepatitis C Unspecified viral hepatitis C without hepatic coma documented in this encounter Administered Medications Inactive Administered Medications - up to 3 most recent administrations Medication Order MAR Action Action Date Dose Rate Site benzocaine (HURRICANE) 20 % oral spray ONCE PRN, Pain, Starting on 07/13/12 at 1524, Until 07/13/12 at 1851, For Procedural use. [place] on area for one second. May repeat if necessary. Do not exceed a spray duration of 2 seconds., Intra-Operative (Intra-Procedure) Given 07/13/2012 3:24 PM EDT 2 mLs fentaNYL 50mcg/mL injection ONCE PRN, Starting on e 07/13/12 at 1524, Until 07/13/12 at 1851, Pain, Intra-Operative (Intra-Procedure), Routine Given 07/13/2012 3:28 PM EDT 50 mcg Given 07/13/2012 3:25 PM EDT 50 mcg Given 07/13/2012 3:24 PM EDT 50 mcg midazolam (VERSED) injection ONCE PRN, Starting on 07/13/12 at 1524, Until 07/13/12 at 1851, Sleep, Intra-Operative (Intra-Procedure), Routine Given 07/13/2012 3:28 PM EDT 1 mg Given 07/13/2012 3:25 PM EDT 1 mg Given 07/13/2012 3:24 PM EDT 1 mg documented in this encounter Active and Recently Administered Medications Times are shown in EDT. PRN Medication Order 07/11/2012 07/12/2012 07/13/2012 benzocaine (HURRICANE) 20 % oral spray (CANCELED) ONCE PRN, Pain, Starting on 07/13/12 at 1524, Until 07/13/12 at 1851, For Procedural use. [place] on area for one second. May repeat if necessary. Do not exceed a spray duration of 2 seconds., Intra-Operative (Intra-Procedure) 1524 (Given - Provid er: Stephenie Harris RN) fentaNYL 50mcg/mL injection (CANCELED) ONCE PRN, Starting on 07/13/12 at 1524, Until 07/13/12 at 1851, Pain, Intra-Operative (Intra-Procedure), Routine 1524 [...] sedation) documented in this encounter Care Teams Addiction Treatment Counselor Relationship Specialty Start Date End Date Jose M Sauceda MD [address] [place] [id number] PCP - General 06/09/12 07/25/20 documented as of this encounter
--- OUTSIDE RECORDS SUMMARY | 2024-11-23 08:27 | XMS_ITS | Encounter Summary ---
Author Organization [facility] [place] [address] Care Team Providers Care Polymer Specialist Name Role Phone Nena Sauceda MD Primary Care Provider Reason for Visit * Reason Comments Kidney Stone Encounter Details Date Type Department Care Team (Late st Contact Info) Description 07/09/2013 8:00 AM EDT - 07/09/2013 9:10 AM EDT Surgery [place] [phone] Sophia Edmonds MD CYSTO, STENT PLACEMENT (WRVU 2.82) Social History Tobacco Use Types Packs/Day Years [...] Sign Reading Time Taken Comments Blood Pressure 121/66 07/09/2013 9:00 AM EDT Pulse 80 07/09/2013 9:00 AM EDT Temperature 36.1 ??C (97 ??F) 07/09/2013 8:50 AM EDT Respiratory Rate 19 07/09/2013 9:00 AM EDT Oxygen Saturation 100% 07/09/2013 9:00 AM EDT Inhaled Oxygen Concentration - - [...] side pain, you should call our office [phone] before 5PM or [phone] after hours. Wound Care: None needed Activity: As tolerated by your comfort level. Urination: You will likely have a small amount of blood in your urine while the stent is in place. This is normal; however, if you are passing large amounts of blood clots, bright red blood or are bleeding an unable to urinate please call our office at [phone] 5PM or [phone] after hours. Call Doctor for: Please call if you have copious blood in your urine, severe back or side pain, pain not controlled by pain medications, persistent nausea and vomiting, or for any fevers greater rujv722.3 F. The number for questions is [phone] before 5 PM weekdays and [phone] after 5 PM and weekends. Pain Medication: No driving for 8 hours after any dose of opioid pain medication if one was prescribed for you. You may use ibuprofen (motrin, advil) in addition to this medication if your pain is not totally controlled by the opioid. Follow-up: Please call [phone] (clinic number for appointments) to confirm date [...] y.o. year old male referred from the [facility] for work up of urolithiasis Patient was recently discharged from [facility] having been diagnosed with meseneric ischemia. He thought his stone pain was related to his dull constant pain of mesenteric ischemia and finally presented to [facility] with a week of worsening right flank [...] documented in this encounter Procedure Notes * Shelby, Scanning - 07/10/2013 11:43 AM EDTAssociated Order(s): SCAN DOC: RUG CUTTER HELPER documented in this encounter ED Notes * Chris Mojica MD - 07/08/2013 7:46 PM EDT Emergency Department Vanessa Honeycutt Jr. is a 53 y.o. male who presents to [facility] with ureterolithiasis. History of Present Illness / [...] Diagnosis Code ??? CAD (coronary artery disease), [place] coronary artery 414.01 ??? Tobacco abuse disorder [...] y.o. year old male referred from the [facility] ED for work up of urolithiasis Patient was recently discharged from [facility] having been diagnosed with meseneric ischemia. He thought his stone pain was related to his dull constant pain of mesenteric ischemia and finally presented to [facility] with a week of worsening right flank [...] 07/19/2013 1:40 PM Sophia Edmonds MD Urology [phone] [facility] Instructions Given to Patient at Discharge: [...] side pain, you should call our office [phone] before 5PM or [phone] after hours. Wound Care: None needed Activity: As tolerated by your comfort level. Urination: You will likely have a small amount of blood in your urine while the stent is in place. This is normal; however, if you are passing large amounts of blood clots, bright red blood or are bleeding an unable to urinate please call our office at [phone] 5PM or [phone] after hours. Call Doctor for: Please call if you have copious blood in your urine, severe back or side pain, pain not controlled by pain medications, persistent nausea and vomiting, or for any fevers greater savs858.3 F. The number for questions is [phone] before 5 PM weekdays and [phone] after 5 PM and weekends. Pain Medication: No driving for 8 hours after any dose of opioid pain medication if one was prescribed for you. You may use ibuprofen (motrin, advil) in addition to this medication if your pain is not totally controlled by the opioid. Follow-up: Please call [phone] (clinic number for appointments) to confirm date and time of your appointment if you do not receive your apointment in 1 week. General Instructions None Signed: MICHAEL DAVID MD 07/09/2013 Primary [place] Physician: NENA SAUCEDA MD #[address] [place] [address] * OR Attestation - Sophia Edmonds MD - 07/09/2013 9:26 AM EDT Attestation: Case Date: 07/09/2013 I was present and I participated during the entire procedure (does not need to include opening and closing). SOPHIA EDMONDS MD 07/09/2013 * Op Note - Michael David MD - 07/09/2013 8:41 AM EDT [facility] Operative Note Patient Name: Vanessa Honeycutt : [id number] MR#: [id number] Case Date: 07/09/2013 Surgeon: Surgeon(s) and Role: * Sophia Edmonds MD - Primary * Michael David MD - Resident-Surgeon Chief Preoperative diagnosis: right ureteral stone Postoperative diagnosis: right ureteral stone Procedure(s): CYSTO, RIGHT STENT PLACEMENT CYSTO, RETROGRADE, URETEROPYELOGRAPHY Anesthesia: Consult Findings: tight fitting [id number] stent, UOs orthotopic Complications: none Fluids: 200cc Estimated Blood Loss: none Drains: 5Up39ks right ureteral stent Disposition: awakened from anesthesia, extubated and taken to the recovery room in a stable condition, having suffered no apparent untoward event. Condition: doing well without problems HPI/Surgical Indications: *Vanessa Honeycutt Jr. is a 53 y.o. year old male referred from the [facility] ED for work up of urolithiasis Patient was recently discharged from [facility] having been diagnosed with meseneric ischemia. He thought his stone pain was related to his dull constant pain of mesenteric ischemia and finally presented to [facility] with a week of worsening right flank [...] sterile fashion. After an adequate time-out, a 22-Djiboutian cystoscope was then gently passed through the patient's urethra and into the patient's bladder. his bladder was then emptied. A visual inspection of the bladder revealed no bladder lesions or suspicious areas. A 5-Djiboutian Elgin was then easily passed into the ureteral orfice and contrast was injected filling up the ureter and collecting system. The Elgin was then advanced up into the renal pelvis. A guidewire was then passed up through the Elgin and into the renal pelvis. The Elgin was then removed. A 6-Djiboutian 26cm l ureteral stent was then passed [...] Note Patient Name: Vanessa Honeycutt Jr. : [id number] MR#: [id number] Case Date: 07/09/2013 Surgeon: Surgeon(s) and Role: * Sophia Edmonds MD - Primary * Michael David MD - Resident-Surgeon Chief Preoperative diagnosis: right ureteral stent Postoperative diagnosis: * No post-op diagnosis entered * Procedure(s): CYSTO, STENT PLACEMENT CYSTO, RETROGRADE, URETEROPYELOGRAPHY Anesthesia: Consult Findings: tight fitting [id number] stent, UOs orthotopic Complications: none Fluids: 200cc Estimated Blood Loss: none Drains: 5Im40nr right ureteral stent Disposition: awakened from anesthesia, [...] .C/O 4/10 flank pain, started on Hydromorphone TRUCK STRIKER and antibiotic.Will continue to monitor. * Miscellaneous [...] had increase in pain. Seen again at [facility] and diagnosed as kidney stone. Today was called by [facility] who stated that he had an infection [...] Procedure Name Priority Date/Time Associated Diagnosis Comments RUG CUTTER HELPER SCAN 07/10/2013 11:43 AM EDT CYSTO,RETROGRADE,URETEROPY ELOGRAPHY [...] in this encounter Results * SCAN DOC: RUG CUTTER HELPER (07/10/2013 11:43 AM EDT) Anatomical Region Laterality Modality Other Narrative 07/10/2013 1:10 PM EDT Procedure Note Provider, Scanning - 07/10/2013 11:43 AM EDT Scanning Provider MEDIA MGR SCAN EXT O RDR/RSLT * Urine culture Clean Catch Urine (07/08/2013 8:40 PM EDT) Urine Culture ? Patient Name: VANESSA HONEYCUTT JR Ordered By: CHRIS MOJICA ? MR#: [id number] ?LOC: ??4WST ? /Sex: ??1960 (53 years), [...] Urine Dipstick Clear Clear CERNER [facility] Specific [facility] Urine Automated 1.008 1.002 - 1.030 CERNER [...] EDT Chris Mojica MD HEMATOLOGY ORDERABLE S [facility] * (ABNORMAL) Prothrombin Time (07/08/2013 7:40 PM EDT) Prothrombin Time 24.4(H) 12.0 - 15.0 sec [facility] MILLENNIUM Comment: [facility] Transfusion Committee Guidelines: INR less than 2.0, PTT less than OR equal to 43.5 seconds, or Fibrinogen greater than or equal to 100 mg/dl indicate adequate procoagulant activity for hemostasis in patients without underlying bleeding disorders. International Normalization Ratio 2.1(H) 0.9 - 1.1 [facility] Blood specimen (specimen) 07/08/2013 7:40 PM EDT 07/08/2013 7:41 PM EDT Narrative Resulting Agency Comment Spec In Lab Chris Mojica MD HEMATOLOGY ORDERABLE S Performing Organization Address [facility] de Phone Number [facility] * Glucose, random (07/08/2013 7:40 PM EDT) Glucose 143 60 - 199 mg/dL [facility] Comment:Diabetes: >=200 mg/d L plus symptoms Blood specimen (specimen) 07/08/2013 7:40 PM EDT 07/08/2013 7:41 PM EDT Narrative Resulting Agency Comment Spec In Lab Chris Mojica MD CHEMISTRY ORDERABLES Performing Organization Address [facility] de Phone Number [facility] * Creatinine (07/08/2013 7:40 PM EDT) Creatinine 1.08 0.80 - 1.50 mg/dL [facility] Comment: Please note that the pediatric reference intervals supplied above were not validated at [facility]. Results from pediatric patients should be interpreted in conjunction to the patient's age, height and muscle mass. Est Glomerular Filtration Rate >60 >=60 [facility] MILLENNIUM Comment: This estimated GFR (eGFR) value [...] MILLENNIUM * BUN (07/08/2013 7:40 PM EDT) Pathologist [facility] Blood Urea Nitrogen 10 10 - 20 [...] MD HEMATOLOGY ORDERABLE S Performing Organization Address [facility] de Phone Number EULOGIO FULTON * Electrolytes panel (07/08/2013 7:40 PM EDT) [...] Mojica MD CHEMISTRY ORDERABLES Performing Organization Address [facility] de Phone Number EULOGIO FULTON documented [...] EDT 25 mg HYDROmorphone (DILAUDID) 1 mg/mL TRUCK STRIKER 30 mL Intravenous, TRUCK STRIKER ONLY, Starting on Thu07/08/13 at 2330, Until [...] Given 07/08/2013 9:00 PM EDT 1 mg iohexol (OMNIPAQUE) injection ONCE PRN, Starting on Thu07/09/13 at 0844, Until 07/09/13 at 0933, Per Protocol, Intra-Operative (Intra-Procedure), Routine Given 07/09/2013 8:44 AM EDT 50 mLs lactated ringers infusion 1,000 mL 1,000 mL, [...] Given 07/09/2013 12:11 PM EDT 5 mg TRUCK STRIKER castillo Intravenous, CONTINUOUS, Starting on Thu07/08/13 at 2330, Until 07/09/13 at 1508, Needed for nurse TRUCK STRIKER pump access., Recovery (Recovery-Hospital Unit) New Bag [...] See RN)1200 (Not Given - Provider: Aurora Rmaan RN - Reason: Patient/family refused - Comment: [...] 0500 (Given - Provider: Anna See RN)0802 (MAR Hold - Provider: Admin Adt - Reason: Transfer to a Procedural area)1008 (MAR Unhold - Provider: Admin Adt) sodium chloride [...] 07/07/2013 07/08/2013 07/09/2013 HYDROmorphone (DILAUDID) 1 mg/mL TRUCK STRIKER 30 mL (CANCELED) Intravenous, TRUCK STRIKER ONLY, Starting on Thu07/08/13 at 2330, Until 07/09/13 at 1508, Recovery (Recovery-Hospital Unit) 2330 (New Syringe/Cartridge - Provider: Anna See RN) 0900 (Restarted - Provider: Juliane Alonzo, TANG) lactated ringers infusion 1,000 mL (CANCELED) 1,000 mL, at 100 mL/hr, Intravenous, CONTINUOUS, Starting on Thu07/08/13 at 2330, Until 07/09/13 at 1508, Recovery (Recovery-Hospital Unit) 2330 (New Bag - Provider: Zuleima Livingston RN) 0800 (New Bag - Provider: Sharla Martin)0824 (Anesthesia Volume Adjustment - Provider: Sharla M Masaracchia)0900 (Restarted - Provider: Juliane Alonzo, TANG) TRUCK STRIKER castillo (CANCELED) Intravenous, CONTINUOUS, Starting on 07/08/13 at 2330, Until 07/09/13 at 1508, Needed for nurse TRUCK STRIKER pump access., Recovery (Recovery-Hospital Unit) 2330 (New Bag - Provider: Anna See, RN) PRN Medication Order 07/07/2013 07/08/2013 07/09/2013 HYDROmorphone (DILAUDID) injection 0.2-0.5 mg (CANCELED) 0.2-0.5 mg, Intravenous, EVERY 4 HOURS PRN, Starting on 07/08/13 at 1639, Until 07/09/13 at 1508, Pain, STAT 1935 (Given - Provider: Rosey Hernadez, TANG) 0802 (DEC Hold - Provider: Admin Adt - Reason: Transfer to a Procedural area)1008 (MAR Unhold - Provider: Admin Adt) iohexol (OMNIPAQUE) injection (CANCELED) ONCE PRN, Starting on 07/09/13 at 0844, Until 07/09/13 at 0933, Per Protocol, Intra-Operative (Intra-Procedure), Routine 0844 (Given - Provid er: Sophia Edmonds MD) documented in this encounter Care Teams Polymer Specialist Relationship Specialty Start Date End Date Nena Sauceda MD [address] [place] [id number] PCP - General 06/09/12 07/25/20 documented as of this encounter
--- OUTSIDE RECORDS SUMMARY | 2024-11-23 08:27 | XMS_ITS | Encounter Summary ---
Author Organization [facility] Address [facility] [place] [address] Care Team Providers Care Physical Education Aide Name Role Phone Jose M Sauceda MD Primary Care Provider [phone] Encounter Details Date Type Department Care Team (Late st Contact Info) Description 07/06/2013 Orders Only [place] [address] Bianca Pedraza MD [facility] [place] [address] Social History Tobacco Use Types Packs/Day Years [...] STORAGE ONLY CT ABDOMEN AND PELVIS Routine 07/06/2013 5:26 PM EDT documented in this encounter Results * Film Library- Storage only CT abdomen & pelvis (07/06/2013 5:26 PM EDT) 07/06/2013 5:26 PM EDT Narrative RAD - 05/09/2014 10:37 AM EDT This is a non-reportable exam. Procedure Note Michael Moffett - 05/09/2014 This is a non-reportable exam. Bianca Pedraza MD IMG FILM LIBRARY OR DERABLES RAD [address] [facility] [place] [address] documented in this encounter Visit Diagnoses Not on filedocumented in this encounter Care Teams Physical Education Aide Relationship Specialty Start Date End Date Jose M Sauceda MD [address] [place] [id number] PCP - General 06/09/12 07/25/20 documented as of this encounter
--- OUTSIDE RECORDS SUMMARY | 2024-11-23 08:27 | XMS_ITS | Encounter Summary ---
[place] [address] Care Team Providers Care Music Therapy Teacher Name Role Phone Jose M Sauceda MD Primary Care Provider [phone] Encounter Details Date Type Department Care Team (Late st Contact Info) Description 07/20/2012 Abstract [place] [address] Yara Bynum, ECONOMICS PROFESSOR Social History Tobacco Use Types Packs/Day Years [...] on filedocumented in this encounter Care Teams Music Therapy Teacher Relationship Specialty Start Date End Date Jose M Sauceda MD [address] [place] [id number] PCP - General 06/09/12 07/25/20 documented as of this encounter
--- OUTSIDE RECORDS SUMMARY | 2024-11-23 08:27 | XMS_ITS | Encounter Summary ---
Author Organization [facility] Address [facility] [place] [address] Care Team Providers Care Station Usher Name Role Phone Jose M Sauceda MD Primary Care Provider [phone] Encounter Details Date Type Department Care Team (Late st Contact Info) Description 06/16/2013 Orders [place] [address] Daniel Romero MD [facility] [place] [address] Social History Tobacco Use Types Packs/Day Years [...] Associated Diagnosis Comments FILM LIBRARY STORAGE ONLY DX CHEST Routine 06/16/2013 12:21 AM EDT documented in this encounter Results * Film Library- Storage only DX Chest (06/16/2013 12:21 AM EDT) 06/16/2013 12:2 1 AM EDT Narrative RAD - 05/09/2014 10:37 AM EDT This is a non-reportable exam. Procedure Note Michael Moffett - 05/09/2014 This is a non-reportable exam. Daniel Romero MD IMG FILM LIBRARY ORD ERABLES RAD [address] [facility] [place] [address] documented in this encounter Visit Diagnoses Not on filedocumented in this encounter Care Teams Station Usher Relationship Specialty Start Date End Date Jose M Sauceda MD [address] [place] [address] PCP - General 06/09/12 07/25/20 documented as of this encounter
--- OUTSIDE RECORDS SUMMARY | 2024-11-23 08:27 | XMS_ITS | Encounter Summary ---
[place] [address] Care Team Providers Care Clinical Trial Assistant Name Role Phone Jose M Sauceda MD Primary Care Provider Encounter Details Date Type Department Care Team ([facility] st Contact Info) Description 05/28/2012 Orders [place] [address] Domingo Junior MD Social History Tobacco Use Types Packs/Day Years Used Date Smoking Tobacco: Never Assessed Sex and Gender Information Value Date Recorded Sex Assigned at Not on file Gender Identity Not on file Sexual Orientation Not on file documented as of this encounter Plan of Treatment Not on file documented as of this encounter Procedures Procedure Name Priority Date/Time Associated Diagnosis Comments FILM LIBRARY STORAGE ONLY MR SPINE Routine 05/28/2012 12:30 PM EDT documented in this encounter Results * FILM LIBRARY- STORAGE ONLY MR SPINE (05/28/2012 12:30 PM EDT) 05/28/2012 12:3 0 PM EDT Narrative RAD - 05/09/2014 10:16 AM EDT This is a non-reportable exam. Procedure Note Michael Moffett - 05/09/2014 This is a non-reportable exam. Domingo Junior MD IMG FILM LIBRARY ORD ERABLES [facility] [address] [facility] [place] [address] documented in this encounter Visit Diagnoses Not on filedocumented in this encounter Care Teams Clinical Trial Assistant Relationship Specialty Start Date End Date Jose M Sauceda MD [address] [place] [id number] PCP - General 06/09/12 07/25/20 documented as of this encounter
--- OUTSIDE RECORDS SUMMARY | 2024-11-23 08:27 | XMS_ITS | Encounter Summary ---
Author Organization [facility] Address [facility] [place] [address] Care Team Providers Care Industrial Spray Painter Name Role Phone Kaushik Gloria MASTERSON Primary Care Provider [phone] Reason for Visit * Reason Comments GI Problem Encounter Details Date Type Department Care Team (Late st Contact Info) Description 06/08/2012 10:00 AM EDT Office [place] [address] Michael Fernández MD [facility] [place] [address] Hepatitis C (Primary Dx) Discharge Disposition: Home Social History Tobacco Use Types Packs/Day Years Used Date Smoking Tobacco: Every Day Sex and Gender Information Value Date Recorded Sex Assigned at Not on file Gender Identity Not on file Sexual Orientation Not on file documented as of this encounter Last Filed Vital Signs Vital Sign Reading Time Taken Comments Blood Pressure 138/80 06/08/2012 10:08 AM EDT Pulse 67 06/08/2012 10:08 AM EDT Temperature - - Respiratory Rate - - Oxygen Saturation - - Inhaled Oxygen Concentration - - Weight 107.5 kg (237 lb) 06/08/2012 10:08 AM EDT Height - - Body Mass Index - - documented in this encounter Progress Notes * Velma Rodas MD - 06/10/2012 1:02 PM EDT I have seen and examined the patient with Dr. Fernández and agree with his note from today. * Michael Fernández - 06/08/2012 10:55 AM EDT Gastroenterology and Hepatology Outpatient Consultation Consult requested by: Gloria Faulkner Consultation for: Hepatitis C History of Present Illness: Seferino Honeycutt Jr. is a 52 y.o. male with hepatitis C (reportedly genotype 1A). He was diagnosed in 2000 by routine blood work done [facility] in [facility]. He has never received treatment. He believes he acquired the virus through IV drug use. He has never been tested for hepatitis C. He was recently released from [facility] and was referred to our clinic by his PCP to establish a treatment plan. He has a history of alcohol abuse but has not had a drink since 2004. No IV drug use since 2006. Denies any history of vandana encephalopathy or ascites. Denies jaundice. He has chronic lower extremityedema which is controlled with lasix. Has had no black or bloody stool. He had an EGD about two years ago for work-up for anemia and was told he had a healing ulcer. Review of Systems: General: no fevers or chills, has lost 15 pound since release from [place] [facility] department Cardiovascular: no chest pain, some LE edema, controlled with Lasix Respiratory: no shortness of breath Gastrointestinal: no nausea, vomiting, no black or bloody stools Musculoskeletal: no joint pains Integumentary: no jaundice Hematological: notes some easy bruising Neuro: some difficulty sleeping All others negative Current Medications: Lasix 20 mg daily Lisinopril 5 mg He also takes a pill for anxiety but is unsure what it is No Known Allergies Past Medical History: CAD with history of TX and stent in 2007 Chronic back pain HTN Depression Anxiety HLD Social History: Recently released from [facility] Not-working, currently applying for disability Health insurance through [place] state Lives with his brother No alcohol since 2005 No cocaine or other IV drug use since 2006 Smokes one half pack of cigarettes per day Family History: Brother with hepatitis C Father from alcoholic cirrhosis Physical Examination: Blood pressure 138/80, pulse 67, weight 107.502 kg (237 lb). General: NAD HEENT: MMM, anicteric CV: RRR Resp: CTA bilaterally Abd: soft, non-tender, non-distended, normo-active bowel sounds, no appreciable hepatosplenomegaly Rectal: deferred Ext: No lower ext edema Neuro: awake, alert, oriented Skin: scattered blanchable chest wall telangiectasias, no palmar erythema, no gynecomastia Labs reviewed, significant for Hb 15 Platelets 77 Albumin 3.4 T bili 0.7 Alk phos 113 ALT 112 AST 88 BMP normal with creatine 0.6 HCV viral load Assessment and Plan: Mr Honeycutt in 52 year old man with hepatitis C. His lab work is highly suggestive of cirrhosis (thromobcytopenia and hypoalbuminemia). He has no signs of clinical decompensation at this point. He has no appreciable ascites or encephalopathy. He has no known varices although we do not have a report of his EGD from about two years ago. Given his cirrhosis, he is at increased risk for hepatocellular c arcinoma (HCC) and needs to be screened with serial imaging and AFP. He has never received treatment for hepatitis C and may be a good candidate. His social situation in not ideal however. He was counseled on the need for social support should he undergo treatment. Wetalked a bit about the long and often difficult treatment course. He is somewhat familiar with thisas his brother has previously gone through treatment. We will discuss more treatment specifics at his follow-up appointment. 1. Check the following blood work - hepatitis C genotype for confirmation - INR - HIV testing - Serology for hepatitis A and B to establish immune status - AFP 2. Schedule RUQ u/s for HCC screen 3. Schedule upper endoscopy to screen for varices 4. Return to clinic in 3-4 months The patient was seen with and the plan of care discussed with Dr. Rodas. Michael Fernández MD Gastroenterology and Hepatology Fellow documented in this encounter Plan of Treatment Not on file documented as of this encounter Procedures Procedure Name Priority Date/Time Associated Diagnosis Comments HCV GENOTYPE Routine 06/08/2012 11:32 AM EDT Hepatitis C HEPATITIS A ANTIBODY, TOTAL Routine 06/08/2012 11:32 AM EDT Hepatitis C HEPATITIS B CORE ANTIBODY, TOTAL Routine 06/08/2012 11:32 AM EDT Hepatitis C HEPATITIS C GENOTYPE Routine 06/08/2012 11:32 AM EDT Hepatitis C HIV SCREEN, 4TH GENERATION [place] [place]PE RFORMABLE Routine 06/08/2012 11:32 AM EDT Hepatitis C HEPATITIS B SURFACE ANTIBODY Routine 06/08/2012 11:32 AM EDT Hepatitis C HEPATITIS B SURFACE ANTIGEN Routine 06/08/2012 11:32 AM EDT Hepatitis C PROTHROMBIN TIME Routine 06/08/2012 11:3 2 AM EDT Hepatitis C UPPER GI ENDOSCOPY Routine 06/08/2012 10 :55 AM EDT Hepatitis C documented in this encounter Results * HCV GENOTYPE (06/08/2012 11:32 AM EDT) HCV Genotype Indication for study Hepatitis C Infection Result 1a Interpretation The result of this analysis has identified the presence of ??genotype 1a in the submitted specimen. Genotypes 1a and 1b are the most common genotypes in the [place] and are generally associated with a poor response to treatment with interferon and ribavirin. Genotypes 2 and 3 are typically associated with a more favorable response. Analysis A reverse transcriptase-PC R line probe assay (LiPA) was performed on extracted viral RNA for the purpose of identifying the HCV genotype. Method [employer]edo HCV Genotype LiPA. Random primers are used in a reverse transcriptase reaction to create cDNA that is generated from viral RNA. The cDNA is then amplified by PCR using biotinylated primers directed against the 5'-untranslated region of the HCV genome. Amplified products are hybridized to genotype specific probes and detected in a colorimetric reaction. Genotype classifications will be reported as 1a, 1b, 1, 2a/2c, 2b, 2, 3a, 3b, 3c, 3, 4a, 4b, 4c/4d, 4e, 4f, 4h, 5a, or 6a. EUL[facility] Fanzter Comment: [VERIFIED DATE]06.16.12 Verified By:Carolynn White (Electronic Signature) Blood specimen (specimen) 06/08/2012 11:32 AM EDT 06/14/2012 12:29 PM EDT Narrative Resulting Agency Comment Spec In Lab Velma Rodas MD HEMATOLOGY ORDERABLE S [facility] * Hepatitis B Surface Antigen (06/08/2012 11:32 AM EDT) Hepatitis B Surface Antigen Negative Negative [facility] Blood specimen (specimen) 06/08/2012 11:32 AM EDT 06/08/2012 11:44 AM EDT Narrative Resulting Agency Comment Spec In Lab Velma Rodas MD CHEMISTRY ORDERABLES Performing Organization Address [facility] Co de Phone Number EULOG[facility] * Hepatitis B Surface Antibody (06/08/2012 11:32 AM EDT) Hepatitis B Surface Antibody Positive [facility] Comment: Expected Results: Vaccinated: Positive Unvaccinated: Negative Please note: A positive result for this assay is consistent with a concentration of anti-HBs antibodies >10mIU/ml, which indicates that anti-HBs antibodies have been detected at levels consistent with protective immunity against HBV infection. Blood specimen (specimen) 06/08/2012 11:32 AM EDT 06/08/2012 11:44 AM EDT Narrative Resulting Agency Comment Spec In Lab Velma Rodas MD CHEMISTRY ORDERABLES Performing Organization Address [facility] de Phone Number [facility] * (ABNORMAL) Hepatitis B Core Antibody, Total (06/08/2012 11:32 AM EDT) Hepatitis B Core Antibody Positive(A ) Negative [facility] FULTON Blood specimen (specimen) 06/08/2012 11:32 AM EDT 06/08/2012 11:44 AM EDT Narrative Resulting Agency Comment Spec In Lab Velma Rodas MD CHEMISTRY ORDERABLES Performing Organization Address [facility] Co de Phone Number [facility] * (ABNORMAL) Hepatitis A Antibody, Total (06/08/2012 11:32 AM EDT) Hepatitis A ANTIBODY, TOTAL Positive(A ) Negative [facility]OG[facility] FULTON Blood specimen (specimen) 06/08/2012 11:32 AM EDT 06/08/2012 11:44 AM EDT Narrative Resulting Agency Comment Spec In Lab Velma Rodas MD CHEMISTRY ORDERABLES Performing Organization Address [facility] de Phone Number UELOGIO FULTON * Prothrombin Time (06/08/2012 11:32 AM EDT) Prothrombin Time 14.3 11.9 - 14.7 sec EULOG[facility] FULTON Comment: [facility] Transfusion Committee Guidelines: INR less than 2.0, PTT less than OR equal to 43.5 seconds, or Fibrinogen greater than or equal to 100 mg/dl indicate adequate procoagulant activity for hemostasis in patients without underlying bleeding disorders. International Normalization Ratio 1.1 0.9 - 1.1 EULOGIO FULTON Blood specimen (specimen) 06/08/2012 11:32 AM EDT 06/08/2012 11:44 AM EDT Narrative Resulting Agency Comment Spec In Lab Velma Rodas MD HEMATOLOGY ORDERABLE S Performing Organization Address [facility] de Phone Number EULOGIO FULTON * HIV (06/08/2012 11:32 AM EDT) HIV 1/2 Ab Negative [facility] FULTON Blood specimen (specimen) 06/08/2012 11:32 AM EDT 06/08/2012 11:44 AM EDT Narrative Resulting Agency Comment Spec In Lab Velma Rodas MD CHEMISTRY ORDERABLES Performing Organization Address [facility] de Phone Number EULOGIO FULTON documented in this encounter Visit Diagnoses Diagnosis Hepatitis C- Primary Unspecified viral hepatitis C without hepatic coma documented in this encounter Care Teams Industrial Spray Painter Relationship Specialty Start Date End Date Gloria Faulkner PA [address] [place] [id number] PCP - General 03/16/12 06/08/12 documented as of this encounter
--- OUTSIDE RECORDS SUMMARY | 2024-11-23 08:27 | XMS_ITS | Encounter Summary ---
Author Organization [facility] Address [facility] [place] [address] Care Team Providers Care Pharmaceutical Analyst Name Role Phone Jose M Sauceda MD Primary Care Provider [phone] Encounter Details Date Type Department Care Team (Late st Contact Info) Description 07/09/2013 8:00 AM EDT Anesthesia Event [place] [address] Khadar Hong MD Van Hoff, Sophia, MD [facility] DR [place] [address] Anesthesia Record Procedure Summary Procedure Name Responsible Anesthesiologist Anesthesia Start Time Anesthesia Stop Time CYSTO, STENT PLACEMENT (WRVU 2.82) (Right: Bladder) Khadar Hong MD 07/09/13 0800 07/09/13 0857 Events Date Time Event Comment 07/09/2013 0727 0800 AN Verify 0800 Start 0800 An Start Data 0804 An Induction 0807 An Intubation 0809 Anesthesia Ready 0847 Extubation/LMA Out 0847 an stop data 0857 Stop Meds Name Total Midazolam 1 mg fentaNYL 75 mcg propofol 200 mg succinylcholine 160 mg lactated ringers infusion 1,000 mL 0 mL * Agents Name O2 Air Sevoflurane (et) Desflurane (et) * Blood No blood administrations on file. Lines, Drains, and Airways Type Details Placement Removal (RETIRED) Peripheral IV Line - Single Lumen 07/08/13; 1928; 08/08/14; 180707/08/131928 by Rosey Hernadez RN 08/08/141807 by Deshawn Heredia, RN (RETIRED) Non-Surgical Airway ETT Type: Cuffed, Oral; ETT Size: 7.5 mm; Removal Date: 07/09/13; Removal Time: 0847 07/09/13 0823 by 07/09/13 0847 by Sharla Martin MD documented in this encounter Social History [...] OR Notes * Anesthesia Postprocedure Evaluation - Sharla Martin - 07/09/2013 8:56 AM EDT Patient: Seferino Honeycutt Jr. Procedure(s) Performed: Procedure(s): CYSTO, STENT PLACEMENT CYSTO, RETROGRADE, URETEROPYELOGRAPHY Actual Anesthetic: general Patient location: PACU Post-op pain: Adequate analgesia Post-op nausea: no nausea or vomiting Last Vitals: Filed Vitals: 07/09/13 0731 BP: 150/86 Pulse: 59 Temp: 36.5 ??C (97.7 ??F) Resp: 16 Post-op cardiovascular and respiratory status: is stable Level of consciousness: awake, alert and oriented Complications: no apparent complications and tolerated the procedure well Fluid Status: normal * Anesthesia Preprocedure Evaluation - Khadar Hong MD - 07/09/2013 6:28 AM EDT Images from the original note were not included. Pre-Anesthesia Evaluation for: Seferino Honeycutt Jr. a 53 y.o. male. Procedure(s): CYSTO, STENT PLACEMENT Patient Active Problem List Diagnosis ??? Spinal stenosis, lumbar region, without neurogenic claudication ??? Chronic Mechanical low back pain ??? CAD (coronary artery disease), [place] coronary artery ACS with PCI to RCA in two locations, September 2007. ??? Tobacco abuse disorder ??? Hepatitis C ??? Hypertension Past Medical History Diagnosis Date ??? Depression ??? Cataract ??? Chronic low back pain ??? H/O acute myocardial infarction ??? High blood pressure Past Surgical History Procedure Date ??? Upper gi endoscopy, exam 07/13/2012 UPPER GI ENDOSCOPY performed by GILA MELENDEZ at [facility] END[facility]COPY ??? Eye surgery ??? Cataract removal ??? Coronary angioplasty with stent placement History Substance Use Topics ??? Smoking status: Current Every Day Smoker -- 0.5 packs/day Types: Cigarettes ??? Smokeless tobacco: Never Used Comment: avs information ??? Alcohol Use: No History Drug Use No Known Allergies Medications: MAR and/or home medications have been reviewed. Physical Exam: There were no vitals filed for this visit. There is no height or weight on file to calculate BMI. Airway Assessment: Mallampati: II TM distance: >3 FB Neck ROM: full Cardiovascular Assessment: cardiovascular exam normal Pulmonary Assessment: pulmonary exam normal Dental Assessment: - normal exam Misc Assessment: Patient is wearing No contact(s). IV access: Peripheral line Anesthesia Plan: ASA 3 general, with a(n) intravenous induction This is a 53 y/o M smoker with Hep C, CAD (ACS in 2006 s/p PCI x2 to RCA, most recent echo 2007 - preserved EF, no signs of ischemia), recent mesenteric ischemia on coumadin (INR 2.1 on 07/08) HTN, spinal stenosis; presenting with flank pain- found to have right distal ureteral stone, scheduled for cysto with stent placement. NKDA, Wt - 114kg NPO status - - Anesthesia plan: GA with LMA, ETT back up. I discussed the risks of GA with the patient. These include but are not limited to nerve damage from positioning, sore throat, dental damage, cardiopulmonary complications, nausea, vomiting, allergicreactions, and pain. Region - Other Informed Consent: Anesthetic plan and risks discussed with patient. Plan discussed with attending. [facility] [place] Assessment: documented in this encounter Plan of Treatment Not on file documented as of this encounter Visit Diagnoses Not on filedocumented in this encounter Administered Medications Inactive Administered Medications - up to 3 most recent administrations Medication Order MAR Action Action Date Dose Rate Site fentaNYL 50mcg/mL injection PRN, Starting on 07/09/13 at 0804, Until 07/09/13 at 0857, Pain, Anesthesia Intra-op, Routine Given 07/09/2013 8:04 AM EDT 75 mcg lactated ringers infusion 1,000 mL 1,000 mL, at 100 mL/hr, Intravenous, CONTINUOUS, Starting on Thu07/08/13 at 2330, Until 07/09/13 at 1508, Recovery (Recovery-Hospital Unit) Restarted 07/09/2013 9:00 AM EDT 1,000 mLs 100 mL /hr New Bag 07/09/2013 8:00 AM EDT mL New Bag 07/08/2013 11:30 PM EDT 1,000 mLs 100 mL/hr midazolam (VERSED) injection PRN, Starting on 07/09/13 at 0800, Until 07/09/13 at 0857, Sleep, Anesthesia Intra-op, Routine Given 07/09/2013 8:00 AM EDT 1 mg propofol (DIPRIVAN) 10 mg/mL bolus injection (Anesthesia) PRN, Starting on 07/09/13 at 0804, Until 07/09/13 at 0857, Anesthesia Intra-op Given 07/09/2013 8:04 AM EDT 200 mg succinylcholine (ANECTINE) injection PRN, Starting on 07/09/13 at 0804, Until 07/09/13 at 0857, Anesthesia Intra-op, Routine Given 07/09/2013 8:04 AM EDT 160 mg documented in this encounter Care Teams Pharmaceutical Analyst Relationship Specialty Start Date End Date Jose M Sauceda MD [address] [place] [id number] PCP - General 06/09/12 07/25/20 documented as of this encounter
--- OUTSIDE RECORDS SUMMARY | 2024-11-23 08:27 | XMS_ITS | Encounter Summary ---
Author Organization [facility] [place] [address] Care Team Providers Care Egg Factory Worker Name Role Phone Jose M Sauceda MD Primary Care Provider [phone] Reason for Referral * Consultation (Routine) - Complete - Patient Seen (External Appt Consult Notes Rcv'd) Specialty Diagnoses / Procedures Referred By Contac t Referred To Contact Diagnoses Mechanical low back pain [facility] [address] [place] [phone] [facility] [address] [place] [address] Referral ID Status Reason Start Date Expiration Date V isits Requested Visits Authorized [id number] Complete - Patient Seen (External Appt Consult Notes Rcv'd) Other 07/22/2012 01/18/2013 3 3 * Physical Therapy (Routine) - Closed Specialty Diagnoses / Procedures Referred By Contac t Referred To Contact Physical Therapy Diagnoses Mechanical low back pain [facility] [address] [place] [phone] [facility] [place] [address] Referral ID Status Reason Start Date Expiration Date V isits Requested Visits Authorized [id number] Closed Evaluate and Treat 07/22/2012 01/18/2013 12 12 Reason for Visit * Reason Comments Low Back Pain back pain is worse t li neck Right Groin Pain Right Leg Fracture Neck Pain Encounter Details Date Type Department Care Team (Late st Contact Info) Description 07/22/2012 1:50 PM EDT Office [place] [phone] Zbigniew Michel PA Chronic Mechanical low back pain (Primary Dx); Spinal stenosis, lumbar region, without neurogenic claudication Discharge Disposition: Home Social History Tobacco Use Types Packs/Day Years Used Date Smoking Tobacco: Every Day Cigarettes Smokeless Tobacco: Never Tobacco Cessation:Ready to Q uit: No; Counseling Given: Yes Comments:avs information Alcohol Use Standard Drinks/Week Comments No 0 (1 standard drink = 0.6 oz pur e alcohol) Sex and Gender Information Value Date Recorded Sex Assigned at Not on file Gender Identity Not on file Sexual Orientation Not on file documented as of this encounter Patient Instructions * Patient Instructions* JorgeAdriana Dmitriy, AUTOMOBILE CONTRACT CLERK - 07/22/2012 2:25 PM EDT Stopping Smoking: After Your Visit Your Care Instructions Cigarette smokers crave the nicotine in cigarettes. Giving it up is much harder than simply changing a habit. Your body has to stop craving the nicotine. It is hard to quit, but you can do it. There are many tools that people use to quit smoking. You may find that combining tools works best for you. There are several steps to quitting. First you get ready to quit. Then you get support to help you.After that, you learn new skills and behaviors to become a nonsmoker. For many people, a necessary step is getting and using medicine. Your doctor will help you set up the plan that best meets your needs. You may want to attend a smoking cessation program to help you quit smoking. When you choose a program, look for one that has proven success. Ask your doctor for ideas. You will greatly increase your chances of success if you take medicine as well as get counseling or join a cessation program. Some of the changes you feel when you first quit tobacco are uncomfortable. Your body will miss thenicotine at first, and you may feel short-tempered and grumpy. You may have trouble sleeping or concentrating. Medicine can help you deal with these symptoms. You may struggle with changing your smoking habits and rituals. The last step is the tricky one: Be prepared for the smoking urge to continue for a time. This is a lot to deal with, but keep at it. You will feel better. Follow-up care is a castillo part of your treatment and safety. Be sure to make and go to all appointments, and call your doctor if you are having problems. It???s also a good idea to know your test results and keep a list of the medicines you take. How can you care for yourself at home? Ask your family, friends, and coworkers for support. You have a better chance of quitting if you have help and support. Join a support group, such as Nicotine Anonymous, for people who are trying to quit smoking. Consider signing up for a smoking cessation program, such as the [place]'s [place] from Smoking program. Set a quit date. Pick your date carefully so that it is not right in the middle of a big deadline or stressful time. Once you quit, do not even take a puff. Get rid of all ashtrays and lighters afteryour last cigarette. Clean your house and your clothes so that they do not smell of smoke. Learn how to be a nonsmoker. Think about ways you can avoid those things that make you reach for a cigarette. Avoid situations that put you at greatest risk for smoking. For some people, it is hard to have a drink with friends without smoking. For others, they might skip a coffee break with coworkers who smoke. Change your daily routine. Take a different route to work or eat a meal in a different place. Cut down on stress. Calm yourself or release tension by doing an activity you enjoy, such as reading a book, taking a hot bath, or gardening. Talk to your doctor or pharmacist about nicotine replacement therapy, which replaces the nicotine in your body. You still get nicotine but you do not use tobacco. Nicotine replacement products help you slowly reduce the amount of nicotine you need. These products come in several forms, many of themavailable [id number]: Nicotine patches Nicotine gum and lozenges Nicotine inhaler Ask your doctor about bupropion (Wellbutrin) or varenicline (Chantix), which are prescription medicines. They do not contain nicotine. They help you by reducing withdrawal symptoms, such as stress and anxiety. Some people find hypnosis, acupuncture, and massage helpful for ending the smoking habit. Eat a healthy diet and get regular exercise. Having healthy habits will help your body move past its craving for nicotine. Be prepared to keep trying. Most people are not successful the first few times they try to quit. Donot get mad at yourself if you smoke again. Make a list of things you learned and think about when you want to try again, such as next week, next month, or next year. Visit our health information library at [email or web address]. You can alsoview health information on mydala, your personal patient account. Log in or sign up today. Enter Y522 in the search box to learn more about Stopping Smoking: After Your Visit. ?? [id number] [employer]. Care instructions adapted under license by [facility]. This care instruction is for use with your licensed healthcare professional. If you have questions about a medical condition or this instruction, always ask your healthcare professional. [employer] disclaims any warranty or liability for your use of this information. Content Version: 9.1.625777; Last Revised: May 14, 2011 Welcome to [employer], your secure online access to your electronic medical record at [facility]. Using [employer] you will be able to send messages to your providers, view your test results, renew prescriptions, schedule appointments, and much more. Follow these instructions to enter your personal [employer] account for the first time: 1. Start your internet browser and type [email or web address] into the address bar. 2. In the New User box on the right-hand side of the Welcome page click the link that states, ???I have an activation code.?? 3. On the Identification page, follow these steps: a) Enter your [employer] activation code: [email or web address] b) Expires: 09/05/12 02:25 PM IMPORTANT: This Activation Code will on the above mentioned date. If you do not sign up for [employer] by this date, you will need to request another activation code. c) Enter your date of , using the calendar tool provided. d) Enter your Zip code. e) Select ???submit?? to go to the next page. 4. On the Create Account page, follow these steps: a) Create a myD-H username. This can???t be changed, so choose one you won???t forget. b) Create a password that???s at least six characters long, and that contains at least two numbers.Your password can be changed at any time. Confirm your password by entering it once more. c) Enter your email address. This will be used to alert you to new information. Confirm your email address by entering it once more. d) Enter your security question. This will be used if you forget your password. e) Enter your security answer. Confirm your security answer by entering it once more. f) Select ???submit?? to view your electronic medical record. If you have any questions about [employer]H or your Access Code, please call for [place], for [place] or for [place]. If you need technical support, please e-mail [email or web address]. Remember, [employer]-H is NOT for urgent needs! Always dial 911 for medical emergencies. documented in this encounter Progress Notes * Zbigniew Michel PA - 07/22/2012 3:24 PM EDT Chief Complaint: Chief Complaint Patient presents with ??? Low Back Pain back pain is worse than neck ??? Right Groin Pain ??? Right Leg Fracture ??? Neck Pain HPI: This patient is a 52 y.o. male that presents to the spine center for Chronic low back pain. The patient has had chronic low back pain since 2000, which started with just some episodes of back pain. However in 2006 he had an IA and eventually was incarcerated in and from that he indicated having chronic back pain ever since. His pain is located in the midline of the lumbar spine but does refer to both buttock he also can have some groin pain on the right side and some medial thigh pain on the right leg. Occasionally he'll also get is very brief shooting pain in his left leg and his leg will give out. He does feel some numbness in his right foot. His back pain is his predominant pain symptoms and he rates his pain currently is a 5/10 with pain ranging between a 3-10. He states he is worse with lifting and bending and twisting but also has some increased pain laying supine he feels better when he briefly sits down. He does not report any bowel or bladder incontinence. He has not done any treatments for his pain. There is no history of spine surgery or cancer. He does have a history of hepatitis which may prevent some medication management. ROS: Negative for any GI, or constitutional symptoms. Medications & Allergies: Are updated on the system. Problem List: Patient Active Problem List Diagnoses Code ??? CAD (coronary artery disease), [place] coronary artery 414.01D ??? Tobacco abuse disorder 305.1BT ??? Hepatitis C 070.70A ??? Hypertension 401.9AJ Past Medical History Diagnosis Date ??? Depression ??? Cataract ??? Chronic low back pain ??? H/O acute myocardial infarction ??? High blood pressure PSH: Past Surgical History Procedure Date ??? Upper gi endoscopy, exam 07/13/2012 UPPER GI ENDOSCOPY performed by GILA MELENDEZ at [facility] ENDOSCOPY ??? Eye surgery ??? Cataract removal ??? Coronary angioplasty with stent placement Social Hx: History Social History ??? Marital Status: Spouse Name: N/A Number of Children: N/A ??? Years of Education: N/A Occupational History ??? Not on file. Social History Main Topics ??? Smoking status: Current Everyday Smoker -- 0.5 packs/day Types: Cigarettes ??? Smokeless tobacco: Never Used Comment: avs information ??? Alcohol Use: No ??? Drug Use: ??? Sexually Active: Other Topics Concern ??? Not on file Social History Narrative ??? No narrative on file Physical Exam: This patient is a fairly fit and healthy 52-year-old male who is alert and oriented x3 and has a normal affect. He stands with no scoliosis. He ambulates with a mild antalgic gait on the left leg butis able to toe and heel walk. He has tenderness from L4-S1. He flexes his spine fully with his fingers going to his ankles but he does cause back pain and extend about 30 degrees with some back pain but he states it feels better to extend. His sensation is decreased in his right foot and also in the left anterior thigh. His reflexes are 2+ and symmetrical at the knees and ankles. Motor testing is5/5 in all extremities. Straight leg raise was negative. Femoral tension sign was negative with back pain. Hip range of motion was full and pain-free. There is no clonus and negative Babinski. Distalpulses are intact. Imaging: The patient does have an MRI of the lumbar spine which does reveal there does appear to marc transitional segment which I will number as S1. There is degenerative disk desiccation and disk bulging at L3-L4, L4-L5 and L5-S1. I there is severe central canal stenosis at L4-L5 due to broad-based disk bulging and facet hypertrophy. There is also facet hypertrophy at L3-S1. The neural foramen are moderately narrowed primarily at the L5-S1 level but also mildly at L4-L5. I reviewed these images with the patient. Assessment: Chronic mechanical low back pain and episodic left sciatica symptoms and right groin pain of uncertain anatomic origin. He does have spinal stenosis without neurogenic claudication symptoms reported. Plan: I have discussed at length the diagnosis of mechanical low back pain, and the fact that it isoften difficult to know what is the actual pain generator. I have told the patient that most back pain will resolve on it's own from a period of 3 months to 1 year, whether we treat it or not. Occasionally back pain can become chronic. These symptoms are hurtful and not harmful. I have discussed alejandra t the best treatment for low back pain is to stay active with aerobic type activities such as walking, swimming and biking. However, I have also discussed other treatment options, including: Physicaltherapy with a Jorge Luis based approach, NSAIDs, medial branch block/radiofrequency ablation, LESI, functional christian program. I did record the patient that at this current time with his symptomssurgery is not likely to provide any significant improvement as his primary pain complaints low back pain he does not describe neurogenic claudication. However I did review his potential for symptomsdo change and which case and surgery could be an option at a later date. My feeling is that physical therapy would be the best approach for him at this time. If he does not respond the next question would be whether to do an injection such as a medial branch block or refer him to the functional christian program. After our discussion and answering the patients questions, we have come to an aggreement in the below stated plan: 1) I have referred the patient to physical therapy in the [facility], to be treated with a mechanical, Jorge Luis based approach. 2) at this point I will followup with him on an as-needed basis, but he does not seem to respond tophysical therapy, if the patient is interested in an injection I can refer him for this or the functional christian program. 3) I have referred the patient to the [facility] to view the video on chronic low back pain. This dictation was performed using [employer] voice recognition dictation. documented in this encounter Plan of Treatment Scheduled Referrals Name Type Priority Associated Diagnoses Orde r Schedule REFERRAL TO PHYSICAL THERAPY Outpatient Referral Routine Chronic Mechanical low back pain Ordered: 07/22/2012 REFERRAL TO SHARED DECISION PROGRAM Outpatient Referral Routine Chronic Mechanical low back pain Ordered: 07/22/2012 documented as of this encounter Visit Diagnoses Diagnosis Chronic Mechanical low back pain- Primary Lumbago Spinal stenosis, lumbar region, without neurogenic claudication documented in this encounter Care Teams Egg Factory Worker Relationship Specialty Start Date End Date Jose M Sauceda MD [address] [place] [id number] PCP - General 06/09/12 07/25/20 documented as of this encounter
--- OUTSIDE RECORDS SUMMARY | 2024-11-23 08:27 | XMS_ITS | Encounter Summary ---
Author Organization [facility] Address [facility] [place] [address] Care Team Providers Care Drop Crew Laborer Name Role Phone Jose M Sauceda MD Primary Care Provider [phone] Reason for Visit * Reason Comments Follow-up Encounter Details Date Type Department Care Team (Late st Contact Info) Description 06/22/2013 11:00 AM EDT [place] [address] Michael Fernández MD [facility] [place] [address] Cirrhosis (Primary Dx) Discharge Disposition: Home Social History [...] Sign Reading Time Taken Comments Blood Pressure 127/76 06/22/2013 11:02 AM EDT Pulse 66 06/22/2013 11:02 AM EDT Temperature - - Respiratory Rate - - Oxygen Saturation - - Inhaled Oxygen Concentration - - Weight 117.5 kg (259 lb) 06/22/2013 11:02 AM EDT Height 175.3 cm (5' 9) 06/22/2013 11:02 AM EDT Body Mass Index 38.25 06/22/2013 11:02 AM EDT documented in this encounter Progress Notes * Dejuan Young MD - 06/22/2013 3:46 PM EDT GI Staff Case discussed with Dr. Fernández. I agree with his full and thorough evaluation and recommendations. * Michael Fernández - 06/22/2013 11:04 AM EDT Gastroenterology and Hepatology Outpatient Follow-Up Problem list: Chronic hepatitis C, genotype 1A -Diagnosed in 2000 by routine blood work. 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 -Treatment naive Cirrhosis - Based on labs (thrombocytopenia and hypoalbuminemia) and imaging - No history of jaundice, encephalopathy, GI bleed or ascites - Hep A and B immune based on serology - HCC screen: CT 06/16 (not triphasic): no hepatic mass - Variceal screening: EGD 07/07: no varices History of alcohol abuse -last drink 2004 CAD s/p stent 2006 Chronic back pain/spinal stenosis Interval History: I haven't seen Mr Honeycutt for the past year. Apparently he violated parole and ended up serving an additional 8 months in [facility]. He's been out for a couple of months. 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 This thrombus is possibly related to trauma; he slipped on a wet deck a week prior to presentation and struck his left flank with some force. He has no history of prior DVT or P??AN. In review of the CT report, the portal and splenic vein are patent. The mesentery appears congested and edemetous. He started on warfarin at [facility]. Prior to this episode he had been doing pretty well. He denies any stigmata of chronic liver disease such as excessive fatigue, confusion, jaundice, easy bruising or blood in the stool. He gets some ankle edema if he is on his feet for long periods of time. He has gained weight (about 20 lb) over that past year which he attributes to poor eating habits and lack of activity. Physical Exam: Blood pressure 127/76, pulse 66, height 175.3 cm (5' 9), weight 117.482 kg (259 lb). 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 The etiology is not entirely clear although the recent trauma seems to be the most likely precipitant . Given the patency of his splenic and portal vein, the thrombus unlikely to be related to portal hypertension. I think that he is at moderate risk for bleeding complications on warfarin given the significant thrombocytopenia (although he has no varices on EGD last year). I would suggest stopping anticoagulation after 3 months. We had previously discussed anti-viral treatment for hepatitis C. At this point, I would not start interferon based therapy. Non-interferon regimens are due to be approved later this year and treatment can be revisited at that time. -Anticoagulation to be managed by PCP. As stated above, would consider stopping warfarin after 3 months. Could consider hematology consult for 2nd opinion on this - RUQ US in 6 months for HCC screening - Follow up visit in 6 months; can discuss treatment of HCV at that time Michael Fernández MD Gastroenterology and Hepatology Fellow documented in this encounter Plan of Treatment Not on file documented as of this encounter Visit Diagnoses Diagnosis Cirrhosis- Primary Cirrhosis of liver without mention of alcohol documented in this encounter Care Teams Drop Crew Laborer Relationship Specialty Start Date End Date Jose M Sauceda MD [address] [place] [id number] PCP - General 06/09/12 07/25/20 documented as of this encounter
--- NOTE | 2024-11-23 15:01 | PDOC.CMPRO ---
Date of service: 11/23/24 Time of Service: 15:01 Care Management Progress Note Progress Note Text Progress Note Text: KLEVER met with Seferino at MD request to discuss resources in the community, including housing and helping him find a local PCP. Seferino was sitting up on the edge of his bed when CM met with him. He reported that he is unhoused and is being sheltered currently at the [facility] in [place], [place]. He is from [place], [place], and would like to return to that area, where his PCP and family are. CM discussed the option of changing his PCP to one in the [facility], which he declined, as he wants to return to [facility] as soon as possible. He stated that [facility]. He reported difficulty with reading/writing and would benefit from support in the community to help him with housing applications. He would also benefit from support with food resources; he is on a limited income and reported that he often runs out of money for food at the end of the month. CM sent a referral to [facility], as well as [facility] to support him with community case management and coordination of resources in the community. He was agreeable to this plan. He stated that he has been trying to obtain a egg caser in the community, but has left messages and hasn't heard back from anyone. He was pleasant and engaged well in conversation, and appears motivated to return to the [facility]. He has a dog, who was eager to return to this morning. He was medically ready and discharged back to the community. An [facility] transport was coordinated by ED staff; CM sent an authorization to [facility], as he owns his own vehicle. He was happy to be going home. Social Determinants of Health Screening Social Determinants of Health last assessed: 11/23/24 Will the Patient Participate in the Screening?: Yes Do you worry about having a steady place to live?: yes What is your living situation today?: I have housing today, but am worried about losing it Problems where you live: no known problems In the past 12 months, have you had to go without electric, gas, oil or water in your home?: choose not to answer Have you or anyone in your house had to go without enough food to eat?: yes 1. Within the past 12 months, we worried whether our food would run out before we got money to buy more.: Often true 2. Within the past 12 months, the food we bought just didn't last and we didn't have money to get more.: Sometimes true Referred to:: [facility] Has lack of transportation kept you from medical appointments or from doing things needed for daily living?: no Has anyone in your life made you feel unsafe or unsupported?: no How hard is it for you to pay for the very basics like food, housing, medical care, and heating? Would you say it is:: Very hard Do you want help finding or keeping work or a job?: I do not need or want help If for any reason you need help with day-to-day activities such as bathing, preparing meals, shopping, managing finances, etc., do you get the help you need?: I don?t need any help How often do you feel lonely or isolated from those around you?: Sometimes Do you speak a language other than [place] at home?: No Does the patient want assistance with any of the above?: Yes Social Determinants of Health Comments(SDOH Details): CM met with Seferino, see note. Referrals sent to [facility] and [facility]. Health Related Social Needs Health related social needs: housing instability, housed, with risk of homelessness (Z59.811), food insecurity (Z59.41), material hardship(utilities) (Z59.12), problems related to housing/economic circumstances (Z59.89) and feeling lonely/isolated (Z60.8) Health related social needs details: Homeless and staying in hotel that state arranged; no access to transportation; no PCP in area Interventions Referrals and interventions: CM met with pt. Referrals sent to [facility] and [facility]. CM: [facility] and [facility]
== END 2024-11-23 11:19 | disposition home or self-care (01) ==
PROVIDERS: Emergency Provider Emergency Medicine
DX: S70.01XA Contusion of right hip, initial encounter (principal); S00.83XA Contusion of other part of head, initial encounter; S40.011A Contusion of right shoulder, initial encounter; W00.0XXA Fall on same level due to ice and snow, initial encounter; Z59.00 Homelessness unspecified
CPT/HCPCS: 00123; 96374; 99284; 70450; 72125; 73030; 73502; J1885